=== PATIENT | female | born 1950 | race Caucasian/White ===

== ENCOUNTER → 2016-12-11 | Outpatient (CLI) | payer MEDICARE, BC ==
--- NOTE | 2016-12-12 08:28 | US ---
EXAMINATION TYPE: US venous doppler duplex LE DATE OF EXAM: 12/11/2016 2:46 PM COMPARISON: NONE CLINICAL HISTORY: M79.605 pain and swelling left leg. SIDE PERFORMED: Bilateral TECHNIQUE: The lower extremity deep venous system is examined utilizing real time linear array sonog mekhi with graded compression, doppler sonography and color-flow sonography. VESSELS IMAGED: External Iliac Vein (EIV) Common Femoral Vein Deep Femoral Vein Greater Saphenous Vein * Femoral Vein Popliteal Vein Small Saphenous Vein * Proximal Calf Veins (* superficial vessels) Right Leg: Reflux at Popliteal Vein Left Leg: Reflux at Popliteal Vein IMPRESSION: Venous reflux bilateral lower extremities at the popliteal vein level. No ultrasound evid ence for acute DVT in either lower extremity.
--- NOTE | 2016-12-19 10:15 | P.ARTDOP ---
Arterial Doppler LOWER EXTREMITY ARTERIAL DOPPLER: DATE OF SERVICE: 12/11/2016 Reason for study: Left leg pain and ulcer Doppler waveforms: Multiphasic but blunted bilaterally throughout. Pulse volume recording: Normal configuration. Pressure gradients: None. Ankle-brachial indices: Greater than 1 bilaterally. Toe pressures: 116 on the right, 110 on the left Impression: Normal study.
== END | disposition home or self-care (01) ==
LOC: RADUSWWP 13:37
PROVIDERS: ATTEND Surgery
DX: I73.9 Peripheral vascular disease, unspecified (principal); M79.605 Pain in left leg
CPT/HCPCS: 93923; 93970

== ENCOUNTER → 2017-08-07 | Outpatient (CLI) | payer MEDICARE, BC | END | disposition home or self-care (01) | LOC: CANPRECLI → LABWHC1 16:47 | PROVIDERS: ATTEND Thoracic Surgery (Cardiothoracic Vascular Surgery) | DX: Z53.9 Procedure and treatment not carried out, unspecified reason (principal) ==

== ENCOUNTER 2021-11-22 10:42 | Emergency (ER) | payer MEDICARE, BC ==
[2021-11-22] MEDS ORDERED: SODIUM CHLORIDE 0.9% 500 ML 500 ML IV STA (11:45)
--- NOTE | 2021-11-22 13:35 | XR ---
EXAMINATION TYPE: XR chest 2V DATE OF EXAM: 11/22/2021 COMPARISON: NONE TECHNIQUE: PA and lateral views submitted. HISTORY: Neuro deficits FINDINGS: Limited inspiration. Heart size normal. Prominent interstitial centrally. No pleural effusion or pneu mothorax. Surgical clips overlying the right soft tissue neck. IMPRESSION: 1. Limited inspiration may account for the prominent central interstitial markings. Correlate clinica lly to exclude an interstitial pneumonitis.
--- NOTE | 2021-11-22 13:39 | CT ---
EXAMINATION TYPE: CT brain ray rodriguez con DATE OF EXAM: 11/22/2021 COMPARISON: None HISTORY: Increased fatigue, AMS and not eating CT DLP: 1475.[address] of the brain was performed. The ventricles, basal cisterns and sulci overlying the cerebral convexities demonstrate mild enlargem ent. There is no evidence for intracranial hemorrhage or sulcal effacement. There is decreased attenuatio n about the periventricular white matter and deep white matter of both cerebral hemispheres, compatib le with chronic small vessel ischemia. No mass effects are seen. If symptoms persist consider MRI. Osseous calvarium is intact. IMPRESSION: 1. Age related atrophic and chronic small vessel ischemic change without acute intracranial process seen at this time. CT Cervical Spine: Unenhanced CT of the cervical spine was performed with bone and soft tissue window settings submitted . Coronal and sagittal reconstruction is obtained. There is normal alignment and prevertebral soft tissues. No evidence for acute cervical fracture . Scattered degenerative disc disease and spondylosis. Biapical scarring. IMPRESSION: 1. No evidence for acute fracture or subluxation of the cervical spine.
[2021-11-22 13:57] LABS: Anisocytosis Slight; Hypochromasia Marked; MCH 26.5 pg (25.0-35.0); MCHC 26.7 g/dL (31.0-37.0); MCV 99.2 fL (80.0-100.0); Macrocytosis Slight; Mean Platelet Volume 7.3; Platelet Count 633 k/uL (150-450); Poikilocytosis Moderate; RBC 1.14 m/uL (3.80-5.40); RDW 17.6 % (11.5-15.5); WBC 25.9 k/uL (3.8-10.6)
[2021-11-22 14:05] LABS: HCT 11.3 % (34.0-46.0)
[2021-11-22 14:09] LABS: Albumin 2.9 g/dL (3.5-5.0); Calcium 9.5 mg/dL (8.4-10.2); Magnesium 2.3 mg/dL (1.6-2.3); Phosphorus 4.6 mg/dL (2.5-4.5); Potassium 3.8 mmol/L (3.5-5.1); Total Bilirubin 0.3 mg/dL (0.2-1.3)
[2021-11-22] MEDS ORDERED: SODIUM CHLORIDE 0.9% 1,000 ML IV ONE (14:22)
[2021-11-22 14:33] LABS: Partial Thromboplastin Time 23.5 sec (22.0-30.0); Prothrombin Time 10.7 sec (9.0-12.0)
[2021-11-22] MEDS ORDERED: SODIUM CHLORIDE 0.9% 1,000 ML IV SCH (14:45)
[2021-11-22 14:46] LABS: Appearance,Urine Turbid (Clear); Bacteria,Urine Moderate /hpf; Bilirubin,Urine Negative (Negative); Blood,Urine Trace (Negative); Color,Urine Yellow; Glucose,Urine (UA) Negative (Negative); Ketones,Urine Negative (Negative); Leukocyte Esterase,Urine Large (Negative); Mucus,Urine Many /hpf; Nitrite,Urine Negative (Negative); Protein,Urine Trace (Negative); RBC,Urine 15 /hpf (0-5); Specific Gravity,Urine 1.013 (1.001-1.035); Urobilinogen,Urine <2.0 mg/dL (<2.0); WBC,Urine >182 /hpf (0-5)
[2021-11-22 14:52] LABS: Basophils # (M) 0.26 k/uL (0-0.2); Nucleated Red Blood Cells 0 /100 WBC (0-0)
[2021-11-22 14:54] LABS: Lymphocytes # (M) 3.11 k/uL (1.0-4.8); Monocytes # (M) 0.52 k/uL (0-1.0); Neutrophils # (M) 22.27 k/uL (1.3-7.7); Neutrophils % (M) 86 %; Total Cells Counted 200
[2021-11-22 14:56] LABS: Polychromasia Present
--- NOTE | 2021-11-22 15:18 | CT ---
EXAMINATION TYPE: CT angio abdomen pelvis DATE OF EXAM: 11/22/2021 INDICATION: GI bleed CT DLP: 3709.9 mGy.cm Automated Exposure Control for Dose Reduction was Utilized. TECHNIQUE AND CONTRAST: CT scan of the abdomen and pelvis is performed without and with IV Contrast, as per GI bleeding lisa col with CTA. The patient injected with 80 mL of Isovue 370. MIP images were generated on an [employer] workstation and reviewed. COMPARISON: None available FINDINGS: Suboptimal CT scan with artifactual images. Large fecaloma is seen within the rectum measuring up to 15 cm. Associated rectal wall thickening, associated stercoral proctitis cannot be excluded. The andry hood of the colon is loaded with hyperdense material likely representing hyperdense fecal material. It is not possible to exclude blood or active bleeding within the colon in the background of hyperden se fecal material. No evidence of colonic obstruction. Gastrostomy tube in place. No definite active bleeding seen in the stomach, duodenum or small bowel. No evidence of bowel obstruction. Normal appen chely. Scattered arterial atherosclerotic calcification. Patent major abdominal and pelvic arteries. Bulky l iver with no definite hepatic focal lesion. Unremarkable gallbladder, spleen, pancreas, adrenals and kidneys. The urinary bladder is collapsed over a Ford catheter. No gross uterine or adnexal mass. No suspicious lymphadenopathy or sizable ascites. Anterior abdominal wall subcutaneous densities, nonspecific. Please correlate clinically to rule out infection. Cardiomegaly. Bilateral basal subsegmental pulmonary atelectasis. Previous lumbosacral fix ation. Osteopenia. Degenerative changes of the lower thoracic and lumbar spine. IMPRESSION: Large fecal material is seen within the rectum which demonstrates wall thickening, stercoral proctiti s can't be excluded, please correlate clinically. Extensive hyperdense material seen within the colon which could be related to hyperdense fecal materi al. It is not possible to exclude blood or active bleeding within the colon in the background of the hyperdense material. No definite active bleeding seen in the abdomen or the pelvis otherwise. Further technetium labeled RBC scintigraphy can be considered. Other findings as described above.
[2021-11-22] MEDS ORDERED: cefTRIAXone IN SWFI 1,000 MG/10 ML SYRINGE IVP STA (15:24)
[2021-11-22 16:01] VITALS: PULSE 88; TEMP 98
--- NOTE | 2021-11-22 16:16 | ED ---
General Adult HPI - General Chief complaint: Neuro Symptoms/Deficit Stated complaint: AMS Time Seen by Provider: 11/22/21 11:28 Source: patient, EMS Mode of arrival: EMS Limitations: altered mental status - History of Present Illness Initial comments: Patient is a 71-year-old female presenting for altered mental status. [place] she was staying at states that she has been increasingly confused, fatigue, and is not eating. Patient currently has a PEG tube that she has had for about 3 weeks. Patient is somewhat confused during my exam, she has difficulty answering my questions clearly. Patient states she has no complaints at this time. At this time she denies any chest pain, shortness of breath, abdominal pain, nausea, vomiting, vision or hearing changes, difficulty speaking, weakness on one side of the body, diarrhea, hematochezia, hematemesis, melena, dysuria, hematuria. - Related Data Home Medications Medication Instructions Recorded Confirmed Aspirin 81 mg PO DAILY@1700 11/20/16 11/22/21 Atorvastatin [Lipitor] 10 mg PO HS 11/20/16 11/22/21 atenoloL [Tenormin] 25 mg PO DAILY@0800 11/20/16 11/22/21 Acetaminophen [Tylenol 8 Hour] 650 mg PO Q4H PRN 11/22/21 11/22/21 Apixaban [Eliquis] 5 mg PO BID@0800,169911/22/21 11/22/21 Cinacalcet HCl [Sensipar] 30 mg PO BID@0800,1700 11/22/21 11/22/21 DULoxetine HCL [Cymbalta] 60 mg PO DAILY@0800 11/22/21 11/22/21 Docusate [Colace] 100 mg PO BID@0800,1700 11/22/21 11/22/21 Furosemide [Lasix] 20 mg PO DAILY@0800 11/22/21 11/22/21 HYDROcodone/APAP 7.5-325MG [Schuyler 1 tab PO Q4H PRN 11/22/21 11/22/21 7.5-325] Lefty Packet 1 packet PO DAILY@1200 11/22/21 11/22/21 Magnesium Hydroxide [Milk of 7,200 mg PO DAILY PRN 11/22/21 11/22/21 Magnesia Concentrate] Methocarbamol [Robaxin-750] 750 mg PO Q6H PRN 11/22/21 11/22/21 Mirabegron [Myrbetriq] 25 mg PO HS 11/22/21 11/22/21 Na Phos,M-B/Na Phos,Di-Ba [Fleet 133 ml RECTAL DAILY PRN 11/22/21 11/22/21 Adult] Omeprazole [PriLOSEC] 20 mg PO DAILY@0800 11/22/21 11/22/21 Ondansetron Odt [Zofran Odt] 4 mg PO Q8H PRN 11/22/21 11/22/21 Oxybutynin ER [Ditropan Xl] 10 mg PO DAILY@0800 11/22/21 11/22/21 Polyethylene Glycol 3350 [Miralax] 17 gm PO DAILY@0800 11/22/21 11/22/21 Potassium Chloride [Klor-Con 20] 20 meq PO DAILY@0800 11/22/21 11/22/21 Sod Phos Di, [place]/K Phos [place] 250 mg PO DAILY@0800 11/22/21 11/22/21 [K-Phos Neutral Tablet] bisacodyL [Dulcolax] 10 mg RECTAL DAILY PRN 11/22/21 11/22/21 dronabinoL [Marinol] 5 mg PO TID@0800,1200,1700 11/22/21 11/22/21 Allergies Allergy/AdvReac Type Severity Reaction Status Date / Time No Known Allergies Allergy Verified 11/22/21 13:55 Review of Systems ROS Statement: Those systems with pertinent positive or pertinent negative responses have been documented in the HPI. ROS Other: All systems not noted in ROS Statement are negative. Past Medical History Past Medical History: Hyperlipidemia, Hypertension, Osteoarthritis (OA) Additional Past Medical History / Comment(s): lt. leg wound,bulging disc History of Any Multi-Drug Resistant Organisms: None Reported Past Surgical History: Tubal Ligation Additional Past Surgical History / Comment(s): PARATHYROIDECTOMY 1985,2009 PARTIAL THYROIDECTOMY Past Anesthesia/Blood Transfusion Reactions: No Reported Reaction Past Psychological History: No Psychological Hx Reported Smoking Status: Never smoker Past Alcohol Use History: None Reported Past Drug Use History: None Reported - Past Family History Mother Additional Family Medical History / Comment(s): OSTEOPOROSIS Father Additional Family Medical History / Comment(s): AORTIC ABD. ANEURSYN General Exam Limitations: altered mental status General appearance: alert, in no apparent distress Head exam: Present: atraumatic, normocephalic, normal inspection Eye exam: Present: normal appearance, EOMI. Absent: scleral icterus Neck exam: Present: normal inspection Respiratory exam: Present: normal lung sounds bilaterally. Absent: respiratory distress, wheezes, rales, rhonchi, stridor Cardiovascular Exam: Present: regular rate, normal rhythm, normal heart sounds. Absent: systolic murmur, diastolic murmur, rubs, gallop, clicks GI/Abdominal exam: Present: soft, normal bowel sounds. Absent: distended, tenderness, guarding, rebound, rigid Rectal exam: Present: normal inspection, normal rectal tone, heme (+) stool, fecal impaction. Absent: black stool, bloody stool Neurological exam: Present: alert, altered, CN II-XII intact Psychiatric exam: Present: normal mood, flat affect Skin exam: Present: warm, dry, intact, normal color. Absent: rash Course Vital Signs 11/22/21 11/22/21 11/22/21 10:49 13:46 15:18 Temperature 97.6 F 98.1 F Pulse Rate 80 90 91 Respiratory 20 14 18 Rate Blood Pressure 120/61 99/49 106/84 O2 Sat by Pulse 93 L Oximetry 11/22/21 11/22/21 11/22/21 15:28 15:58 17:13 Temperature 97.8 F 98.0 F 98.0 F Pulse Rate 92 88 88 Respiratory 16 17 16 Rate Blood Pressure 107/70 103/60 97/61 O2 Sat by Pulse 96 Oximetry EKG Findings - EKG Comments: EKG Findings:: Sinus rhythm. Rate of 88. SD interval 157. QRS duration 106. There is a nonspecific T-wave abnormality. There is no previous study to compare this EKG to. This EKG was also shown to and interpreted by myself pending Dr. Degroot. Medical Decision Making - Medical Decision Making Patient is a 71-year-old female presenting with chief complaint of AMS. She is currently staying at the [facility], they state she has been increasingly weak and confused, as well as refusing to eat. On examination there are no focal neurological deficits. Lungs and heart are clear to auscultation. Her hemoglobin is 3.0. Upon receiving this lab value rectal exam was performed, impaction was noted and stool was not grossly bloody, occult blood was positive. Her creatinine and BUN are elevated at 1.07 and 65 respectively, likely amor cating dehydration. UA is suspicious for UTI. Type and screen were ordered and 2 units of red blood cells were ordered. Chest x-ray is negative. CT of the brain and cervical spine without contrast shows no acute intracranial process or cervical fracture. CT angiogram of the abdomen and pelvis shows large fecal matter within the rectal, which demonstrates wall thickening and may indicate stercoral proctitis. No signs of active bleeding, however due to the extensive amount of hyperdense material in the colon which likely represents fecal matter is not possible to exclude blood or active bleeding in the background of this hyperdense material. Due to her current lack of GI coverage, this patient requires transfer. Her transfer was accepted at [facility]. I informed the patient of this plan, she was agreeable. I discussed this case with my attending Dr. Degroot. - Lab Data Result diagrams: 11/22/21 13:45 11/22/21 13:45 Lab Results 11/22/21 11/22/21 11/22/21 Range/Units 12:30 13:45 13:45 WBC 25.9 H (3.8-10.6) k/uL RBC 1.14 L (3.80-5.40) m/uL Hgb 3.0 L* (11.4-16.0) gm/dL Hct 11.3 L* (34.0-46.0) % MCV 99.2 (80.0-100.0) fL MCH 26.5 (25.0-35.0) pg MCHC 26.7 L (31.0-37.0) g/dL RDW 17.6 H (11.5-15.5) % Plt Count 633 H (150-450) k/uL MPV 7.3 Neutrophils % (Manual) 86 % Lymphocytes % (Manual) 12 % Monocytes % (Manual) 2 % Basophils % (Manual) 1 % Neutrophils # (Manual) 22.27 H (1.3-7.7) k/uL Lymphocytes # (Manual) 3.11 (1.0-4.8) k/uL Monocytes # (Manual) 0.52 (0-1.0) k/uL Basophils # (Manual) 0.26 H (0-0.2) k/uL Nucleated RBCs 0 (0-0) /100 WBC Manual Slide Review Performed Polychromasia Present Hypochromasia Marked Poikilocytosis Moderate Anisocytosis Slight Macrocytosis Slight PT (9.0-12.0) sec INR (<1.2) APTT (22.0-30.0) sec Sodium 136 L (137-145) mmol/L Potassium 3.8 (3.5-5.1) mmol/L Chloride 99 (98-107) mmol/L Carbon Dioxide 28 (22-30) mmol/L Anion Gap 9 mmol/L BUN 65 H (7-17) mg/dL Creatinine 1.07 H (0.52-1.04) mg/dL Est GFR (CKD-EPI)AfAm 61 (>60 ml/min/1.73 sqM) Est GFR (CKD-EPI)NonAf 53 (>60 ml/min/1.73 sqM) Glucose 125 H (74-99) mg/dL Calcium 9.5 (8.4-10.2) mg/dL Phosphorus 4.6 H (2.5-4.5) mg/dL Magnesium 2.3 (1.6-2.3) mg/dL Total Bilirubin 0.3 (0.2-1.3) mg/dL AST 16 (14-36) U/L ALT 11 (4-34) U/L Alkaline Phosphatase 78 (38-126) U/L Troponin I (0.000-0.034) ng/mL NT-Pro-B Natriuret Pep pg/mL Total Protein 6.0 L (6.3-8.2) g/dL Albumin 2.9 L (3.5-5.0) g/dL Urine Color Urine Appearance (Clear) Urine pH (5.0-8.0) Ur Specific [place] (1.001-1.035) Urine Protein (Negative) Urine Glucose (UA) (Negative) Urine Ketones (Negative) Urine Blood (Negative) Urine Nitrite (Negative) Urine Bilirubin (Negative) Urine Urobilinogen (<2.0) mg/dL Ur Leukocyte Esterase (Negative) Urine RBC (0-5) /hpf Urine WBC (0-5) /hpf Urine WBC Clumps (None) /hpf Urine Bacteria (None) /hpf Urine Mucus (None) /hpf Stool Occult Blood (Negative) Blood Type Blood Type Confirm O Positive Blood Type Recheck Bld Type Recheck Status Antibody Screen Crossmatch Spec Expiration Date 11/22/21 11/22/21 11/22/21 Range/Units 13:45 13:45 13:45 WBC (3.8-10.6) k/uL RBC (3.80-5.40) m/uL Hgb (11.4-16.0) gm/dL Hct (34.0-46.0) % MCV (80.0-100.0) fL MCH (25.0-35.0) pg MCHC (31.0-37.0) g/dL RDW (11.5-15.5) % Plt Count (150-450) k/uL MPV Neutrophils % (Manual) % Lymphocytes % (Manual) % Monocytes % (Manual) % Basophils % (Manual) % Neutrophils # (Manual) (1.3-7.7) k/uL Lymphocytes # (Manual) (1.0-4.8) k/uL Monocytes # (Manual) (0-1.0) k/uL Basophils # (Manual) (0-0.2) k/uL Nucleated RBCs (0-0) /100 WBC Manual Slide Review Polychromasia Hypochromasia Poikilocytosis Anisocytosis Macrocytosis PT 10.7 (9.0-12.0) sec INR 1.0 (<1.2) APTT 23.5 (22.0-30.0) sec Sodium (137-145) mmol/L Potassium (3.5-5.1) mmol/L Chloride (98-107) mmol/L Carbon Dioxide (22-30) mmol/L Anion Gap mmol/L BUN (7-17) mg/dL Creatinine (0.52-1.04) mg/dL Est GFR (CKD-EPI)AfAm (>60 ml/min/1.73 sqM) Est GFR (CKD-EPI)NonAf (>60 ml/min/1.73 sqM) Glucose (74-99) mg/dL Calcium (8.4-10.2) mg/dL Phosphorus (2.5-4.5) mg/dL Magnesium (1.6-2.3) mg/dL Total Bilirubin (0.2-1.3) mg/dL AST (14-36) U/L ALT (4-34) U/L Alkaline Phosphatase (38-126) U/L Troponin I <0.012 (0.000-0.034) ng/mL NT-Pro-B Natriuret Pep 4340 pg/mL Total Protein (6.3-8.2) g/dL Albumin (3.5-5.0) g/dL Urine Color Urine Appearance (Clear) Urine pH (5.0-8.0) Ur Specific [place] (1.001-1.035) Urine Protein (Negative) Urine Glucose (UA) (Negative) Urine Ketones (Negative) Urine Blood (Negative) Urine Nitrite (Negative) Urine Bilirubin (Negative) Urine Urobilinogen (<2.0) mg/dL Ur Leukocyte Esterase (Negative) Urine RBC (0-5) /hpf Urine WBC (0-5) /hpf Urine WBC Clumps (None) /hpf Urine Bacteria (None) /hpf Urine Mucus (None) /hpf Stool Occult Blood (Negative) Blood Type Blood Type Confirm Blood Type Recheck Bld Type Recheck Status Antibody Screen Crossmatch Spec Expiration Date 11/22/21 11/22/21 11/22/21 Range/Units 13:45 13:57 14:06 WBC (3.8-10.6) k/uL RBC (3.80-5.40) m/uL Hgb (11.4-16.0) gm/dL Hct (34.0-46.0) % MCV (80.0-100.0) fL MCH (25.0-35.0) pg MCHC (31.0-37.0) g/dL RDW (11.5-15.5) % Plt Count (150-450) k/uL MPV Neutrophils % (Manual) % Lymphocytes % (Manual) % Monocytes % (Manual) % Basophils % (Manual) % Neutrophils # (Manual) (1.3-7.7) k/uL Lymphocytes # (Manual) (1.0-4.8) k/uL Monocytes # (Manual) (0-1.0) k/uL Basophils # (Manual) (0-0.2) k/uL Nucleated RBCs (0-0) /100 WBC Manual Slide Review Polychromasia Hypochromasia Poikilocytosis Anisocytosis Macrocytosis PT (9.0-12.0) sec INR (<1.2) APTT (22.0-30.0) sec Sodium (137-145) mmol/L Potassium (3.5-5.1) mmol/L Chloride (98-107) mmol/L Carbon Dioxide (22-30) mmol/L Anion Gap mmol/L BUN (7-17) mg/dL Creatinine (0.52-1.04) mg/dL Est GFR (CKD-EPI)AfAm (>60 ml/min/1.73 sqM) Est GFR (CKD-EPI)NonAf (>60 ml/min/1.73 sqM) Glucose (74-99) mg/dL Calcium (8.4-10.2) mg/dL Phosphorus (2.5-4.5) mg/dL Magnesium (1.6-2.3) mg/dL Total Bilirubin (0.2-1.3) mg/dL AST (14-36) U/L ALT (4-34) U/L Alkaline Phosphatase (38-126) U/L Troponin I (0.000-0.034) ng/mL NT-Pro-B Natriuret Pep pg/mL Total Protein (6.3-8.2) g/dL Albumin (3.5-5.0) g/dL Urine Color Yellow Urine Appearance Turbid H (Clear) Urine pH 6.0 (5.0-8.0) Ur Specific [place] 1.013 (1.001-1.035) Urine Protein Trace H (Negative) Urine Glucose (UA) Negative (Negative) Urine Ketones Negative (Negative) Urine Blood Trace H (Negative) Urine Nitrite Negative (Negative) Urine Bilirubin Negative (Negative) Urine Urobilinogen <2.0 (<2.0) mg/dL Ur Leukocyte Esterase Large H (Negative) Urine RBC 15 H (0-5) /hpf Urine WBC >182 H (0-5) /hpf Urine WBC Clumps Many H (None) /hpf Urine Bacteria Moderate H (None) /hpf Urine Mucus Many H (None) /hpf Stool Occult Blood Positive H (Negative) Blood Type O Positive Blood Type Confirm Blood Type Recheck No Previous Record Bld Type Recheck Status CABO Indicated Antibody Screen NEGATIVE Crossmatch See Detail Spec Expiration Date 11/25/20217 Disposition Clinical Impression: GI bleed, Anemia Disposition: OTHER INSTITUTION NOT DEFINED Condition: Serious Referrals: Sunday Davis MD [Primary Care Provider] - 1-2 days Time of Disposition: 16:15 - Out of Hospital Transfer - Req. Specs Out of Hospital Transfer - Requested Specifics: Other Emergency Center
[2021-11-22 17:17] VITALS: BP 97/61; RESP 16
== END 2021-11-22 17:24 | disposition other institution (70) ==
LOC: EC 10:42
DX: K92.2 Gastrointestinal hemorrhage, unspecified (principal); D64.9 Anemia, unspecified; E78.5 Hyperlipidemia, unspecified; I10 Essential (primary) hypertension; Z79.01 Long term (current) use of anticoagulants; Z79.82 Long term (current) use of aspirin; Z79.899 Other long term (current) drug therapy; Z93.1 Gastrostomy status
CPT/HCPCS: 99285; 96360; 36415; 93005; 86900; 86901; 83880; 80053; 83735; 84100; 84484; 85025; 85610; 85730; 86850; 86920; 82272; 81001; 87086; 87077; 87186; 71046; 72125; 70450; 74174; P9016; Q9967

== ENCOUNTER 2021-12-16 14:32 | Inpatient (IN) | payer BC, MEDICARE ==
--- NOTE | 2021-12-16 15:21 | ED ---
GI Bleed HPI - General Chief complaint: GI Bleed Stated complaint: GI Bleed Time Seen by Provider: 12/16/21 15:04 Source: EMS Mode of arrival: EMS Limitations: no limitations - History of Present Illness Initial comments: 71-year-old female with past medical history of hypertension, hyperlipidemia, failure to thrive with PEG tube placement presents the emergency department with nausea and vomiting. Patient had several episodes of nausea, vomiting and diarrhea yesterday. Patient denies black or bloody stools. She normally does not take much by mouth however today has been unable to eat or drink anything. She does have a previous history of GI bleeding. Due to the patient's fatigue she was transferred to the hospital. She has had sick contacts. Many patients at the nursing facility and tested positive for Covid and this is her main concern. She has mild abdominal discomfort. No recent antibiotic use. No history of C. diff. No other alleviating, precipitating or modifying factors - Related Data Home Medications Medication Instructions Recorded Confirmed Atorvastatin [Lipitor] 10 mg PO HS@209911/20/16 12/16/21 Cinacalcet HCl [Sensipar] 30 mg PO BID@0800,1700 11/22/21 12/16/21 Furosemide [Lasix] 20 mg PO DAILY@0811/22/21 12/16/21 Magnesium Hydroxide [Milk of 7,200 mg PO DAILY PRN 11/22/21 12/16/21 Magnesia Concentrate] Mirabegron [Myrbetriq] 25 mg PO HS@209911/22/21 12/16/21 Na Phos,M-B/Na Phos,Di-Ba [Fleet 133 ml RECTAL DAILY PRN 11/22/21 12/16/21 Adult] Omeprazole [PriLOSEC] 20 mg PO DAILY@0800 11/22/21 12/16/21 Polyethylene Glycol 3350 [Miralax] 17 gm PO DAILY@00 11/22/21 12/16/21 bisacodyL [Dulcolax] 10 mg RECTAL DAILY PRN 11/22/21 12/16/21 Enoxaparin [Lovenox] 40 mg SQ DAILY@0800 12/16/21 12/16/21 HYDROcodone/APAP 5-325MG [Dinosaur 1 tab PO Q6H PRN 12/16/21 12/16/21 5-325] INSULIN ASPART (NovoLOG) [NovoLOG See Protocol SQ ACHS 12/16/21 12/16/21 (formulary)] Liquacel 30 ml PO BID@0600,2200 12/16/21 12/16/21 Metoclopramide [Reglan] 5 mg PO TID@0800,1200,1700 12/16/21 12/16/21 Metoprolol Tartrate [Lopressor] 12.5 mg PO BID@0800,1700 12/16/21 12/16/21 Nystatin 100,000 Unit/ml Susp 5 ml PO Q4H 12/16/21 12/16/21 [Mycostatin Oral Susp] Sennosides/Docusate Sodium [Senna 1 cap PO BID@0800,1700 12/16/21 12/16/21 Plus 8.6-50 mg Softgel] Triamcinolone 0.5% Cream [Kenalog 1 applic TOPICAL BID 12/16/21 12/16/21 0.5% Cream] Venlafaxine HCl [Effexor XR] 75 mg PO DAILY@0800 12/16/21 12/16/21 amLODIPine [Norvasc] 10 mg PO DAILY@0800 12/16/21 12/16/21 diphenhydrAMINE [Benadryl] 25 mg PO Q6H PRN 12/16/21 12/16/21 lisinopriL [Zestril] 20 mg PO DAILY@0800 12/16/21 12/16/21 metFORMIN HCL 500 mg PO BID@0800,1700 12/16/21 12/16/21 Allergies Allergy/AdvReac Type Severity Reaction Status Date / Time No Known Allergies Allergy Verified 12/16/21 19:06 Review of Systems ROS Statement: Those systems with pertinent positive or pertinent negative responses have been documented in the HPI. ROS Other: All systems not noted in ROS Statement are negative. Past Medical History Past Medical History: Hyperlipidemia, Hypertension, Osteoarthritis (OA) Additional Past Medical History / Comment(s): lt. leg wound,bulging disc History of Any Multi-Drug Resistant Organisms: None Reported Past Surgical History: Tubal Ligation Additional Past Surgical History / Comment(s): PARATHYROIDECTOMY 1985,2010 PARTIAL THYROIDECTOMY Past Anesthesia/Blood Transfusion Reactions: No Reported Reaction Past Psychological History: No Psychological Hx Reported Smoking Status: Never smoker Past Alcohol Use History: None Reported Past Drug Use History: None Reported - Past Family History Mother Additional Family Medical History / Comment(s): OSTEOPOROSIS Father Additional Family Medical History / Comment(s): AORTIC ABD. ANEURSYN General Exam Limitations: no limitations General appearance: alert, in no apparent distress Head exam: Present: atraumatic, normocephalic, normal inspection Eye exam: Present: normal appearance, PERRL, EOMI. Absent: scleral icterus, conjunctival injection, periorbital swelling ENT exam: Present: normal exam, mucous membranes moist Neck exam: Present: normal inspection. Absent: tenderness, meningismus, lymphadenopathy Respiratory exam: Present: normal lung sounds bilaterally. Absent: respiratory distress, wheezes, rales, rhonchi, stridor Cardiovascular Exam: Present: regular rate, normal rhythm, normal heart sounds. Absent: systolic murmur, diastolic murmur, rubs, gallop, clicks GI/Abdominal exam: Present: normal bowel sounds, other (peg tube - left abdomen). Absent: distended, tenderness, guarding, rebound, rigid Extremities exam: Present: normal inspection, full ROM, normal capillary refill. Absent: tenderness, pedal edema, joint swelling, calf tenderness Back exam: Present: normal inspection Neurological exam: Present: alert, oriented X3, CN II-XII intact Psychiatric exam: Present: normal affect, normal mood Skin exam: Present: warm, dry, intact, normal color. Absent: rash Course Vital Signs 12/16/21 12/16/21 12/16/21 14:41 15:41 16:00 Temperature 98.0 F 97.9 F 97.9 F Pulse Rate 90 93 89 Respiratory 20 22 18 Rate Blood Pressure 125/60 116/67 122/62 O2 Sat by Pulse 98 99 99 Oximetry Medical Decision Making - Medical Decision Making The patient was placed into room 9. A thorough history and physical exam is performed. IV access is established and laboratory studies were conducted. Patient does not have any episodes of emesis in the emergency department. Laboratory studies were conducted which demonstrate a white blood cell count of 25. Hemoglobin is 10.6. Potassium 3.0. BUN 31, Cr 0.9. Covid not detected. Because of the elevated white blood cell count patient is sent for chest x-ray and a CT of her belly. Chest x-ray demonstrates no active cardiopulmonary disease. CT of abdomen and pelvis demonstrates mild subsegmental atelectasis no acute abnormalities abdomen and pelvis. Clearing of the fecal impaction. Called and spoke with Dr. nogueira. He will admit the patient. Blood cultures obtained and the patient is started on Zosyn. Patient continues to have no episodes of vomiting or diarrhea in the emergency department. I will consult surgery. Patient remained in stable condition and was taken to the floor - Lab Data Result diagrams: 12/18/21 05:06 12/18/21 05:06 Lab Results 12/16/21 12/16/21 12/16/21 Range/Units 15:19 15:19 15:19 WBC 25.0 H (3.8-10.6) k/uL RBC 3.76 L (3.80-5.40) m/uL Hgb 10.6 L D (11.4-16.0) gm/dL Hct 34.6 (34.0-46.0) % MCV 92.2 D (80.0-100.0) fL MCH 28.3 (25.0-35.0) pg MCHC 30.7 L (31.0-37.0) g/dL RDW 15.4 (11.5-15.5) % Plt Count 297 (150-450) k/uL MPV 7.3 Neutrophils % 90 % Lymphocytes % 6 % Monocytes % 3 % Eosinophils % 0 % Basophils % 0 % Neutrophils # 22.6 H (1.3-7.7) k/uL Lymphocytes # 1.6 (1.0-4.8) k/uL Monocytes # 0.6 (0-1.0) k/uL Eosinophils # 0.1 (0-0.7) k/uL Basophils # 0.1 (0-0.2) k/uL Hypochromasia Slight Poikilocytosis Slight PT 10.8 (9.0-12.0) sec INR 1.0 (<1.2) APTT 26.2 (22.0-30.0) sec Sodium 136 L (137-145) mmol/L Potassium 3.0 L (3.5-5.1) mmol/L Chloride 100 (98-107) mmol/L Carbon Dioxide 29 (22-30) mmol/L Anion Gap 7 mmol/L BUN 31 H (7-17) mg/dL Creatinine 0.98 (0.52-1.04) mg/dL Est GFR (CKD-EPI)AfAm 67 (>60 ml/min/1.73 sqM) Est GFR (CKD-EPI)NonAf 58 (>60 ml/min/1.73 sqM) Glucose 118 H (74-99) mg/dL Plasma Lactic Acid Linden (0.7-2.0) mmol/L Calcium 9.1 (8.4-10.2) mg/dL Magnesium 1.7 (1.6-2.3) mg/dL Total Bilirubin 0.4 (0.2-1.3) mg/dL AST 24 (14-36) U/L ALT 23 (4-34) U/L Alkaline Phosphatase 85 (38-126) U/L Troponin I (0.000-0.034) ng/mL Total Protein 6.2 L (6.3-8.2) g/dL Albumin 3.1 L (3.5-5.0) g/dL Lipase 79 (23-300) U/L Coronavirus (PCR) (Not Detectd) 12/16/21 12/16/21 12/16/21 Range/Units 15:19 15:20 16:27 WBC (3.8-10.6) k/uL RBC (3.80-5.40) m/uL Hgb (11.4-16.0) gm/dL Hct (34.0-46.0) % MCV (80.0-100.0) fL MCH (25.0-35.0) pg MCHC (31.0-37.0) g/dL RDW (11.5-15.5) % Plt Count (150-450) k/uL MPV Neutrophils % % Lymphocytes % % Monocytes % % Eosinophils % % Basophils % % Neutrophils # (1.3-7.7) k/uL Lymphocytes # (1.0-4.8) k/uL Monocytes # (0-1.0) k/uL Eosinophils # (0-0.7) k/uL Basophils # (0-0.2) k/uL Hypochromasia Poikilocytosis PT (9.0-12.0) sec INR (<1.2) APTT (22.0-30.0) sec Sodium (137-145) mmol/L Potassium (3.5-5.1) mmol/L Chloride (98-107) mmol/L Carbon Dioxide (22-30) mmol/L Anion Gap mmol/L BUN (7-17) mg/dL Creatinine (0.52-1.04) mg/dL Est GFR (CKD-EPI)AfAm (>60 ml/min/1.73 sqM) Est GFR (CKD-EPI)NonAf (>60 ml/min/1.73 sqM) Glucose (74-99) mg/dL Plasma Lactic Acid Linden 1.5 (0.7-2.0) mmol/L Calcium (8.4-10.2) mg/dL Magnesium (1.6-2.3) mg/dL Total Bilirubin (0.2-1.3) mg/dL AST (14-36) U/L ALT (4-34) U/L Alkaline Phosphatase (38-126) U/L Troponin I <0.012 (0.000-0.034) ng/mL Total Protein (6.3-8.2) g/dL Albumin (3.5-5.0) g/dL Lipase (23-300) U/L Coronavirus (PCR) Not Detected (Not Detectd) - EKG Data EKG Comments: EKG demonstrates sinus rhythm with a rate of 88. IA interval 167. QRS 19. QTC of 435. No acute ST segment elevations or depressions Disposition Clinical Impression: Nausea & vomiting, Diarrhea, Leukocytosis, Hypokalemia Disposition: ADMITTED IP TO THIS HOSP Condition: Stable Is patient prescribed a controlled substance at d/c from ED?: No Time of Disposition: 18:20 Decision to Admit Reason: Admit from EC Decision Date: 12/16/21 Decision Time: 18:20
[2021-12-16 15:45] LABS: Basophils # (A) 0.1 k/uL (0-0.2); Basophils % (A) 0 %; Eosinophils # (A) 0.1 k/uL (0-0.7); Eosinophils % (A) 0 %; HCT 34.6 % (34.0-46.0); Hypochromasia Slight; Lymphocytes # (A) 1.6 k/uL (1.0-4.8); Lymphocytes % (A) 6 %; MCH 28.3 pg (25.0-35.0); MCHC 30.7 g/dL (31.0-37.0); Mean Platelet Volume 7.3; Monocytes # (A) 0.6 k/uL (0-1.0); Monocytes % (A) 3 %; Neutrophils # (A) 22.6 k/uL (1.3-7.7); Neutrophils % (A) 90 %; Platelet Count 297 k/uL (150-450); Poikilocytosis Slight; RBC 3.76 m/uL (3.80-5.40); RDW 15.4 % (11.5-15.5)
[2021-12-16 15:54] LABS: HGB 10.6 gm/dL (11.4-16.0); MCV 92.2 fL (80.0-100.0)
[2021-12-16 15:55] LABS: Partial Thromboplastin Time 26.2 sec (22.0-30.0); Prothrombin Time 10.8 sec (9.0-12.0)
[2021-12-16 15:58] LABS: Albumin 3.1 g/dL (3.5-5.0); Calcium 9.1 mg/dL (8.4-10.2); Magnesium 1.7 mg/dL (1.6-2.3); Total Bilirubin 0.4 mg/dL (0.2-1.3); Total Protein 6.2 g/dL (6.3-8.2)
--- NOTE | 2021-12-16 17:55 | XR ---
EXAMINATION TYPE: XR chest 2V DATE OF EXAM: 12/16/2021 COMPARISON: 11/22/2021 HISTORY: Neuro deficits TECHNIQUE: 2 views findings Heart is normal. Lungs are clear of infiltrate. No heart failure. There are chest leads. Bony thorax is intact. IMPRESSION: There is no active cardiopulmonary disease. There is improved inspiration and clearing of the atelect asis compared to old exam.
--- NOTE | 2021-12-16 18:03 | CT ---
EXAMINATION TYPE: CT abdomen pelvis w con DATE OF EXAM: 12/16/2021 COMPARISON: 11/22/2021 HISTORY: Abdomen pain, leukocytosis, N/V/D, failure to thrive CT DLP: 1283.9 mGycm Automated exposure control for dose reduction was used. CONTRAST: Performed with IV Contrast, patient injected with 80 mL of Isovue 300. Images obtained from the diaphragm to the floor the pelvis with IV contrast. There is some atelectasis at the lung base on the right side. No pleural effusion. Heart size is norm al. No pericardial effusion. Liver spleen and stomach pancreas and gallbladder appear normal. The angel e ducts are not dilated. The stomach is intact. There is gastrostomy tube noted in good position. No pancreatic mass. There is no adrenal mass. Kidneys show satisfactory contrast opacification. There is no hydronephrosi s. Ureters are not dilated. There is no retroperitoneal adenopathy. Bladder distends smoothly. There is no inguinal hernia. Uterus is intact. No evidence of a pelvic mass. No free fluid in the pelvis. There is no mesenteric edema. No ascites or free air. No bowel obstruction. Appendix is posterior and appears normal. There is multilevel posterior fusion surgery in the lumbar spine from L3 to S1. There is a first-degr ee L4-5 spondylolisthesis. No lumbar compression fracture. The bony pelvis is intact. The hip joints appear intact. Delayed images show normal renal excretion. IMPRESSION: There is mild subsegmental atelectasis right lung base. No acute abnormality of the abdomen pelvis. There is clearing of the rectal fecal impaction compared to the old exam.
[2021-12-16] MEDS ORDERED: POTASSIUM CHLORIDE ER 20 MEQ TAB.ER PO STA (18:09)
[2021-12-16] MEDS ORDERED: NALOXONE 0.4 MG/ML 1 ML VIAL IV PRN (18:47)
[2021-12-16] MEDS ORDERED: METOCLOPRAMIDE 5 MG/ML 2 ML VIAL IVP PRN (18:53)
[2021-12-16] MEDS ORDERED: PIPERACILLIN-TAZOBACTAM 3.375 GM in SODIUM CHLORIDE 0.9% 100 ML IVPB SCH (19:00)
[2021-12-16] MEDS ORDERED: HYDROcodone/APAP 5-325MG 1 EACH TAB PO PRN (20:26)
[2021-12-16] MEDS: SODIUM CHLORIDE 0.9% 1,000 ML IV SCH (21:33)
[2021-12-16] MEDS: POTASSIUM CHLORIDE 10 MEQ in WATER FOR INJECTION 1 100ML.BAG IVPB SCH ×2 (21:33→22:52)
[2021-12-16] MEDS: NON FORMULARY DRUG (Mirabegron [Myrbetriq] 25 MG Tab.Er.24h) PO SCH (22:49)
[2021-12-16] MEDS: SUCRALFATE 1 GM TAB PO SCH (22:53)
[2021-12-16] MEDS: ATORVASTATIN 10 MG TAB PO SCH (22:53)
[2021-12-17] MEDS: PIPERACILLIN-TAZOBACTAM 3.375 GM in SODIUM CHLORIDE 0.9% 100 ML IVPB SCH ×3 (05:27→21:03)
[2021-12-17] MEDS: SODIUM CHLORIDE 0.9% 1,000 ML IV SCH ×3 (05:28→17:21)
[2021-12-17 06:52] LABS: Glucose,Whole Blood 115 mg/dL (75-99)
[2021-12-17 09:28] LABS: Appearance,Urine Clear (Clear); Bacteria,Urine Rare /hpf; Bilirubin,Urine Negative (Negative); Blood,Urine Negative (Negative); Color,Urine Light Yellow; Glucose,Urine (UA) Negative (Negative); Ketones,Urine Negative (Negative); Leukocyte Esterase,Urine Small (Negative); Nitrite,Urine Negative (Negative); Protein,Urine Negative (Negative); RBC,Urine 1 /hpf (0-5); Specific Gravity,Urine 1.024 (1.001-1.035); Squamous Epithelial Cell,Urine 1 /hpf (0-4); Urobilinogen,Urine <2.0 mg/dL (<2.0); WBC,Urine 5 /hpf (0-5)
[2021-12-17] MEDS: METOCLOPRAMIDE 5 MG/ML 2 ML VIAL IVP PRN ×2 (09:58→17:20)
[2021-12-17] MEDS: ENOXAPARIN 40 MG/0.4 ML SYRINGE SQ SCH (10:01)
[2021-12-17] MEDS: SUCRALFATE 1 GM TAB PO SCH ×4 (10:11→21:02)
[2021-12-17 10:23] LABS: Basophils # (A) 0.02 X 10*3/uL (0.00-0.10); Basophils % (A) 0.1 %; Eosinophils # (A) 0.08 X 10*3/uL (0.04-0.35); Eosinophils % (A) 0.6 %; HCT 30.8 % (37.2-46.3); HGB 9.6 g/dL (12.0-15.0); Immature Grans, Automated 0.5 %; Lymphocytes # (A) 1.93 X 10*3/uL (0.90-5.00); Lymphocytes % (A) 13.5 %; MCH 28.3 pg (27.0-32.0); MCHC 31.2 g/dL (32.0-37.0); MCV 90.9 fL (80.0-97.0); Monocytes % (A) 2.8 %; NRBC Per 100 WBC 0 /100 WBCS (0.0-0.0); Neutrophils # (A) 11.81 X 10*3/uL (1.80-7.70); Neutrophils % (A) 82.5 %; Platelet Count 275 X 10*3/uL (140-440); RBC 3.39 X 10*6/uL (4.10-5.20); RDW 15.7 % (11.5-14.5); WBC 14.31 X 10*3/uL (4.50-10.00)
[2021-12-17 10:37] LABS: African American GFR (CKD) 106.8 (60.0-200.0); Anion Gap 9.8 mmol/L (10.00-18.00); BUN/Creat Ratio 32.49 Ratio (12.00-20.00); Blood Urea Nitrogen 19.2 mg/dL (9.0-27.0); Carbon Dioxide 27.9 mmol/L (20.0-27.5); Non-African American GFR(CKD) 92.2 (60.0-200.0); Potassium 2.9 mmol/L (3.5-5.5)
[2021-12-17] MEDS ORDERED: Potassium Replacement Protocol 1 EACH MISC MISCELLANE PRN (10:46)
--- NOTE | 2021-12-17 11:45 | P.HPIM ---
History of Present Illness H&P Date: 12/17/21 History of present illness This is a 71-year-old patient of Dr. Davis with past medical history significant for hypertension, hyperlipidemia, failure to PEG tube placement post laminectomy, anemia, acute embolism of femoral vein previously, diabetes mellitus, depression She did have previous history of GI bleeding approximately 4 weeks ago. Approximately 6 weeks ago, patient underwent a laminectomy resulting an encephalitis and acute respiratory failure. She was placed on a vent at that time. She had a severe bleeding ulcer and severe dysphagia and malnutrition. A PEG tube was placed during the hospital stay. Patient was then transferred to [facility] where she continued to have episodes of nausea and vomiting and was transferred to [facility] related to a GI bleed. Patient underwent an EGD and colonoscopy at that time which showed pancolitis, gastritis, esophagitis. She presented to the emergency room complaining of nausea and vomiting. Patient had multiple episodes of nausea which she's been treated with Zofran and Reglan. Patient did have 2 episodes of coffee-ground emesis yesterday and diarrhea. She denies any black or tarry stools. Patient has not taken anything by mouth due to no appetite. Patient continuously feels fullness in her stomach. With no appetite. She has a large residual post tube feeding. Patient was found to have a white count of 25,000 At this time patient is found resting comfortably in bed in [facility]. She has a flat affect. Patient complains of nausea no vomiting at this time. WC 14.31, hemoglobin 9.6, sodium 141, potassium 2.9, BUN 19.2, creatinine 0.6. Patient remains afebrile, heart rate 96, respirations 16, blood pressure 133/80, pulse ox 96% on room air. Review Of Systems: Constitutional: No fever, no chills, no night sweats. No weight change. Reports weakness and fatigue no lethargy. No daytime sleepiness. EENT: No headache. No blurred vision or double vision, no loss of vision. No loss of Hearing, no ringing in the ears, no dizziness. No nasal drainage or congestion. No epistaxis. No sore throat. Lungs: No shortness of breath, cough, no sputum production. No wheezing. Cardiovascular: No chest pain, no lower extremity edema. No palpitations. No paroxysmal nocturnal dyspnea. No orthopnea. No lightheadedness or dizziness. No syncopal episodes. Abdominal: Reports abdominal discomfort. Reports nausea and vomiting. no diarrhea. No constipation. No bloody or tarry stools. no loss of appetite. Genitourinary: No dysuria, increased frequency, urgency. No urinary retention. Musculoskeletal: No myalgias. No muscle weakness, no gait dysfunction, no frequent falls. No back pain. No neck pain. Integumentary: No wounds, no lesions. No rash or pruritus. No unusual bruising. No change in hair or nails. Neurologic: No aphasia. No facial droop. No change in mentation. No head injury. No headache. No paralysis. No paresthesia. Psychiatric: No depression. No anxiety. No mood swings. Endocrine: No abnormal blood sugars. No weight change. No excessive sweating or thirst. Social history: Patient is she is currently a resident at [facility], lifelong nonsmoker, denies EtOH or illicit drug use. Does not utilize any CPAP machines or ambulatory aids. 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 Family history: Patient has 3 healthy children, a brother who of lung cancer, sister who is healthy, mom who is related to advanced age at 89, father at 73 related to abdominal aneurysm. Physical examination General Appearance: Alert, cooperative, this is a 71-year-old female with flat affect resting in bed with no distress appears stated age. Neck HEENT: Supple, no lymphadenopathy, no thyroid enlargement, no carotid bru its. Lungs: Clear to auscultation without crackles or wheezes no rhonchi, no deformity. Chest Wall: Chest wall normal expansion with deep inspiration no tenderness and no deformity was found on exam, no costochondral pain or discomfort. Heart: Regular rate and rhythm, S1, S2 normal, no murmur, rub or gallop. Back: Symmetric, no curvature, ROM normal, no CVA tenderness. Abdomen: Soft, non-tender, no rebound or rigidity, no hepatosplenomegaly. Extremities: Extremities normal, atraumatic, no cyanosis or edema. Pulses: 2+ and symmetric. Skin: Skin color, texture, tugor normal, no rashes or lesions. Neurologic: Alert oriented x3 cranial nerves II through XII intact, no motor deficit, no abnormal balance or gait Assessment and plan 1. Aspiration pneumonia. Continue Zosyn, consult surgery related to PEG tube and increased residual. 2. Retractile nausea and vomiting. Reglan 10 mg IV push every 6 hours as needed, Zofran 4 mg every 6 hours as needed, Carafate 1 g by mouth before meals at bedtime. Consult general surgery for possible conversion of PEG tube to a J- tube. 3. Gastroparesis. As noted above 4. Anemia post GI bleed stable. Continue to monitor CBC. Hemoglobin 9.6 today. 5. Hypertension. Continue amlodipine 10 mg by mouth, lisinopril 20 mg by mouth, Lopressor 12.5 mg twice a day 6. Hyperlipidemia. Continue atorvastatin 10 mg by mouth at bedtime 7. Failure to thrive Post laminectomy 8. Depression. Effexor 75 mg by mouth daily 9. Hypokalemia. Repeat potassium tomorrow, potassium chloride 20 mEq X 3. 10. Hyperparathyroidism. Cinacalcet 30 mg PO BID 11. Diabetes mellitus. Accu-Cheks before meals at bedtime 12. GI prophylaxis. Protonix 13. DVT prophylaxis. Lovenox CODE STATUS: Full code Discharge plan: Return to [facility] possibly Saturday Patient will be admitted for minimum 2 nights day. Impression and plan of care have been directed as dictated by the signing physician. Minda Velasquez nurse practitioner acting as scribe for signing physician. Past Medical History Past Medical History: Hyperlipidemia, Hypertension, Osteoarthritis (OA) Additional Past Medical History / Comment(s): lt. leg wound,bulging disc History of Any Multi-Drug Resistant Organisms: None Reported Past Surgical History: Tubal Ligation Additional Past Surgical History / Comment(s): PARATHYROIDECTOMY 1985,2009 PARTIAL THYROIDECTOMY Past Anesthesia/Blood Transfusion Reactions: No Reported Reaction Past Psychological History: No Psychological Hx Reported Smoking Status: Never smoker Past Alcohol Use History: None Reported Past Drug Use History: None Reported - Past Family History Mother Additional Family Medical History / Comment(s): OSTEOPOROSIS Father Additional Family Medical History / Comment(s): AORTIC ABD. ANEURSYN Medications and Allergies Home Medications Medication Instructions Recorded Confirmed Type Atorvastatin [Lipitor] 10 mg PO HS@2100 11/20/16 12/16/21 History Cinacalcet HCl [Sensipar] 30 mg PO BID@0800,1700 11/22/21 12/16/21 History Furosemide [Lasix] 20 mg PO DAILY@0800 11/22/21 12/16/21 History Magnesium Hydroxide [Milk of 7,200 mg PO DAILY PRN 11/22/21 12/16/21 History Magnesia Concentrate] Mirabegron [Myrbetriq] 25 mg PO HS@2100 11/22/21 12/16/21 History Na Phos,M-B/Na Phos,Di-Ba [Fleet 133 ml RECTAL DAILY PRN 11/22/21 12/16/21 History Adult] Omeprazole [PriLOSEC] 20 mg PO DAILY@0800 11/22/21 12/16/21 History Polyethylene Glycol 3350 [Miralax] 17 gm PO DAILY@0800 11/22/21 12/16/21 History bisacodyL [Dulcolax] 10 mg RECTAL DAILY PRN 11/22/21 12/16/21 History Enoxaparin [Lovenox] 40 mg SQ DAILY@0800 12/16/21 12/16/21 History HYDROcodone/APAP 5-325MG [Katy 1 tab PO Q6H PRN 12/16/21 12/16/21 History 5-325] INSULIN ASPART (NovoLOG) [NovoLOG See Protocol SQ ACHS 12/16/21 12/16/21 History (formulary)] Liquacel 30 ml PO BID@0600,2200 12/16/21 12/16/21 History Metoclopramide [Reglan] 5 mg PO TID@0800,1200,1700 12/16/21 12/16/21 History Metoprolol Tartrate [Lopressor] 12.5 mg PO BID@0800,1700 12/16/21 12/16/21 History Nystatin 100,000 Unit/ml Susp 5 ml PO Q4H 12/16/21 12/16/21 History [Mycostatin Oral Susp] Sennosides/Docusate Sodium [Senna 1 cap PO BID@0800,1700 12/16/21 12/16/21 History Plus 8.6-50 mg Softgel] Triamcinolone 0.5% Cream [Kenalog 1 applic TOPICAL BID 12/16/21 12/16/21 History 0.5% Cream] Venlafaxine HCl [Effexor XR] 75 mg PO DAILY@0800 12/16/21 12/16/21 History amLODIPine [Norvasc] 10 mg PO DAILY@0800 12/16/21 12/16/21 History diphenhydrAMINE [Benadryl] 25 mg PO Q6H PRN 12/16/21 12/16/21 History lisinopriL [Zestril] 20 mg PO DAILY@0800 12/16/21 12/16/21 History metFORMIN HCL 500 mg PO BID@0800,1700 12/16/21 12/16/21 History Allergies Allergy/AdvReac Type Severity Reaction Status Date / Time No Known Allergies Allergy Verified 12/16/21 19:06 Physical Exam Vitals: Vital Signs Temp Pulse Pulse Resp BP BP Pulse Ox 12/17/21 08:00 98.4 F 96 16 133/80 96 12/17/21 02:00 97 F L 98 16 131/84 98 12/16/21 23:37 91 18 12/16/21 22:51 97.9 F 91 18 120/78 96 12/16/21 16:00 97.9 F 89 18 122/62 99 12/16/21 15:41 97.9 F 93 22 116/67 99 12/16/21 14:41 98.0 F 90 20 125/60 98 Intake and Output 12/16/21 12/17/21 12/17/21 22:59 06:59 14:59 Intake Total 10 1300 Balance 10 1300 Intake: IV 10 Invasive Line 1 10 Intake, IV Titration 1100 Amount Piperacillin-Tazobactam 3 100 .375 gm In Sodium Chloride 0.9% 100 ml @ 25 mls/hr IVPB Q8H [facility] Rx#: [id number] Potassium Chloride 10 meq 200 In Water For Injection 1 100ml.bag @ 100 mls/hr IVPB Q1H [facility] Rx#: [id number] Sodium Chloride 0.9% 1, 800 000 ml @ 130 mls/hr IV . Q7H42M [facility] Rx#:[id number] Oral 200 Other: Voiding Method Diaper External Catheter Incontinent External Catheter # Voids 3 # Bowel Movements 0 Weight 89.811 kg Results CBC & Chem 7: 12/17/21 06:52 12/17/21 06:52 Labs: Abnormal Lab Results - Last 24 Hours (Table) 12/16/21 12/16/21 12/17/21 Range/Units 15:19 15:19 06:47 WBC 25.0 H (3.8-10.6) k/uL RBC 3.76 L (3.80-5.40) m/uL Hgb 10.6 L D (11.4-16.0) gm/dL Hct (37.2-46.3) % MCHC 30.7 L (31.0-37.0) g/dL RDW (11.5-14.5) % Immature Gran # (0.00-0.04) X 10*3/uL Neutrophils # 22.6 H (1.3-7.7) k/uL Sodium 136 L (137-145) mmol/L Potassium 3.0 L (3.5-5.1) mmol/L Carbon Dioxide (20.0-27.5) mmol/L Anion Gap (10.00-18.00) mmol/L BUN 31 H (7-17) mg/dL BUN/Creatinine Ratio (12.00-20.00) Ratio Glucose 118 H (74-99) mg/dL POC Glucose (mg/dL) (75-99) mg/dL Total Protein 6.2 L (6.3-8.2) g/dL Albumin 3.1 L (3.5-5.0) g/dL Ur Leukocyte Esterase Small H (Negative) Urine Bacteria Rare H (None) /hpf 12/17/21 12/17/21 12/17/21 Range/Units 06:50 06:52 06:52 WBC 14.31 H (3.8-10.6) k/uL RBC 3.39 L (3.80-5.40) m/uL Hgb 9.6 L (11.4-16.0) gm/dL Hct 30.8 L (37.2-46.3) % MCHC 31.2 L (31.0-37.0) g/dL RDW 15.7 H (11.5-14.5) % Immature Gran # 0.07 H (0.00-0.04) X 10*3/uL Neutrophils # 11.81 H (1.3-7.7) k/uL Sodium (137-145) mmol/L Potassium 2.9 L (3.5-5.1) mmol/L Carbon Dioxide 27.9 H (20.0-27.5) mmol/L Anion Gap 9.80 L (10.00-18.00) mmol/L BUN (7-17) mg/dL BUN/Creatinine Ratio 32.49 H (12.00-20.00) Ratio Glucose 124 H (74-99) mg/dL POC Glucose (mg/dL) 115 H (75-99) mg/dL Total Protein (6.3-8.2) g/dL Albumin (3.5-5.0) g/dL Ur Leukocyte Esterase (Negative) Urine Bacteria (None) /hpf Thrombosis Risk Factor Assmnt - Choose All That Apply Each Risk Factor Represents 2 Points: Age 61-74 years, Patient confined to bed Thrombosis Risk Factor Assessment Total Risk Factor Score: 4 Thrombosis Risk Factor Assessment Level: Moderate Risk
[2021-12-17 11:54] LABS: Glucose,Whole Blood 105 mg/dL (75-99)
[2021-12-17] MEDS: ONDANSETRON 4 MG/2 ML VIAL IVP PRN (13:42)
[2021-12-17] MEDS: POTASSIUM CHLORIDE 20 MEQ in WATER FOR INJECTION 1 100ML.BAG IVPB SCH ×3 (13:44→17:50)
[2021-12-17] MEDS: VENLAFAXINE HCL ER 75 MG CAP PO SCH (13:47)
[2021-12-17] MEDS: amLODIPine 10 MG TAB PO SCH (13:48)
[2021-12-17] MEDS: FUROSEMIDE 20 MG TAB PO SCH (13:48)
[2021-12-17] MEDS: METOPROLOL TARTRATE 12.5 MG TAB PO SCH ×2 (13:48→17:20)
[2021-12-17] MEDS: CINACALCET 30 MG TAB PO SCH ×2 (13:48→17:20)
[2021-12-17] MEDS: PANTOPRAZOLE 40 MG TABLET PO SCH (13:48)
[2021-12-17] MEDS: lisinopriL 20 MG TAB PO SCH (13:48)
--- NOTE | 2021-12-17 15:01 | P.GSCN ---
History of Present Illness Consult date: 12/17/21 Reason for Consult: Nausea and vomiting, suspected GI bleed, history of PEG tube placement History of present illness: Patient is a 71-year-old lady brought to [facility] emergency department 12/16/2021 from the group home setting after reports of coffee-ground emesis and suspicion of upper GI bleeding. Apparently the patient underwent a laminectomy at [facility] this past August, she did not recover well in the sense that she had new and persistent problems with a loss of appetite and nausea. In October she was readmitted to [facility] and elected to move forward with a PEG tube placement, its unclear as to whether this was done by general surgery or GI. It sounds like she was subsequently discharged to group home and then ended up being admitted to [facility] for what sounds like abdominal pain nausea vomiting and evidence of GI bleeding. Family recalls a patient undergoing EGD and attempted colonoscopy which was not completed due to inadequate prep after 2 attempts. She was diagnosed with an u lcer of some kind and has been treated for gastrointestinal elyse infection. Prior to her back surgery she hadn't been having these kinds of issues. She is maintained on Eliquis for lower extremity DVT that she suffered with around the time of her back surgery. She has a history of type 2 diabetes mellitus and is maintained on metoprolol as well as insulin. Review of her medication list show s that she is been treated with Reglan. At present patient denies abdominal pain, admits to waxing and waning nausea and loss of appetite. Hasn't had any additional episodes of emesis since admission, denies fever or chills, admits to bowel movement without signs of GI bleeding. Laboratory studies today show a mild leukocytosis with white blood cell count of 14.3, mild absolute anemia with hemoglobin of 9.6, platelet count of 275. RDW was slightly elevated at 15.7, MCV and MCH indices were within normal limits. Serum electrolyte analysis shows a sodium 141, potassium 2.9, CO2 of 27.9, creatinine of 0.6 and glucose of 124. Lipase normal range at 79. Liver function studies all within normal limits. Urinalysis was negative for UTI, coated screen was negative. Chest x-ray this admission showed improvement in atelectasis compared to her previous exam no signs of pneumonia described. Computed tomography scan of abdomen and pelvis with IV contrast only was obtained, images and report were reviewed. There are no intra-abdominal findings of significance seen. A PEG tube is in place with balloon at the antrum, I don't see signs of bowel obstruction, no free air no free fluid. Pa tient status post L3 S1 lumbar posterior fusion. Gallbladder is intact and slightly distended without inflammatory changes. Review of Systems - Constitutional Reports as per HPI - EENT Ears, nose, mouth and throat: Reports as per HPI - Cardiovascular Reports as per HPI - Respiratory Reports as per HPI - Gastrointestinal Reports as per HPI - Genitourinary Genitourinary: Reports as per HPI - Musculoskeletal Reports as per HPI - Integumentary Reports as per HPI - Neurological Reports as per HPI - Psychiatric Reports as per HPI - Endocrine Reports as per HPI - Hematologic/Lymphatic Reports as per HPI - Allergic/Immunologic Reports as per HPI Past Medical History Past Medical History: Hyperlipidemia, Hypertension, Osteoarthritis (OA) Additional Past Medical History / Comment(s): lt. leg wound,bulging disc History of Any Multi-Drug Resistant Organisms: None Reported Past Surgical History: Tubal Ligation Additional Past Surgical History / Comment(s): PARATHYROIDECTOMY 1985,2009 PARTIAL THYROIDECTOMY Past Anesthesia/Blood Transfusion Reactions: No Reported Reaction Past Psychological History: No Psychological Hx Reported Smoking Status: Never smoker Past Alcohol Use History: None Reported Past Drug Use History: None Reported - Past Family History Mother Additional Family Medical History / Comment(s): OSTEOPOROSIS Father Additional Family Medical History / Comment(s): AORTIC ABD. ANEURSYN Medications and Allergies Home Medications Medication Instructions Recorded Confirmed Type Atorvastatin [Lipitor] 10 mg PO HS@209911/20/16 12/16/21 History Cinacalcet HCl [Sensipar] 30 mg PO BID@0800,1700 11/22/21 12/16/21 History Furosemide [Lasix] 20 mg PO DAILY@0800 11/22/21 12/16/21 History Magnesium Hydroxide [Milk of 7,200 mg PO DAILY PRN 11/22/21 12/16/21 History Magnesia Concentrate] Mirabegron [Myrbetriq] 25 mg PO HS@2100 11/22/21 12/16/21 History Na Phos,M-B/Na Phos,Di-Ba [Fleet 133 ml RECTAL DAILY PRN 11/22/21 12/16/21 History Adult] Omeprazole [PriLOSEC] 20 mg PO DAILY@0800 11/22/21 12/16/21 History Polyethylene Glycol 3350 [Miralax] 17 gm PO DAILY@0800 11/22/21 12/16/21 History bisacodyL [Dulcolax] 10 mg RECTAL DAILY PRN 11/22/21 12/16/21 History Enoxaparin [Lovenox] 40 mg SQ DAILY@0800 12/16/21 12/16/21 History HYDROcodone/APAP 5-325MG [[place] 1 tab PO Q6H PRN 12/16/21 12/16/21 History 5-325] INSULIN ASPART (NovoLOG) [NovoLOG See Protocol SQ ACHS 12/16/21 12/16/21 History (formulary)] Liquacel 30 ml PO BID@0600,2200 12/16/21 12/16/21 History Metoclopramide [Reglan] 5 mg PO TID@0800,1200,1700 12/16/21 12/16/21 History Metoprolol Tartrate [Lopressor] 12.5 mg PO BID@0800,1700 12/16/21 12/16/21 History Nystatin 100,000 Unit/ml Susp 5 ml PO Q4H 12/16/21 12/16/21 History [Mycostatin Oral Susp] Sennosides/Docusate Sodium [Senna 1 cap PO BID@0800,1700 12/16/21 12/16/21 History Plus 8.6-50 mg Softgel] Triamcinolone 0.5% Cream [Kenalog 1 applic TOPICAL BID 12/16/21 12/16/21 History 0.5% Cream] Venlafaxine HCl [Effexor XR] 75 mg PO DAILY@0800 12/16/21 12/16/21 History amLODIPine [Norvasc] 10 mg PO DAILY@0800 12/16/21 12/16/21 History diphenhydrAMINE [Benadryl] 25 mg PO Q6H PRN 12/16/21 12/16/21 History lisinopriL [Zestril] 20 mg PO DAILY@0800 12/16/21 12/16/21 History metFORMIN HCL 500 mg PO BID@0800,1700 12/16/21 12/16/21 History Allergies Allergy/AdvReac Type Severity Reaction Status Date / Time No Known Allergies Allergy Verified 12/16/21 19:06 Surgical - Exam Osteopathic Statement: *. No significant issues noted on an osteopathic structural exam other than those noted in the History and Physical/Consult. Vital Signs Temp Pulse Resp BP Pulse Ox 98.0 F 90 20 125/60 98 12/16/21 14:41 12/16/21 14:41 12/16/21 14:41 12/16/21 14:41 12/16/21 14:41 - General well developed, no distress - Eyes PERRL - ENT normal pinna, normal nares, no congestion - Neck no masses, trachea midline - Respiratory normal expansion, normal respiratory effort, clear to auscultation - Cardiovascular Rhythm: regular - Abdomen PEG tube is in place without inflammatory changes or leaking. Bolster was loose was, was resecured. Abdomen: soft, non tender - Integumentary no abnormal pigmentation - Neurologic normal coordination, normal sensation - Psychiatric oriented to time, oriented to person, oriented to place, speech is normal Results - Labs 12/17/21 06:52 12/17/21 06:52 Abnormal Lab Results - Last 24 Hours (Table) 12/16/21 12/16/21 12/17/21 Range/Units 15:19 15:19 06:47 WBC 25.0 H (3.8-10.6) k/uL RBC 3.76 L (3.80-5.40) m/uL Hgb 10.6 L D (11.4-16.0) gm/dL Hct (37.2-46.3) % MCHC 30.7 L (31.0-37.0) g/dL RDW (11.5-14.5) % Immature Gran # (0.00-0.04) X 10*3/uL Neutrophils # 22.6 H (1.3-7.7) k/uL Sodium 136 L (137-145) mmol/L Potassium 3.0 L (3.5-5.1) mmol/L Carbon Dioxide (20.0-27.5) mmol/L Anion Gap (10.00-18.00) mmol/L BUN 31 H (7-17) mg/dL BUN/Creatinine Ratio (12.00-20.00) Ratio Glucose 118 H (74-99) mg/dL POC Glucose (mg/dL) (75-99) mg/dL Total Protein 6.2 L (6.3-8.2) g/dL Albumin 3.1 L (3.5-5.0) g/dL Ur Leukocyte Esterase Small H (Negative) Urine Bacteria Rare H (None) /hpf 12/17/21 12/17/21 12/17/21 Range/Units 06:50 06:52 06:52 WBC 14.31 H (3.8-10.6) k/uL RBC 3.39 L (3.80-5.40) m/uL Hgb 9.6 L (11.4-16.0) gm/dL Hct 30.8 L (37.2-46.3) % MCHC 31.2 L (31.0-37.0) g/dL RDW 15.7 H (11.5-14.5) % Immature Gran # 0.07 H (0.00-0.04) X 10*3/uL Neutrophils # 11.81 H (1.3-7.7) k/uL Sodium (137-145) mmol/L Potassium 2.9 L (3.5-5.1) mmol/L Carbon Dioxide 27.9 H (20.0-27.5) mmol/L Anion Gap 9.80 L (10.00-18.00) mmol/L BUN (7-17) mg/dL BUN/Creatinine Ratio 32.49 H (12.00-20.00) Ratio Glucose 124 H (74-99) mg/dL POC Glucose (mg/dL) 115 H (75-99) mg/dL Total Protein (6.3-8.2) g/dL Albumin (3.5-5.0) g/dL Ur Leukocyte Esterase (Negative) Urine Bacteria (None) /hpf 12/17/21 Range/Units 11:53 WBC (3.8-10.6) k/uL RBC (3.80-5.40) m/uL Hgb (11.4-16.0) gm/dL Hct (37.2-46.3) % MCHC (31.0-37.0) g/dL RDW (11.5-14.5) % Immature Gran # (0.00-0.04) X 10*3/uL Neutrophils # (1.3-7.7) k/uL Sodium (137-145) mmol/L Potassium (3.5-5.1) mmol/L Carbon Dioxide (20.0-27.5) mmol/L Anion Gap (10.00-18.00) mmol/L BUN (7-17) mg/dL BUN/Creatinine Ratio (12.00-20.00) Ratio Glucose (74-99) mg/dL POC Glucose (mg/dL) 105 H (75-99) mg/dL Total Protein (6.3-8.2) g/dL Albumin (3.5-5.0) g/dL Ur Leukocyte Esterase (Negative) Urine Bacteria (None) /hpf Diabetes panel 12/16/21 12/17/21 Range/Units 15:19 06:52 Sodium 136 L 141 (137-145) mmol/L Potassium 3.0 L 2.9 L (3.5-5.1) mmol/L Chloride 100 103 (98-107) mmol/L Carbon Dioxide 29 27.9 H (22-30) mmol/L BUN 31 H 19.2 (7-17) mg/dL Creatinine 0.98 0.6 (0.52-1.04) mg/dL Glucose 118 H 124 H (74-99) mg/dL Calcium 9.1 9.0 (8.4-10.2) mg/dL AST 24 (14-36) U/L ALT 23 (4-34) U/L Alkaline Phosphatase 85 (38-126) U/L Total Protein 6.2 L (6.3-8.2) g/dL Albumin 3.1 L (3.5-5.0) g/dL Calcium panel 12/16/21 12/17/21 Range/Units 15:19 06:52 Calcium 9.1 9.0 (8.4-10.2) mg/dL Albumin 3.1 L (3.5-5.0) g/dL Pituitary panel 12/16/21 12/17/21 Range/Units 15:19 06:52 Sodium 136 L 141 (137-145) mmol/L Potassium 3.0 L 2.9 L (3.5-5.1) mmol/L Chloride 100 103 (98-107) mmol/L Carbon Dioxide 29 27.9 H (22-30) mmol/L BUN 31 H 19.2 (7-17) mg/dL Creatinine 0.98 0.6 (0.52-1.04) mg/dL Glucose 118 H 124 H (74-99) mg/dL Calcium 9.1 9.0 (8.4-10.2) mg/dL Adrenal panel 12/16/21 12/17/21 Range/Units 15:19 06:52 Sodium 136 L 141 (137-145) mmol/L Potassium 3.0 L 2.9 L (3.5-5.1) mmol/L Chloride 100 103 (98-107) mmol/L Carbon Dioxide 29 27.9 H (22-30) mmol/L BUN 31 H 19.2 (7-17) mg/dL Creatinine 0.98 0.6 (0.52-1.04) mg/dL Glucose 118 H 124 H (74-99) mg/dL Calcium 9.1 9.0 (8.4-10.2) mg/dL Total Bilirubin 0.4 (0.2-1.3) mg/dL AST 24 (14-36) U/L ALT 23 (4-34) U/L Alkaline Phosphatase 85 (38-126) U/L Total Protein 6.2 L (6.3-8.2) g/dL Albumin 3.1 L (3.5-5.0) g/dL - Imaging Abdominal x-ray: report reviewed CT scan - abdomen: report reviewed, image reviewed CT scan - pelvis: report reviewed, image reviewed Assessment and Plan Assessment: 71-year-old lady with persistence problems with loss of appetite, nausea and vomiting following a laminectomy in August. Attended history of insulin- dependent diabetes mellitus type 2, question of underlying motility problems. Recent endoscopic workup over the past few months reportedly showed evidence of gastritis with ulcer, question of colitis and some manner of fungal infection. Absolute anemia with mild elevation of RDW on CBC, question of ongoing GI bleed on therapeutic dose anticoagulants. Benign abdominal exam, computed tomography scan shows PEG in good position without evidence of bowel obstruction. History of lower extremity DVT in the perioperative or postoperative setting following laminectomy in August. Plan: Would not recommend a revision of the patient's gastrostomy tube in the short- term. She has not had a contrasted upper GI study yet to definitively exclude obstruction. Will order a Gastrografin upper GI study for tomorrow. In the absence of obstruction further surgical intervention would not really be indicated. If there is no obstruction I would continue with Reglan and consider adding erythromycin and maintain aspiration precautions with head of the bed at 30 at all times. She needs to be working with physical therapy and occupational therapy. She may have an element of gastroparesis with her diabetic history. Her recent treatment for Elyse will esophagitis or thrush is a good place to focus on for now. With her anemia and history of ulcer in the setting of anticoagulant I would recommend a diagnostic EGD with GI in the inpatient setting for follow-up of ulcer, to exclude recurrent or residual fungal infection, and to look for signs of ongoing bleeding. If her ulcer is refractory to medical and GI intervention I'd suggest discontinuing her systemic anticoagulation following IVC filter placement. Her clinical decline after laminectomy has not been adequately explained, my underlying suspicion is that she has suffered with lingering candidal infection after the stress of surgery in the setting of diabetes. At this point after surgery she should be off of narcotics for pain, this may be contributing in some degree to her abdominal issues. Endoscopy with the GI service should help clarify this. No acute surgical interventions planned for now. Time with Patient: Greater than 30
[2021-12-17 16:42] LABS: Glucose,Whole Blood 111 mg/dL (75-99)
[2021-12-17] MEDS: VANCOMYCIN 125 MG CAPSULE PO SCH ×2 (18:22→21:02)
[2021-12-17] MEDS: NON FORMULARY DRUG (Mirabegron [Myrbetriq] 25 MG Tab.Er.24h) PO SCH (19:17)
[2021-12-17 20:27] LABS: Glucose,Whole Blood 100 mg/dL (75-99)
[2021-12-17] MEDS: ATORVASTATIN 10 MG TAB PO SCH (21:02)
[2021-12-18] MEDS: PIPERACILLIN-TAZOBACTAM 3.375 GM in SODIUM CHLORIDE 0.9% 100 ML IVPB SCH ×3 (05:15→22:03)
[2021-12-18] MEDS: SODIUM CHLORIDE 0.9% 1,000 ML IV SCH ×3 (05:16→15:26)
[2021-12-18 06:34] LABS: Glucose,Whole Blood 94 mg/dL (75-99)
[2021-12-18] MEDS: VENLAFAXINE HCL ER 75 MG CAP PO SCH (07:59)
[2021-12-18] MEDS: amLODIPine 10 MG TAB PO SCH (07:59)
[2021-12-18] MEDS: CINACALCET 30 MG TAB PO SCH ×2 (07:59→17:19)
[2021-12-18] MEDS: lisinopriL 20 MG TAB PO SCH (07:59)
[2021-12-18] MEDS: SUCRALFATE 1 GM TAB PO SCH ×4 (07:59→22:07)
[2021-12-18] MEDS: PANTOPRAZOLE 40 MG TABLET PO SCH (07:59)
[2021-12-18] MEDS: FUROSEMIDE 20 MG TAB PO SCH (07:59)
[2021-12-18] MEDS: METOPROLOL TARTRATE 12.5 MG TAB PO SCH ×2 (07:59→17:19)
[2021-12-18] MEDS: ENOXAPARIN 40 MG/0.4 ML SYRINGE SQ SCH (08:00)
[2021-12-18 08:47] LABS: Basophils # (A) 0.03 X 10*3/uL (0.00-0.10); Basophils % (A) 0.3 %; Eosinophils # (A) 0.33 X 10*3/uL (0.04-0.35); Eosinophils % (A) 3.6 %; HCT 28.9 % (37.2-46.3); HGB 8.8 g/dL (12.0-15.0); Immature Grans, Automated 0.4 %; Lymphocytes # (A) 1.69 X 10*3/uL (0.90-5.00); Lymphocytes % (A) 18.5 %; MCH 27.9 pg (27.0-32.0); MCHC 30.4 g/dL (32.0-37.0); MCV 91.7 fL (80.0-97.0); Monocytes # (A) 0.35 X 10*3/uL (0.20-1.00); Monocytes % (A) 3.8 %; NRBC Per 100 WBC 0 /100 WBCS (0.0-0.0); Neutrophils % (A) 73.4 %; Platelet Count 235 X 10*3/uL (140-440); RBC 3.15 X 10*6/uL (4.10-5.20); RDW 15.6 % (11.5-14.5); WBC 9.14 X 10*3/uL (4.50-10.00)
[2021-12-18 08:58] LABS: African American GFR (CKD) 113.5 (60.0-200.0); Albumin 3.1 g/dL (3.8-4.9); Albumin/Globulin Ratio 1.35 (1.60-3.17); BUN/Creat Ratio 23.42 Ratio (12.00-20.00); Blood Urea Nitrogen 11.5 mg/dL (9.0-27.0); Calcium 8.2 mg/dL (8.7-10.3); Carbon Dioxide 22.5 mmol/L (20.0-27.5); Globulin 2.3 g/dL (1.6-3.3); Potassium 3.5 mmol/L (3.5-5.5); Total Bilirubin 0.2 mg/dL (0.30-1.20); Total Protein 5.4 g/dL (6.2-8.2)
[2021-12-18] MEDS: VANCOMYCIN 125 MG CAPSULE PO SCH ×4 (10:50→22:29)
[2021-12-18 11:16] LABS: Glucose,Whole Blood 79 mg/dL (75-99)
--- NOTE | 2021-12-18 11:39 | P.CONS ---
History of Present Illness - Reason for Consult Consult date: 12/18/21 Intractable nausea and vomiting Requesting physician: Sunday Davis - Chief Complaint Nausea vomiting diarrhea - History of Present Illness This pleasant 71-year-old female with past medical history including hypertension, diabetes, hyperlipidemia, failure to thrive with PEG tube placement who presented to the emergency department 2 days ago with complaints of nausea vomiting and diarrhea. Apparently the patient underwent laminectomy a few months ago resulting in encephalitis and acute respiratory failure as well as depression. Patient states she did not have any appetite and no desire to eat therefore they placed a PEG tube. She states she had several episodes of vomiting on Saturday as well as diarrhea. She states they were nonbloody, however the nursing facility reported coffee-ground emesis. Patient is on Lovenox 40 mg daily, had a history of upper extremity DVT. States that she's not had any further nausea or vomiting since she was admitted to the hospital. Diarrhea has improved as well. States she had one episode yesterday. She was sent here from nursing facility with concerns of fatigue and weakness. She does have a history of GI bleed and states she believes she had an EGD and colonoscopy about 2 weeks ago, placing [facility]. States that she had rectal bleeding she had 2 attempted colonoscopies but had stool impaction. Patient was portably disimpacted during sedation. She also states she had ulcer found on EGD. She denies any further bleeding since then. However according to [facility] patient had suspected coffee-ground emesis. Patient denies any abdominal pain or epigastric pain. Admitting labs WBC 25 hemoglobin 10.6 platelet count 297,000, INR 1.0 sodium 136 potassium 3.0 BUN 31 creatinine 0.98 glucose 118 total bilirubin 0.4 AST 24 ALT 23 alkaline phosphatase 85 lipase 79. Patient did have a stool sample sent and was positive for C. difficile. Today's WBC 9.1 hemoglobin 8.8 platelet count 235,000. Vancomycin 125 mg by mouth 4 times a day started. Patient remains on Zosyn every [address] abdomen and pelvis reports mild subsegmental atelectasis right lung base. No acute abnormality of the abdomen and pelvis. Clearing of rectal fecal impaction compared to old exam. Review of Systems REVIEW OF SYSTEMS: CARDIOPULMONARY: No chest pain or shortness of breath. Gastrointestinal: No abdominal pain, epigastric pain. No difficulty with swallowing. No nausea or vomiting. Reported coffee-ground emesis per long-term nursing facility. No rectal bleeding, or melena. Decreased appetite GENITOURINARY: No dysuria or hematuria. MUSCULOSKELETAL: Reports normal range of motion., Joint pain. SKIN: No rashes. No jaundice. ENDOCRINE: No chills, fevers. No excessive weight gain or loss. No polydipsia or polyuria. PSYCHIATRIC: Depression. NEUROLOGY: No change in mental status. Denies dizziness, headache. ENT: Vision unremarkable. CONSTITUTIONAL: No recent weight loss. No fever, chills, night sweats. Past Medical History Past Medical History: Diabetes Mellitus, Deep Vein Thrombosis (DVT), GI Bleed, Hyperlipidemia, Hypertension, Osteoarthritis (OA) Additional Past Medical History / Comment(s): lt. leg wound,bulging disc, anemia, hyperparathyroid, pancolitis, gastritis, esophagitis, respiratory failure (vented), encephalitis, gastroparesis, dysphagia/malnutrition. History of Any Multi-Drug Resistant Organisms: None Reported Past Surgical History: Back Surgery, Tubal Ligation Additional Past Surgical History / Comment(s): PARATHYROIDECTOMY 1985,2009 PARTIAL THYROIDECTOMY, PEG tube placement, EGD/Colonoscopy Past Anesthesia/Blood Transfusion Reactions: No Reported Reaction Past Psychological History: Depression Smoking Status: Never smoker Past Alcohol Use History: None Reported Past Drug Use History: None Reported - Past Family History Mother Additional Family Medical History / Comment(s): OSTEOPOROSIS Father Additional Family Medical History / Comment(s): AORTIC ABD. ANEURSYN Medications and Allergies Home Medications Medication Instructions Recorded Confirmed Type Atorvastatin [Lipitor] 10 mg PO HS@209911/20/16 12/16/21 History Cinacalcet HCl [Sensipar] 30 mg PO BID@0800,1700 11/22/21 12/16/21 History Furosemide [Lasix] 20 mg PO DAILY@0800 11/22/21 12/16/21 History Magnesium Hydroxide [Milk of 7,200 mg PO DAILY PRN 11/22/21 12/16/21 History Magnesia Concentrate] Mirabegron [Myrbetriq] 25 mg PO HS@2100 11/22/21 12/16/21 History Na Phos,M-B/Na Phos,Di-Ba [Fleet 133 ml RECTAL DAILY PRN 11/22/21 12/16/21 Hi story Adult] Omeprazole [PriLOSEC] 20 mg PO DAILY@0800 11/22/21 12/16/21 History Polyethylene Glycol 3350 [Miralax] 17 gm PO DAILY@0800 11/22/21 12/16/21 History bisacodyL [Dulcolax] 10 mg RECTAL DAILY PRN 11/22/21 12/16/21 History Enoxaparin [Lovenox] 40 mg SQ DAILY@0800 12/16/21 12/16/21 History HYDROcodone/APAP 5-325MG [Orange 1 tab PO Q6H PRN 12/16/21 12/16/21 History 5-325] INSULIN ASPART (NovoLOG) [NovoLOG See Protocol SQ ACHS 12/16/21 12/16/21 History (formulary)] Liquacel 30 ml PO BID@0600,2200 12/16/21 12/16/21 History Metoclopramide [Reglan] 5 mg PO TID@0800,1200,1700 12/16/21 12/16/21 History Metoprolol Tartrate [Lopressor] 12.5 mg PO BID@0800,1700 12/16/21 12/16/21 History Nystatin 100,000 Unit/ml Susp 5 ml PO Q4H 12/16/21 12/16/21 History [Mycostatin Oral Susp] Sennosides/Docusate Sodium [Senna 1 cap PO BID@0800,1700 12/16/21 12/16/21 History Plus 8.6-50 mg Softgel] Triamcinolone 0.5% Cream [Kenalog 1 applic TOPICAL BID 12/16/21 12/16/21 History 0.5% Cream] Venlafaxine HCl [Effexor XR] 75 mg PO DAILY@0800 12/16/21 12/16/21 History amLODIPine [Norvasc] 10 mg PO DAILY@0800 12/16/21 12/16/21 History diphenhydrAMINE [Benadryl] 25 mg PO Q6H PRN 12/16/21 12/16/21 History lisinopriL [Zestril] 20 mg PO DAILY@0800 12/16/21 12/16/21 History metFORMIN HCL 500 mg PO BID@0800,1700 12/16/21 12/16/21 History Allergies Allergy/AdvReac Type Severity Reaction Status Date / Time No Known Allergies Allergy Verified 12/16/21 19:06 Physical Exam Vitals: Vital Signs Temp Pulse Resp BP Pulse Ox 12/18/21 07:05 97.9 F 80 17 115/73 98 12/18/21 01:56 97.8 F 78 16 124/78 98 12/17/21 19:52 98.3 F 71 16 112/72 96 12/17/21 19:05 18 12/17/21 14:00 98.3 F 81 18 148/87 96 Intake and Output 12/17/21 12/18/21 12/18/21 22:59 06:59 14:59 Intake Total 1500 Output Total 1000 Balance -1000 1500 Intake: Intake, IV Titration 1300 Amount Piperacillin-Tazobactam 3 100 .375 gm In Sodium Chloride 0.9% 100 ml @ 25 mls/hr IVPB Q8H [facility] Rx#: [id number] Sodium Chloride 0.9% 1, 1200 000 ml @ 130 mls/hr IV . Q7H42M [facility] Rx#:[id number] Oral 200 Output: Urine 1000 Other: Voiding Method External Catheter External Catheter # Voids 1 3 # Bowel Movements 1 1 General appearance: The patient is alert, oriented, appears in no acute distress. HET: Head is normocephalic and atraumatic. Conjunctiva pink. Sclera anicteric. Neck: Supple without lymphadenopathy. Trachea midline. Heart: S1 S2. Regular rate and rhythm. Lungs: Clear to auscultation. Abdomen: Soft, nontender, nondistended with bowel sounds. No guarding or rigidity. Skin: No rashes. No jaundice. Extremities: Normal skin color and turgor. No pedal edema. Neurological: No focal deficits. Alert and oriented x3. Results CBC & Chem 7: 12/18/21 05:06 12/18/21 05:06 Labs: Abnormal Lab Results - Last 24 Hours (Table) 12/17/21 12/17/21 12/17/21 Range/Units 06:52 06:52 11:53 WBC 14.31 H (4.50-10.00) X 10*3/uL RBC 3.39 L (4.10-5.20) X 10*6/uL Hgb 9.6 L (12.0-15.0) g/dL Hct 30.8 L (37.2-46.3) % MCHC 31.2 L (32.0-37.0) g/dL RDW 15.7 H (11.5-14.5) % Immature Gran # 0.07 H (0.00-0.04) X 10*3/uL Neutrophils # 11.81 H (1.80-7.70) X 10*3/uL Potassium 2.9 L (3.5-5.5) mmol/L Carbon Dioxide 27.9 H (20.0-27.5) mmol/L Anion Gap 9.80 L (10.00-18.00) mmol/L Creatinine (0.6-1.5) mg/dL BUN/Creatinine Ratio 32.49 H (12.00-20.00) Ratio Glucose 124 H (70-110) mg/dL POC Glucose (mg/dL) 105 H (75-99) mg/dL Calcium (8.7-10.3) mg/dL Total Bilirubin (0.30-1.20) mg/dL AST (13-35) U/L Total Protein (6.2-8.2) g/dL Albumin (3.8-4.9) g/dL Albumin/Globulin Ratio (1.60-3.17) g/dL C. difficile (EIA) Intrp (Negative) 12/17/21 12/17/21 12/17/21 Range/Units 14:09 16:40 20:26 WBC (4.50-10.00) X 10*3/uL RBC (4.10-5.20) X 10*6/uL Hgb (12.0-15.0) g/dL Hct (37.2-46.3) % MCHC (32.0-37.0) g/dL RDW (11.5-14.5) % Immature Gran # (0.00-0.04) X 10*3/uL Neutrophils # (1.80-7.70) X 10*3/uL Potassium (3.5-5.5) mmol/L Carbon Dioxide (20.0-27.5) mmol/L Anion Gap (10.00-18.00) mmol/L Creatinine (0.6-1.5) mg/dL BUN/Creatinine Ratio (12.00-20.00) Ratio Glucose (70-110) mg/dL POC Glucose (mg/dL) 111 H 100 H (75-99) mg/dL Calcium (8.7-10.3) mg/dL Total Bilirubin (0.30-1.20) mg/dL AST (13-35) U/L Total Protein (6.2-8.2) g/dL Albumin (3.8-4.9) g/dL Albumin/Globulin Ratio (1.60-3.17) g/dL C. difficile (EIA) Intrp Positive A (Negative) 12/18/21 12/18/21 Range/Units 05:06 05:06 WBC (4.50-10.00) X 10*3/uL RBC 3.15 L (4.10-5.20) X 10*6/uL Hgb 8.8 L (12.0-15.0) g/dL Hct 28.9 L (37.2-46.3) % MCHC 30.4 L (32.0-37.0) g/dL RDW 15.6 H (11.5-14.5) % Immature Gran # (0.00-0.04) X 10*3/uL Neutrophils # (1.80-7.70) X 10*3/uL Potassium (3.5-5.5) mmol/L Carbon Dioxide (20.0-27.5) mmol/L Anion Gap (10.00-18.00) mmol/L Creatinine 0.5 L (0.6-1.5) mg/dL BUN/Creatinine Ratio 23.42 H (12.00-20.00) Ratio Glucose (70-110) mg/dL POC Glucose (mg/dL) (75-99) mg/dL Calcium 8.2 L (8.7-10.3) mg/dL Total Bilirubin 0.20 L (0.30-1.20) mg/dL AST 9 L (13-35) U/L Total Protein 5.4 L (6.2-8.2) g/dL Albumin 3.1 L (3.8-4.9) g/dL Albumin/Globulin Ratio 1.35 L (1.60-3.17) g/dL C. difficile (EIA) Intrp (Negative) Microbiology - Last 24 Hours (Table) 12/16/21 21:47 Blood Culture - Preliminary Blood No Growth after 24 hours 12/16/21 21:30 Blood Culture - Preliminary Blood No Growth after 24 hours Comments: CT abdomen and pelvis reports mild subsegmental atelectasis right lung base. No acute abnormality of the abdomen and pelvis. Clearing of rectal fecal impaction compared to old exam. Assessment and Plan (1) Nausea & vomiting Narrative/Plan: 71-year-old female with multiple comorbidities who underwent a laminectomy followed by complications several months ago. Patient states she went into a deep depression with decreased appetite failure to thrive and underwent PEG tube placement on all done at [facility] in [place]. Apparently patient had a recent lower GI bleed and was transferred to [facility] where she underwent EGD and colonoscopy at that time. Results are currently not available. Patient states she does have a history and believes that they found a ulcer during the EGD and severe stool impaction during her colonoscopy which s he states she was disimpacted while under anesthesia. Patient has been residing in a long-term care facility and had several episodes of nausea vomiting and diarrhea on Saturday. Reportedly with some coffee-ground emesis. However patient states that she did not believe that she had any evidence of GI bleed. Stool sample was collected and she has positive for C. difficile. She has been started on vancomycin and remains on Zosyn. Symptoms have improved. States she had one episode of diarrhea yesterday, nonbloody. No further nausea or vomiting since being admitted to the hospital. Gen. surgery has been following patient as well and patient underwent an upper GI series today which is cu rrently pending. No plans currently for any EGD or colonoscopy. Will request records from [facility]. Current Visit: Yes Status: Acute Code(s): R11.2 - NAUSEA WITH VOMITING, UNSPECIFIED SNOMED Code(s): 30819424 (2) C. difficile diarrhea Current Visit: Yes Status: Acute Code(s): A04.72 - ENTEROCOLITIS D/T CLOSTRIDIUM DIFFICILE, NOT SPCF RECUR SNOMED Code(s): 0873756775294 (3) Diarrhea Current Visit: Yes Status: Acute Code(s): R19.7 - DIARRHEA, UNSPECIFIED SNOMED Code(s): 98488663 Plan: 1. Continue symptomatic and supportive care 2. Diet as tolerated 3. Please obtain EGD and colonoscopy records from [facility] 4. Continue Carafate and Protonix 5. Await upper GI series 6. Continue with recommendations from general surgery 7. Daily CBC transfuse per protocol 8. No plans at this time for EGD/colonoscopy Thank you for this consultation, we will continue to follow. Dr. Carolyn Marx I agree with the dictator's note, documented as a scribe by Gloria Hyatt.
--- NOTE | 2021-12-18 11:52 | P.PN ---
Subjective Progress Note Date: 12/18/21 History of present illness This is a 71-year-old patient of Dr. Davis with past medical history significant for hypertension, hyperlipidemia, failure to PEG tube placement post lami nectomy, anemia, acute embolism of femoral vein previously, diabetes mellitus, depression She did have previous history of GI bleeding approximately 4 weeks ago. Approximately 6 weeks ago, patient underwent a laminectomy resulting an encephalitis and acute respiratory failure. She was placed on a vent at that time. She had a severe bleeding ulcer and severe dysphagia and malnutrition. A PEG tube was placed during the hospital stay. Patient was then transferred to [facility] where she continued to have episodes of nausea and vomiting and was transferred to [facility] related to a GI bleed. Patient underwent an EGD and colonoscopy at that time which showed pancolitis, gastritis, esophagitis. She presented to the emergency room complaining of nausea and vomiting. Patient had multiple episodes of nausea which she's been treated with Zofran and Reglan. Patient did have 2 episodes of coffee-ground emesis yesterday and diarrhea. She denies any black or tarry stools. Patient has not taken anything by mouth due to no appetite. Patient continuously feels fullness in her stomach. With no appetite. She has a large residual post tube feeding. Patient was found to have a white count of 25,000 At this time patient is found resting comfortably in bed in [facility]. She has a flat affect. Patient complains of nausea no vomiting at this time. WC 14.31, hemoglobin 9.6, sodium 141, potassium 2.9, BUN 19.2, creatinine 0.6. Patient remains afebrile, heart rate 96, respirations 16, blood pressure 133/80, pulse ox 96% on room air. 12/18: Patient is currently nothing by mouth when undergoing an upper GI series ordered by general surgery. General surgery does not recommend moving PEG tube. We will add a consult with GI regarding ongoing problems with intractable nausea and vomiting that she has been dealing with for some time and has been placed on Carafate, Protonix, Reglan. She denies having any nausea at this time. She states she ate a half a bowl of soup yesterday. She has been afebrile, heart rate 80, blood pressure 115/73, pulse ox 90% on room air. Repeat blood work reveals WBC 9.1, hemoglobin 8.8. Platelet count 235. Electrolytes are normal. BUN 11 creatinine 0.5. Complete blood glucose running between 79 and 111. Blood cultures no growth after 24 hours. Review Of Systems: Constitutional: No fever, no chills, no night sweats. No weight change. Reports weakness and fatigue no lethargy. No daytime sleepiness. EENT: No headache. No blurred vision or double vision, no loss of vision. No loss of Hearing, no ringing in the ears, no dizziness. No nasal drainage or congestion. No epistaxis. No sore throat. Lungs: No shortness of breath, cough, no sputum production. No wheezing. Cardiovascular: No chest pain, no lower extremity edema. No palpitations. No paroxysmal nocturnal dyspnea. No orthopnea. No lightheadedness or dizziness. No syncopal episodes. Abdominal: Reports abdominal discomfort. Reports nausea and vomiting. no diarrhea. No constipation. No bloody or tarry stools. no loss of appetite. Genitourinary: No dysuria, increased frequency, urgency. No urinary retention. Musculoskeletal: No myalgias. No muscle weakness, no gait dysfunction, no frequent falls. No back pain. No neck pain. Integumentary: No wounds, no lesions. No rash or pruritus. No unusual bruising. No change in hair or nails. Neurologic: No aphasia. No facial droop. No change in mentation. No head injury. No headache. No paralysis. No paresthesia. Psychiatric: No depression. No anxiety. No mood swings. Endocrine: No abnormal blood sugars. No weight change. No excessive sweating or thirst. Physical examination General Appearance: Alert, cooperative, this is a 71-year-old female with flat affect resting in bed with no distress appears stated age. Neck HEENT: Supple, no lymphadenopathy, no thyroid enlargement, no carotid bruits. Lungs: Clear to auscultation without crackles or wheezes no rhonchi, no deformity. Chest Wall: Chest wall normal expansion with deep inspiration no tenderness and no deformity was found on exam, no costochondral pain or discomfort. Heart: Regular rate and rhythm, S1, S2 normal, no murmur, rub or gallop. Back: Symmetric, no curvature, ROM normal, no CVA tenderness. Abdomen: Soft, non-tender, no rebound or rigidity, no hepatosplenomegaly. Extremities: Extremities normal, atraumatic, no cyanosis or edema. Pulses: 2+ and symmetric. Skin: Skin color, texture, tugor normal, no rashes or lesions. Neurologic: Alert oriented x3 cranial nerves II through XII intact, no motor deficit, no abnormal balance or gait Assessment and plan 1. Aspiration pneumonia. Continue Zosyn, consult surgery related to PEG tube and increased residual. Upper GI series today. 2. Retractile nausea and vomiting, improved. Consult with GI, continue Reglan 10 mg IV push every 6 hours as needed, Zofran 4 mg every 6 hours as needed, Krupa fate 1 g by mouth before meals at bedtime. Consult general surgery for possible conversion of PEG tube to a J-tube, general surgery is no plan for surgical intervention. 3. Gastroparesis. As noted above, consult with GI 4. C. difficile colitis. Patient was started on vancomycin 125 mg 4 times daily. Questran added twice daily. 5. Anemia post GI bleed stable. Continue to monitor CBC. 6. Hypertension. Continue amlodipine 10 mg by mouth, lisinopril 20 mg by mouth, Lopressor 12.5 mg twice a day 7. Hyperlipidemia. Continue atorvastatin 10 mg by mouth at bedtime 8. Failure to thrive Post laminectomy 9. Recurrent depression. Effexor 75 mg by mouth daily 10. Hypokalemia. Repeat potassium tomorrow, potassium chloride 20 mEq X 3. 11. Hyperparathyroidism. Cinacalcet 30 mg PO BID 12. Diabetes mellitus. Accu-Cheks before meals at bedtime 13. GI prophylaxis. Protonix 14. DVT prophylaxis. Lovenox CODE STATUS: Full code Discharge plan: Return to [place] possibly Saturday Impression and plan of care have been directed as dictated by the signing physician. Samantha Syed nurse practitioner acting as scribe for signing physician. Objective - Vital Signs Vital signs: Vital Signs Temp 97.9 F 12/18/21 07:05 Pulse 80 12/18/21 07:05 Resp 17 12/18/21 07:05 BP 115/73 12/18/21 07:05 Pulse Ox 98 12/18/21 07:05 FiO2 Intake & Output 12/17/21 12/18/21 12/18/21 18:59 06:59 18:59 Intake Total 1500 Output Total 700 300 Balance -700 1200 Intake: Intake, IV Titration 1300 Amount Piperacillin-Tazobactam 3 100 .375 gm In Sodium Chloride 0.9% 100 ml @ 25 mls/hr IVPB Q8H [facility] Rx#: [id number] Sodium Chloride 0.9% 1, 1200 000 ml @ 130 mls/hr IV . Q7H42M [facility] Rx#:[id number] Oral 200 Output: Urine 700 300 Other: Voiding Method External Catheter External Catheter # Voids 1 3 # Bowel Movements 1 1 - Labs CBC & Chem 7: 12/18/21 05:06 12/18/21 05:06 Labs: Abnormal Lab Results - Last 24 Hours (Table) 12/17/21 12/17/21 12/17/21 Range/Units 06:47 06:52 06:52 WBC 14.31 H (4.50-10.00) X 10*3/uL RBC 3.39 L (4.10-5.20) X 10*6/uL Hgb 9.6 L (12.0-15.0) g/dL Hct 30.8 L (37.2-46.3) % MCHC 31.2 L (32.0-37.0) g/dL RDW 15.7 H (11.5-14.5) % Immature Gran # 0.07 H (0.00-0.04) X 10*3/uL Neutrophils # 11.81 H (1.80-7.70) X 10*3/uL Potassium 2.9 L (3.5-5.5) mmol/L Carbon Dioxide 27.9 H (20.0-27.5) mmol/L Anion Gap 9.80 L (10.00-18.00) mmol/L BUN/Creatinine Ratio 32.49 H (12.00-20.00) Ratio Glucose 124 H (70-110) mg/dL POC Glucose (mg/dL) (75-99) mg/dL Ur Leukocyte Esterase Small H (Negative) Urine Bacteria Rare H (None) /hpf C. difficile (EIA) Intrp (Negative) 12/17/21 12/17/21 12/17/21 Range/Units 11:53 14:09 16:40 WBC (4.50-10.00) X 10*3/uL RBC (4.10-5.20) X 10*6/uL Hgb (12.0-15.0) g/dL Hct (37.2-46.3) % MCHC (32.0-37.0) g/dL RDW (11.5-14.5) % Immature Gran # (0.00-0.04) X 10*3/uL Neutrophils # (1.80-7.70) X 10*3/uL Potassium (3.5-5.5) mmol/L Carbon Dioxide (20.0-27.5) mmol/L Anion Gap (10.00-18.00) mmol/L BUN/Creatinine Ratio (12.00-20.00) Ratio Glucose (70-110) mg/dL POC Glucose (mg/dL) 105 H 111 H (75-99) mg/dL Ur Leukocyte Esterase (Negative) Urine Bacteria (None) /hpf C. difficile (EIA) Intrp Positive A (Negative) 12/17/21 Range/Units 20:26 WBC (4.50-10.00) X 10*3/uL RBC (4.10-5.20) X 10*6/uL Hgb (12.0-15.0) g/dL Hct (37.2-46.3) % MCHC (32.0-37.0) g/dL RDW (11.5-14.5) % Immature Gran # (0.00-0.04) X 10*3/uL Neutrophils # (1.80-7.70) X 10*3/uL Potassium (3.5-5.5) mmol/L Carbon Dioxide (20.0-27.5) mmol/L Anion Gap (10.00-18.00) mmol/L BUN/Creatinine Ratio (12.00-20.00) Ratio Glucose (70-110) mg/dL POC Glucose (mg/dL) 100 H (75-99) mg/dL Ur Leukocyte Esterase (Negative) Urine Bacteria (None) /hpf C. difficile (EIA) Intrp (Negative) Microbiology - Last 24 Hours (Table) 12/16/21 21:47 Blood Culture - Preliminary Blood No Growth after 24 hours 12/16/21 21:30 Blood Culture - Preliminary Blood No Growth after 24 hours
--- NOTE | 2021-12-18 15:23 | FL ---
EXAMINATION TYPE: FL UGI DATE OF EXAM: 12/18/2021 COMPARISON: Correlation CT 12/16/2021 HISTORY: 71 year-old female nausea and vomiting. Referred for upper GI exam after injection through P EG tube. Total fluoroscopy time: 40 seconds. Total images: 16. TECHNIQUE: Real-time fluoroscopy during injection of 30 cc Gastrografin via the patient's indwelling PEG tube. FINDINGS: [employer] image of the abdomen shows posterior lumbosacral fusion hardware with corresponding laminectomies and lateral osseous fusion changes. There is a S-shaped scoliotic curvature. A PEG tube is noted. The technologist gradually injected the 30 mL of Gastrografin via the PEG tube while we performed flu oroscopic observation. There is prompt opacification of the distal gastric lumen and prompt passage i nto the duodenum and proximal jejunal loops. Incidental tiny diverticulum of the second portion of th e duodenum projecting medially. The patient was placed in an LPO position and further injection does not show any proximal extension of contrast within the gastric lumen. IMPRESSION: 1. Distal positioning of the patient's PEG tube balloon forcing all of the injected contrast to pass directly into the duodenum and proximal jejunum. 2. Despite tilting the patient towards the left, there is no flow of injected contrast into the proxi mal lumen of the stomach. If the PEG tube balloon is serving as a functional obstruction, orally ken sted material may be problematic. Clinically correlate.
[2021-12-18 16:22] LABS: Glucose,Whole Blood 78 mg/dL (75-99)
--- NOTE | 2021-12-18 17:06 | P.PN ---
Subjective Progress Note Date: 12/18/21 Patient was seen and examined she was tolerating her oral intake at this time. No nausea vomiting no complaints Objective - Vital Signs Vital signs: Vital Signs Temp 98.6 F 12/18/21 13:59 Pulse 77 12/18/21 13:59 Resp 18 12/18/21 13:59 BP 136/84 12/18/21 13:59 Pulse Ox 99 12/18/21 13:59 FiO2 Intake & Output 12/17/21 12/18/21 12/18/21 18:59 06:59 18:59 Intake Total 1500 Output Total 700 300 800 Balance -700 1200 -800 Intake: Intake, IV Titration 1300 Amount Piperacillin-Tazobactam 3 100 .375 gm In Sodium Chloride 0.9% 100 ml @ 25 mls/hr IVPB Q8H [facility] Rx#: [id number] Sodium Chloride 0.9% 1, 1200 000 ml @ 130 mls/hr IV . [id number] [facility] Rx#:[id number] Oral 200 Output: Urine 700 300 800 Other: Voiding Method External Catheter External Catheter External Catheter # Voids 1 3 # Bowel Movements 1 1 - Constitutional General appearance: Present: cooperative - Cardiovascular Rhythm: regular - Gastrointestinal Gastrointestinal Comment(s): Soft nontender nondistended PEG tube in place. - Psychiatric Psychiatric: Present: A&O x's 3 - Labs CBC & Chem 7: 12/18/21 05:06 12/18/21 05:06 Labs: Abnormal Lab Results - Last 24 Hours (Table) 12/17/21 12/17/21 12/18/21 Range/Units 16:40 20:26 05:06 RBC (4.10-5.20) X 10*6/uL Hgb (12.0-15.0) g/dL Hct (37.2-46.3) % MCHC (32.0-37.0) g/dL RDW (11.5-14.5) % Creatinine 0.5 L (0.6-1.5) mg/dL BUN/Creatinine Ratio 23.42 H (12.00-20.00) Ratio POC Glucose (mg/dL) 111 H 100 H (75-99) mg/dL Calcium 8.2 L (8.7-10.3) mg/dL Total Bilirubin 0.20 L (0.30-1.20) mg/dL AST 9 L (13-35) U/L Total Protein 5.4 L (6.2-8.2) g/dL Albumin 3.1 L (3.8-4.9) g/dL Albumin/Globulin Ratio 1.35 L (1.60-3.17) g/dL 12/18/21 Range/Units 05:06 RBC 3.15 L (4.10-5.20) X 10*6/uL Hgb 8.8 L (12.0-15.0) g/dL Hct 28.9 L (37.2-46.3) % MCHC 30.4 L (32.0-37.0) g/dL RDW 15.6 H (11.5-14.5) % Creatinine (0.6-1.5) mg/dL BUN/Creatinine Ratio (12.00-20.00) Ratio POC Glucose (mg/dL) (75-99) mg/dL Calcium (8.7-10.3) mg/dL Total Bilirubin (0.30-1.20) mg/dL AST (13-35) U/L Total Protein (6.2-8.2) g/dL Albumin (3.8-4.9) g/dL Albumin/Globulin Ratio (1.60-3.17) g/dL Microbiology - Last 24 Hours (Table) 12/16/21 21:47 Blood Culture - Preliminary Blood No Growth after 24 hours 12/16/21 21:30 Blood Culture - Preliminary Blood No Growth after 24 hours Assessment and Plan Assessment: Nausea vomiting PEG tube Plan: Patient tolerating some diet. No plans for any surgical intervention. Follow up GI recs.
[2021-12-18] MEDS: CHOLESTYRAMINE (WITH SUGAR) 4 GM PACKET PO SCH (17:19)
[2021-12-18 20:52] LABS: Glucose,Whole Blood 82 mg/dL (75-99)
[2021-12-18] MEDS: NON FORMULARY DRUG (Mirabegron [Myrbetriq] 25 MG Tab.Er.24h) PO SCH (22:06)
[2021-12-18] MEDS: ATORVASTATIN 10 MG TAB PO SCH (22:07)
[2021-12-19] MEDS: PIPERACILLIN-TAZOBACTAM 3.375 GM in SODIUM CHLORIDE 0.9% 100 ML IVPB SCH ×3 (05:54→21:10)
[2021-12-19] MEDS: SODIUM CHLORIDE 0.9% 1,000 ML IV SCH ×4 (06:40→23:16)
[2021-12-19 06:58] LABS: Glucose,Whole Blood 83 mg/dL (75-99)
[2021-12-19] MEDS: CHOLESTYRAMINE (WITH SUGAR) 4 GM PACKET PO SCH ×2 (08:13→17:29)
[2021-12-19] MEDS: CINACALCET 30 MG TAB PO SCH ×2 (08:13→17:28)
[2021-12-19] MEDS: ENOXAPARIN 40 MG/0.4 ML SYRINGE SQ SCH (08:14)
[2021-12-19] MEDS: SUCRALFATE 1 GM TAB PO SCH ×4 (08:14→21:14)
[2021-12-19] MEDS: PANTOPRAZOLE 40 MG TABLET PO SCH (08:14)
[2021-12-19] MEDS: METOPROLOL TARTRATE 12.5 MG TAB PO SCH ×2 (08:14→17:29)
[2021-12-19] MEDS: VENLAFAXINE HCL ER 75 MG CAP PO SCH (08:14)
[2021-12-19] MEDS: lisinopriL 20 MG TAB PO SCH (08:14)
[2021-12-19] MEDS: amLODIPine 10 MG TAB PO SCH (08:14)
[2021-12-19] MEDS: FUROSEMIDE 20 MG TAB PO SCH (08:14)
[2021-12-19] MEDS: VANCOMYCIN 125 MG CAPSULE PO SCH ×4 (08:14→21:14)
[2021-12-19] MEDS: NYSTATIN 100,000 UNIT/ML SUSP 500,000 UNIT/5 ML CUP PO SCH ×4 (10:22→22:30)
[2021-12-19 11:11] LABS: Glucose,Whole Blood 78 mg/dL (75-99)
--- NOTE | 2021-12-19 12:01 | P.PN ---
Subjective Progress Note Date: 12/19/21 History of present illness This is a 71-year-old patient of Dr. Davis with past medical history significant for hypertension, hyperlipidemia, failure to PEG tube placement post lami nectomy, anemia, acute embolism of femoral vein previously, diabetes mellitus, depression She did have previous history of GI bleeding approximately 4 weeks ago. Approximately 6 weeks ago, patient underwent a laminectomy resulting an encephalitis and acute respiratory failure. She was placed on a vent at that time. She had a severe bleeding ulcer and severe dysphagia and malnutrition. A PEG tube was placed during the hospital stay. Patient was then transferred to [facility] where she continued to have episodes of nausea and vomiting and was transferred to [facility] related to a GI bleed. Patient underwent an EGD and colonoscopy at that time which showed pancolitis, gastritis, esophagitis. She presented to the emergency room complaining of nausea and vomiting. Patient had multiple episodes of nausea which she's been treated with Zofran and Reglan. Patient did have 2 episodes of coffee-ground emesis yesterday and diarrhea. She denies any black or tarry stools. Patient has not taken anything by mouth due to no appetite. Patient continuously feels fullness in her stomach. With no appetite. She has a large residual post tube feeding. Patient was found to have a white count of 25,000 At this time patient is found resting comfortably in bed in [facility]. She has a flat affect. Patient complains of nausea no vomiting at this time. WC 14.31, hemoglobin 9.6, sodium 141, potassium 2.9, BUN 19.2, creatinine 0.6. Patient remains afebrile, heart rate 96, respirations 16, blood pressure 133/80, pulse ox 96% on room air. 12/18: Patient is currently nothing by mouth when undergoing an upper GI series ordered by general surgery. General surgery does not recommend moving PEG tube. We will add a consult with GI regarding ongoing problems with intractable nausea and vomiting that she has been dealing with for some time and has been placed on Carafate, Protonix, Reglan. She denies having any nausea at this time. She states she ate a half a bowl of soup yesterday. She has been afebrile, heart rate 80, blood pressure 115/73, pulse ox 90% on room air. Repeat blood work reveals WBC 9.1, hemoglobin 8.8. Platelet count 235. Electrolytes are normal. BUN 11 creatinine 0.5. Complete blood glucose running between 79 and 111. Blood cultures no growth after 24 hours. 12/19: Patient has been afebrile, heart rate 71, blood pressure 137/80, pulse ox 90% on room air. Stool for occult blood was positive this morning. Blood sugars running in the 70s and 80s. Patient has been seen by Dr. Carolyn Marx with recommendations to continue symptomatic and supportive care, diet as tolerated, obtain EGD and colonoscopy from [facility], continue Carafate and Protonix. Patient is also followed by general surgery with no plan for any surgical intervention. Patient is complaining of thrush and started on nystatin. She is asking that a lumbar x-ray be done before she follows up with her spinal surgeon. X-rays ordered for today. Anticipate discharge back to [facility] tomorrow. Upper GI series reveals distal positioning of the patient's PEG tube balloon forcing all of the injected contrast to pass directly into the duodenum and proximal jejunum. Despite tilting the patient towards the left there is no flow of injecting contrast into the proximal lumen of the stomach. If the PEG tube balloon is serving as a functional obstruction, orally ingested material may be problematic. Clinically correlated. Review Of Systems: Constitutional: No fever, no chills, no night sweats. No weight change. Reports weakness and fatigue no lethargy. No daytime sleepiness. EENT: No headache. No blurred vision or double vision, no loss of vision. No loss of Hearing, no ringing in the ears, no dizziness. No nasal drainage or congestion. No epistaxis. No sore throat. Lungs: No shortness of breath, cough, no sputum production. No wheezing. Cardiovascular: No chest pain, no lower extremity edema. No palpitations. No paroxysmal nocturnal dyspnea. No orthopnea. No lightheadedness or dizziness. No syncopal episodes. Abdominal: Reports abdominal discomfort. Reports nausea and vomiting. no diarrhea. No constipation. No bloody or tarry stools. no loss of appetite. Genitourinary: No dysuria, increased frequency, urgency. No urinary retention. Musculoskeletal: No myalgias. No muscle weakness, no gait dysfunction, no frequent falls. Chronic back pain. No neck pain. Integumentary: No wounds, no lesions. No rash or pruritus. No unusual bruising. No change in hair or nails. Neurologic: No aphasia. No facial droop. No change in mentation. No head injury. No headache. No paralysis. No paresthesia. Psychiatric: No depression. No anxiety. No mood swings. Endocrine: No abnormal blood sugars. No weight change. No excessive sweating or thirst. Physical examination General Appearance: Alert, cooperative, this is a 71-year-old female with flat affect resting in bed with no distress appears stated age. Neck HEENT: Supple, no lymphadenopathy, no thyroid enlargement, no carotid bruits. Lungs: Clear to auscultation without crackles or wheezes no rhonchi, no deformity. Chest Wall: Chest wall normal expansion with deep inspiration no tenderness and no deformity was found on exam, no costochondral pain or discomfort. Heart: Regular rate and rhythm, S1, S2 normal, no murmur, rub or gallop. Back: Symmetric, no curvature, ROM normal, no CVA tenderness. Abdomen: Soft, non-tender, no rebound or rigidity, no hepatosplenomegaly. Extremities: Extremities normal, atraumatic, no cyanosis or edema. Pulses: 2+ and symmetric. Skin: Skin color, texture, tugor normal, no rashes or lesions. Neurologic: Alert oriented x3 cranial nerves II through XII intact, no motor deficit, no abnormal balance or gait Assessment and plan 1. Aspiration pneumonia. Continue Zosyn, consult surgery related to PEG tube and increased residual. Upper GI series today. 2. Retractile nausea and vomiting, improved. Consult with GI, continue Reglan 10 mg IV push every 6 hours as needed, Zofran 4 mg every 6 hours as needed, Carafate 1 g by mouth before meals at bedtime. Consult general surgery and GI appreciated. No plan for any surgical intervention and no plan for EGD/colonoscopy. 3. Gastroparesis. As noted above, consult with GI 4. C. difficile colitis. Patient continued on vancomycin 125 mg 4 times daily. Continue Questran twice daily. 5. Anemia post GI bleed stable. Continue to monitor CBC. 6. Hypertension. Continue amlodipine 10 mg by mouth, lisinopril 20 mg by mouth, Lopressor 12.5 mg twice a day 7. Hyperlipidemia. Continue atorvastatin 10 mg by mouth at bedtime 8. Failure to thrive Post laminectomy 9. Recurrent depression. Effexor 75 mg by mouth daily 10. Hypokalemia. Repeat potassium tomorrow, potassium chloride 20 mEq X 3. 11. Hyperparathyroidism. Cinacalcet 30 mg PO BID 12. Diabetes mellitus. Accu-Cheks before meals at bedtime 13. GI prophylaxis. Protonix 14. DVT prophylaxis. Lovenox CODE STATUS: Full code Discharge plan: Return to [facility] on Saturday Impression and plan of care have been directed as dictated by the signing physician. Samantha Syed nurse practitioner acting as scribe for signing physician. Objective - Vital Signs Vital signs: Vital Signs Temp 97.4 F L 12/19/21 07:57 Pulse 71 12/19/21 07:57 Resp 20 12/19/21 07:57 BP 137/80 12/19/21 07:57 Pulse Ox 98 12/19/21 07:57 FiO2 Intake & Output 12/18/21 12/19/21 12/19/21 18:59 06:59 18:59 Output Total 800 500 350 Balance -800 -500 -350 Output: Urine 800 500 350 Other: Voiding Method External Catheter External Catheter External Catheter # Bowel Movements 2 - Labs CBC & Chem 7: 12/18/21 05:06 12/18/21 05:06 Labs: Abnormal Lab Results - Last 24 Hours (Table) 12/18/21 Range/Units 05:06 Creatinine 0.5 L (0.6-1.5) mg/dL BUN/Creatinine Ratio 23.42 H (12.00-20.00) Ratio Calcium 8.2 L (8.7-10.3) mg/dL Total Bilirubin 0.20 L (0.30-1.20) mg/dL AST 9 L (13-35) U/L Total Protein 5.4 L (6.2-8.2) g/dL Albumin 3.1 L (3.8-4.9) g/dL Albumin/Globulin Ratio 1.35 L (1.60-3.17) g/dL Microbiology - Last 24 Hours (Table) 12/16/21 21:47 Blood Culture - Preliminary Blood No Growth after 48 hours 12/16/21 21:30 Blood Culture - Preliminary Blood No Growth after 48 hours
--- NOTE | 2021-12-19 13:44 | XR ---
EXAM TYPE: LUMBAR SPINE X RAY SERIES COMPARISON: NONE HISTORY: Low back pain TECHNIQUE: 4 views are submitted. FINDINGS: Alignment is anatomic. The pedicles are intact. The transverse processes are intact. There is post surgical change involving the mid and lower lumbar spine. Diffuse osteopenia with degenerative change thoracolumbar junction. IMPRESSION: 1. Postsurgical changes. Exam limited by osteopenia and technique. 2. Multilevel hypertrophic and degenerative changes near the thoracolumbar junction.
--- NOTE | 2021-12-19 14:58 | P.PN ---
Subjective Progress Note Date: 12/19/21 Principal diagnosis: Nausea vomiting, diarrhea Patient seen and examined is a follow-up consultation for nausea and vomiting. Patient was found to have C. diff colitis is currently being treated with vancomycin. Symptoms have improved. She's had no further nausea or vomiting since being admitted to the hospital. Still having diarrhea. 3 episodes since midnight last night. Nonbloody. No abdominal pain. Still taking and minimal oral input due to lack of appetite. Upper GI series completed as ordered by general surgery that reported distal positioning of patient's PIC to balloon forcing injected contrast passed directly into duodenum and proximal jejunum. There is no flow of injected contrast into the proximal lumen of stomach. If PEG tube balloon is serving as a functional obstruction, orally ingested material may be problematic. Clinical correlate. Objective - Vital Signs Vital signs: Vital Signs Temp 97.4 F L 12/19/21 07:57 Pulse 71 12/19/21 07:57 Resp 20 12/19/21 07:57 BP 137/80 12/19/21 07:57 Pulse Ox 98 12/19/21 07:57 FiO2 Intake & Output 12/18/21 12/19/21 12/19/21 18:59 06:59 18:59 Output Total 800 500 350 Balance -800 -500 -350 Output: Urine 800 500 350 Other: Voiding Method External Catheter External Catheter External Catheter # Bowel Movements 2 - Exam General appearance: The patient is alert, oriented, appears in no acute distress. HET: Head is normocephalic and atraumatic. Conjunctiva pink. Sclera anicteric. Neck: Supple without lymphadenopathy. Abdomen: Soft, nontender, nondistended with bowel sounds. PEG tube in place, PEG tube pulled back and stopper repositioned. No guarding or rigidity. Extremities: Normal skin color and turgor. No pedal edema Skin: No rashes, no jaundice Neurological: No focal deficits. Alert and oriented -3. - Labs CBC & Chem 7: 12/18/21 05:06 12/18/21 05:06 Labs: Microbiology - Last 24 Hours (Table) 12/16/21 21:47 Blood Culture - Preliminary Blood No Growth after 48 hours 12/16/21 21:30 Blood Culture - Preliminary Blood No Growth after 48 hours Assessment and Plan (1) Nausea & vomiting Narrative/Plan: 71-year-old female with multiple comorbidities who underwent a laminectomy followed by complications several months ago. Patient states she went into a deep depression with decreased appetite failure to thrive and underwent PEG tube placement on all done at [facility] in [place]. Apparently patient had a recent lower GI bleed and was transferred to [facility] where she underwent EGD and colonoscopy at that time. Results are currently not availabl e. Patient states she does have a history and believes that they found a ulcer during the EGD and severe stool impaction during her colonoscopy which she states she was disimpacted while under anesthesia. Patient has been residing in a long-term care facility and had several episodes of nausea vomiting and diarrhea on Saturday. Reportedly with some coffee-ground emesis. However patient states that she did not believe that she had any evidence of GI bleed. Stool sample was collected and she has positive for C. difficile. She has been started on vancomycin and remains on Zosyn. Symptoms have improved. States she had one episode of diarrhea yesterday, nonbloody. No further nausea or vomiting since being admitted to the hospital. Gen. surgery has been following patient as well and patient underwent an upper GI series today which is currently pending. No plans currently for any EGD or colonoscopy. Will request records from [facility]. PEG tube repositioned Current Visit: Yes Status: Acute Code(s): R11.2 - NAUSEA WITH VOMITING, UNSPECIFIED SNOMED Code(s): 86133961 (2) C. difficile diarrhea Current Visit: Yes Status: Acute Code(s): A04.72 - ENTEROCOLITIS D/T CLOSTRIDIUM DIFFICILE, NOT SPCF RECUR SNOMED Code(s): 8983775665372 (3) Diarrhea Current Visit: Yes Status: Acute Code(s): R19.7 - DIARRHEA, UNSPECIFIED SNOMED Code(s): 89707238 Plan: 1. Continue symptomatic and supportive care 2. Diet as tolerated 3. Please obtain EGD and colonoscopy records from [facility] 4. Continue Carafate and Protonix 5. No plans at this time for EGD/colonoscopy 6. Patient is cleared from gastroenterology for discharge can follow-up in the office in 1-2 months if patient is eating more and can have PEG tube discontinued at that time 7. Encourage increased activity Thank you for this consultation, we will continue to follow. Dr. Carolyn Marx I agree with the dictator's note, documented as a scribe by Gloria Hyatt.
[2021-12-19 16:07] LABS: Glucose,Whole Blood 68 mg/dL (75-99)
[2021-12-19 16:30] LABS: Glucose,Whole Blood 89 mg/dL (75-99)
[2021-12-19 20:47] LABS: Glucose,Whole Blood 102 mg/dL (75-99)
[2021-12-19] MEDS: ATORVASTATIN 10 MG TAB PO SCH (21:14)
[2021-12-19] MEDS: NON FORMULARY DRUG (Mirabegron [Myrbetriq] 25 MG Tab.Er.24h) PO SCH (21:16)
[2021-12-20] MEDS: PIPERACILLIN-TAZOBACTAM 3.375 GM in SODIUM CHLORIDE 0.9% 100 ML IVPB SCH ×3 (05:22→21:14)
[2021-12-20] MEDS: SODIUM CHLORIDE 0.9% 1,000 ML IV SCH ×3 (06:11→22:13)
[2021-12-20 06:56] LABS: Glucose,Whole Blood 86 mg/dL (75-99)
--- NOTE | 2021-12-20 08:48 | P.DS ---
Providers Date of admission: 12/16/21 18:47 Expected date of discharge: 12/20/21 Attending physician: Sunday Davis Consults: 12/16/21 18:49 Consult Physician Urgent Consulting Provider: Bill Ellis Consult Reason/Comments: n/v, peg tube, gastritis possible need for j tube Do you want consulting provider notified?: Yes 12/18/21 08:21 Consult Physician Routine Consulting Provider: Chel Marx Consult Reason/Comments: intractable N/V, ? gastroparesis Do you want consulting provider notified?: Yes Primary care physician: [facility] Course: History of present illness This is a 71-year-old patient of Dr. Davis with past medical history significant for hypertension, hyperlipidemia, failure to PEG tube placement post laminectomy, anemia, acute embolism of femoral vein previously, diabetes mellitus, depression She did have previous history of GI bleeding approximately 4 weeks ago. Approximately 6 weeks ago, patient underwent a laminectomy resulting an encephalitis and acute respiratory failure. She was placed on a vent at that time. She had a severe bleeding ulcer and severe dysphagia and malnutrition. A PEG tube was placed during the hospital stay. Patient was then transferred to [facility] where she continued to have episodes of nausea and vomiting and was transferred to [facility] related to a GI bleed. Patient underwent an EGD and colonoscopy at that time which showed pancolitis, gastritis, esophagitis. She presented to the emergency room complaining of nausea and vomiting. Patient had multiple episodes of nausea which she's been treated with Zofran and Reglan. Patient did have 2 episodes of coffee-ground emesis yesterday and diarrhea. She denies any black or tarry stools. Patient has not taken anything by mouth due to no appetite. Patient continuously feels fullness in her stomach. With no appetite. She has a large residual post tube feeding. Patient was found to have a white count of 25,000 At this time patient is found resting comfortably in bed in [facility]. She has a flat affect. Patient complains of nausea no vomiting at this time. WC 14.31, hemoglobin 9.6, sodium 141, potassium 2.9, BUN 19.2, creatinine 0.6. Patient remains afebrile, heart rate 96, respirations 16, blood pressure 133/80, pulse ox 96% on room air. 12/18: Patient is currently nothing by mouth when undergoing an upper GI series ordered by general surgery. General surgery does not recommend moving PEG tube. We will add a consult with GI regarding ongoing problems with intractable nausea and vomiting that she has been dealing with for some time and has been placed on Carafate, Protonix, Reglan. She denies having any nausea at this time. She states she ate a half a bowl of soup yesterday. She has been afebrile, heart rate 80, blood pressure 115/73, pulse ox 90% on room air. Repeat blood work reveals WBC 9.1, hemoglobin 8.8. Platelet count 235. Electrolytes are normal. BUN 11 creatinine 0.5. Complete blood glucose running between 79 and 111. Blood cultures no growth after 24 hours. 12/19: Patient has been afebrile, heart rate 71, blood pressure 137/80, pulse ox 90% on room air. Stool for occult blood was positive this morning. Blood sugars running in the 70s and 80s. Patient has been seen by Dr. Carolyn Marx with recommendations to continue symptomatic and supportive care, diet as tolerated, obtain EGD and colonoscopy from Jono Cordero, continue Carafate and Protonix. Patient is also followed by general surgery with no plan for any surgical intervention. Patient is complaining of thrush and started on nystatin. She is asking that a lumbar x-ray be done before she follows up with her spinal surgeon. X-rays ordered for today. Anticipate discharge back to [facility] tomorr ow. Upper GI series reveals distal positioning of the patient's PEG tube balloon forcing all of the injected contrast to pass directly into the duodenum and proximal jejunum. Despite tilting the patient towards the left there is no flow of injecting contrast into the proximal lumen of the stomach. If the PEG tube balloon is serving as a functional obstruction, orally ingested material may be problematic. Clinically correlated. 12/20: Patient has no new complaints today. She did have some oral intake. Patient to follow-up with GI in 1-2 months if eating well and PEG tube will be discontinued in the office. Patient will be discharged back to [facility] today in stable condition. DISCHARGE DIAGNOSES 1. Aspiration pneumonia. 2. Retractile nausea and vomiting, improved. 3. Gastroparesis. 4. C. difficile colitis. 5. Anemia post GI bleed stable. 6. Hypertension. 7. Hyperlipidemia. 8. Failure to thrive Post laminectomy 9. Recurrent depression. 10. Hypokalemia. 11. Hyperparathyroidism. 12. Diabetes mellitus. Discharge plan: Return to [facility] on Saturday Greater than 35 minutes was utilized and coordinating patient's discharge. Impression and plan of care have been directed as dictated by the signing physician. Samantha Syed nurse practitioner acting as scribe for signing physician. Patient Condition at Discharge: Stable Plan - Discharge Summary Discharge Rx Participant: No New Discharge Prescriptions: New Cholestyramine (with Sugar) [Questran Packet] 4 gm PO BID@1000,1800 packet Vancomycin 125 mg PO QID #44 cap Sucralfate [Carafate] 1 gm PO ACHS tab Continue Atorvastatin [Lipitor] 10 mg PO HS@2100 Magnesium Hydroxide [Milk of Magnesia Concentrate] 7,200 mg PO DAILY PRN PRN Reason: Constipation Na Phos,M-B/Na Phos,Di-Ba [Fleet Adult] 133 ml RECTAL DAILY PRN PRN Reason: Constipation Omeprazole [PriLOSEC] 20 mg PO DAILY@0800 Mirabegron [Myrbetriq] 25 mg PO HS@2100 Furosemide [Lasix] 20 mg PO DAILY@0800 Liquacel 30 ml PO BID@0600,2200 Enoxaparin [Lovenox] 40 mg SQ DAILY@0800 Triamcinolone 0.5% Cream [Kenalog 0.5% Cream] 1 applic TOPICAL BID Venlafaxine HCl [Effexor XR] 75 mg PO DAILY@0800 Cinacalcet HCl [Sensipar] 30 mg PO BID@0800,1700 amLODIPine [Norvasc] 10 mg PO DAILY@0800 diphenhydrAMINE [Benadryl] 25 mg PO Q6H PRN PRN Reason: RASH/ITCHING INSULIN ASPART (NovoLOG) [NovoLOG (formulary)] See Protocol SQ ACHS lisinopriL [Zestril] 20 mg PO DAILY@0800 metFORMIN HCL 500 mg PO BID@0800,1700 Metoclopramide [Reglan] 5 mg PO TID@0800,1200,1700 Metoprolol Tartrate [Lopressor] 12.5 mg PO BID@0800,1700 Nystatin 100,000 Unit/ml Susp [Mycostatin Oral Susp] 5 ml PO Q4H HYDROcodone/APAP 5-325MG [Woodward 5-325] 1 tab PO Q6H PRN #12 tab PRN Reason: Pain Discontinued bisacodyL [Dulcolax] 10 mg RECTAL DAILY PRN PRN Reason: Constipation Polyethylene Glycol 3350 [Miralax] 17 gm PO DAILY@0800 Sennosides/Docusate Sodium [Senna Plus 8.6-50 mg Softgel] 1 cap PO BID@0800,1700 Discharge Medication List Atorvastatin [Lipitor] 10 mg PO HS@209911/20/16 [History] Cinacalcet HCl [Sensipar] 30 mg PO BID@0800,1700 11/22/21 [History] Furosemide [Lasix] 20 mg PO DAILY@0800 11/22/21 [History] Magnesium Hydroxide [Milk of Magnesia Concentrate] 7,200 mg PO DAILY PRN 11/22/21 [History] Mirabegron [Myrbetriq] 25 mg PO HS@209911/22/21 [History] Na Phos,M-B/Na Phos,Di-Ba [Fleet Adult] 133 ml RECTAL DAILY PRN 11/22/21 [History] Omeprazole [PriLOSEC] 20 mg PO DAILY@0800 11/22/21 [History] Enoxaparin [Lovenox] 40 mg SQ DAILY@0812/16/21 [History] INSULIN ASPART (NovoLOG) [NovoLOG (formulary)] See Protocol SQ ACHS 12/16/21 [History] Liquacel 30 ml PO BID@0600,2200 12/16/21 [History] Metoclopramide [Reglan] 5 mg PO TID@0800,1200,1700 12/16/21 [History] Metoprolol Tartrate [Lopressor] 12.5 mg PO BID@0800,1700 12/16/21 [History] Nystatin 100,000 Unit/ml Susp [Mycostatin Oral Susp] 5 ml PO Q4H 12/16/21 [History] Triamcinolone 0.5% Cream [Kenalog 0.5% Cream] 1 applic TOPICAL BID 12/16/21 [History] Venlafaxine HCl [Effexor XR] 75 mg PO DAILY@0800 12/16/21 [History] amLODIPine [Norvasc] 10 mg PO DAILY@0800 12/16/21 [History] diphenhydrAMINE [Benadryl] 25 mg PO Q6H PRN 12/16/21 [History] lisinopriL [Zestril] 20 mg PO DAILY@0800 12/16/21 [History] metFORMIN HCL 500 mg PO BID@0800,1700 12/16/21 [History] Cholestyramine (with Sugar) [Questran Packet] 4 gm PO BID@1000,1800 packet 12/20/21 [Rx] HYDROcodone/APAP 5-325MG [Woodward 5-325] 1 tab PO Q6H PRN #12 tab 12/20/21 [Rx] Sucralfate [Carafate] 1 gm PO ACHS tab 12/20/21 [Rx] Vancomycin 125 mg PO QID #44 cap 12/20/21 [Rx] Follow up Appointment(s)/Referral(s): Sunday Davis MD [Primary Care Provider] - 1 Week (AT [facility]) Chel Marx MD [STAFF PHYSICIAN] - As Needed Discharge Disposition: TRANSFER TO SNF/ECF
[2021-12-20] MEDS: CINACALCET 30 MG TAB PO SCH ×2 (10:31→17:29)
[2021-12-20] MEDS: ENOXAPARIN 40 MG/0.4 ML SYRINGE SQ SCH (10:31)
[2021-12-20] MEDS: CHOLESTYRAMINE (WITH SUGAR) 4 GM PACKET PO SCH ×2 (10:31→17:27)
[2021-12-20] MEDS: NYSTATIN 100,000 UNIT/ML SUSP 500,000 UNIT/5 ML CUP PO SCH ×4 (10:31→21:14)
[2021-12-20] MEDS: SUCRALFATE 1 GM TAB PO SCH ×4 (10:32→20:49)
[2021-12-20] MEDS: VENLAFAXINE HCL ER 75 MG CAP PO SCH (10:32)
[2021-12-20] MEDS: METOPROLOL TARTRATE 12.5 MG TAB PO SCH ×2 (10:32→17:29)
[2021-12-20] MEDS: PANTOPRAZOLE 40 MG TABLET PO SCH (10:32)
[2021-12-20] MEDS: VANCOMYCIN 125 MG CAPSULE PO SCH ×4 (10:32→21:14)
[2021-12-20] MEDS: FUROSEMIDE 20 MG TAB PO SCH (10:33)
[2021-12-20] MEDS: lisinopriL 20 MG TAB PO SCH (10:33)
[2021-12-20] MEDS: amLODIPine 10 MG TAB PO SCH (10:33)
[2021-12-20 11:16] LABS: Glucose,Whole Blood 86 mg/dL (75-99)
--- NOTE | 2021-12-20 15:30 | P.PN ---
Subjective Progress Note Date: 12/20/21 Principal diagnosis: Nausea vomiting, diarrhea Patient seen and examined is a follow-up consultation for nausea and vomiting. Patient was found to have C. diff colitis is currently being treated with vancomycin. Symptoms have improved. She's had no further nausea or vomiting since being admitted to the hospital. Still having diarrhea. States she had only 3 bowel movements yesterday and 1 this morning. Nonbloody. No abdominal pain. She ate half of her oatmeal this morning. No other acute changes through the night. Plan is for discharge to [facility]. Objective - Vital Signs Vital signs: Vital Signs Temp 97.7 F 12/20/21 08:00 Pulse 74 12/20/21 08:00 Resp 16 12/20/21 00:50 BP 145/78 12/20/21 08:00 Pulse Ox 96 12/20/21 08:00 FiO2 Intake & Output 12/19/21 12/20/21 12/20/21 18:59 06:59 18:59 Output Total 350 700 Balance -350 -700 Output: Urine 350 700 Other: Voiding Method External Catheter External Catheter # Bowel Movements 1 - Exam General appearance: The patient is alert, oriented, appears in no acute distress. HET: Head is normocephalic and atraumatic. Conjunctiva pink. Sclera anicteric. Neck: Supple without lymphadenopathy. Abdomen: Soft, nontender, nondistended with bowel sounds. PEG tube in place.. Extremities: Normal skin color and turgor. No pedal edema Skin: No rashes, no jaundice Neurological: No focal deficits. Alert and oriented -3. - Labs CBC & Chem 7: 12/18/21 05:06 12/18/21 05:06 Labs: Abnormal Lab Results - Last 24 Hours (Table) 12/19/21 12/19/21 12/19/21 Range/Units 10:19 16:03 20:45 POC Glucose (mg/dL) 68 L 102 H (75-99) mg/dL Stool Occult Blood Positive H (Negative) Microbiology - Last 24 Hours (Table) 12/16/21 21:47 Blood Culture - Preliminary Blood No Growth after 72 hours 12/16/21 21:30 Blood Culture - Preliminary Blood No Growth after 72 hours Assessment and Plan (1) Nausea & vomiting Narrative/Plan: 71-year-old female with multiple comorbidities who underwent a laminectomy followed by complications several months ago. Patient states she went into a deep depression with decreased appetite failure to thrive and underwent PEG tube placement on all done at [facility] in [place]. Apparently patient had a recent lower GI bleed and was transferred to [facility] where she underwent EGD and colonoscopy at that time. Results are currently not available. Patient states she does have a history and believes that they found a ulcer during the EGD and severe stool impaction during her colonoscopy which she states she was disimpacted while under anesthesia. Patient has been residing in a long-term care facility and had several episodes of nausea vomiting and diarrhea on Saturday. Reportedly with some coffee-ground emesis. However patient states that she did not believe that she had any evidence of GI bleed. Stool sample was collected and she has positive for C. difficile. She has been started on vancomycin and remains on Zosyn. Symptoms have improved. States she had one episode of diarrhea yesterday, nonbloody. No further nausea or vomiting since being admitted to the hospital. Gen. surgery has been f ollowing patient as well and patient underwent an upper GI series today which is currently pending. No plans currently for any EGD or colonoscopy. Will request records from [facility]. PEG tube repositioned Current Visit: Yes Status: Acute Code(s): R11.2 - NAUSEA WITH VOMITING, UNSPECIFIED SNOMED Code(s): 45017852 (2) C. difficile diarrhea Current Visit: Yes Status: Acute Code(s): A04.72 - ENTEROCOLITIS D/T CLOSTRIDIUM DIFFICILE, NOT SPCF RECUR SNOMED Code(s): 2811569347790 (3) Diarrhea Current Visit: Yes Status: Acute Code(s): R19.7 - DIARRHEA, UNSPECIFIED SNOMED Code(s): 95984786 Plan: 1. Continue symptomatic and supportive care 2. Diet as tolerated 3. Continue Carafate and Protonix 4. No plans at this time for EGD/colonoscopy 5. Patient is cleared from gastroenterology for discharge can follow-up in the office in 1-2 months if patient is eating more and can have PEG tube discontinue d at that time 6. Encourage increased activity Thank you for this consultation, we will sign off at this time. Dr. Carolyn Marx I agree with the dictator's note, documented as a scribe by Gloria yHatt.
[2021-12-20 16:39] LABS: Glucose,Whole Blood 104 mg/dL (75-99)
[2021-12-20] MEDS: NON FORMULARY DRUG (Mirabegron [Myrbetriq] 25 MG Tab.Er.24h) PO SCH (20:25)
[2021-12-20 20:27] LABS: Glucose,Whole Blood 84 mg/dL (75-99)
[2021-12-20] MEDS: ATORVASTATIN 10 MG TAB PO SCH (20:49)
[2021-12-21] MEDS: PIPERACILLIN-TAZOBACTAM 3.375 GM in SODIUM CHLORIDE 0.9% 100 ML IVPB SCH ×3 (05:13→21:24)
[2021-12-21] MEDS: SODIUM CHLORIDE 0.9% 1,000 ML IV SCH ×2 (05:14→12:46)
[2021-12-21 06:57] LABS: Glucose,Whole Blood 91 mg/dL (75-99)
[2021-12-21] MEDS: ONDANSETRON 4 MG/2 ML VIAL IVP PRN ×2 (07:04→16:21)
--- NOTE | 2021-12-21 09:20 | P.PN ---
Subjective Progress Note Date: 12/20/21 History of present illness This is a 71-year-old patient of Dr. Davis with past medical history significant for hypertension, hyperlipidemia, failure to PEG tube placement post lami nectomy, anemia, acute embolism of femoral vein previously, diabetes mellitus, depression She did have previous history of GI bleeding approximately 4 weeks ago. Approximately 6 weeks ago, patient underwent a laminectomy resulting an encephalitis and acute respiratory failure. She was placed on a vent at that time. She had a severe bleeding ulcer and severe dysphagia and malnutrition. A PEG tube was placed during the hospital stay. Patient was then transferred to [facility] where she continued to have episodes of nausea and vomiting and was transferred to [facility] related to a GI bleed. Patient underwent an EGD and colonoscopy at that time which showed pancolitis, gastritis, esophagitis. She presented to the emergency room complaining of nausea and vomiting. Patient had multiple episodes of nausea which she's been treated with Zofran and Reglan. Patient did have 2 episodes of coffee-ground emesis yesterday and diarrhea. She denies any black or tarry stools. Patient has not taken anything by mouth due to no appetite. Patient continuously feels fullness in her stomach. With no appetite. She has a large residual post tube feeding. Patient was found to have a white count of 25,000 At this time patient is found resting comfortably in bed in [facility]. She has a flat affect. Patient complains of nausea no vomiting at this time. WC 14.31, hemoglobin 9.6, sodium 141, potassium 2.9, BUN 19.2, creatinine 0.6. Patient remains afebrile, heart rate 96, respirations 16, blood pressure 133/80, pulse ox 96% on room air. 12/18: Patient is currently nothing by mouth when undergoing an upper GI series ordered by general surgery. General surgery does not recommend moving PEG tube. We will add a consult with GI regarding ongoing problems with intractable nausea and vomiting that she has been dealing with for some time and has been placed on Carafate, Protonix, Reglan. She denies having any nausea at this time. She states she ate a half a bowl of soup yesterday. She has been afebrile, heart rate 80, blood pressure 115/73, pulse ox 90% on room air. Repeat blood work reveals WBC 9.1, hemoglobin 8.8. Platelet count 235. Electrolytes are normal. BUN 11 creatinine 0.5. Complete blood glucose running between 79 and 111. Blood cultures no growth after 24 hours. 12/19: Patient has been afebrile, heart rate 71, blood pressure 137/80, pulse ox 90% on room air. Stool for occult blood was positive this morning. Blood sugars running in the 70s and 80s. Patient has been seen by Dr. Carolyn Marx with recommendations to continue symptomatic and supportive care, diet as tolerated, obtain EGD and colonoscopy from Jono Cordero, continue Carafate and Protonix. Patient is also followed by general surgery with no plan for any surgical intervention. Patient is complaining of thrush and started on nystatin. She is asking that a lumbar x-ray be done before she follows up with her spinal surgeon. X-rays ordered for today. Anticipate discharge back to [facility] tomorrow. Upper GI series reveals distal positioning of the patient's PEG tube balloon forcing all of the injected contrast to pass directly into the duodenum and proximal jejunum. Despite tilting the patient towards the left there is no flow of injecting contrast into the proximal lumen of the stomach. If the PEG tube balloon is serving as a functional obstruction, orally ingested material may be problematic. Clinically correlated. 12/20: Patient has no new complaints today. She did have some oral intake. Patient to follow-up with GI in 1-2 months if eating well and PEG tube will be discontinued in the office. Patient will be discharged back to [facility] today in stable condition. Discharge was delayed waiting for insurance authorization. Review Of Systems: Constitutional: No fever, no chills, no night sweats. No weight change. Reports weakness and fatigue no lethargy. No daytime sleepiness. EENT: No headache. No blurred vision or double vision, no loss of vision. No loss of Hearing, no ringing in the ears, no dizziness. No nasal drainage or con gestion. No epistaxis. No sore throat. Lungs: No shortness of breath, cough, no sputum production. No wheezing. Cardiovascular: No chest pain, no lower extremity edema. No palpitations. No paroxysmal nocturnal dyspnea. No orthopnea. No lightheadedness or dizziness. No syncopal episodes. Abdominal: Reports abdominal discomfort. Reports nausea and vomiting. no diarrhea. No constipation. No bloody or tarry stools. no loss of appetite. Genitourinary: No dysuria, increased frequency, urgency. No urinary retention. Musculoskeletal: No myalgias. No muscle weakness, no gait dysfunction, no frequent falls. Chronic back pain. No neck pain. Integumentary: No wounds, no lesions. No rash or pruritus. No unusual bruising. No change in hair or nails. Neurologic: No aphasia. No facial droop. No change in mentation. No head injury. No headache. No paralysis. No paresthesia. Psychiatric: No depression. No anxiety. No mood swings. Endocrine: No abnormal blood sugars. No weight change. No excessive sweating or thirst. Physical examination General Appearance: Alert, cooperative, this is a 71-year-old female with flat affect resting in bed with no distress appears stated age. Neck HEENT: Supple, no lymphadenopathy, no thyroid enlargement, no carotid bruits. Lungs: Clear to auscultation without crackles or wheezes no rhonchi, no deformity. Chest Wall: Chest wall normal expansion with deep inspiration no tenderness and no deformity was found on exam, no costochondral pain or discomfort. Heart: Regular rate and rhythm, S1, S2 normal, no murmur, rub or gallop. Back: Symmetric, no curvature, ROM normal, no CVA tenderness. Abdomen: Soft, non-tender, no rebound or rigidity, no hepatosplenomegaly. Extremities: Extremities normal, atraumatic, no cyanosis or edema. Pulses: 2+ and symmetric. Skin: Skin color, texture, tugor normal, no rashes or lesions. Neurologic: Alert oriented x3 cranial nerves II through XII intact, no motor deficit, no abnormal balance or gait Assessment and plan 1. Aspiration pneumonia. Continue Zosyn, consult surgery related to PEG tube and increased residual. Upper GI series today. 2. Retractile nausea and vomiting, improved. Consult with GI, continue Reglan 10 mg IV push every 6 hours as needed, Zofran 4 mg every 6 hours as needed, Carafate 1 g by mouth before meals at bedtime. Consult general surgery and GI appreciated. No plan for any surgical intervention and no plan for EGD /colonoscopy. 3. Gastroparesis. As noted above, consult with GI 4. C. difficile colitis. Patient continued on vancomycin 125 mg 4 times daily. Continue Questran twice daily. 5. Anemia post GI bleed stable. Continue to monitor CBC. 6. Hypertension. Continue amlodipine 10 mg by mouth, lisinopril 20 mg by mouth, Lopressor 12.5 mg twice a day 7. Hyperlipidemia. Continue atorvastatin 10 mg by mouth at bedtime 8. Failure to thrive Post laminectomy 9. Recurrent depression. Effexor 75 mg by mouth daily 10. Hypokalemia. Repeat potassium tomorrow, potassium chloride 20 mEq X 3. 11. Hyperparathyroidism. Cinacalcet 30 mg PO BID 12. Diabetes mellitus. Accu-Cheks before meals at bedtime 13. GI prophylaxis. Protonix 14. DVT prophylaxis. Lovenox CODE STATUS: Full code Discharge plan: Return to [facility] on Impression and plan of care have been directed as dictated by the signing physician. Samantha Syed nurse practitioner acting as scribe for signing physi elpidio. Objective - Vital Signs Vital signs: Vital Signs Temp 97.8 F 12/21/21 06:52 Pulse 73 12/21/21 06:52 Resp 16 12/21/21 06:52 BP 156/69 12/21/21 06:52 Pulse Ox 97 12/21/21 06:52 FiO2 Intake & Output 12/20/21 12/21/21 12/21/21 18:59 06:59 18:59 Output Total 1850 Balance -1850 Output: Urine 1850 Other: Voiding Method External Catheter External Catheter # Bowel Movements 1 - Labs CBC & Chem 7: 12/18/21 05:06 12/18/21 05:06 Labs: Abnormal Lab Results - Last 24 Hours (Table) 12/20/21 Range/Units 16:38 POC Glucose (mg/dL) 104 H (75-99) mg/dL Microbiology - Last 24 Hours (Table) 12/16/21 21:47 Blood Culture - Preliminary Blood No Growth after 96 hours 12/16/21 21:30 Blood Culture - Preliminary Blood No Growth after 96 hours
[2021-12-21] MEDS: PANTOPRAZOLE 40 MG TABLET PO SCH (09:41)
[2021-12-21] MEDS: SUCRALFATE 1 GM TAB PO SCH ×4 (09:41→20:52)
[2021-12-21] MEDS: ENOXAPARIN 40 MG/0.4 ML SYRINGE SQ SCH (09:41)
[2021-12-21] MEDS: amLODIPine 10 MG TAB PO SCH (09:41)
[2021-12-21] MEDS: VENLAFAXINE HCL ER 75 MG CAP PO SCH (09:41)
[2021-12-21] MEDS: METOPROLOL TARTRATE 12.5 MG TAB PO SCH ×2 (09:41→18:12)
[2021-12-21] MEDS: lisinopriL 20 MG TAB PO SCH (09:41)
[2021-12-21] MEDS: FUROSEMIDE 20 MG TAB PO SCH (09:41)
[2021-12-21] MEDS: CINACALCET 30 MG TAB PO SCH ×2 (09:42→18:13)
[2021-12-21] MEDS: NYSTATIN 100,000 UNIT/ML SUSP 500,000 UNIT/5 ML CUP PO SCH ×4 (09:43→20:54)
[2021-12-21] MEDS: VANCOMYCIN 125 MG CAPSULE PO SCH ×4 (09:44→20:53)
[2021-12-21] MEDS: CHOLESTYRAMINE (WITH SUGAR) 4 GM PACKET PO SCH ×2 (09:44→18:14)
[2021-12-21 11:40] LABS: Glucose,Whole Blood 75 mg/dL (75-99)
[2021-12-21 16:44] LABS: Glucose,Whole Blood 69 mg/dL (75-99)
[2021-12-21] MEDS: NON FORMULARY DRUG (Mirabegron [Myrbetriq] 25 MG Tab.Er.24h) PO SCH (20:52)
[2021-12-21] MEDS: ATORVASTATIN 10 MG TAB PO SCH (20:52)
[2021-12-21] MEDS: METOCLOPRAMIDE 5 MG/ML 2 ML VIAL IVP PRN (20:55)
[2021-12-21 21:10] LABS: Glucose,Whole Blood 124 mg/dL (75-99)
[2021-12-22] MEDS: PIPERACILLIN-TAZOBACTAM 3.375 GM in SODIUM CHLORIDE 0.9% 100 ML IVPB SCH ×2 (05:17→12:58)
[2021-12-22 06:45] LABS: Glucose,Whole Blood 87 mg/dL (75-99)
[2021-12-22] MEDS: CINACALCET 30 MG TAB PO SCH ×2 (07:48→16:36)
[2021-12-22] MEDS: VANCOMYCIN 125 MG CAPSULE PO SCH ×2 (07:48→12:58)
[2021-12-22] MEDS: VENLAFAXINE HCL ER 75 MG CAP PO SCH (07:48)
[2021-12-22] MEDS: FUROSEMIDE 20 MG TAB PO SCH (07:48)
[2021-12-22] MEDS: NYSTATIN 100,000 UNIT/ML SUSP 500,000 UNIT/5 ML CUP PO SCH ×2 (07:48→12:58)
[2021-12-22] MEDS: PANTOPRAZOLE 40 MG TABLET PO SCH (07:49)
[2021-12-22] MEDS: lisinopriL 20 MG TAB PO SCH (07:49)
[2021-12-22] MEDS: METOPROLOL TARTRATE 12.5 MG TAB PO SCH ×2 (07:49→16:36)
[2021-12-22] MEDS: ENOXAPARIN 40 MG/0.4 ML SYRINGE SQ SCH (07:49)
[2021-12-22] MEDS: SUCRALFATE 1 GM TAB PO SCH ×3 (07:49→16:36)
[2021-12-22] MEDS: amLODIPine 10 MG TAB PO SCH (07:49)
--- NOTE | 2021-12-22 08:21 | P.PN ---
Subjective Progress Note Date: 12/21/21 History of present illness This is a 71-year-old patient of Dr. Davis with past medical history significant for hypertension, hyperlipidemia, failure to PEG tube placement post lami nectomy, anemia, acute embolism of femoral vein previously, diabetes mellitus, depression She did have previous history of GI bleeding approximately 4 weeks ago. Approximately 6 weeks ago, patient underwent a laminectomy resulting an encephalitis and acute respiratory failure. She was placed on a vent at that time. She had a severe bleeding ulcer and severe dysphagia and malnutrition. A PEG tube was placed during the hospital stay. Patient was then transferred to [facility] where she continued to have episodes of nausea and vomiting and was transferred to [facility] related to a GI bleed. Patient underwent an EGD and colonoscopy at that time which showed pancolitis, gastritis, esophagitis. She presented to the emergency room complaining of nausea and vomiting. Patient had multiple episodes of nausea which she's been treated with Zofran and Reglan. Patient did have 2 episodes of coffee-ground emesis yesterday and diarrhea. She denies any black or tarry stools. Patient has not taken anything by mouth due to no appetite. Patient continuously feels fullness in her stomach. With no appetite. She has a large residual post tube feeding. Patient was found to have a white count of 25,000 At this time patient is found resting comfortably in bed in [facility]. She has a flat affect. Patient complains of nausea no vomiting at this time. WC 14.31, hemoglobin 9.6, sodium 141, potassium 2.9, BUN 19.2, creatinine 0.6. Patient remains afebrile, heart rate 96, respirations 16, blood pressure 133/80, pulse ox 96% on room air. 12/18: Patient is currently nothing by mouth when undergoing an upper GI series ordered by general surgery. General surgery does not recommend moving PEG tube. We will add a consult with GI regarding ongoing problems with intractable nausea and vomiting that she has been dealing with for some time and has been placed on Carafate, Protonix, Reglan. She denies having any nausea at this time. She states she ate a half a bowl of soup yesterday. She has been afebrile, heart rate 80, blood pressure 115/73, pulse ox 90% on room air. Repeat blood work reveals WBC 9.1, hemoglobin 8.8. Platelet count 235. Electrolytes are normal. BUN 11 creatinine 0.5. Complete blood glucose running between 79 and 111. Blood cultures no growth after 24 hours. 12/19: Patient has been afebrile, heart rate 71, blood pressure 137/80, pulse ox 90% on room air. Stool for occult blood was positive this morning. Blood sugars running in the 70s and 80s. Patient has been seen by Dr. Carolyn Marx with recommendations to continue symptomatic and supportive care, diet as tolerated, obtain EGD and colonoscopy from Jono Cordero, continue Carafate and Protonix. Patient is also followed by general surgery with no plan for any surgical intervention. Patient is complaining of thrush and started on nystatin. She is asking that a lumbar x-ray be done before she follows up with her spinal surgeon. X-rays ordered for today. Anticipate discharge back to [facility] tomorrow. Upper GI series reveals distal positioning of the patient's PEG tube balloon forcing all of the injected contrast to pass directly into the duodenum and proximal jejunum. Despite tilting the patient towards the left there is no flow of injecting contrast into the proximal lumen of the stomach. If the PEG tube balloon is serving as a functional obstruction, orally ingested material may be problematic. Clinically correlated. 12/20: Patient has no new complaints today. She did have some oral intake. Patient to follow-up with GI in 1-2 months if eating well and PEG tube will be discontinued in the office. Patient will be discharged back to [facility] today in stable condition. Discharge was delayed waiting for insurance authorization. 12/21: We are still waiting for insurance authorization so that this patient can go back to [facility] to complete her course of rehab which she desperately needs. Patient states that she was able to sit up for an hour yesterday with the help of physical therapy. Expect the patient will do very well at rehab. She states that she did have nausea and one episode of vomiting last evening and Reglan seemed to help her the most. She will be on scheduled Reglan at discharge. Patient has been afebrile, heart rate 73, blood pressure 162/75, pulse ox 92% on room air. Patient will be discharged to [facility] once insurance authorization has been obtained. Review Of Systems: Constitutional: No fever, no chills, no night sweats. No weight change. Reports weakness and fatigue no lethargy. No daytime sleepiness. EENT: No headache. No blurred vision or double vision, no loss of vision. No loss of Hearing, no ringing in the ears, no dizziness. No nasal drainage or congestion. No epistaxis. No sore throat. Lungs: No shortness of breath, cough, no sputum production. No wheezing. Cardiovascular: No chest pain, no lower extremity edema. No palpitations. No paroxysmal nocturnal dyspnea. No orthopnea. No lightheadedness or dizziness. No syncopal episodes. Abdominal: Reports abdominal discomfort. Reports nausea and reports one episode of vomiting. no diarrhea. No constipation. No bloody or tarry stools. no loss of appetite. Genitourinary: No dysuria, increased frequency, urgency. No urinary retention. Musculoskeletal: No myalgias. No muscle weakness, no gait dysfunction, no frequent falls. Chronic back pain. No neck pain. Integumentary: No wounds, no lesions. No rash or pruritus. No unusual bruising. No change in hair or nails. Neurologic: No aphasia. No facial droop. No change in mentation. No head injury. No headache. No paralysis. No paresthesia. Psychiatric: No depression. No anxiety. No mood swings. Endocrine: No abnormal blood sugars. No weight change. No excessive sweating or thirst. Physical examination General Appearance: Alert, cooperative, this is a 71-year-old female with no distress appears stated age. Neck HEENT: Supple, no lymphadenopathy, no thyroid enlargement, no carotid bruits. Lungs: Clear to auscultation without crackles or wheezes no rhonchi, no deformity. Chest Wall: Chest wall normal expansion with deep inspiration no tenderness and no deformity was found on exam, no costochondral pain or discomfort. Heart: Regular rate and rhythm, S1, S2 normal, no murmur, rub or gallop. Back: Symmetric, no curvature, ROM normal, no CVA tenderness. Abdomen: Soft, non-tender, no rebound or rigidity, no hepatosplenomegaly. Extremities: Extremities normal, atraumatic, no cyanosis or edema. Pulses: 2+ and symmetric. Skin: Skin color, texture, tugor normal, no rashes or lesions. Neurologic: Alert oriented x3 cranial nerves II through XII intact, no motor deficit, no abnormal balance or gait Assessment and plan 1. Aspiration pneumonia. Continue Zosyn, consult surgery related to PEG tube and increased residual. 2. Retractile nausea and vomiting, improved. Consult with GI, continue Reglan 10 mg IV push every 6 hours as needed, Zofran 4 mg every 6 hours as needed, Carafate 1 g by mouth before meals at bedtime. Consult general surgery and GI appreciated. No plan for any surgical intervention and no plan for EGD/colonoscopy. 3. Gastroparesis. As noted above, consult with GI 4. C. difficile colitis. Patient continued on vancomycin 125 mg 4 times daily. Continue Questran twice daily. 5. Anemia post GI bleed stable. Continue to monitor CBC. 6. Hypertension. Continue amlodipine 10 mg by mouth, lisinopril 20 mg by mouth, Lopressor 12.5 mg twice a day 7. Hyperlipidemia. Continue atorvastatin 10 mg by mouth at bedtime 8. Failure to thrive Post laminectomy 9. Recurrent depression. Effexor 75 mg by mouth daily 10. Hypokalemia. Repeat potassium tomorrow, potassium chloride 20 mEq X 3. 11. Hyperparathyroidism. Cinacalcet 30 mg PO BID 12. Diabetes mellitus. Accu-Cheks before meals at bedtime 13. GI prophylaxis. Protonix 14. DVT prophylaxis. Lovenox CODE STATUS: Full code Discharge plan: Return to [facility] on Saturday Impression and plan of care have been directed as dictated by the signing physician. Samantha Syed nurse practitioner acting as scribe for signing physician. Objective - Vital Signs Vital signs: Vital Signs Temp 97.9 F 12/22/21 07:15 Pulse 73 12/22/21 07:15 Resp 17 12/22/21 07:15 BP 162/75 12/22/21 07:15 Pulse Ox 92 L 12/22/21 07:15 FiO2 Intake & Output 12/21/21 12/22/21 12/22/21 18:59 06:59 18:59 Output Total 600 400 Balance -600 -400 Output: Urine 600 400 Other: Voiding Method External Catheter External Catheter # Bowel Movements 1 - Labs CBC & Chem 7: 12/18/21 05:06 12/18/21 05:06 Labs: Abnormal Lab Results - Last 24 Hours (Table) 12/21/21 12/21/21 Range/Units 16:41 21:08 POC Glucose (mg/dL) 69 L 124 H (75-99) mg/dL Microbiology - Last 24 Hours (Table) 12/16/21 21:47 Blood Culture - Preliminary Blood No Growth after 120 hours 12/16/21 21:30 Blood Culture - Preliminary Blood No Growth after 120 hours
[2021-12-22] MEDS: CHOLESTYRAMINE (WITH SUGAR) 4 GM PACKET PO SCH (09:44)
[2021-12-22 11:23] LABS: Glucose,Whole Blood 77 mg/dL (75-99)
[2021-12-22] MEDS: SODIUM CHLORIDE 0.9% 1,000 ML IV SCH (13:02)
[2021-12-22 13:57] VITALS: BMI 34.0
[2021-12-22 14:10] VITALS: BP 152/87; PULSE 74; RESP 15; TEMP 98.1
[2021-12-22 16:34] LABS: Glucose,Whole Blood 82 mg/dL (75-99)
== END 2021-12-22 18:32 | DRG 178 ==
LOC: EC 14:32 → 4SSUR 18:47
PROVIDERS: ADMIT Internal Medicine Geriatric Medicine; ATTEND Internal Medicine Geriatric Medicine
DX: J69.0 Pneumonitis due to inhalation of food and vomit (principal); A04.72 Enterocolitis due to Clostridium difficile, not specified as recurrent; B37.0 Candidal stomatitis; E46 Unspecified protein-calorie malnutrition; F33.9 Major depressive disorder, recurrent, unspecified; J98.11 Atelectasis; R13.10 Dysphagia, unspecified; Z20.822 Contact with and (suspected) exposure to COVID-19; E11.43 Type 2 diabetes mellitus with diabetic autonomic (poly)neuropathy; K20.90 Esophagitis, unspecified without bleeding; K29.70 Gastritis, unspecified, without bleeding; K31.84 Gastroparesis; K56.41 Fecal impaction; R62.7 Adult failure to thrive; E78.5 Hyperlipidemia, unspecified; I10 Essential (primary) hypertension; D64.9 Anemia, unspecified; Z68.34 Body mass index [BMI] 34.0-34.9, adult; E21.3 Hyperparathyroidism, unspecified; E87.6 Hypokalemia; Z79.01 Long term (current) use of anticoagulants; Z79.84 Long term (current) use of oral hypoglycemic drugs; Z79.899 Other long term (current) drug therapy; Z80.1 Family history of malignant neoplasm of trachea, bronchus and lung; Z82.62 Family history of osteoporosis; Z86.61 Personal history of infections of the central nervous system; Z86.718 Personal history of other venous thrombosis and embolism; Z93.1 Gastrostomy status; Z98.1 Arthrodesis status
CPT/HCPCS: 36415; 71046; 72100; 74177; 74240; 80048; 80053; 81001; 82272; 83605; 83690; 83735; 84484; 85025; 85610; 85730; 87040; 87324; 87635; 93005; 96365; 96368; 99285

== ENCOUNTER 2021-12-30 03:56 | Inpatient (IN) | payer BC, MEDICARE ==
[2021-12-30] MEDS ORDERED: SODIUM CHLORIDE 0.9% 500 ML 500 ML IV STA (04:13)
[2021-12-30] MEDS ORDERED: ONDANSETRON 4 MG/2 ML VIAL IVP STA (04:27)
[2021-12-30 04:35] LABS: Basophils # (A) 0.1 k/uL (0-0.2); Basophils % (A) 0 %; Eosinophils # (A) 0.4 k/uL (0-0.7); Eosinophils % (A) 2 %; HCT 41.7 % (34.0-46.0); HGB 13.4 gm/dL (11.4-16.0); Hypochromasia Slight; Lymphocytes # (A) 2.5 k/uL (1.0-4.8); Lymphocytes % (A) 16 %; MCH 28.6 pg (25.0-35.0); MCV 89.2 fL (80.0-100.0); Mean Platelet Volume 7.1; Monocytes # (A) 0.5 k/uL (0-1.0); Monocytes % (A) 3 %; Neutrophils # (A) 12.2 k/uL (1.3-7.7); Neutrophils % (A) 78 %; Platelet Count 468 k/uL (150-450); Poikilocytosis Moderate; RBC 4.67 m/uL (3.80-5.40); RDW 15.8 % (11.5-15.5); WBC 15.6 k/uL (3.8-10.6)
[2021-12-30 04:44] LABS: ALT 9 U/L (4-34); African American GFR (CKD) >90 (>60 ml/min/1.73 sqM); Anion Gap 5 mmol/L; Blood Urea Nitrogen 18 mg/dL (7-17); Carbon Dioxide 37 mmol/L (22-30); Chloride 91 mmol/L (98-107); Glucose 110 mg/dL (74-99); Non-African American GFR(CKD) 80 (>60 ml/min/1.73 sqM); Sodium 133 mmol/L (137-145); Total Bilirubin 0.8 mg/dL (0.2-1.3)
[2021-12-30 04:49] LABS: AST 36 U/L (14-36); Albumin 3.8 g/dL (3.5-5.0); Alkaline Phosphatase 71 U/L (38-126); Calcium 13.2 mg/dL (8.4-10.2); Potassium 4.3 mmol/L (3.5-5.1); Total Protein 7.5 g/dL (6.3-8.2)
[2021-12-30] MEDS ORDERED: NALOXONE 0.4 MG/ML 1 ML VIAL IV PRN (05:29)
[2021-12-30] MEDS ORDERED: ACETAMINOPHEN TAB 325 MG TAB PO PRN (05:34)
[2021-12-30] MEDS: SODIUM CHLORIDE 0.9% 1,000 ML IV SCH ×2 (05:46→16:54)
[2021-12-30] MEDS ORDERED: ZOLEDRONIC ACID 4 MG in SODIUM CHLORIDE 0.9% 100 ML IV ONE (11:30)
--- NOTE | 2021-12-30 11:50 | P.HPIM ---
History of Present Illness 71-year-old pleasant female was sent in from jail because of blood pressure and elevated at calcium which is about 13. Patient is on calcitriol. Patient is a jail resident patient had a lumbar spinal fusion surgery month of August since and patient overall clinical condition has worsened patient stopped eating much and patient ended up having a PEG tube. Patient had history of hyperparathyroidism had parathyroidectomy in the past, patient does take cinacalcet for Hyperparathyroidism. Patient also denied any complaints patient appears to be bit lethargic and slow. Patient minimally is fairly good. Did have weight loss because she has not been eating much since her neck surgery. REVIEW OF SYSTEMS: CONSTITUTIONAL: No fever, no malaise, no fatigue. HEENT: No recent visual problems or hearing problems. Denied any sore throat. CARDIOVASCULAR: No chest pain, orthopnea, PND, no palpitations, no syncope. PULMONARY: No shortness of breath, no cough, no hemoptysis. GASTROINTESTINAL: No diarrhea, no nausea, no vomiting, no abdominal pain. NEUROLOGICAL: No headaches, no weakness, no numbness. HEMATOLOGICAL: Denies any bleeding or petechiae. GENITOURINARY: Denies any burning micturition, frequency, or urgency. MUSCULOSKELETAL/RHEUMATOLOGICAL: Denies any joint pain, swelling, or any muscle pain. ENDOCRINE: Denies any polyuria or polydipsia. The rest of the 14-point review of systems is negative. PHYSICAL EXAMINATION: GENERAL: The patient is alert and oriented x3, not in any acute distress. He appears lethargic and weak HEENT: Pupils are round and equally reacting to light. EOMI. No scleral icterus. No conjunctival pallor. Normocephalic, atraumatic. No pharyngeal erythema. No thyromegaly. CARDIOVASCULAR: S1 and S2 present. No murmurs, rubs, or gallops. PULMONARY: Chest is clear to auscultation, no wheezing or crackles. ABDOMEN: Soft, nontender, nondistended, normoactive bowel sounds. No palpable organomegaly. MUSCULOSKELETAL: No joint swelling or deformity. EXTREMITIES: No cyanosis, clubbing, or pedal edema. NEUROLOGICAL: Gross neurological examination did not reveal any focal deficits. Does have significant generalized weakness SKIN: No rashes. Assessment and plan -Hypercalcemia: Will undergo further evaluation with the parathyroid levels, vitamin D 25, patient will be started on 1 25 mL of normal saline along with zoledronic acid. Nephrology will be consulted if patient is volume overloaded will need Lasix at that time patient does take Lasix as an outpatient which is being held. Patient does have history of hyperparathyroidism in the past and pr esently is AT -Hypertension patient is presently hypotensive hold off on amlodipine continue with the lisinopril -Leukocytosis appears to be reactive we'll repeat CBC tomorrow -Hyperlipidemia -Recent C. diff diagnosis patient presently doesn't have any diarrhea continued for vancomycin patient was was started on oral vancomycin on December 26 will need total 10 day of therapy. -Gastroesophageal reflux disease DVT prophylaxis: Lovenox Past Medical History Past Medical History: Hyperlipidemia, Hypertension, Osteoarthritis (OA) Additional Past Medical History / Comment(s): Well healed left leg wound(brown discoloration). Hx. of bulging disc. C-Diff infection 12/17/21. History of Any Multi-Drug Resistant Organisms: None Reported Past Surgical History: Orthopedic Surgery, Tubal Ligation Additional Past Surgical History / Comment(s): PARATHYROIDECTOMY 1985,2009 PARTIAL THYROIDECTOMY, Low back surgery Aug 15, 2021. Peg Tube insertion October 23, 2021. Past Anesthesia/Blood Transfusion Reactions: No Reported Reaction Smoking Status: Never smoker - Past Family History Mother Additional Family Medical History / Comment(s): OSTEOPOROSIS Father Additional Family Medical History / Comment(s): AORTIC ABD. ANEURSYN Medications and Allergies Home Medications Medication Instructions Recorded Confirmed Type Atorvastatin [Lipitor] 10 mg PO HS@209911/20/16 12/16/21 History Cinacalcet HCl [Sensipar] 30 mg PO BID@0800,1700 11/22/21 12/16/21 History Furosemide [Lasix] 20 mg PO DAILY@0811/22/21 12/16/21 History Magnesium Hydroxide [Milk of 7,200 mg PO DAILY PRN 11/22/21 12/16/21 History Magnesia Concentrate] Mirabegron [Myrbetriq] 25 mg PO HS@209911/22/21 12/16/21 History Na Phos,M-B/Na Phos,Di-Ba [Fleet 133 ml RECTAL DAILY PRN 11/22/21 12/16/21 Histo ry Adult] Omeprazole [PriLOSEC] 20 mg PO DAILY@0800 11/22/21 12/16/21 History Enoxaparin [Lovenox] 40 mg SQ DAILY@0800 12/16/21 12/16/21 History INSULIN ASPART (NovoLOG) [NovoLOG See Protocol SQ ACHS 12/16/21 12/16/21 History (formulary)] Liquacel 30 ml PO BID@0600,2200 12/16/21 12/16/21 History Metoclopramide [Reglan] 5 mg PO TID@0800,1200,1700 12/16/21 12/16/21 History Metoprolol Tartrate [Lopressor] 12.5 mg PO BID@0800,1700 12/16/21 12/16/21 History Nystatin 100,000 Unit/ml Susp 5 ml PO Q4H 12/16/21 12/16/21 History [Mycostatin Oral Susp] Triamcinolone 0.5% Cream [Kenalog 1 applic TOPICAL BID 12/16/21 12/16/21 History 0.5% Cream] Venlafaxine HCl [Effexor XR] 75 mg PO DAILY@0800 12/16/21 12/16/21 History amLODIPine [Norvasc] 10 mg PO DAILY@0800 12/16/21 12/16/21 History diphenhydrAMINE [Benadryl] 25 mg PO Q6H PRN 12/16/21 12/16/21 History lisinopriL [Zestril] 20 mg PO DAILY@0800 12/16/21 12/16/21 History metFORMIN HCL 500 mg PO BID@0800,1700 12/16/21 12/16/21 History HYDROcodone/APAP 5-325MG [[place] 1 tab PO Q6H PRN #12 tab 12/20/21 Rx 5-325] Sucralfate [Carafate] 1 gm PO ACHS tab 12/20/21 Rx Vancomycin 125 mg PO QID #44 cap 12/20/21 Rx Cholestyramine (with Sugar) 4 gm PO BID@0800,1700 12/30/21 12/30/21 History [Questran Packet] Ensure 1 can PO TID@1000,1500,2000 12/30/21 12/30/21 History Ondansetron [Zofran] 4 mg PO Q8H PRN 12/30/21 12/30/21 History Potassium Chloride ER [K-Dur 20] 80 meq PO ONCE 12/30/21 12/30/21 History bisacodyL [Dulcolax] 10 mg RECTAL DAILY PRN 12/30/21 12/30/21 History Allergies Allergy/AdvReac Type Severity Reaction Status Date / Time No Known Allergies Allergy Verified 12/30/21 11:33 Physical Exam Vitals: Vital Signs Temp Pulse Pulse Resp BP BP Pulse Ox 12/30/21 06:20 97.5 F L 75 16 116/78 95 12/30/21 06:03 69 20 108/68 97 12/30/21 05:02 72 20 114/75 98 12/30/21 03:58 97.4 F L 76 20 119/71 95 Intake and Output 12/29/21 12/30/21 12/30/21 22:59 06:59 14:59 Intake Total 0 Balance 0 Intake: Oral 0 Other: # Voids 1 # Bowel Movements 1 Weight 84.414 kg 84.414 kg Results CBC & Chem 7: 12/30/21 04:24 12/30/21 04:24 Labs: Abnormal Lab Results - Last 24 Hours (Table) 12/30/21 12/30/21 Range/Units 04:24 04:24 WBC 15.6 H (3.8-10.6) k/uL RDW 15.8 H (11.5-15.5) % Plt Count 468 H (150-450) k/uL Neutrophils # 12.2 H (1.3-7.7) k/uL Sodium 133 L (137-145) mmol/L Chloride 91 L (98-107) mmol/L Carbon Dioxide 37 H (22-30) mmol/L BUN 18 H (7-17) mg/dL Glucose 110 H (74-99) mg/dL Calcium 13.2 H* (8.4-10.2) mg/dL
[2021-12-30] MEDS ORDERED: ONDANSETRON 4 MG TAB PO PRN (12:02)
[2021-12-30] MEDS ORDERED: NA PHOS,M-B/NA PHOS,DI-BA 133 ML ENEMA RECTAL PRN (12:02)
[2021-12-30] MEDS ORDERED: bisacodyL 10 MG SUPP RECTAL PRN (12:02)
[2021-12-30] MEDS: SUCRALFATE 1 GM TAB PO SCH ×3 (12:48→21:13)
[2021-12-30] MEDS: NYSTATIN 100,000 UNIT/ML SUSP 500,000 UNIT/5 ML CUP PO SCH ×3 (12:48→21:08)
--- NOTE | 2021-12-30 13:12 | P.NPCON ---
History of Present Illness - History of Present Illness Patient is a 71-year-old female who is admitted to the hospital with complaints of increasing weakness. She is noted to have an elevated calcium at 13. Patient denies history of calcium supplements. She has a history of tertiary hyperparathyroidism with history of parathyroi dectomy and maintained on Sensipar. I do not see calcitriol on her home med list. Intact PTH noted to be 78.2 on 09/15/2021. No history of fever chills nausea vomiting or abdominal pain. Review of Systems As per HPI Past Medical History Past Medical History: Hyperlipidemia, Hypertension, Osteoarthritis (OA) Additional Past Medical History / Comment(s): Well healed left leg wound(brown discoloration). Hx. of bulging disc. C-Diff infection 12/17/21. History of Any Multi-Drug Resistant Organisms: None Reported Past Surgical History: Orthopedic Surgery, Tubal Ligation Additional Past Surgical History / Comment(s): PARATHYROIDECTOMY 1985,2009 PARTIAL THYROIDECTOMY, Low back surgery Aug 15, 2021. Peg Tube insertion October 23, 2021. Past Anesthesia/Blood Transfusion Reactions: No Reported Reaction Smoking Status: Never smoker - Past Family History Mother Additional Family Medical History / Comment(s): OSTEOPOROSIS Father Additional Family Medical History / Comment(s): AORTIC ABD. ANEURSYN Medications and Allergies Home Medications Medication Instructions Recorded Confirmed Type Atorvastatin [Lipitor] 10 mg PO DAILY@1700 11/20/16 12/30/21 History Cinacalcet HCl [Sensipar] 30 mg PO BID@0800,1700 11/22/21 12/30/21 History Furosemide [Lasix] 20 mg PO DAILY@0800 11/22/21 12/30/21 History Magnesium Hydroxide [Milk of 7,200 mg PO DAILY PRN 11/22/21 12/30/21 History Magnesia Concentrate] Mirabegron [Myrbetriq] 25 mg PO HS@2100 11/22/21 12/30/21 History Na Phos,M-B/Na Phos,Di-Ba [Fleet 133 ml RECTAL DAILY PRN 11/22/21 12/30/21 History Adult] Omeprazole [PriLOSEC] 20 mg PO DAILY@0800 11/22/21 12/30/21 History Enoxaparin [Lovenox] 40 mg SQ DAILY@0800 12/16/21 12/30/21 History INSULIN ASPART (NovoLOG) [NovoLOG See Protocol SQ ACHS 12/16/21 12/30/21 History (formulary)] Liquacel 30 ml PO BID@0600,2200 12/16/21 12/30/21 History Metoclopramide [Reglan] 5 mg PO TID@0800,1200,1700 12/16/21 12/30/21 History Metoprolol Tartrate [Lopressor] 12.5 mg PO BID@0800,1700 12/16/21 12/30/21 History Nystatin 100,000 Unit/ml Susp 5 ml PO Q4H 12/16/21 12/30/21 History [Mycostatin Oral Susp] Triamcinolone 0.5% Cream [Kenalog 1 applic TOPICAL BID 12/16/21 12/30/21 History 0.5% Cream] Venlafaxine HCl [Effexor XR] 75 mg PO DAILY@0800 12/16/21 12/30/21 History amLODIPine [Norvasc] 10 mg PO DAILY@0800 12/16/21 12/30/21 History diphenhydrAMINE [Benadryl] 25 mg PO Q6H PRN 12/16/21 12/30/21 History lisinopriL [Zestril] 20 mg PO DAILY@0800 12/16/21 12/30/21 History metFORMIN HCL 500 mg PO BID@0800,1700 12/16/21 12/30/21 History HYDROcodone/APAP 5-325MG [[place] 1 tab PO Q6H PRN #12 tab 12/20/21 12/30/21 Rx 5-325] Sucralfate [Carafate] 1 gm PO ACHS tab 12/20/21 12/30/21 Rx Vancomycin 125 mg PO QID #44 cap 12/20/21 12/30/21 Rx Cholestyramine (with Sugar) 4 gm PO BID@0800,1700 12/30/21 12/30/21 History [Questran Packet] Ensure 1 can PO TID@1000,1500,2000 12/30/21 12/30/21 History Ondansetron [Zofran] 4 mg PO Q8H PRN 12/30/21 12/30/21 History Potassium Chloride ER [K-Dur 20] 80 meq PO ONCE 12/30/21 12/30/21 History bisacodyL [Dulcolax] 10 mg RECTAL DAILY PRN 12/30/21 12/30/21 History Allergies Allergy/AdvReac Type Severity Reaction Status Date / Time No Known Allergies Allergy Verified 12/30/21 11:33 Physical Exam Vitals: Vital Signs Temp Pulse Pulse Resp BP BP Pulse Ox 12/30/21 12:21 97.9 F 69 14 118/73 94 L 12/30/21 06:20 97.5 F L 75 16 116/78 95 12/30/21 06:03 69 20 108/68 97 12/30/21 05:02 72 20 114/75 98 12/30/21 03:58 97.4 F L 76 20 119/71 95 Intake and Output 12/29/21 12/30/21 12/30/21 22:59 06:59 14:59 Intake Total 0 Balance 0 Intake: Oral 0 Other: # Voids 1 # Bowel Movements 1 Weight 84.414 kg 84.414 kg Patient is comfortable awake not in any acute distress Examination of the heart S1 and S2 Examination lungs bilateral breath sounds are heard Abdomen is soft nontender Examination lower extremities shows no evidence of edema HAIRCUTTER exam grossly intact Results - Lab Results Most recent lab results Calcium 13.2 mg/dL (8.4-10.2) H* 12/30/21 04:24 12/30/21 04:24 12/30/21 04:24 Assessment and Plan Assessment: 1. Hypercalcemia with history of tertiary hyperparathyroidism and add a thyroidectomy many years ago reportedly in 1985. Currently patient is maintained on Sensipar. Last PTH noted in September 2021 was 78. This is reordered including other workup for hypercalcemia. He shouldn't did receive a dose of pamidronate. I will continue with the Sensipar. 2. Mild hyponatremia is likely hypovolemic. Maintained on saline and repeat labs in a.m. 3. History of hypertension, currently hypotensive. Antihypertensive medications on hold 4. History of recent C. diff colitis Plan: Continue with saline Repeat PTH, 25-hydroxy vitamin D, one 25-hydroxy vitamin D and Elie level Continue with Sensipar for now. Patient is status post pamidronate Repeat labs in a.m. Thank you for the consultation. We'll continue to follow the patient with you during her hospitalization
[2021-12-30] MEDS: VANCOMYCIN 125 MG CAPSULE PO SCH ×3 (13:31→23:06)
[2021-12-30] MEDS: ATORVASTATIN 10 MG TAB PO SCH (16:57)
[2021-12-30] MEDS: metFORMIN 500 MG TAB PO SCH (16:57)
[2021-12-30] MEDS: CHOLESTYRAMINE (WITH SUGAR) 4 GM PACKET PO SCH (16:57)
[2021-12-30] MEDS: METOPROLOL TARTRATE 12.5 MG TAB PO SCH (16:57)
[2021-12-30] MEDS: METOCLOPRAMIDE 5 MG TAB PO SCH (16:59)
[2021-12-30] MEDS: CINACALCET 30 MG TAB PO SCH (16:59)
[2021-12-30] MEDS: NON FORMULARY DRUG (Mirabegron [Myrbetriq] 25 MG Tab.Er.24h) PO SCH (21:12)
[2021-12-30] MEDS: TRIAMCINOLONE ACET 0.5% CREAM 15 GM TUBE TOPICAL SCH (21:13)
[2021-12-31] MEDS: NYSTATIN 100,000 UNIT/ML SUSP 500,000 UNIT/5 ML CUP PO SCH ×7 (00:20→21:13)
[2021-12-31 00:28] LABS: Glucose,Whole Blood 93 mg/dL (70-110)
[2021-12-31] MEDS: SODIUM CHLORIDE 0.9% 1,000 ML IV SCH ×3 (03:56→13:15)
[2021-12-31] MEDS: lisinopriL 20 MG TAB PO SCH (09:59)
[2021-12-31] MEDS: METOPROLOL TARTRATE 12.5 MG TAB PO SCH ×2 (09:59→16:33)
[2021-12-31] MEDS: PANTOPRAZOLE 40 MG TABLET PO SCH (09:59)
[2021-12-31] MEDS: CHOLESTYRAMINE (WITH SUGAR) 4 GM PACKET PO SCH ×2 (10:00→16:30)
[2021-12-31] MEDS: ENOXAPARIN 40 MG/0.4 ML SYRINGE SQ SCH (10:00)
[2021-12-31] MEDS: metFORMIN 500 MG TAB PO SCH ×2 (10:00→16:33)
[2021-12-31] MEDS: SUCRALFATE 1 GM TAB PO SCH ×4 (10:00→21:13)
[2021-12-31] MEDS: CINACALCET 30 MG TAB PO SCH ×2 (10:01→16:32)
[2021-12-31] MEDS: METOCLOPRAMIDE 5 MG TAB PO SCH ×3 (10:01→16:32)
[2021-12-31] MEDS: TRIAMCINOLONE ACET 0.5% CREAM 15 GM TUBE TOPICAL SCH ×2 (10:02→21:16)
[2021-12-31] MEDS: VANCOMYCIN 125 MG CAPSULE PO SCH ×4 (10:02→21:13)
--- NOTE | 2021-12-31 10:48 | P.PN ---
Subjective Patient is seen for follow-up for hypercalcemia. She has a history of hyperparathyroidism status post parathyroidectomy many years ago. It appears that patient's PTH was elevated in September at 78 with elevated calcium and she has been maintained on Sensipar. Serum calcium this admission was 13.2. Patient is maintained on IV fluids. She did receive a dose of pamidronate. Sensipar is continued at 30 mg twice a day. Labs are pending from today. Patient is complaining of nausea. Objective - Vital Signs Vital signs: Vital Signs Temp 97.4 F L 12/31/21 05:12 Pulse 66 12/31/21 05:12 Resp 16 12/31/21 05:12 BP 131/77 12/31/21 05:12 Pulse Ox 95 12/31/21 05:12 FiO2 Intake & Output 12/30/21 12/31/21 12/31/21 18:59 06:59 18:59 Intake Total 0 Balance 0 Weight 84.414 kg Intake: Oral 0 Other: Voiding Method Diaper Diaper Incontinent Incontinent # Voids 2 1 # Bowel Movements 1 - Exam Awake, comfortable, not in any acute distress Examination of the heart S1 and S2 Examination lungs bilateral breath sounds are heard Abdomen is soft nontender Examination lower extremities shows no significant edema, chronic skin changes noted - Labs CBC & Chem 7: 12/30/21 04:24 12/30/21 04:24 Assessment and Plan Assessment: 1. Hypercalcemia with history of tertiary hyperparathyroidism and parathyroidectomy many years ago reportedly in 1985. Currently patient is maintained on Sensipar. Last PTH noted in September 2021 was 78. This is reordered including other workup for hypercalcemia. Patient did receive a dose of pamidronate. I will continue with the Sensipar. 2. Mild hyponatremia is likely hypovolemic. Maintained on saline and repeat labs in a.m. 3. History of hypertension, currently hypotensive. Antihypertensive medications on hold 4. History of recent C. diff colitis 5. Nausea possibly related to Sensipar. Can try to decrease dose if calcium is much improved. Plan: Continue with saline Repeat PTH, 25-hydroxy vitamin D, one 25-hydroxy vitamin D and Elie level, serum and urine immunofixation Continue with Sensipar for now. Patient is status post pamidronate Repeat labs in a.m. Consider decreasing dose of Sensipar based on repeat calcium levels and PTH
[2021-12-31 11:50] LABS: Basophils # (A) 0.04 X 10*3/uL (0.00-0.10); Basophils % (A) 0.4 %; Eosinophils # (A) 0.52 X 10*3/uL (0.04-0.35); HCT 38.6 % (37.2-46.3); HGB 11.8 g/dL (12.0-15.0); Immature Grans, Automated 0.4 %; Lymphocytes # (A) 2.59 X 10*3/uL (0.90-5.00); Lymphocytes % (A) 24.7 %; MCH 27.6 pg (27.0-32.0); MCHC 30.6 g/dL (32.0-37.0); MCV 90.2 fL (80.0-97.0); Mean Platelet Volume 10.7 fL (9.5-12.2); Monocytes # (A) 0.58 X 10*3/uL (0.20-1.00); Monocytes % (A) 5.5 %; NRBC Per 100 WBC 0 /100 WBCS (0.0-0.0); Platelet Count 341 X 10*3/uL (140-440); RBC 4.28 X 10*6/uL (4.10-5.20); RDW 15.5 % (11.5-14.5); WBC 10.47 X 10*3/uL (4.50-10.00)
[2021-12-31 12:15] LABS: Anion Gap 11.1 mmol/L (10.00-18.00); BUN/Creat Ratio 16.59 Ratio (12.00-20.00); Blood Urea Nitrogen 10.8 mg/dL (9.0-27.0); Calcium 12.2 mg/dL (8.7-10.3); Carbon Dioxide 27.3 mmol/L (20.0-27.5); Non-African American GFR(CKD) 89.3 (60.0-200.0); Potassium 2.6 mmol/L (3.5-5.5)
[2021-12-31] MEDS ORDERED: Potassium Replacement Protocol 1 EACH MISC MISCELLANE PRN ×2 (12:45→17:11)
[2021-12-31] MEDS ORDERED: POTASSIUM CHLORIDE ER 20 MEQ TAB.ER PO SCH (13:00)
[2021-12-31] MEDS: POTASSIUM BICARBONATE/CIT AC 20 MEQ TABLET.EFF NG-TUBE SCH ×3 (13:14→15:59)
[2021-12-31 13:31] LABS: African American GFR (CKD) 103.5 (60.0-200.0)
[2021-12-31] MEDS: ATORVASTATIN 10 MG TAB PO SCH (16:33)
[2021-12-31] MEDS: NON FORMULARY DRUG (Mirabegron [Myrbetriq] 25 MG Tab.Er.24h) PO SCH (16:34)
[2021-12-31] MEDS ORDERED: POTASSIUM CHLORIDE 20 MEQ in WATER FOR INJECTION 1 100ML.BAG IVPB STA ×2 (17:15→17:45)
--- NOTE | 2021-12-31 17:30 | P.PN ---
Subjective 71-year-old pleasant female was sent in from senior care because of blood pressure and elevated at calcium which is about 13. Patient is on calcitriol. Patient is a senior care resident patient had a lumbar spinal fusion surgery month of August since and patient overall clinical condition has worsened patient stopped eating much and patient ended up having a PEG tube. Patient had history of hyperparathyroidism had parathyroidectomy in the past, patient does take cinacalcet for Hyperparathyroidism. Patient also denied any complaints pa tient appears to be bit lethargic and slow. Patient minimally is fairly good. Did have weight loss because she has not been eating much since her neck surgery. 12/31/2021 This is a pleasant 71 years old female who was sent from senior care for hypercalcemia. Patient states that she was on Rachel after she had back surgery because of inability to walk, possible laminectomy with her neurosurgeon at [facility] home she believes is Dr. Moreno. She states that her surgery was in September and she saw her neurosurgeon 2 weeks thereafter who told her that she is doing well. Her condition has not worsened since then. However patient states she still has difficulty walking. She was sent from our with because of her calcium was elevated 13.9 on admission. Patient is still complaining of from generalized weakness, she had vomited yesterday but not think this morning reviewed she tolerates diet well but she has low appetite. No abdominal pain. She had diarrhea but was stopped and her last bowel movement was 2 days ago. Most likely her diarrhea was secondary to hypercalcemia. She has PEG tube in place with no tenderness. Patient states that she has low appetite for 2 months and she asked for PEG tube to be placed since then. Patient says that she has one colonoscopy repeated with no or abnormality as per patient CT of the abdomen and pelvis on 12/16 is reviewed and the report says no acute abnormality of the abdomen and pelvis. She denies any chest pain or respiratory symptoms. No coughing or dyspnea or sneezing. Objective - Vital Signs Vital signs: Vital Signs Temp 97.4 F L 12/31/21 05:12 Pulse 66 12/31/21 05:12 Resp 16 12/31/21 05:12 BP 131/77 12/31/21 05:12 Pulse Ox 95 12/31/21 05:12 FiO2 Intake & Output 12/30/21 12/31/21 12/31/21 18:59 06:59 18:59 Intake Total 0 Balance 0 Weight 84.414 kg Intake: Oral 0 Other: Voiding Method Diaper Incontinent # Voids 2 1 # Bowel Movements 1 - Exam GENERAL: The patient is alert and oriented x3, not in any acute distress. Obese HEENT: Pupils are round and equally reacting to light. EOMI. No scleral icterus. No conjunctival pallor. Normocephalic, atraumatic. No pharyngeal erythema. No thyromegaly. CARDIOVASCULAR: S1 and S2 present. No murmurs, rubs, or gallops. PULMONARY: Chest is clear to auscultation, no wheezing or crackles. ABDOMEN: Soft, nontender, nondistended, normoactive bowel sounds. No palpable organomegaly. MUSCULOSKELETAL: No joint swelling or deformity. EXTREMITIES: No cyanosis, clubbing, or pedal edema. -NEUROLOGICAL: Gross neurological examination did not reveal any focal deficits. He has chronic bilateral leg weakness status post surgery as per patient. Sensation is intact. Meningeal signs are absent SKIN: No rashes. no petechiae. - Labs CBC & Chem 7: 12/31/21 07:20 12/31/21 07:20 Assessment and Plan Assessment: -Hypercalcemia: Continue with 125 mL of normal saline , pt is s/p zoledronic acid. Continue with Sensipar. Nephrology team on the case and further workup is pending further recommendation. No endocrinology service in this facility. -Hypertension.hold off on amlodipine continue with the lisinopril -Leukocytosis appears to be reactive, improving -hypokalemia and hypomagnesemia, been placed- -Hyperlipidemia -Recent C. diff diagnosis patient presently doesn't have any diarrhea continued for vancomycin patient was was started on oral vancomycin on December 26 will need total 10 day of therapy. -Gastroesophageal reflux disease -Patient reports loss of appetite status post PEG tube placement. However patient wants to be obese. Consult dietary team -Obesity with BMI 31.9 DVT prophylaxis: Lovenox GI prophylaxis: Protonix Prognosis is guarded
[2021-12-31] MEDS ORDERED: Magnesium Replacement Protocol 1 EACH MISC MISCELLANE PRN (17:31)
[2021-12-31] MEDS: MAGNESIUM SULFATE-D5W PMX 1 GM in DEXTROSE/WATER 1 100ML.BAG IVPB SCH ×2 (17:45→21:15)
[2022-01-01] MEDS: NYSTATIN 100,000 UNIT/ML SUSP 500,000 UNIT/5 ML CUP PO SCH ×6 (02:49→21:14)
[2022-01-01] MEDS: SODIUM CHLORIDE 0.9% 1,000 ML IV SCH ×4 (04:05→16:56)
[2022-01-01 07:18] LABS: Potassium 2.8 mmol/L (3.5-5.1)
[2022-01-01 07:19] LABS: African American GFR (CKD) >90 (>60 ml/min/1.73 sqM); Anion Gap 6 mmol/L; Blood Urea Nitrogen 7 mg/dL (7-17); Calcium 10.1 mg/dL (8.4-10.2); Carbon Dioxide 27 mmol/L (22-30); Chloride 103 mmol/L (98-107); Glucose 79 mg/dL (74-99); Magnesium 1.8 mg/dL (1.6-2.3); Non-African American GFR(CKD) >90 (>60 ml/min/1.73 sqM); Sodium 136 mmol/L (137-145)
--- NOTE | 2022-01-01 08:22 | P.PN ---
Subjective Patient is seen in follow-up for hypercalcemia. Calcium level down to 10.1 today. Maintain on IV fluids. Bowel movements loose per nurse. Oral intake remains poor. No active complaints. Blood pressure stable. Vital signs are stable. General: No acute distress. HEENT: Head exam is unremarkable. LUNGS: Breath sounds decreased. HEART: Rate and Rhythm are regular. ABDOMEN: Soft, no distention. EXTREMITITES: No edema. Objective - Vital Signs Vital signs: Vital Signs Temp 97.5 F L 01/01/22 05:00 Pulse 71 01/01/22 05:00 Resp 16 01/01/22 05:00 BP 124/75 01/01/22 05:00 Pulse Ox 93 L 01/01/22 05:00 FiO2 Intake & Output 12/31/21 01/01/22 01/01/22 18:59 06:59 18:59 Intake Total 1000 590 Balance 1000 590 Intake: Intake, IV Titration 1000 Amount Magnesium Sulfate-D5w Pmx 100 1 gm In Dextrose/Water 1 100ml.bag @ 100 mls/hr IVPB Q1H [facility] Rx#: [id number] Sodium Chloride 0.9% 1, 900 000 ml @ 125 mls/hr IV . Q8H [facility] Rx#:[id number] Oral 590 Other: Voiding Method Diaper Diaper Incontinent Incontinent - Labs CBC & Chem 7: 12/31/21 07:20 01/01/22 06:42 Labs: Abnormal Lab Results - Last 24 Hours (Table) 12/31/21 12/31/21 12/31/21 Range/Units 07:20 07:20 15:54 WBC 10.47 H (4.50-10.00) X 10*3/uL Hgb 11.8 L (12.0-15.0) g/dL MCHC 30.6 L (32.0-37.0) g/dL RDW 15.5 H (11.5-14.5) % Eosinophils # 0.52 H (0.04-0.35) X 10*3/uL Sodium (137-145) mmol/L Potassium 2.6 L* (3.5-5.5) mmol/L Calcium 12.2 H (8.7-10.3) mg/dL Magnesium 1.5 L (1.6-2.3) mg/dL 12/31/21 01/01/22 Range/Units 22:10 06:42 WBC (4.50-10.00) X 10*3/uL Hgb (12.0-15.0) g/dL MCHC (32.0-37.0) g/dL RDW (11.5-14.5) % Eosinophils # (0.04-0.35) X 10*3/uL Sodium 136 L (137-145) mmol/L Potassium 3.0 L 2.8 L (3.5-5.5) mmol/L Calcium (8.7-10.3) mg/dL Magnesium (1.6-2.3) mg/dL Assessment and Plan Plan: Assessment: 1. Hypercalcemia with history of hyperparathyroidism status post partial parathyroidectomy several years ago. Maintained on Sensipar. Calcium 10.1 today. PTH 47.8. Vitamin D level 47.9. 2. Hypovolemic hyponatremia improved with IV fluids. 3. Hypokalemia from poor intake and hypomagnesemia. 4. Hypomagnesemia from poor intake and GI losses. Replace. Better. Plan: Maintain normal saline at 75 mL an hour. Status post pamidronate this admission. Decrease Sensipar to 30 mg once daily. Follow-up pending workup for hypercalcemia. I will also order a PTH related peptide. Replace potassium.
[2022-01-01 08:51] LABS: Basophils # (A) 0.04 X 10*3/uL (0.00-0.10); Basophils % (A) 0.6 %; Eosinophils # (A) 0.35 X 10*3/uL (0.04-0.35); HCT 35.2 % (37.2-46.3); HGB 10.9 g/dL (12.0-15.0); Immature Grans, Automated 0.7 %; Lymphocytes # (A) 2.05 X 10*3/uL (0.90-5.00); MCH 27.7 pg (27.0-32.0); MCV 89.6 fL (80.0-97.0); Monocytes # (A) 0.44 X 10*3/uL (0.20-1.00); Monocytes % (A) 6.2 %; NRBC Per 100 WBC 0 /100 WBCS (0.0-0.0); Neutrophils # (A) 4.14 X 10*3/uL (1.80-7.70); Neutrophils % (A) 58.5 %; Platelet Count 313 X 10*3/uL (140-440); RBC 3.93 X 10*6/uL (4.10-5.20); RDW 15.2 % (11.5-14.5); WBC 7.07 X 10*3/uL (4.50-10.00)
[2022-01-01] MEDS: METOPROLOL TARTRATE 12.5 MG TAB PO SCH ×2 (09:17→16:36)
[2022-01-01] MEDS: TRIAMCINOLONE ACET 0.5% CREAM 15 GM TUBE TOPICAL SCH ×2 (09:18→21:15)
[2022-01-01] MEDS: PANTOPRAZOLE 40 MG TABLET PO SCH (09:18)
[2022-01-01] MEDS: metFORMIN 500 MG TAB PO SCH ×2 (09:18→16:36)
[2022-01-01] MEDS: VANCOMYCIN 125 MG CAPSULE PO SCH ×4 (09:18→21:15)
[2022-01-01] MEDS: SUCRALFATE 1 GM TAB PO SCH ×4 (09:18→21:14)
[2022-01-01] MEDS: CINACALCET 30 MG TAB PO SCH ×2 (09:18→09:29)
[2022-01-01] MEDS: lisinopriL 20 MG TAB PO SCH (09:18)
[2022-01-01] MEDS: ENOXAPARIN 40 MG/0.4 ML SYRINGE SQ SCH (09:19)
[2022-01-01] MEDS: CHOLESTYRAMINE (WITH SUGAR) 4 GM PACKET PO SCH ×2 (09:19→16:22)
[2022-01-01] MEDS: METOCLOPRAMIDE 5 MG TAB PO SCH ×3 (09:20→16:36)
[2022-01-01] MEDS: POTASSIUM CHLORIDE ER 20 MEQ TAB.ER PO SCH ×2 (09:26→12:27)
--- NOTE | 2022-01-01 12:26 | P.PN ---
Subjective 71-year-old pleasant female was sent in from longterm because of blood pressure and elevated at calcium which is about 13. Patient is on calcitriol. Patient is a longterm resident patient had a lumbar spinal fusion surgery month of August since and patient overall clinical condition has worsened patient stopped eating much and patient ended up having a PEG tube. Patient had history of hyperparathyroidism had parathyroidectomy in the past, patient does take cinacalcet for Hyperparathyroidism. Patient also denied any complaints pa tient appears to be bit lethargic and slow. Patient minimally is fairly good. Did have weight loss because she has not been eating much since her neck surgery. 12/31/2021 This is a pleasant 71 years old female who was sent from longterm for hypercalcemia. Patient states that she was on Rachel after she had back surgery because of inability to walk, possible laminectomy with her neurosurgeon at [facility] home she believes is Dr. Moreno. She states that her surgery was in September and she saw her neurosurgeon 2 weeks thereafter who told her that she is doing well. Her condition has not worsened since then. However patient states she still has difficulty walking. She was sent from our with because of her calcium was elevated 13.9 on admission. Patient is still complaining of from generalized weakness, she had vomited yesterday but not think this morning reviewed she tolerates diet well but she has low appetite. No abdominal pain. She had diarrhea but was stopped and her last bowel movement was 2 days ago. Most likely her diarrhea was secondary to hypercalcemia. She has PEG tube in place with no tenderness. Patient states that she has low appetite for 2 months and she asked for PEG tube to be placed since then. Patient says that she has one colonoscopy repeated with no or abnormality as per patient CT of the abdomen and pelvis on 12/16 is reviewed and the report says no acute abnormality of the abdomen and pelvis. She denies any chest pain or respiratory symptoms. No coughing or dyspnea or sneezing. 01/01/2022 Patient awake and alert, no more nausea vomiting, she still have low appetite, I talked to the patient about her weight has her BMI still elevated to 1.9, she stated that she's been losing weight and she was when heavier before. We'll consult dietary team. Also her calcium is back to normal at 10.1 however her workup still pending like 80s, vitamin D, prepared her mons related peptide and immunofixation test ordered by nephrology team will also follow the patient closely. Construction Sales Manager recommended to continue with normal saline 75 ml/h and Sensipar. Patient remains on oral Vanco for her C. diff to finish 10 day course. Objective - Vital Signs Vital signs: Vital Signs Temp 97.5 F L 01/01/22 05:00 Pulse 71 01/01/22 05:00 Resp 16 01/01/22 05:00 BP 124/75 01/01/22 05:00 Pulse Ox 93 L 01/01/22 05:00 FiO2 Intake & Output 12/31/21 01/01/22 01/01/22 18:59 06:59 18:59 Intake Total 1000 590 Balance 1000 590 Intake: Intake, IV Titration 1000 Amount Magnesium Sulfate-D5w Pmx 100 1 gm In Dextrose/Water 1 100ml.bag @ 100 mls/hr IVPB Q1H [facility] Rx#: [id number] Sodium Chloride 0.9% 1, 900 000 ml @ 125 mls/hr IV . Q8H [facility] Rx#:[id number] Oral 590 Other: Voiding Method Diaper Diaper Incontinent Incontinent - Exam GENERAL: The patient is alert and oriented x3, not in any acute distress. Obese HEENT: Pupils are round and equally reacting to light. EOMI. No scleral icterus. No conjunctival pallor. Normocephalic, atraumatic. No pharyngeal erythema. No thyromegaly. CARDIOVASCULAR: S1 and S2 present. No murmurs, rubs, or gallops. PULMONARY: Chest is clear to auscultation, no wheezing or crackles. ABDOMEN: Soft, nontender, nondistended, normoactive bowel sounds. No palpable organomegaly. MUSCULOSKELETAL: No joint swelling or deformity. EXTREMITIES: No cyanosis, clubbing, or pedal edema. -NEUROLOGICAL: Gross neurological examination did not reveal any focal deficits. He has chronic bilateral leg weakness status post surgery as per patient. Sensation is intact. Meningeal signs are absent SKIN: No rashes. no petechiae. - Labs CBC & Chem 7: 01/01/22 06:42 01/01/22 06:42 Labs: Abnormal Lab Results - Last 24 Hours (Table) 12/31/21 12/31/21 12/31/21 Range/Units 07:20 07:20 15:54 WBC 10.47 H (4.50-10.00) X 10*3/uL RBC (4.10-5.20) X 10*6/uL Hgb 11.8 L (12.0-15.0) g/dL Hct (37.2-46.3) % MCHC 30.6 L (32.0-37.0) g/dL RDW 15.5 H (11.5-14.5) % Immature Gran # (0.00-0.04) X 10*3/uL Eosinophils # 0.52 H (0.04-0.35) X 10*3/uL Sodium (137-145) mmol/L Potassium 2.6 L* (3.5-5.5) mmol/L Calcium 12.2 H (8.7-10.3) mg/dL Magnesium 1.5 L (1.6-2.3) mg/dL 12/31/21 01/01/22 01/01/22 Range/Units 22:10 06:42 06:42 WBC (4.50-10.00) X 10*3/uL RBC 3.93 L (4.10-5.20) X 10*6/uL Hgb 10.9 L (12.0-15.0) g/dL Hct 35.2 L (37.2-46.3) % MCHC 31.0 L (32.0-37.0) g/dL RDW 15.2 H (11.5-14.5) % Immature Gran # 0.05 H (0.00-0.04) X 10*3/uL Eosinophils # (0.04-0.35) X 10*3/uL Sodium 136 L (137-145) mmol/L Potassium 3.0 L 2.8 L (3.5-5.5) mmol/L Calcium (8.7-10.3) mg/dL Magnesium (1.6-2.3) mg/dL Assessment and Plan Assessment: -Hypercalcemia: Continue with 75 mL of normal saline , pt is s/p zoledronic acid. Continue with Sensipar. Nephrology team on the case and further workup is pending further recommendation. -Hypertension.hold off on amlodipine continue with the lisinopril -Leukocytosis appears to be reactive, improving -hypokalemia and hypomagnesemia, been placed -Hyperlipidemia -Recent C. diff diagnosis patient presently doesn't have any diarrhea continued for vancomycin patient was was started on oral vancomycin on December 26 will need total 10 day of therapy. -Gastroesophageal reflux disease -Patient reports loss of appetite status post PEG tube placement. However patient wants to be obese. Consult dietary team -Obesity with BMI 31.9 DVT prophylaxis: Lovenox GI prophylaxis: Protonix Prognosis is guarded
[2022-01-01] MEDS: ATORVASTATIN 10 MG TAB PO SCH (16:36)
[2022-01-01] MEDS: NON FORMULARY DRUG (Mirabegron [Myrbetriq] 25 MG Tab.Er.24h) PO SCH (21:16)
[2022-01-01] MEDS ORDERED: POTASSIUM CHLORIDE ER 20 MEQ TAB.ER PO STA (21:50)
[2022-01-02] MEDS: NYSTATIN 100,000 UNIT/ML SUSP 500,000 UNIT/5 ML CUP PO SCH ×6 (00:39→21:02)
[2022-01-02 06:47] LABS: ALT 8 U/L (4-34); AST 14 U/L (14-36); African American GFR (CKD) >90 (>60 ml/min/1.73 sqM); Albumin 2.5 g/dL (3.5-5.0); Alkaline Phosphatase 64 U/L (38-126); Anion Gap 4 mmol/L; Blood Urea Nitrogen 4 mg/dL (7-17); Calcium 9.1 mg/dL (8.4-10.2); Carbon Dioxide 26 mmol/L (22-30); Chloride 108 mmol/L (98-107); Globulin 2.5 g/dL; Glucose 89 mg/dL (74-99); Magnesium 1.6 mg/dL (1.6-2.3); Non-African American GFR(CKD) >90 (>60 ml/min/1.73 sqM); Potassium 3.7 mmol/L (3.5-5.1); Sodium 138 mmol/L (137-145); Total Bilirubin 0.2 mg/dL (0.2-1.3)
[2022-01-02] MEDS ORDERED: POTASSIUM CHLORIDE ER 20 MEQ TAB.ER PO STA (07:49)
[2022-01-02] MEDS: metFORMIN 500 MG TAB PO SCH ×2 (08:33→17:37)
[2022-01-02] MEDS: PANTOPRAZOLE 40 MG TABLET PO SCH (08:33)
[2022-01-02] MEDS: lisinopriL 20 MG TAB PO SCH (08:33)
[2022-01-02] MEDS: CINACALCET 30 MG TAB PO SCH (08:34)
[2022-01-02] MEDS: METOPROLOL TARTRATE 12.5 MG TAB PO SCH ×2 (08:34→17:37)
[2022-01-02] MEDS: SUCRALFATE 1 GM TAB PO SCH ×4 (08:34→21:02)
[2022-01-02] MEDS: CHOLESTYRAMINE (WITH SUGAR) 4 GM PACKET PO SCH ×3 (08:35→17:35)
[2022-01-02] MEDS: ENOXAPARIN 40 MG/0.4 ML SYRINGE SQ SCH (08:35)
[2022-01-02] MEDS: METOCLOPRAMIDE 5 MG TAB PO SCH ×3 (09:00→17:37)
[2022-01-02] MEDS: VANCOMYCIN 125 MG CAPSULE PO SCH ×4 (09:01→21:02)
[2022-01-02] MEDS: SODIUM CHLORIDE 0.9% 1,000 ML IV SCH (09:02)
--- NOTE | 2022-01-02 10:27 | P.PN ---
Subjective Patient is seen in follow-up for hypercalcemia. Calcium level down to 9.1 today. Maintained on IV fluids. Oral intake remains poor. Receiving tube feeds via PEG tube. No active complaints. Blood pressure stable. Vital signs are stable. General: No acute distress. HEENT: Head exam is unremarkable. LUNGS: Breath sounds decreased. HEART: Rate and Rhythm are regular. ABDOMEN: Soft, no distention. EXTREMITITES: No edema. Objective - Vital Signs Vital signs: Vital Signs Temp 97.9 F 01/02/22 05:00 Pulse 75 01/02/22 05:00 Resp 18 01/02/22 05:00 BP 118/76 01/02/22 05:00 Pulse Ox 96 01/02/22 05:00 FiO2 Intake & Output 01/01/22 01/02/22 01/02/22 18:59 06:59 18:59 Intake Total 1325 Balance 1325 Weight 84.414 kg Intake: Intake, IV Titration 825 Amount Sodium Chloride 0.9% 1, 825 000 ml @ 75 mls/hr IV . [id number] [facility] Rx#:[id number] Oral 240 Tube Feeding 200 Other 60 Other: Voiding Method Diaper Diaper Incontinent Incontinent # Voids 1 3 # Bowel Movements 1 2 1 - Labs CBC & Chem 7: 01/01/22 06:42 01/02/22 05:50 Labs: Abnormal Lab Results - Last 24 Hours (Table) 01/01/22 01/02/22 Range/Units 17:47 05:50 Potassium 3.2 L (3.5-5.1) mmol/L Chloride 108 H (98-107) mmol/L BUN 4 L (7-17) mg/dL Total Protein 5.0 L (6.3-8.2) g/dL Albumin 2.5 L (3.5-5.0) g/dL Assessment and Plan Plan: Assessment: 1. Hypercalcemia with history of hyperparathyroidism status post partial parathyroidectomy several years ago. Maintained on Sensipar. Calcium 9.1 today. PTH 47.8. Vitamin D level 47.9. 2. Hypovolemic hyponatremia improved with IV fluids. 3. Hypokalemia from poor intake and hypomagnesemia. Replaced. Better. 4. Hypomagnesemia from poor intake and GI losses. Replaced. Plan: Hep-Lock IV fluids. Receiving tube feeds via PEG tube. Status post pamidronate this admission. Maintain Sensipar 30 mg once daily. Follow-up pending workup for hypercalcemia. Follow-up PTH related peptide. Replace potassium and magnesium. Repeat BMP and magnesium level 2-3 days postdischarge. Follow up outpatient in 1 week.
[2022-01-02] MEDS: TRIAMCINOLONE ACET 0.5% CREAM 15 GM TUBE TOPICAL SCH ×2 (12:36→21:04)
[2022-01-02] MEDS: MAGNESIUM SULFATE-D5W PMX 1 GM in DEXTROSE/WATER 1 100ML.BAG IVPB SCH ×2 (12:36→14:47)
[2022-01-02] MEDS: ATORVASTATIN 10 MG TAB PO SCH (17:37)
--- NOTE | 2022-01-02 20:56 | P.PN ---
Subjective 71-year-old pleasant female was sent in from skilled nursing because of blood pressure and elevated at calcium which is about 13. Patient is on calcitriol. Patient is a skilled nursing resident patient had a lumbar spinal fusion surgery month of August since and patient overall clinical condition has worsened patient stopped eating much and patient ended up having a PEG tube. Patient had history of hyperparathyroidism had parathyroidectomy in the past, patient does take cinacalcet for Hyperparathyroidism. Patient also denied any complaints pa tient appears to be bit lethargic and slow. Patient minimally is fairly good. Did have weight loss because she has not been eating much since her neck surgery. 12/31/2021 This is a pleasant 71 years old female who was sent from skilled nursing for hypercalcemia. Patient states that she was on Rachel after she had back surgery because of inability to walk, possible laminectomy with her neurosurgeon at [facility] home she believes is Dr. Moreno. She states that her surgery was in September and she saw her neurosurgeon 2 weeks thereafter who told her that she is doing well. Her condition has not worsened since then. However patient states she still has difficulty walking. She was sent from our with because of her calcium was elevated 13.9 on admission. Patient is still complaining of from generalized weakness, she had vomited yesterday but not think this morning reviewed she tolerates diet well but she has low appetite. No abdominal pain. She had diarrhea but was stopped and her last bowel movement was 2 days ago. Most likely her diarrhea was secondary to hypercalcemia. She has PEG tube in place with no tenderness. Patient states that she has low appetite for 2 months and she asked for PEG tube to be placed since then. Patient says that she has one colonoscopy repeated with no or abnormality as per patient CT of the abdomen and pelvis on 12/16 is reviewed and the report says no acute abnormality of the abdomen and pelvis. She denies any chest pain or respiratory symptoms. No coughing or dyspnea or sneezing. 01/01/2022 Patient awake and alert, no more nausea vomiting, she still have low appetite, I talked to the patient about her weight has her BMI still elevated to 1.9, she stated that she's been losing weight and she was when heavier before. We'll consult dietary team. Also her calcium is back to normal at 10.1 however her workup still pending like 80s, vitamin D, prepared her mons related peptide and immunofixation test ordered by nephrology team will also follow the patient closely. Knowledge Manager recommended to continue with normal saline 75 ml/h and Sensipar. Patient remains on oral Vanco for her C. diff to finish 10 day course. 01/02/2022 Patient still feels generally weak. With low appetite. She is kept on IV fluids and her calcium level down to 9.1 today. She still feels generally weak and has diarrhea about 3-4 times per day. PEG tube is in place and dietary team were consulted for consult and start tube feeding. Hypercalcemia workup still pending like acid level Still pending test including parathyroid hormone related peptide and immunofixation test per nephrology team will follow closely. I discussed the case with hematology team who are going to evaluate the patient as well. We will ask for urine analysis. Objective - Vital Signs Vital signs: Vital Signs Temp 97.9 F 01/02/22 05:00 Pulse 75 01/02/22 05:00 Resp 18 01/02/22 05:00 BP 118/76 01/02/22 05:00 Pulse Ox 96 01/02/22 05:00 FiO2 Intake & Output 01/01/22 01/02/22 01/02/22 18:59 06:59 18:59 Intake Total 1325 Balance 1325 Weight 84.414 kg Intake: Intake, IV Titration 825 Amount Sodium Chloride 0.9% 1, 825 000 ml @ 75 mls/hr IV . [id number] [facility] Rx#:[id number] Oral 240 Tube Feeding 200 Other 60 Other: Voiding Method Diaper Diaper Incontinent Incontinent # Voids 1 3 # Bowel Movements 1 2 1 - Exam GENERAL: The patient is alert and oriented x3, not in any acute distress. Obese HEENT: Pupils are round and equally reacting to light. EOMI. No scleral icterus. No conjunctival pallor. Normocephalic, atraumatic. No pharyngeal erythema. No thyromegaly. CARDIOVASCULAR: S1 and S2 present. No murmurs, rubs, or gallops. PULMONARY: Chest is clear to auscultation, no wheezing or crackles. ABDOMEN: Soft, nontender, nondistended, normoactive bowel sounds. No palpable organomegaly. MUSCULOSKELETAL: No joint swelling or deformity. EXTREMITIES: No cyanosis, clubbing, or pedal edema. -NEUROLOGICAL: Gross neurological examination did not reveal any focal deficits. He has chronic bilateral leg weakness status post surgery as per patient. Sensation is intact. Meningeal signs are absent SKIN: No rashes. no petechiae. - Labs CBC & Chem 7: 01/01/22 06:42 01/02/22 05:50 Labs: Abnormal Lab Results - Last 24 Hours (Table) 01/01/22 01/02/22 Range/Units 17:47 05:50 Potassium 3.2 L (3.5-5.1) mmol/L Chloride 108 H (98-107) mmol/L BUN 4 L (7-17) mg/dL Total Protein 5.0 L (6.3-8.2) g/dL Albumin 2.5 L (3.5-5.0) g/dL Assessment and Plan Assessment: -Hypercalcemia: Continue with 75 mL of normal saline , pt is s/p zoledronic acid. Continue with Sensipar. Nephrology team on the case and further workup is pending further recommendation. Also we'll consult hematology team especial ly in view of her low appetite -Chronic urine incontinence, check urinalysis and bladder scan. Discussed with the bedside nurse -Hypertension.hold off on amlodipine continue with the lisinopril -Leukocytosis appears to be reactive, improved -hypokalemia and hypomagnesemia, been placed -Hyperlipidemia -Recent C. diff diagnosis patient presently doesn't have any diarrhea continued for vancomycin patient was was started on oral vancomycin on December 26 will need total 10 day of therapy. -Gastroesophageal reflux disease -Patient reports loss of appetite status post PEG tube placement. However patie nt wants to be obese. Consult dietary team -Obesity with BMI 31.9 DVT prophylaxis: Lovenox GI prophylaxis: Protonix Prognosis is guarded
[2022-01-02] MEDS: NON FORMULARY DRUG (Mirabegron [Myrbetriq] 25 MG Tab.Er.24h) PO SCH (21:05)
[2022-01-03] MEDS: NYSTATIN 100,000 UNIT/ML SUSP 500,000 UNIT/5 ML CUP PO SCH ×6 (00:12→22:24)
[2022-01-03] MEDS: CHOLESTYRAMINE (WITH SUGAR) 4 GM PACKET PO SCH ×2 (08:27→08:28)
[2022-01-03] MEDS: MAGNESIUM OXIDE 400 MG TAB PO SCH (08:29)
[2022-01-03] MEDS: CINACALCET 30 MG TAB PO SCH (08:29)
[2022-01-03] MEDS: VANCOMYCIN 125 MG CAPSULE PO SCH ×4 (08:29→22:25)
[2022-01-03] MEDS: metFORMIN 500 MG TAB PO SCH ×2 (08:29→17:37)
[2022-01-03] MEDS: PANTOPRAZOLE 40 MG TABLET PO SCH (08:29)
[2022-01-03] MEDS: ENOXAPARIN 40 MG/0.4 ML SYRINGE SQ SCH (08:30)
[2022-01-03] MEDS: lisinopriL 20 MG TAB PO SCH (08:30)
[2022-01-03] MEDS: METOPROLOL TARTRATE 12.5 MG TAB PO SCH ×2 (08:30→17:37)
[2022-01-03] MEDS: SUCRALFATE 1 GM TAB PO SCH ×4 (08:30→22:24)
[2022-01-03] MEDS: METOCLOPRAMIDE 5 MG TAB PO SCH ×3 (08:30→17:37)
--- NOTE | 2022-01-03 11:04 | P.PN ---
Subjective Patient is seen in follow-up for hypercalcemia. Calcium level 9.1 yesterday. Oral intake remains poor. Receiving tube feeds via PEG tube. No active complaints. Blood pressure stable. Vital signs are stable. General: No acute distress. HEENT: Head exam is unremarkable. LUNGS: Breath sounds decreased. HEART: Rate and Rhythm are regular. ABDOMEN: Soft, no distention. EXTREMITITES: No edema. Objective - Vital Signs Vital signs: Vital Signs Temp 98 F 01/03/22 05:00 Pulse 77 01/03/22 05:00 Resp 16 01/03/22 05:00 BP 120/78 01/03/22 05:00 Pulse Ox 99 01/03/22 05:00 FiO2 Intake & Output 01/02/22 01/03/22 01/03/22 18:59 06:59 18:59 Intake Total 200 Output Total 11 Balance 189 Weight 89 kg Intake: Tube Feeding 200 Output: Post Void Residual 11 Other: Voiding Method Diaper Diaper Diaper Incontinent Incontinent Incontinent # Voids 1 1 # Bowel Movements 1 0 - Labs CBC & Chem 7: 01/01/22 06:42 01/02/22 05:50 Labs: Abnormal Lab Results - Last 24 Hours (Table) 01/01/22 01/01/22 Range/Units 06:42 06:42 Angiotensin Convert Enz <3 L (8-52) U/L Vit D 1,25-Dihydroxy 15 L (20 - 79) pg/mL Assessment and Plan Plan: Assessment: 1. Hypercalcemia with history of hyperparathyroidism status post partial parathyroidectomy several years ago. Maintained on Sensipar. Calcium 9.1 yesterday. PTH 47.8. Vitamin D level 47.9. ANAHI <3. 1,25D3 15. 2. Hypovolemic hyponatremia improved with IV fluids. 3. Hypokalemia from poor intake and hypomagnesemia. Replaced. Better. 4. Hypomagnesemia from poor intake and GI losses. Replaced. On oral magnesium oxide. Plan: Off IV fluids. Receiving tube feeds via PEG tube. Status post pamidronate this admission. Maintain Sensipar 30 mg once daily. Follow-up pending workup for hypercalcemia. Follow-up PTH related peptide. Morning labs pending. Repeat BMP and magnesium level 2-3 days postdischarge. Follow up outpatient in 1 week.
[2022-01-03] MEDS: TRIAMCINOLONE ACET 0.5% CREAM 15 GM TUBE TOPICAL SCH ×2 (12:12→22:33)
[2022-01-03 12:49] LABS: African American GFR (CKD) >90 (>60 ml/min/1.73 sqM); Anion Gap 4 mmol/L; Blood Urea Nitrogen 3 mg/dL (7-17); Calcium 8.7 mg/dL (8.4-10.2); Carbon Dioxide 28 mmol/L (22-30); Chloride 106 mmol/L (98-107); Glucose 82 mg/dL (74-99); Non-African American GFR(CKD) >90 (>60 ml/min/1.73 sqM); Potassium 3.8 mmol/L (3.5-5.1); Sodium 138 mmol/L (137-145)
[2022-01-03 14:38] LABS: Basophils # (A) 0.1 k/uL (0-0.2); Basophils % (A) 1 %; Eosinophils # (A) 0.2 k/uL (0-0.7); Eosinophils % (A) 3 %; HCT 37.6 % (34.0-46.0); HGB 11.6 gm/dL (11.4-16.0); Hypochromasia Marked; Lymphocytes # (A) 2.4 k/uL (1.0-4.8); Lymphocytes % (A) 30 %; MCH 28.6 pg (25.0-35.0); MCHC 30.9 g/dL (31.0-37.0); MCV 92.6 fL (80.0-100.0); Monocytes # (A) 0.4 k/uL (0-1.0); Monocytes % (A) 4 %; Neutrophils # (A) 4.8 k/uL (1.3-7.7); Neutrophils % (A) 61 %; Platelet Count 343 k/uL (150-450); Poikilocytosis Slight; RBC 4.06 m/uL (3.80-5.40); RDW 15.5 % (11.5-15.5); WBC 7.8 k/uL (3.8-10.6)
[2022-01-03] MEDS: ATORVASTATIN 10 MG TAB PO SCH (17:37)
[2022-01-03 18:18] LABS: Protein, Total 5.2 g/dL (6.2-8.2)
[2022-01-03 18:23] LABS: Immunoglobulin M 68.8 mg/dL (40.0-280.0)
[2022-01-03 18:33] LABS: % Iron Saturation 13.75 (12.00-45.00); Ferritin 57.1 ng/mL (10.0-291.0); Iron 36 ug/dL (50-170); LDH 148 U/L (120-246); Total Iron Binding Capacity 262 ug/dL (228-460)
[2022-01-03 19:04] LABS: Appearance,Urine Clear (Clear); Bacteria,Urine Many /hpf; Bilirubin,Urine Negative (Negative); Blood,Urine Negative (Negative); Color,Urine Light Yellow; Glucose,Urine (UA) Negative (Negative); Ketones,Urine Negative (Negative); Leukocyte Esterase,Urine Trace (Negative); Mucus,Urine Rare /hpf; Nitrite,Urine Negative (Negative); PH, Urine 6.5 (5.0-8.0); Protein,Urine Negative (Negative); RBC,Urine 2 /hpf (0-5); Specific Gravity,Urine 1.003 (1.001-1.035); Squamous Epithelial Cell,Urine 2 /hpf (0-4); Urobilinogen,Urine <2.0 mg/dL (<2.0); WBC,Urine 4 /hpf (0-5)
--- NOTE | 2022-01-03 19:20 | P.CONS ---
History of Present Illness - Reason for Consult Consult date: 01/03/22 Hypercalcemia, loss appetite Requesting physician: Sivakumar E Sheet - History of Present Illness We have been asked to evaluate patient for loss of appetite and hypercalcemina. On admission calcium 13.2, wnl now after hydration. She is still positive for c diff and resting during visit Review of Systems All systems: negative Constitutional: Reports as per HPI Past Medical History Past Medical History: Hyperlipidemia, Hypertension, Osteoarthritis (OA) Additional Past Medical History / Comment(s): Well healed left leg wound(brown discoloration). Hx. of bulging disc. C-Diff infection 12/17/21. History of Any Multi-Drug Resistant Organisms: None Reported Past Surgical History: Orthopedic Surgery, Tubal Ligation Additional Past Surgical History / Comment(s): PARATHYROIDECTOMY 1985,2009 PAR TIAL THYROIDECTOMY, Low back surgery Aug 15, 2021. Peg Tube insertion October 23, 2021. Past Anesthesia/Blood Transfusion Reactions: No Reported Reaction Smoking Status: Never smoker - Past Family History Mother Additional Family Medical History / Comment(s): OSTEOPOROSIS Father Additional Family Medical History / Comment(s): AORTIC ABD. ANEURSYN Medications and Allergies Home Medications Medication Instructions Recorded Confirmed Type Atorvastatin [Lipitor] 10 mg PO DAILY@1700 11/20/16 12/30/21 History Cinacalcet HCl [Sensipar] 30 mg PO BID@0800,1700 11/22/21 12/30/21 History Furosemide [Lasix] 20 mg PO DAILY@0800 11/22/21 12/30/21 History Magnesium Hydroxide [Milk of 7,200 mg PO DAILY PRN 11/22/21 12/30/21 History Magnesia Concentrate] Mirabegron [Myrbetriq] 25 mg PO HS@2100 11/22/21 12/30/21 History Na Phos,M-B/Na Phos,Di-Ba [Fleet 133 ml RECTAL DAILY PRN 11/22/21 12/30/21 History Adult] Omeprazole [PriLOSEC] 20 mg PO DAILY@0800 11/22/21 12/30/21 History Enoxaparin [Lovenox] 40 mg SQ DAILY@0800 12/16/21 12/30/21 History INSULIN ASPART (NovoLOG) [NovoLOG See Protocol SQ ACHS 12/16/21 12/30/21 History (formulary)] Liquacel 30 ml PO BID@0600,2200 12/16/21 12/30/21 History Metoclopramide [Reglan] 5 mg PO TID@0800,1200,1700 12/16/21 12/30/21 History Metoprolol Tartrate [Lopressor] 12.5 mg PO BID@0800,1700 12/16/21 12/30/21 History Nystatin 100,000 Unit/ml Susp 5 ml PO Q4H 12/16/21 12/30/21 History [Mycostatin Oral Susp] Triamcinolone 0.5% Cream [Kenalog 1 applic TOPICAL BID 12/16/21 12/30/21 History 0.5% Cream] Venlafaxine HCl [Effexor XR] 75 mg PO DAILY@0800 12/16/21 12/30/21 History amLODIPine [Norvasc] 10 mg PO DAILY@0800 12/16/21 12/30/21 History diphenhydrAMINE [Benadryl] 25 mg PO Q6H PRN 12/16/21 12/30/21 History lisinopriL [Zestril] 20 mg PO DAILY@0800 12/16/21 12/30/21 History metFORMIN HCL 500 mg PO BID@0800,1700 12/16/21 12/30/21 History HYDROcodone/APAP 5-325MG [[place] 1 tab PO Q6H PRN #12 tab 12/20/21 12/30/21 Rx 5-325] Sucralfate [Carafate] 1 gm PO ACHS tab 12/20/21 12/30/21 Rx Vancomycin 125 mg PO QID #44 cap 12/20/21 12/30/21 Rx Cholestyramine (with Sugar) 4 gm PO BID@0800,1700 12/30/21 12/30/21 History [Questran Packet] Ensure 1 can PO TID@1000,1500,2000 12/30/21 12/30/21 History Ondansetron [Zofran] 4 mg PO Q8H PRN 12/30/21 12/30/21 History Potassium Chloride ER [K-Dur 20] 80 meq PO ONCE 12/30/21 12/30/21 History bisacodyL [Dulcolax] 10 mg RECTAL DAILY PRN 12/30/21 12/30/21 History Allergies Allergy/AdvReac Type Severity Reaction Status Date / Time No Known Allergies Allergy Verified 12/30/21 11:33 Physical Exam Vitals: Vital Signs Temp Pulse Resp BP Pulse Ox 01/03/22 13:00 97.8 F 78 18 124/80 100 01/03/22 05:00 98 F 77 16 120/78 99 01/02/22 20:20 98.2 F 87 16 117/77 96 01/02/22 14:15 97.9 F 94 18 122/72 99 Intake and Output 01/02/22 01/03/22 01/03/22 22:59 06:59 14:59 Intake Total 200 Output Total 11 Balance 189 Intake: Tube Feeding 200 Output: Post Void Residual 11 Other: Voiding Method Diaper Diaper Incontinent Incontinent # Voids 1 4 # Bowel Movements 0 1 Weight 89 kg - Constitutional General appearance: cooperative, no acute distress - EENT ENT: hard of hearing - Neck Neck: normal ROM - Respiratory Respiratory: bilateral: CTA - Cardiovascular Rhythm: regularly irregular - Gastrointestinal General gastrointestinal: soft - Integumentary Integumentary: pale - Musculoskeletal Musculoskeletal: generalized weakness Results CBC & Chem 7: 01/03/22 14:02 01/03/22 12:00 Labs: Abnormal Lab Results - Last 24 Hours (Table) 01/01/22 01/03/22 Range/Units 06:42 12:00 BUN 3 L (7-17) mg/dL Vit D 1,25-Dihydroxy 15 L (20 - 79) pg/mL Assessment and Plan (1) Anemia Current Visit: Yes Status: Acute Code(s): D64.9 - ANEMIA, UNSPECIFIED SNOMED Code(s): 395803741 (2) Hypercalcemia Current Visit: Yes Status: Acute Code(s): E83.52 - HYPERCALCEMIA SNOMED Code(s): 46284181 (3) C. difficile diarrhea Current Visit: No Status: Acute Code(s): A04.72 - ENTEROCOLITIS D/T CLOSTRIDIUM DIFFICILE, NOT SPCF RECUR SNOMED Code(s): 4962906718029 Plan: Recent C-diff hospitalization, now with low electrolytes, hypercalcemia, likely due to dehydration. Magnesium being supped with Mag Oxide, recommend forumla changed to Magneium glycinate if diarrhea as oxide will induce diarrhea VItamin D low - Supp ordered Anemic - Nutritional and anemia panel ordered Monoclonal work-up ordered
--- NOTE | 2022-01-03 19:36 | P.PN ---
Subjective 71-year-old pleasant female was sent in from long term because of blood pressure and elevated at calcium which is about 13. Patient is on calcitriol. Patient is a long term resident patient had a lumbar spinal fusion surgery month of August since and patient overall clinical condition has worsened patient stopped eating much and patient ended up having a PEG tube. Patient had history of hyperparathyroidism had parathyroidectomy in the past, patient does take cinacalcet for Hyperparathyroidism. Patient also denied any complaints pa tient appears to be bit lethargic and slow. Patient minimally is fairly good. Did have weight loss because she has not been eating much since her neck surgery. 12/31/2021 This is a pleasant 71 years old female who was sent from long term for hypercalcemia. Patient states that she was on Rachel after she had back surgery because of inability to walk, possible laminectomy with her neurosurgeon at [facility] home she believes is Dr. Moreno. She states that her surgery was in September and she saw her neurosurgeon 2 weeks thereafter who told her that she is doing well. Her condition has not worsened since then. However patient states she still has difficulty walking. She was sent from our with because of her calcium was elevated 13.9 on admission. Patient is still complaining of from generalized weakness, she had vomited yesterday but not think this morning reviewed she tolerates diet well but she has low appetite. No abdominal pain. She had diarrhea but was stopped and her last bowel movement was 2 days ago. Most likely her diarrhea was secondary to hypercalcemia. She has PEG tube in place with no tenderness. Patient states that she has low appetite for 2 months and she asked for PEG tube to be placed since then. Patient says that she has one colonoscopy repeated with no or abnormality as per patient CT of the abdomen and pelvis on 12/16 is reviewed and the report says no acute abnormality of the abdomen and pelvis. She denies any chest pain or respiratory symptoms. No coughing or dyspnea or sneezing. 01/01/2022 Patient awake and alert, no more nausea vomiting, she still have low appetite, I talked to the patient about her weight has her BMI still elevated to 1.9, she stated that she's been losing weight and she was when heavier before. We'll consult dietary team. Also her calcium is back to normal at 10.1 however her workup still pending like 80s, vitamin D, prepared her mons related peptide and immunofixation test ordered by nephrology team will also follow the patient closely. Watch Engineer recommended to continue with normal saline 75 ml/h and Sensipar. Patient remains on oral Vanco for her C. diff to finish 10 day course. 01/02/2022 Patient still feels generally weak. With low appetite. She is kept on IV fluids and her calcium level down to 9.1 today. She still feels generally weak and has diarrhea about 3-4 times per day. PEG tube is in place and dietary team were consulted for consult and start tube feeding. Hypercalcemia workup still pending like acid level Still pending test including parathyroid hormone related peptide and immunofixation test per nephrology team will follow closely. I discussed the case with hematology team who are going to evaluate the patient as well. We will ask for urine analysis. 01/03/2022 Patient improving gradually and slowly, she says she started eating little by little compared to completely normal Respiratory admission. She is getting tube feeds 3 times a day. No abdominal complaints. Diarrhea improved gradually she's having 2-3 bouts today compared to 3-4 biopsies yesterday. No abdominal pain. Right foot was stopped. Her calcium came back to normal since yesterday and today even improvement of 8.7. Urine analysis is negative, multiple lids were placed, serum immunofixation s howing no monoclonal paraprotein per report. Further workup by nephrology and hematology input is pending. Objective - Vital Signs Vital signs: Vital Signs Temp 98 F 01/03/22 05:00 Pulse 77 01/03/22 05:00 Resp 16 01/03/22 05:00 BP 120/78 01/03/22 05:00 Pulse Ox 99 01/03/22 05:00 FiO2 Intake & Output 01/02/22 01/03/22 01/03/22 18:59 06:59 18:59 Intake Total 200 Output Total 11 Balance 189 Weight 89 kg Intake: Tube Feeding 200 Output: Post Void Residual 11 Other: Voiding Method Diaper Diaper Diaper Incontinent Incontinent Incontinent # Voids 1 1 # Bowel Movements 1 0 - Exam GENERAL: The patient is alert and oriented x3, not in any acute distress. Obese HEENT: Pupils are round and equally reacting to light. EOMI. No scleral icterus. No conjunctival pallor. Normocephalic, atraumatic. No pharyngeal erythema. No thyromegaly. CARDIOVASCULAR: S1 and S2 present. No murmurs, rubs, or gallops. PULMONARY: Chest is clear to auscultation, no wheezing or crackles. ABDOMEN: Soft, nontender, nondistended, normoactive bowel sounds. No palpable organomegaly. MUSCULOSKELETAL: No joint swelling or deformity. EXTREMITIES: No cyanosis, clubbing, or pedal edema. -NEUROLOGICAL: Gross neurological examination did not reveal any focal deficits. He has chronic bilateral leg weakness status post surgery as per patient. Sensation is intact. Meningeal signs are absent SKIN: No rashes. no petechiae. - Labs CBC & Chem 7: 01/03/22 14:02 01/03/22 12:00 Labs: Abnormal Lab Results - Last 24 Hours (Table) 01/01/22 01/01/22 Range/Units 06:42 06:42 Angiotensin Convert Enz <3 L (8-52) U/L Vit D 1,25-Dihydroxy 15 L (20 - 79) pg/mL Assessment and Plan Assessment: -Hypercalcemia: Continue with 75 mL of normal saline , pt is s/p zoledronic acid. Continue with Sensipar. Nephrology team on the case and further workup is pending further recommendation. Also we'll consult hematology team especially in view of her low appetite -Chronic urine incontinence, check urinalysis and bladder scan. Discussed with the bedside nurse -Hypertension.hold off on amlodipine continue with the lisinopril -Leukocytosis appears to be reactive, improved -hypokalemia and hypomagnesemia, been placed -Hyperlipidemia -Recent C. diff diagnosis patient presently doesn't have any diarrhea continued for vancomycin patient was was started on oral vancomycin on December 26 will need total 10 day of therapy. -Gastroesophageal reflux disease -Patient reports loss of appetite status post PEG tube placement. However patient wants to be obese. Consult dietary team -Obesity with BMI 31.9 DVT prophylaxis: Lovenox GI prophylaxis: Protonix Prognosis is guarded
[2022-01-03] MEDS: NON FORMULARY DRUG (Mirabegron [Myrbetriq] 25 MG Tab.Er.24h) PO SCH (22:24)
[2022-01-03] MEDS: FOLIC ACID 1 MG TAB PO SCH (22:27)
[2022-01-04] MEDS: NYSTATIN 100,000 UNIT/ML SUSP 500,000 UNIT/5 ML CUP PO SCH ×6 (00:24→22:15)
--- NOTE | 2022-01-04 08:54 | P.PN ---
Subjective Patient is seen in follow-up for hypercalcemia. Calcium level 8.7 yesterday. Oral intake remains poor. Receiving tube feeds via PEG tube. No active complaints. Blood pressure stable. Vital signs are stable. General: No acute distress. HEENT: Head exam is unremarkable. LUNGS: Breath sounds decreased. HEART: Rate and Rhythm are regular. ABDOMEN: Soft, no distention. EXTREMITITES: No edema. Objective - Vital Signs Vital signs: Vital Signs Temp 97.6 F 01/04/22 05:00 Pulse 77 01/04/22 05:00 Resp 16 01/04/22 05:00 BP 142/85 01/04/22 05:00 Pulse Ox 98 01/04/22 05:00 FiO2 Intake & Output 01/03/22 01/04/22 01/04/22 18:59 06:59 18:59 Intake Total 118 Balance 118 Weight 89 kg 82 kg Intake: Oral 118 Other: Voiding Method Diaper Diaper Incontinent Incontinent # Voids 6 # Bowel Movements 5 - Labs CBC & Chem 7: 01/03/22 14:02 01/03/22 12:00 Labs: Abnormal Lab Results - Last 24 Hours (Table) 01/03/22 01/03/22 01/03/22 Range/Units 12:00 12:00 14:02 MCHC (31.0-37.0) g/dL BUN 3 L (7-17) mg/dL Iron 36 L (50-170) ug/dL Transferrin 187.0 L (204.0-354.0) mg/dL Total Protein (PEP) 5.2 L (6.2-8.2) g/dL Folate (4.40-31.00) ng/mL Ur Leukocyte Esterase (Negative) Urine Bacteria (None) /hpf Urine Mucus (None) /hpf 01/03/22 01/03/22 01/03/22 Range/Units 14:02 14:02 18:42 MCHC 30.9 L (31.0-37.0) g/dL BUN (7-17) mg/dL Iron (50-170) ug/dL Transferrin (204.0-354.0) mg/dL Total Protein (PEP) (6.2-8.2) g/dL Folate 3.60 L (4.40-31.00) ng/mL Ur Leukocyte Esterase Trace H (Negative) Urine Bacteria Many H (None) /hpf Urine Mucus Rare H (None) /hpf Assessment and Plan Plan: Assessment: 1. Hypercalcemia with history of hyperparathyroidism status post partial parathyroidectomy several years ago. Maintained on Sensipar. Calcium 8.7 yesterday. PTH 47.8. Vitamin D level 47.9. ANAHI <3. 1,25D3 15. No monoclonality noted on serum immunofixation. 2. Hypovolemic hyponatremia improved with IV fluids. 3. Hypokalemia from poor intake and hypomagnesemia. Replaced. Better. 4. Hypomagnesemia from poor intake and GI losses. Replaced. On oral magnesium oxide. 5. Recent C. diff on oral vancomycin. Plan: Off IV fluids. Receiving tube feeds via PEG tube. Status post pamidronate this admission. Maintain Sensipar 30 mg once daily. Follow-up PTH related peptide. Repeat BMP and magnesium level 2-3 days postdischarge. Follow up outpatient in 1 week.
[2022-01-04 09:34] LABS: Basophils # (A) 0.02 X 10*3/uL (0.00-0.10); Basophils % (A) 0.3 %; Eosinophils # (A) 0.22 X 10*3/uL (0.04-0.35); Eosinophils % (A) 2.8 %; HCT 35.6 % (37.2-46.3); HGB 10.6 g/dL (12.0-15.0); Immature Grans, Automated 0.6 %; Lymphocytes % (A) 31.9 %; MCH 27.5 pg (27.0-32.0); MCHC 29.8 g/dL (32.0-37.0); MCV 92.5 fL (80.0-97.0); Mean Platelet Volume 10.3 fL (9.5-12.2); Monocytes # (A) 0.44 X 10*3/uL (0.20-1.00); Monocytes % (A) 5.6 %; NRBC Per 100 WBC 0 /100 WBCS (0.0-0.0); Neutrophils # (A) 4.61 X 10*3/uL (1.80-7.70); Neutrophils % (A) 58.8 %; Platelet Count 325 X 10*3/uL (140-440); RBC 3.85 X 10*6/uL (4.10-5.20); RDW 15.9 % (11.5-14.5); WBC 7.84 X 10*3/uL (4.50-10.00)
[2022-01-04 10:05] LABS: Magnesium 1.7 mg/dL (1.5-2.4)
[2022-01-04 10:23] LABS: African American GFR (CKD) 112.9 (60.0-200.0); Albumin 2.8 g/dL (3.8-4.9); Albumin/Globulin Ratio 1.22 (1.60-3.17); Anion Gap 10.2 mmol/L (10.00-18.00); BUN/Creat Ratio 11.2 Ratio (12.00-20.00); Blood Urea Nitrogen 5.6 mg/dL (9.0-27.0); Calcium 8.7 mg/dL (8.7-10.3); Carbon Dioxide 25.8 mmol/L (20.0-27.5); Globulin 2.3 g/dL (1.6-3.3); Non-African American GFR(CKD) 97.4 (60.0-200.0); Potassium 3.9 mmol/L (3.5-5.5); Total Bilirubin 0.2 mg/dL (0.30-1.20); Total Protein 5.1 g/dL (6.2-8.2)
[2022-01-04] MEDS: SUCRALFATE 1 GM TAB PO SCH ×4 (10:47→22:21)
[2022-01-04] MEDS: CYANOCOBALAMIN 500 MCG TAB PO SCH (10:47)
[2022-01-04] MEDS: lisinopriL 20 MG TAB PO SCH (10:47)
[2022-01-04] MEDS: metFORMIN 500 MG TAB PO SCH ×2 (10:47→17:46)
[2022-01-04] MEDS: CINACALCET 30 MG TAB PO SCH (10:47)
[2022-01-04] MEDS: METOCLOPRAMIDE 5 MG TAB PO SCH ×3 (10:47→17:46)
[2022-01-04] MEDS: VANCOMYCIN 125 MG CAPSULE PO SCH ×4 (10:47→22:16)
[2022-01-04] MEDS: MAGNESIUM OXIDE 400 MG TAB PO SCH (10:47)
[2022-01-04] MEDS: FOLIC ACID 1 MG TAB PO SCH (10:47)
[2022-01-04] MEDS: CHOLECALCIFEROL 125 MCG (5000 IU) TABLET PO SCH (10:47)
[2022-01-04] MEDS: PANTOPRAZOLE 40 MG TABLET PO SCH (10:47)
[2022-01-04] MEDS: ENOXAPARIN 40 MG/0.4 ML SYRINGE SQ SCH (10:48)
[2022-01-04] MEDS: METOPROLOL TARTRATE 12.5 MG TAB PO SCH ×2 (10:48→17:46)
[2022-01-04] MEDS: CHOLESTYRAMINE (WITH SUGAR) 4 GM PACKET PO SCH ×2 (10:48→17:46)
[2022-01-04] MEDS: TRIAMCINOLONE ACET 0.5% CREAM 15 GM TUBE TOPICAL SCH ×2 (10:49→22:16)
--- NOTE | 2022-01-04 11:40 | P.PN ---
Subjective Progress Note Date: 01/04/22 FOlate low and added Objective - Vital Signs Vital signs: Vital Signs Temp 97.6 F 01/04/22 05:00 Pulse 77 01/04/22 05:00 Resp 16 01/04/22 05:00 BP 142/85 01/04/22 05:00 Pulse Ox 98 01/04/22 05:00 FiO2 Intake & Output 01/03/22 01/04/22 01/04/22 18:59 06:59 18:59 Intake Total 118 Balance 118 Weight 89 kg 82 kg Intake: Oral 118 Other: Voiding Method Diaper Diaper Incontinent Incontinent # Voids 6 1 # Bowel Movements 5 1 - Exam - Constitutional General appearance: cooperative, no acute distress - EENT ENT: hard of hearing - Neck Neck: normal ROM - Respiratory Respiratory: bilateral: CTA - Cardiovascular Rhythm: regularly irregular - Gastrointestinal General gastrointestinal: soft - Integumentary Integumentary: pale - Musculoskeletal Musculoskeletal: generalized weakness - Labs CBC & Chem 7: 01/04/22 06:44 01/04/22 06:44 Labs: Abnormal Lab Results - Last 24 Hours (Table) 01/03/22 01/03/22 01/03/22 Range/Units 12:00 12:00 14:02 RBC (4.10-5.20) X 10*6/uL Hgb (12.0-15.0) g/dL Hct (37.2-46.3) % MCHC (31.0-37.0) g/dL RDW (11.5-14.5) % Immature Gran # (0.00-0.04) X 10*3/uL BUN 3 L (7-17) mg/dL Creatinine (0.6-1.5) mg/dL BUN/Creatinine Ratio (12.00-20.00) Ratio Glucose (70-110) mg/dL Iron 36 L (50-170) ug/dL Transferrin 187.0 L (204.0-354.0) mg/dL Total Bilirubin (0.30-1.20) mg/dL AST (13-35) U/L ALT (8-44) U/L Total Protein (6.2-8.2) g/dL Total Protein (PEP) 5.2 L (6.2-8.2) g/dL Albumin (3.8-4.9) g/dL Albumin/Globulin Ratio (1.60-3.17) g/dL Folate (4.40-31.00) ng/mL Ur Leukocyte Esterase (Negative) Urine Bacteria (None) /hpf Urine Mucus (None) /hpf 01/03/22 01/03/22 01/03/22 Range/Units 14:02 14:02 18:42 RBC (4.10-5.20) X 10*6/uL Hgb (12.0-15.0) g/dL Hct (37.2-46.3) % MCHC 30.9 L (31.0-37.0) g/dL RDW (11.5-14.5) % Immature Gran # (0.00-0.04) X 10*3/uL BUN (7-17) mg/dL Creatinine (0.6-1.5) mg/dL BUN/Creatinine Ratio (12.00-20.00) Ratio Glucose (70-110) mg/dL Iron (50-170) ug/dL Transferrin (204.0-354.0) mg/dL Total Bilirubin (0.30-1.20) mg/dL AST (13-35) U/L ALT (8-44) U/L Total Protein (6.2-8.2) g/dL Total Protein (PEP) (6.2-8.2) g/dL Albumin (3.8-4.9) g/dL Albumin/Globulin Ratio (1.60-3.17) g/dL Folate 3.60 L (4.40-31.00) ng/mL Ur Leukocyte Esterase Trace H (Negative) Urine Bacteria Many H (None) /hpf Urine Mucus Rare H (None) /hpf 01/04/22 01/04/22 Range/Units 06:44 06:44 RBC 3.85 L (4.10-5.20) X 10*6/uL Hgb 10.6 L (12.0-15.0) g/dL Hct 35.6 L (37.2-46.3) % MCHC 29.8 L (31.0-37.0) g/dL RDW 15.9 H (11.5-14.5) % Immature Gran # 0.05 H (0.00-0.04) X 10*3/uL BUN 5.6 L (7-17) mg/dL Creatinine 0.5 L (0.6-1.5) mg/dL BUN/Creatinine Ratio 11.20 L (12.00-20.00) Ratio Glucose 113 H (70-110) mg/dL Iron (50-170) ug/dL Transferrin (204.0-354.0) mg/dL Total Bilirubin 0.20 L (0.30-1.20) mg/dL AST 9 L (13-35) U/L ALT 6 L (8-44) U/L Total Protein 5.1 L (6.2-8.2) g/dL Total Protein (PEP) (6.2-8.2) g/dL Albumin 2.8 L (3.8-4.9) g/dL Albumin/Globulin Ratio 1.22 L (1.60-3.17) g/dL Folate (4.40-31.00) ng/mL Ur Leukocyte Esterase (Negative) Urine Bacteria (None) /hpf Urine Mucus (None) /hpf Assessment and Plan (1) Anemia Narrative/Plan: Component of Iron, Iron and B12 deficiency - Supps ordered. Await resolution of c-diff before addition of IV Iron Folic acid added Current Visit: Yes Status: Acute Code(s): D64.9 - ANEMIA, UNSPECIFIED SNOMED Code(s): 577373254 (2) Hypercalcemia Current Visit: Yes Status: Acute Code(s): E83.52 - HYPERCALCEMIA SNOMED Code(s): 66448182 (3) C. difficile diarrhea Current Visit: No Status: Acute Code(s): A04.72 - ENTEROCOLITIS D/T CLOSTRIDIUM DIFFICILE, NOT SPCF RECUR SNOMED Code(s): 9403550424444 Plan: Recent C-diff hospitalization, now with low electrolytes, hypercalcemia, likely due to dehydration. Magnesium being supped with Mag Oxide, recommend forumla changed to Magneium glycinate if diarrhea as oxide will induce diarrhea VItamin D low - Supp ordered Anemic - Nutritional and anemia panel with folate deficiency added supp Monoclonal work-up ordered pending ID C diff and continued care of all other acute issues per primary team
[2022-01-04 17:01] LABS: Albumin 2.62 g/dL (3.80-4.90); Gamma Globulin 0.98 g/dL (0.70-1.50)
[2022-01-04] MEDS: ATORVASTATIN 10 MG TAB PO SCH (17:46)
--- NOTE | 2022-01-04 21:31 | P.PN ---
Subjective 71-year-old pleasant female was sent in from intermediate because of blood pressure and elevated at calcium which is about 13. Patient is on calcitriol. Patient is a intermediate resident patient had a lumbar spinal fusion surgery month of August since and patient overall clinical condition has worsened patient stopped eating much and patient ended up having a PEG tube. Patient had history of hyperparathyroidism had parathyroidectomy in the past, patient does take cinacalcet for Hyperparathyroidism. Patient also denied any complaints pa tient appears to be bit lethargic and slow. Patient minimally is fairly good. Did have weight loss because she has not been eating much since her neck surgery. 12/31/2021 This is a pleasant 71 years old female who was sent from intermediate for hypercalcemia. Patient states that she was on Rachel after she had back surgery because of inability to walk, possible laminectomy with her neurosurgeon at [facility] home she believes is Dr. Moreno. She states that her surgery was in September and she saw her neurosurgeon 2 weeks thereafter who told her that she is doing well. Her condition has not worsened since then. However patient states she still has difficulty walking. She was sent from our with because of her calcium was elevated 13.9 on admission. Patient is still complaining of from generalized weakness, she had vomited yesterday but not think this morning reviewed she tolerates diet well but she has low appetite. No abdominal pain. She had diarrhea but was stopped and her last bowel movement was 2 days ago. Most likely her diarrhea was secondary to hypercalcemia. She has PEG tube in place with no tenderness. Patient states that she has low appetite for 2 months and she asked for PEG tube to be placed since then. Patient says that she has one colonoscopy repeated with no or abnormality as per patient CT of the abdomen and pelvis on 12/16 is reviewed and the report says no acute abnormality of the abdomen and pelvis. She denies any chest pain or respiratory symptoms. No coughing or dyspnea or sneezing. 01/01/2022 Patient awake and alert, no more nausea vomiting, she still have low appetite, I talked to the patient about her weight has her BMI still elevated to 1.9, she stated that she's been losing weight and she was when heavier before. We'll consult dietary team. Also her calcium is back to normal at 10.1 however her workup still pending like 80s, vitamin D, prepared her mons related peptide and immunofixation test ordered by nephrology team will also follow the patient closely. Group Fitness Manager recommended to continue with normal saline 75 ml/h and Sensipar. Patient remains on oral Vanco for her C. diff to finish 10 day course. 01/02/2022 Patient still feels generally weak. With low appetite. She is kept on IV fluids and her calcium level down to 9.1 today. She still feels generally weak and has diarrhea about 3-4 times per day. PEG tube is in place and dietary team were consulted for consult and start tube feeding. Hypercalcemia workup still pending like acid level Still pending test including parathyroid hormone related peptide and immunofixation test per nephrology team will follow closely. I discussed the case with hematology team who are going to evaluate the patient as well. We will ask for urine analysis. 01/03/2022 Patient improving gradually and slowly, she says she started eating little by little compared to completely normal Respiratory admission. She is getting tube feeds 3 times a day. No abdominal complaints. Diarrhea improved gradually she's having 2-3 bouts today compared to 3-4 biopsies yesterday. No abdominal pain. Right foot was stopped. Her calcium came back to normal since yesterday and today even improvement of 8.7. Urine analysis is negative, multiple lids were placed, serum immunofixation s howing no monoclonal paraprotein per report. Further workup by nephrology and hematology input is pending. 01/04/2022 Patient diarrhea improved gradually, she had 2 bouts of bowel movement today with less amount. No abdominal pain. She still gets PEG tube feeding. Her appetite is still very low. Sodium was normal. Calcium 8.7, hemoglobin 10.6. Anemia workup is reviewed, patient started on folate and low-dose vitamin B12. Monoclonal antibody pending Objective - Vital Signs Vital signs: Vital Signs Temp 97.6 F 01/04/22 05:00 Pulse 77 01/04/22 05:00 Resp 16 01/04/22 05:00 BP 142/85 01/04/22 05:00 Pulse Ox 98 01/04/22 05:00 FiO2 Intake & Output 01/03/22 01/04/22 01/04/22 18:59 06:59 18:59 Intake Total 118 Balance 118 Weight 89 kg 82 kg Intake: Oral 118 Other: Voiding Method Diaper Diaper Incontinent Incontinent # Voids 6 1 # Bowel Movements 5 1 - Exam GENERAL: The patient is alert and oriented x3, not in any acute distress. Obese HEENT: Pupils are round and equally reacting to light. EOMI. No scleral icterus. No conjunctival pallor. Normocephalic, atraumatic. No pharyngeal erythema. No thyromegaly. CARDIOVASCULAR: S1 and S2 present. No murmurs, rubs, or gallops. PULMONARY: Chest is clear to auscultation, no wheezing or crackles. ABDOMEN: Soft, nontender, nondistended, normoactive bowel sounds. No palpable organomegaly. MUSCULOSKELETAL: No joint swelling or deformity. EXTREMITIES: No cyanosis, clubbing, or pedal edema. -NEUROLOGICAL: Gross neurological examination did not reveal any focal deficits. He has chronic bilateral leg weakness status post surgery as per patient. Sensation is intact. Meningeal signs are absent SKIN: No rashes. no petechiae. - Labs CBC & Chem 7: 01/04/22 06:44 01/04/22 06:44 Labs: Abnormal Lab Results - Last 24 Hours (Table) 01/03/22 01/03/22 01/03/22 Range/Units 12:00 12:00 14:02 RBC (4.10-5.20) X 10*6/uL Hgb (12.0-15.0) g/dL Hct (37.2-46.3) % MCHC (31.0-37.0) g/dL RDW (11.5-14.5) % Immature Gran # (0.00-0.04) X 10*3/uL BUN 3 L (7-17) mg/dL Creatinine (0.6-1.5) mg/dL BUN/Creatinine Ratio (12.00-20.00) Ratio Glucose (70-110) mg/dL Iron 36 L (50-170) ug/dL Transferrin 187.0 L (204.0-354.0) mg/dL Total Bilirubin (0.30-1.20) mg/dL AST (13-35) U/L ALT (8-44) U/L Total Protein (6.2-8.2) g/dL Total Protein (PEP) 5.2 L (6.2-8.2) g/dL Albumin (3.8-4.9) g/dL Albumin/Globulin Ratio (1.60-3.17) g/dL Folate (4.40-31.00) ng/mL Ur Leukocyte Esterase (Negative) Urine Bacteria (None) /hpf Urine Mucus (None) /hpf 01/03/22 01/03/22 01/03/22 Range/Units 14:02 14:02 18:42 RBC (4.10-5.20) X 10*6/uL Hgb (12.0-15.0) g/dL Hct (37.2-46.3) % MCHC 30.9 L (31.0-37.0) g/dL RDW (11.5-14.5) % Immature Gran # (0.00-0.04) X 10*3/uL BUN (7-17) mg/dL Creatinine (0.6-1.5) mg/dL BUN/Creatinine Ratio (12.00-20.00) Ratio Glucose (70-110) mg/dL Iron (50-170) ug/dL Transferrin (204.0-354.0) mg/dL Total Bilirubin (0.30-1.20) mg/dL AST (13-35) U/L ALT (8-44) U/L Total Protein (6.2-8.2) g/dL Total Protein (PEP) (6.2-8.2) g/dL Albumin (3.8-4.9) g/dL Albumin/Globulin Ratio (1.60-3.17) g/dL Folate 3.60 L (4.40-31.00) ng/mL Ur Leukocyte Esterase Trace H (Negative) Urine Bacteria Many H (None) /hpf Urine Mucus Rare H (None) /hpf 01/04/22 01/04/22 Range/Units 06:44 06:44 RBC 3.85 L (4.10-5.20) X 10*6/uL Hgb 10.6 L (12.0-15.0) g/dL Hct 35.6 L (37.2-46.3) % MCHC 29.8 L (31.0-37.0) g/dL RDW 15.9 H (11.5-14.5) % Immature Gran # 0.05 H (0.00-0.04) X 10*3/uL BUN 5.6 L (7-17) mg/dL Creatinine 0.5 L (0.6-1.5) mg/dL BUN/Creatinine Ratio 11.20 L (12.00-20.00) Ratio Glucose 113 H (70-110) mg/dL Iron (50-170) ug/dL Transferrin (204.0-354.0) mg/dL Total Bilirubin 0.20 L (0.30-1.20) mg/dL AST 9 L (13-35) U/L ALT 6 L (8-44) U/L Total Protein 5.1 L (6.2-8.2) g/dL Total Protein (PEP) (6.2-8.2) g/dL Albumin 2.8 L (3.8-4.9) g/dL Albumin/Globulin Ratio 1.22 L (1.60-3.17) g/dL Folate (4.40-31.00) ng/mL Ur Leukocyte Esterase (Negative) Urine Bacteria (None) /hpf Urine Mucus (None) /hpf Assessment and Plan Assessment: -Hypercalcemia: Continue with 75 mL of normal saline , pt is s/p zoledronic acid. Continue with Sensipar. Nephrology team on the case and further workup is pending further recommendation. Also we'll consult hematology team especially in view of her low appetite -Chronic urine incontinence, check urinalysis and bladder scan. Discussed with the bedside nurse -Hypertension.hold off on amlodipine continue with the lisinopril -Leukocytosis appears to be reactive, improved -hypokalemia and hypomagnesemia, been placed -Hyperlipidemia -Recent C. diff diagnosis patient presently doesn't have any diarrhea continued for vancomycin patient was was started on oral vancomycin on December 26 will need total 10 day of therapy. -Gastroesophageal reflux disease -Patient reports loss of appetite status post PEG tube placement. However patient wants to be obese. Consult dietary team -Obesity with BMI 31.9 DVT prophylaxis: Lovenox GI prophylaxis: Protonix Prognosis is guarded
[2022-01-04] MEDS: NON FORMULARY DRUG (Mirabegron [Myrbetriq] 25 MG Tab.Er.24h) PO SCH (22:17)
[2022-01-05] MEDS: NYSTATIN 100,000 UNIT/ML SUSP 500,000 UNIT/5 ML CUP PO SCH ×7 (04:06→22:47)
--- NOTE | 2022-01-05 09:22 | P.PN ---
Subjective Patient is seen in follow-up for hypercalcemia. GFR at baseline. Calcium level now normal. Receiving tube feeds via PEG tube. No active complaints. Blood pressure stable. Vital signs are stable. General: No acute distress. HEENT: Head exam is unremarkable. LUNGS: Breath sounds decreased. HEART: Rate and Rhythm are regular. ABDOMEN: Soft, no distention. EXTREMITITES: No edema. Objective - Vital Signs Vital signs: Vital Signs Temp 97.9 F 01/05/22 05:00 Pulse 76 01/05/22 05:00 Resp 18 01/05/22 05:00 BP 106/71 01/05/22 05:00 Pulse Ox 99 01/05/22 05:00 FiO2 Intake & Output 01/04/22 01/05/22 01/05/22 18:59 06:59 18:59 Intake Total 250 Balance 250 Weight 84 kg Intake: Oral 250 Other: Voiding Method Diaper Incontinent # Voids 1 3 # Bowel Movements 1 3 - Labs CBC & Chem 7: 01/04/22 06:44 01/04/22 06:44 Labs: Abnormal Lab Results - Last 24 Hours (Table) 01/03/22 01/04/22 01/04/22 Range/Units 12:00 06:44 06:44 RBC 3.85 L (4.10-5.20) X 10*6/uL Hgb 10.6 L (12.0-15.0) g/dL Hct 35.6 L (37.2-46.3) % MCHC 29.8 L (32.0-37.0) g/dL RDW 15.9 H (11.5-14.5) % Immature Gran # 0.05 H (0.00-0.04) X 10*3/uL BUN 5.6 L (9.0-27.0) mg/dL Creatinine 0.5 L (0.6-1.5) mg/dL BUN/Creatinine Ratio 11.20 L (12.00-20.00) Ratio Glucose 113 H (70-110) mg/dL Total Bilirubin 0.20 L (0.30-1.20) mg/dL AST 9 L (13-35) U/L ALT 6 L (8-44) U/L Total Protein 5.1 L (6.2-8.2) g/dL Albumin 2.8 L (3.8-4.9) g/dL Albumin (PEP) 2.62 L (3.80-4.90) g/dL Albumin/Globulin Ratio 1.22 L (1.60-3.17) g/dL [id number]-5-[id number] 0.58 L (0.60-1.00) g/dL Microbiology - Last 24 Hours (Table) 01/03/22 14:02 Blood Culture - Preliminary Blood No Growth after 24 hours Assessment and Plan Plan: Assessment: 1. Hypercalcemia with history of hyperparathyroidism status post partial parathyroidectomy several years ago. Maintained on Sensipar. Calcium 8.7 yesterday. PTH 47.8. Vitamin D level 47.9. ANAHI <3. 1,25D3 15. No monoclonality noted on serum immunofixation. 2. Hypovolemic hyponatremia improved with IV fluids. 3. Hypokalemia from poor intake and hypomagnesemia. Replaced. Better. 4. Hypomagnesemia from poor intake and GI losses. On oral magnesium oxide. 5. Recent C. diff on oral vancomycin. Plan: Off IV fluids. Receiving tube feeds via PEG tube. Status post pamidronate this admission. Maintain Sensipar 30 mg once daily. Follow-up PTH related peptide. Repeat BMP and magnesium level 2-3 days postdischarge. Follow up outpatient in 1 week.
[2022-01-05] MEDS: MAGNESIUM OXIDE 400 MG TAB PO SCH (10:15)
[2022-01-05] MEDS: CHOLECALCIFEROL 125 MCG (5000 IU) TABLET PO SCH (10:16)
[2022-01-05] MEDS: METOPROLOL TARTRATE 12.5 MG TAB PO SCH ×2 (10:16→16:26)
[2022-01-05] MEDS: CYANOCOBALAMIN 500 MCG TAB PO SCH (10:16)
[2022-01-05] MEDS: lisinopriL 20 MG TAB PO SCH (10:16)
[2022-01-05] MEDS: SUCRALFATE 1 GM TAB PO SCH ×4 (10:17→19:52)
[2022-01-05] MEDS: FOLIC ACID 1 MG TAB PO SCH (10:17)
[2022-01-05] MEDS: metFORMIN 500 MG TAB PO SCH ×2 (10:17→16:26)
[2022-01-05] MEDS: PANTOPRAZOLE 40 MG TABLET PO SCH (10:17)
[2022-01-05] MEDS: CHOLESTYRAMINE (WITH SUGAR) 4 GM PACKET PO SCH ×2 (10:18→16:25)
[2022-01-05] MEDS: ENOXAPARIN 40 MG/0.4 ML SYRINGE SQ SCH (10:18)
[2022-01-05] MEDS: VANCOMYCIN 125 MG CAPSULE PO SCH ×4 (10:18→22:47)
[2022-01-05] MEDS: METOCLOPRAMIDE 5 MG TAB PO SCH ×3 (10:19→16:27)
[2022-01-05] MEDS: CINACALCET 30 MG TAB PO SCH (10:19)
[2022-01-05] MEDS: TRIAMCINOLONE ACET 0.5% CREAM 15 GM TUBE TOPICAL SCH ×2 (10:20→19:52)
[2022-01-05 10:51] LABS: African American GFR (CKD) 106.3 (60.0-200.0); Anion Gap 10.2 mmol/L (10.00-18.00); BUN/Creat Ratio 11.83 Ratio (12.00-20.00); Blood Urea Nitrogen 7.1 mg/dL (9.0-27.0); Calcium 8.3 mg/dL (8.7-10.3); Carbon Dioxide 24.8 mmol/L (20.0-27.5); Magnesium 1.6 mg/dL (1.5-2.4); Non-African American GFR(CKD) 91.7 (60.0-200.0)
[2022-01-05 12:52] LABS: Free Kappa Lt Chain Qnt, Serum 4.33 mg/dL (0.33-1.94); Free Lambda Lt Chain Qnt, Seru 3.24 mg/dL (0.57-2.63)
[2022-01-05] MEDS: MAGNESIUM SULFATE-D5W PMX 1 GM in DEXTROSE/WATER 1 100ML.BAG IVPB SCH ×2 (13:38→16:23)
[2022-01-05] MEDS: ATORVASTATIN 10 MG TAB PO SCH (16:27)
[2022-01-05 16:35] VITALS: BMI 31.8
[2022-01-05] MEDS: NON FORMULARY DRUG (Mirabegron [Myrbetriq] 25 MG Tab.Er.24h) PO SCH (19:52)
--- NOTE | 2022-01-05 20:00 | P.PN ---
Subjective 71-year-old pleasant female was sent in from residential because of blood pressure and elevated at calcium which is about 13. Patient is on calcitriol. Patient is a residential resident patient had a lumbar spinal fusion surgery month of August since and patient overall clinical condition has worsened patient stopped eating much and patient ended up having a PEG tube. Patient had history of hyperparathyroidism had parathyroidectomy in the past, patient does take cinacalcet for Hyperparathyroidism. Patient also denied any complaints pa tient appears to be bit lethargic and slow. Patient minimally is fairly good. Did have weight loss because she has not been eating much since her neck surgery. 12/31/2021 This is a pleasant 71 years old female who was sent from residential for hypercalcemia. Patient states that she was on Rachel after she had back surgery because of inability to walk, possible laminectomy with her neurosurgeon at [facility] home she believes is Dr. Moreno. She states that her surgery was in September and she saw her neurosurgeon 2 weeks thereafter who told her that she is doing well. Her condition has not worsened since then. However patient states she still has difficulty walking. She was sent from our with because of her calcium was elevated 13.9 on admission. Patient is still complaining of from generalized weakness, she had vomited yesterday but not think this morning reviewed she tolerates diet well but she has low appetite. No abdominal pain. She had diarrhea but was stopped and her last bowel movement was 2 days ago. Most likely her diarrhea was secondary to hypercalcemia. She has PEG tube in place with no tenderness. Patient states that she has low appetite for 2 months and she asked for PEG tube to be placed since then. Patient says that she has one colonoscopy repeated with no or abnormality as per patient CT of the abdomen and pelvis on 12/16 is reviewed and the report says no acute abnormality of the abdomen and pelvis. She denies any chest pain or respiratory symptoms. No coughing or dyspnea or sneezing. 01/01/2022 Patient awake and alert, no more nausea vomiting, she still have low appetite, I talked to the patient about her weight has her BMI still elevated to 1.9, she stated that she's been losing weight and she was when heavier before. We'll consult dietary team. Also her calcium is back to normal at 10.1 however her workup still pending like 80s, vitamin D, prepared her mons related peptide and immunofixation test ordered by nephrology team will also follow the patient closely. Finding Fastener recommended to continue with normal saline 75 ml/h and Sensipar. Patient remains on oral Vanco for her C. diff to finish 10 day course. 01/02/2022 Patient still feels generally weak. With low appetite. She is kept on IV fluids and her calcium level down to 9.1 today. She still feels generally weak and has diarrhea about 3-4 times per day. PEG tube is in place and dietary team were consulted for consult and start tube feeding. Hypercalcemia workup still pending like acid level Still pending test including parathyroid hormone related peptide and immunofixation test per nephrology team will follow closely. I discussed the case with hematology team who are going to evaluate the patient as well. We will ask for urine analysis. 01/03/2022 Patient improving gradually and slowly, she says she started eating little by little compared to completely normal Respiratory admission. She is getting tube feeds 3 times a day. No abdominal complaints. Diarrhea improved gradually she's having 2-3 bouts today compared to 3-4 biopsies yesterday. No abdominal pain. Right foot was stopped. Her calcium came back to normal since yesterday and today even improvement of 8.7. Urine analysis is negative, multiple lids were placed, serum immunofixation s howing no monoclonal paraprotein per report. Further workup by nephrology and hematology input is pending. 01/04/2022 Patient diarrhea improved gradually, she had 2 bouts of bowel movement today with less amount. No abdominal pain. She still gets PEG tube feeding. Her appetite is still very low. Sodium was normal. Calcium 8.7, hemoglobin 10.6. Anemia workup is reviewed, patient started on folate and low-dose vitamin B12. Monoclonal antibody pending 01/05/2022 patient abdominal pain, diarrhea and appetite improving slowly and gradually with treatment of her C. diff. Parathyroid hormone related peptide still pending. Calcium improved and back to normal for now. Continue with PEG tube feedings 3 times a day. Monoclonal workup as per hematology team Discuss plan with the patient and bedside nurse and all in agreement Objective - Vital Signs Vital signs: Vital Signs Temp 98.6 F 01/05/22 12:27 Pulse 82 01/05/22 12:27 Resp 16 01/05/22 12:27 BP 125/76 01/05/22 12:27 Pulse Ox 99 01/05/22 12:27 FiO2 Intake & Output 01/04/22 01/05/22 01/05/22 18:59 06:59 18:59 Intake Total 250 Balance 250 Weight 84 kg 84 kg Intake: Oral 250 Other: Voiding Method Diaper Diaper Incontinent Incontinent # Voids 1 3 # Bowel Movements 1 3 - Exam GENERAL: The patient is alert and oriented x3, not in any acute distress. Obese HEENT: Pupils are round and equally reacting to light. EOMI. No scleral icterus. No conjunctival pallor. Normocephalic, atraumatic. No pharyngeal erythema. No thyromegaly. CARDIOVASCULAR: S1 and S2 present. No murmurs, rubs, or gallops. PULMONARY: Chest is clear to auscultation, no wheezing or crackles. ABDOMEN: Soft, nontender, nondistended, normoactive bowel sounds. No palpable organomegaly. MUSCULOSKELETAL: No joint swelling or deformity. EXTREMITIES: No cyanosis, clubbing, or pedal edema. -NEUROLOGICAL: Gross neurological examination did not reveal any focal deficits. He has chronic bilateral leg weakness status post surgery as per patient. Sensation is intact. Meningeal signs are absent SKIN: No rashes. no petechiae. - Labs CBC & Chem 7: 01/04/22 06:44 01/05/22 06:54 Labs: Abnormal Lab Results - Last 24 Hours (Table) 01/03/22 01/05/22 Range/Units 12:00 06:54 BUN 7.1 L (9.0-27.0) mg/dL BUN/Creatinine Ratio 11.83 L (12.00-20.00) Ratio Glucose 124 H (70-110) mg/dL Calcium 8.3 L (8.7-10.3) mg/dL Albumin (PEP) 2.62 L (3.80-4.90) g/dL Iikds-6-Wirzirezr 0.58 L (0.60-1.00) g/dL Free [place] LC, Quant 4.33 H (0.33-1.94) mg/dL Free Lambda LC, Quant 3.24 H (0.57-2.63) mg/dL Microbiology - Last 24 Hours (Table) 01/03/22 14:02 Blood Culture - Preliminary Blood No Growth after 48 hours Assessment and Plan Assessment: -Hypercalcemia: Continue with 75 mL of normal saline , pt is s/p zoledronic acid. Continue with Sensipar. Nephrology team on the case and further workup is pending further recommendation. Also we'll consult hematology team especially in view of her low appetite -Chronic urine incontinence, check urinalysis and bladder scan. Discussed with the bedside nurse -Hypertension.hold off on amlodipine continue with the lisinopril -Leukocytosis appears to be reactive, improved -hypokalemia and hypomagnesemia, been placed -Hyperlipidemia -Recent C. diff diagnosis patient presently doesn't have any diarrhea continued for vancomycin patient was was started on oral vancomycin on December 26 will need total 10 day of therapy. -Gastroesophageal reflux disease -Patient reports loss of appetite status post PEG tube placement. However patient wants to be obese. Consult dietary team -Obesity with BMI 31.9 DVT prophylaxis: Lovenox GI prophylaxis: Protonix Prognosis is guarded
--- NOTE | 2022-01-05 21:20 | P.PN ---
Subjective Progress Note Date: 01/05/22 Principal diagnosis: c diff Diarrhea is improving, continue on questran, PO Vanco and nephrology following. Electrolytes stable today. Objective - Vital Signs Vital signs: Vital Signs Temp 98.6 F 01/05/22 12:27 Pulse 82 01/05/22 12:27 Resp 16 01/05/22 12:27 BP 125/76 01/05/22 12:27 Pulse Ox 99 01/05/22 12:27 FiO2 Intake & Output 01/04/22 01/05/22 01/05/22 18:59 06:59 18:59 Intake Total 250 Balance 250 Weight 84 kg Intake: Oral 250 Other: Voiding Method Diaper Diaper Incontinent Incontinent # Voids 1 3 # Bowel Movements 1 3 - Exam - Constitutional General appearance: cooperative, no acute distress - EENT ENT: hard of hearing - Neck Neck: normal ROM - Respiratory Respiratory: bilateral: CTA - Cardiovascular Rhythm: regularly irregular - Gastrointestinal General gastrointestinal: soft - Integumentary Integumentary: pale - Musculoskeletal Musculoskeletal: generalized weakness - Labs CBC & Chem 7: 01/04/22 06:44 01/05/22 06:54 Labs: Abnormal Lab Results - Last 24 Hours (Table) 01/03/22 01/05/22 Range/Units 12:00 06:54 BUN 7.1 L (9.0-27.0) mg/dL BUN/Creatinine Ratio 11.83 L (12.00-20.00) Ratio Glucose 124 H (70-110) mg/dL Calcium 8.3 L (8.7-10.3) mg/dL Albumin (PEP) 2.62 L (3.80-4.90) g/dL Snvhz-4-Bvfgysrkg 0.58 L (0.60-1.00) g/dL Free [place] LC, Quant 4.33 H (0.33-1.94) mg/dL Free Lambda LC, Quant 3.24 H (0.57-2.63) mg/dL Microbiology - Last 24 Hours (Table) 01/03/22 14:02 Blood Culture - Preliminary Blood No Growth after 24 hours Assessment and Plan (1) Anemia Narrative/Plan: Component of Iron, Iron and B12 deficiency - Supps ordered. Await resolution of c-diff before addition of IV Iron Folic acid added Current Visit: Yes Status: Acute Code(s): D64.9 - ANEMIA, UNSPECIFIED SNOMED Code(s): 235378671 (2) Hypercalcemia Current Visit: Yes Status: Acute Code(s): E83.52 - HYPERCALCEMIA SNOMED Code(s): 62044499 (3) C. difficile diarrhea Narrative/Plan: COntinue treatment per primary team If abdominal Current Visit: No Status: Acute Code(s): A04.72 - ENTEROCOLITIS D/T CLOSTRIDIUM DIFFICILE, NOT SPCF RECUR SNOMED Code(s): 4185980602337
[2022-01-06] MEDS: NYSTATIN 100,000 UNIT/ML SUSP 500,000 UNIT/5 ML CUP PO SCH ×5 (03:19→22:15)
[2022-01-06] MEDS: MAGNESIUM OXIDE 400 MG TAB PO SCH (08:09)
[2022-01-06] MEDS: metFORMIN 500 MG TAB PO SCH ×2 (08:09→17:44)
[2022-01-06] MEDS: lisinopriL 20 MG TAB PO SCH (08:10)
[2022-01-06] MEDS: CHOLECALCIFEROL 125 MCG (5000 IU) TABLET PO SCH (08:10)
[2022-01-06] MEDS: ENOXAPARIN 40 MG/0.4 ML SYRINGE SQ SCH (08:10)
[2022-01-06] MEDS: PANTOPRAZOLE 40 MG TABLET PO SCH (08:10)
[2022-01-06] MEDS: SUCRALFATE 1 GM TAB PO SCH ×4 (08:10→22:15)
[2022-01-06] MEDS: CHOLESTYRAMINE (WITH SUGAR) 4 GM PACKET PO SCH ×3 (08:10→17:34)
[2022-01-06] MEDS: CYANOCOBALAMIN 500 MCG TAB PO SCH (08:10)
[2022-01-06] MEDS: METOPROLOL TARTRATE 12.5 MG TAB PO SCH ×2 (08:10→17:44)
[2022-01-06] MEDS: FOLIC ACID 1 MG TAB PO SCH (08:10)
[2022-01-06] MEDS: METOCLOPRAMIDE 5 MG TAB PO SCH ×3 (08:11→17:44)
[2022-01-06] MEDS: VANCOMYCIN 125 MG CAPSULE PO SCH ×2 (08:11→12:44)
[2022-01-06] MEDS: CINACALCET 30 MG TAB PO SCH (08:11)
[2022-01-06] MEDS: TRIAMCINOLONE ACET 0.5% CREAM 15 GM TUBE TOPICAL SCH ×2 (12:39→22:15)
[2022-01-06] MEDS: ATORVASTATIN 10 MG TAB PO SCH (17:44)
[2022-01-06] MEDS: NON FORMULARY DRUG (Mirabegron [Myrbetriq] 25 MG Tab.Er.24h) PO SCH (22:09)
--- NOTE | 2022-01-06 23:34 | P.PN ---
Subjective 71-year-old pleasant female was sent in from jail because of blood pressure and elevated at calcium which is about 13. Patient is on calcitriol. Patient is a jail resident patient had a lumbar spinal fusion surgery month of August since and patient overall clinical condition has worsened patient stopped eating much and patient ended up having a PEG tube. Patient had history of hyperparathyroidism had parathyroidectomy in the past, patient does take cinacalcet for Hyperparathyroidism. Patient also denied any complaints pa tient appears to be bit lethargic and slow. Patient minimally is fairly good. Did have weight loss because she has not been eating much since her neck surgery. 12/31/2021 This is a pleasant 71 years old female who was sent from jail for hypercalcemia. Patient states that she was on Rachel after she had back surgery because of inability to walk, possible laminectomy with her neurosurgeon at [facility] home she believes is Dr. Moreno. She states that her surgery was in September and she saw her neurosurgeon 2 weeks thereafter who told her that she is doing well. Her condition has not worsened since then. However patient states she still has difficulty walking. She was sent from our with because of her calcium was elevated 13.9 on admission. Patient is still complaining of from generalized weakness, she had vomited yesterday but not think this morning reviewed she tolerates diet well but she has low appetite. No abdominal pain. She had diarrhea but was stopped and her last bowel movement was 2 days ago. Most likely her diarrhea was secondary to hypercalcemia. She has PEG tube in place with no tenderness. Patient states that she has low appetite for 2 months and she asked for PEG tube to be placed since then. Patient says that she has one colonoscopy repeated with no or abnormality as per patient CT of the abdomen and pelvis on 12/16 is reviewed and the report says no acute abnormality of the abdomen and pelvis. She denies any chest pain or respiratory symptoms. No coughing or dyspnea or sneezing. 01/01/2022 Patient awake and alert, no more nausea vomiting, she still have low appetite, I talked to the patient about her weight has her BMI still elevated to 1.9, she stated that she's been losing weight and she was when heavier before. We'll consult dietary team. Also her calcium is back to normal at 10.1 however her workup still pending like 80s, vitamin D, prepared her mons related peptide and immunofixation test ordered by nephrology team will also follow the patient closely. Sr. Consultant recommended to continue with normal saline 75 ml/h and Sensipar. Patient remains on oral Vanco for her C. diff to finish 10 day course. 01/02/2022 Patient still feels generally weak. With low appetite. She is kept on IV fluids and her calcium level down to 9.1 today. She still feels generally weak and has diarrhea about 3-4 times per day. PEG tube is in place and dietary team were consulted for consult and start tube feeding. Hypercalcemia workup still pending like acid level Still pending test including parathyroid hormone related peptide and immunofixation test per nephrology team will follow closely. I discussed the case with hematology team who are going to evaluate the patient as well. We will ask for urine analysis. 01/03/2022 Patient improving gradually and slowly, she says she started eating little by little compared to completely normal Respiratory admission. She is getting tube feeds 3 times a day. No abdominal complaints. Diarrhea improved gradually she's having 2-3 bouts today compared to 3-4 biopsies yesterday. No abdominal pain. Right foot was stopped. Her calcium came back to normal since yesterday and today even improvement of 8.7. Urine analysis is negative, multiple lids were placed, serum immunofixation s howing no monoclonal paraprotein per report. Further workup by nephrology and hematology input is pending. 01/04/2022 Patient diarrhea improved gradually, she had 2 bouts of bowel movement today with less amount. No abdominal pain. She still gets PEG tube feeding. Her appetite is still very low. Sodium was normal. Calcium 8.7, hemoglobin 10.6. Anemia workup is reviewed, patient started on folate and low-dose vitamin B12. Monoclonal antibody pending 01/05/2022 patient abdominal pain, diarrhea and appetite improving slowly and gradually with treatment of her C. diff. Parathyroid hormone related peptide still pending. Calcium improved and back to normal for now. Continue with PEG tube feedings 3 times a day. Monoclonal workup as per hematology team Discuss plan with the patient and bedside nurse and all in agreement 01/06/2022 Patient improving gradually and slowly. She is picking up her diet and appetite and his diarrhea improving with also improving abdominal pain. The patient feeds through the PEG tube. To need continued on replacement therapy of folic acid and vitamin B12 Parathyroid hormone related peptide is still pending Objective - Vital Signs Vital signs: Vital Signs Temp 98.1 F 01/06/22 11:24 Pulse 72 01/06/22 11:24 Resp 19 01/06/22 11:24 BP 121/82 01/06/22 11:24 Pulse Ox 100 01/06/22 11:24 FiO2 Intake & Output 01/05/22 01/06/22 01/06/22 18:59 06:59 18:59 Intake Total 120 Balance 120 Weight 84 kg 85 kg Intake: Oral 120 Other: Voiding Method Diaper Diaper Diaper Incontinent Incontinent Incontinent # Voids 3 # Bowel Movements 3 - Exam GENERAL: The patient is alert and oriented x3, not in any acute distress. Obese HEENT: Pupils are round and equally reacting to light. EOMI. No scleral icterus. No conjunctival pallor. Normocephalic, atraumatic. No pharyngeal erythema. No thyromegaly. CARDIOVASCULAR: S1 and S2 present. No murmurs, rubs, or gallops. PULMONARY: Chest is clear to auscultation, no wheezing or crackles. ABDOMEN: Soft, nontender, nondistended, normoactive bowel sounds. No palpable organomegaly. MUSCULOSKELETAL: No joint swelling or deformity. EXTREMITIES: No cyanosis, clubbing, or pedal edema. -NEUROLOGICAL: Gross neurological examination did not reveal any focal deficits. He has chronic bilateral leg weakness status post surgery as per patient. Sensation is intact. Meningeal signs are absent SKIN: No rashes. no petechiae. - Labs CBC & Chem 7: 01/04/22 06:44 01/05/22 06:54 Labs: Microbiology - Last 24 Hours (Table) 01/03/22 14:02 Blood Culture - Preliminary Blood No Growth after 48 hours Assessment and Plan Assessment: -Hypercalcemia: Continue with 75 mL of normal saline , pt is s/p zoledronic acid. Continue with Sensipar. Nephrology team on the case and further workup is pending further recommendation. Also we'll consult hematology team especially in view of her low appetite -Chronic urine incontinence, check urinalysis and bladder scan. Discussed with the bedside nurse -Hypertension.hold off on amlodipine continue with the lisinopril -Leukocytosis appears to be reactive, improved -hypokalemia and hypomagnesemia, been placed -Hyperlipidemia -Recent C. diff diagnosis patient presently doesn't have any diarrhea continued for vancomycin patient was was started on oral vancomycin on December 26 will need total 10 day of therapy. -Gastroesophageal reflux disease -Patient reports loss of appetite status post PEG tube placement. However patient wants to be obese. Consult dietary team -Obesity with BMI 31.9 DVT prophylaxis: Lovenox GI prophylaxis: Protonix Prognosis is guarded
[2022-01-07] MEDS: NYSTATIN 100,000 UNIT/ML SUSP 500,000 UNIT/5 ML CUP PO SCH ×6 (00:08→20:25)
[2022-01-07] MEDS: CHOLESTYRAMINE (WITH SUGAR) 4 GM PACKET PO SCH ×2 (08:30→17:14)
[2022-01-07] MEDS: ENOXAPARIN 40 MG/0.4 ML SYRINGE SQ SCH (08:30)
[2022-01-07] MEDS: PANTOPRAZOLE 40 MG TABLET PO SCH (08:31)
[2022-01-07] MEDS: MAGNESIUM OXIDE 400 MG TAB PO SCH (08:31)
[2022-01-07] MEDS: lisinopriL 20 MG TAB PO SCH (08:31)
[2022-01-07] MEDS: SUCRALFATE 1 GM TAB PO SCH ×4 (08:31→20:25)
[2022-01-07] MEDS: METOPROLOL TARTRATE 12.5 MG TAB PO SCH ×2 (08:31→17:14)
[2022-01-07] MEDS: metFORMIN 500 MG TAB PO SCH ×2 (08:31→17:14)
[2022-01-07] MEDS: METOCLOPRAMIDE 5 MG TAB PO SCH ×3 (08:31→17:14)
[2022-01-07] MEDS: CHOLECALCIFEROL 125 MCG (5000 IU) TABLET PO SCH (08:31)
[2022-01-07] MEDS: CYANOCOBALAMIN 500 MCG TAB PO SCH (08:31)
[2022-01-07] MEDS: FOLIC ACID 1 MG TAB PO SCH (08:31)
[2022-01-07] MEDS: TRIAMCINOLONE ACET 0.5% CREAM 15 GM TUBE TOPICAL SCH ×2 (08:32→20:25)
[2022-01-07] MEDS: CINACALCET 30 MG TAB PO SCH (08:32)
[2022-01-07 10:56] LABS: Basophils # (A) 0.03 X 10*3/uL (0.00-0.10); Basophils % (A) 0.4 %; Eosinophils # (A) 0.08 X 10*3/uL (0.04-0.35); HCT 32.7 % (37.2-46.3); HGB 9.7 g/dL (12.0-15.0); Immature Grans, Automated 0.6 %; Lymphocytes # (A) 2.71 X 10*3/uL (0.90-5.00); Lymphocytes % (A) 32.8 %; MCH 27.7 pg (27.0-32.0); MCHC 29.7 g/dL (32.0-37.0); MCV 93.4 fL (80.0-97.0); Mean Platelet Volume 10.2 fL (9.5-12.2); Monocytes # (A) 0.47 X 10*3/uL (0.20-1.00); Monocytes % (A) 5.7 %; NRBC Per 100 WBC 0 /100 WBCS (0.0-0.0); Neutrophils # (A) 4.92 X 10*3/uL (1.80-7.70); Neutrophils % (A) 59.5 %; Platelet Count 283 X 10*3/uL (140-440); RDW 15.9 % (11.5-14.5); WBC 8.26 X 10*3/uL (4.50-10.00)
[2022-01-07 11:32] LABS: African American GFR (CKD) 107.7 (60.0-200.0); Anion Gap 8.1 mmol/L (10.00-18.00); BUN/Creat Ratio 12.64 Ratio (12.00-20.00); Blood Urea Nitrogen 7.3 mg/dL (9.0-27.0); Calcium 7.8 mg/dL (8.7-10.3); Magnesium 1.8 mg/dL (1.5-2.4); Non-African American GFR(CKD) 92.9 (60.0-200.0)
[2022-01-07] MEDS: ATORVASTATIN 10 MG TAB PO SCH (17:14)
[2022-01-07] MEDS: NON FORMULARY DRUG (Mirabegron [Myrbetriq] 25 MG Tab.Er.24h) PO SCH (20:17)
--- NOTE | 2022-01-08 00:36 | P.PN ---
Subjective 71-year-old pleasant female was sent in from detention because of blood pressure and elevated at calcium which is about 13. Patient is on calcitriol. Patient is a detention resident patient had a lumbar spinal fusion surgery month of August since and patient overall clinical condition has worsened patient stopped eating much and patient ended up having a PEG tube. Patient had history of hyperparathyroidism had parathyroidectomy in the past, patient does take cinacalcet for Hyperparathyroidism. Patient also denied any complaints pa tient appears to be bit lethargic and slow. Patient minimally is fairly good. Did have weight loss because she has not been eating much since her neck surgery. 12/31/2021 This is a pleasant 71 years old female who was sent from detention for hypercalcemia. Patient states that she was on Rachel after she had back surgery because of inability to walk, possible laminectomy with her neurosurgeon at [facility] home she believes is Dr. Moreno. She states that her surgery was in September and she saw her neurosurgeon 2 weeks thereafter who told her that she is doing well. Her condition has not worsened since then. However patient states she still has difficulty walking. She was sent from our with because of her calcium was elevated 13.9 on admission. Patient is still complaining of from generalized weakness, she had vomited yesterday but not think this morning reviewed she tolerates diet well but she has low appetite. No abdominal pain. She had diarrhea but was stopped and her last bowel movement was 2 days ago. Most likely her diarrhea was secondary to hypercalcemia. She has PEG tube in place with no tenderness. Patient states that she has low appetite for 2 months and she asked for PEG tube to be placed since then. Patient says that she has one colonoscopy repeated with no or abnormality as per patient CT of the abdomen and pelvis on 12/16 is reviewed and the report says no acute abnormality of the abdomen and pelvis. She denies any chest pain or respiratory symptoms. No coughing or dyspnea or sneezing. 01/01/2022 Patient awake and alert, no more nausea vomiting, she still have low appetite, I talked to the patient about her weight has her BMI still elevated to 1.9, she stated that she's been losing weight and she was when heavier before. We'll consult dietary team. Also her calcium is back to normal at 10.1 however her workup still pending like 80s, vitamin D, prepared her mons related peptide and immunofixation test ordered by nephrology team will also follow the patient closely. Wire Weaver Helper recommended to continue with normal saline 75 ml/h and Sensipar. Patient remains on oral Vanco for her C. diff to finish 10 day course. 01/02/2022 Patient still feels generally weak. With low appetite. She is kept on IV fluids and her calcium level down to 9.1 today. She still feels generally weak and has diarrhea about 3-4 times per day. PEG tube is in place and dietary team were consulted for consult and start tube feeding. Hypercalcemia workup still pending like acid level Still pending test including parathyroid hormone related peptide and immunofixation test per nephrology team will follow closely. I discussed the case with hematology team who are going to evaluate the patient as well. We will ask for urine analysis. 01/03/2022 Patient improving gradually and slowly, she says she started eating little by little compared to completely normal Respiratory admission. She is getting tube feeds 3 times a day. No abdominal complaints. Diarrhea improved gradually she's having 2-3 bouts today compared to 3-4 biopsies yesterday. No abdominal pain. Right foot was stopped. Her calcium came back to normal since yesterday and today even improvement of 8.7. Urine analysis is negative, multiple lids were placed, serum immunofixation s howing no monoclonal paraprotein per report. Further workup by nephrology and hematology input is pending. 01/04/2022 Patient diarrhea improved gradually, she had 2 bouts of bowel movement today with less amount. No abdominal pain. She still gets PEG tube feeding. Her appetite is still very low. Sodium was normal. Calcium 8.7, hemoglobin 10.6. Anemia workup is reviewed, patient started on folate and low-dose vitamin B12. Monoclonal antibody pending 01/05/2022 patient abdominal pain, diarrhea and appetite improving slowly and gradually with treatment of her C. diff. Parathyroid hormone related peptide still pending. Calcium improved and back to normal for now. Continue with PEG tube feedings 3 times a day. Monoclonal workup as per hematology team Discuss plan with the patient and bedside nurse and all in agreement 01/06/2022 Patient improving gradually and slowly. She is picking up her diet and appetite and his diarrhea improving with also improving abdominal pain. The patient feeds through the PEG tube. To need continued on replacement therapy of folic acid and vitamin B12 Parathyroid hormone related peptide is still pending 01/07/2022 Patient clinically looks his stable, patient of periumbilical crampy pain which comes and goes and is mild. She still has diarrhea, we retested C. diff and it is negative. She is going once or twice a day. Parathyroid hormone related to still pending patient appetite still low. Vitamin B12 level is low normal, Continue with vitamin B12 replacement 3 weeks and recheck vitamin B12 level of the Objective - Vital Signs Vital signs: Vital Signs Temp 97.5 F L 01/07/22 13:02 Pulse 60 01/07/22 13:02 Resp 16 01/07/22 13:02 BP 122/76 01/07/22 13:02 Pulse Ox 98 01/07/22 13:02 FiO2 Intake & Output 01/07/22 01/07/22 01/08/22 06:59 18:59 06:59 Intake Total 240 200 Balance 240 200 Intake: IV 240 .9@20 240 Tube Feeding 200 Other: Voiding Method Diaper Bedpan Diaper Incontinent # Voids 1 # Bowel Movements 1 - Exam GENERAL: The patient is alert and oriented x3, not in any acute distress. Obese HEENT: Pupils are round and equally reacting to light. EOMI. No scleral icterus. No conjunctival pallor. Normocephalic, atraumatic. No pharyngeal erythema. No thyromegaly. CARDIOVASCULAR: S1 and S2 present. No murmurs, rubs, or gallops. PULMONARY: Chest is clear to auscultation, no wheezing or crackles. ABDOMEN: Soft, nontender, nondistended, normoactive bowel sounds. No palpable organomegaly. MUSCULOSKELETAL: No joint swelling or deformity. EXTREMITIES: No cyanosis, clubbing, or pedal edema. -NEUROLOGICAL: Gross neurological examination did not reveal any focal deficits. He has chronic bilateral leg weakness status post surgery as per patient. Sensation is intact. Meningeal signs are absent SKIN: No rashes. no petechiae. - Labs CBC & Chem 7: 01/07/22 06:29 01/07/22 06:29 Labs: Abnormal Lab Results - Last 24 Hours (Table) 01/07/22 01/07/22 Range/Units 06: 06:29 RBC 3.50 L (4.10-5.20) X 10*6/uL Hgb 9.7 L (12.0-15.0) g/dL Hct 32.7 L (37.2-46.3) % MCHC 29.7 L (32.0-37.0) g/dL RDW 15.9 H (11.5-14.5) % Immature Gran # 0.05 H (0.00-0.04) X 10*3/uL Anion Gap 8.10 L (10.00-18.00) mmol/L BUN 7.3 L (9.0-27.0) mg/dL Calcium 7.8 L (8.7-10.3) mg/dL Microbiology - Last 24 Hours (Table) 01/03/22 14:02 Blood Culture - Preliminary Blood No Growth after 96 hours Assessment and Plan Assessment: -Hypercalcemia: Continue with 75 mL of normal saline , pt is s/p zoledronic acid. Continue with Sensipar. Nephrology team on the case and further workup is pending further recommendation. Also we'll consult hematology team especially in view of her low appetite -Chronic urine incontinence, check urinalysis and bladder scan. Discussed with the bedside nurse -Hypertension.hold off on amlodipine continue with the lisinopril -Leukocytosis appears to be reactive, improved -hypokalemia and hypomagnesemia, been placed -Hyperlipidemia -Recent C. diff diagnosis patient presently doesn't have any diarrhea continued for vancomycin patient was was started on oral vancomycin on December 26 will need total 10 day of therapy. -Gastroesophageal reflux disease -Patient reports loss of appetite status post PEG tube placement. However patient wants to be obese. Consult dietary team -Obesity with BMI 31.9 DVT prophylaxis: Lovenox GI prophylaxis: Protonix Prognosis is guarded
[2022-01-08] MEDS: NYSTATIN 100,000 UNIT/ML SUSP 500,000 UNIT/5 ML CUP PO SCH ×4 (02:03→12:55)
--- NOTE | 2022-01-08 08:16 | P.DS ---
Providers Date of admission: 12/30/21 05:29 Expected date of discharge: 01/08/22 Attending physician: Sunday Davis Consults: 12/30/21 09:35 Consult Physician Routine Consulting Provider: Lynn Angelo Consult Reason/Comments: hypercalcemia Do you want consulting provider notified?: Yes 01/02/22 12:58 Consult Physician Routine Consulting Provider: Serafin Grimaldo Consult Reason/Comments: hypercalcemia and loss of appetite Do you want consulting provider notified?: Already Contacted Primary care physician: [facility] Course: HISTORY OF PRESENT ILLNESS 71-year-old pleasant female was sent in from [facility] because of blood pressure and elevated at calcium which is about 13. Patient is on calcitriol. Patient is a [facility] resident patient had a lumbar spinal fusion surgery month of August since and patient overall clinical condition has worsened patient stopped eating much and patient ended up having a PEG tube. Patient had history of hyperparathyroidism had parathyroidectomy in the past, patient does take cinacalcet for Hyperparathyroidism. Patient also denied any complaints patient appears to be bit lethargic and slow. Patient minimally is fairly good. Did have weight loss because she has not been eating much since her neck surgery. 12/31/2021 This is a pleasant 71 years old female who was sent from [facility] for hypercalcemia. Patient states that she was on Rachel after she had back surgery because of inability to walk, possible laminectomy with her neurosurgeon at [facility] home she believes is Dr. Moreno. She states that her surgery was in September and she saw her neurosurgeon 2 weeks thereafter who told her that she is doing well. Her condition has not worsened since then. However patient states she still has difficulty walking. She was sent from our with because of her calcium was elevated 13.9 on admission. Patient is still complaining of from generalized weakness, she had vomited yesterday but not think this morning reviewed she tolerates diet well but she has low appetite. No abdominal pain. She had diarrhea but was stopped and her last bowel movement was 2 days ago. Most likely her diarrhea was secondary to hypercalcemia. She has PEG tube in place with no tenderness. Patient states that she has low appetite for 2 months and she asked for PEG tube to be placed since then. Patient says that she has one colonoscopy repeated with no or abnormality as per patient CT of the abdomen and pelvis on 12/16 is reviewed and the report says no acute abnormality of the abdomen and pelvis. She denies any chest pain or respiratory symptoms. No coughing or dyspnea or sneezing. 01/01/2022 Patient awake and alert, no more nausea vomiting, she still have low appetite, I talked to the patient about her weight has her BMI still elevated to 1.9, she stated that she's been losing weight and she was when heavier before. We'll consult dietary team. Also her calcium is back to normal at 10.1 however her workup still pending like 80s, vitamin D, prepared her mons related peptide and immunofixation test ordered by nephrology team will also follow the patient closely. [employer] recommended to continue with normal saline 75 ml/h and Sensipar. Patient remains on oral Vanco for her C. diff to finish 10 day course. 01/02/2022 Patient still feels generally weak. With low appetite. She is kept on IV fluids and her calcium level down to 9.1 today. She still feels generally weak and has diarrhea about 3-4 times per day. PEG tube is in place and dietary team were consulted for consult and start tube feeding. Hypercalcemia workup still pending like acid level Still pending test including parathyroid hormone related peptide and immunofixation test per nephrology team will follow closely. I discussed the case with hematology team who are going to evaluate the patient as well. We will ask for urine analysis. 01/03/2022 Patient improving gradually and slowly, she says she started eating little by little compared to completely normal Respiratory admission. She is getting tube feeds 3 times a day. No abdominal complaints. Diarrhea improved gradually she's having 2-3 bouts today compared to 3-4 biopsies yesterday. No abdominal pain. Right foot was stopped. Her calcium came back to normal since yesterday and today even improvement of 8.7. Urine analysis is negative, multiple lids were placed, serum immunofixation showing no monoclonal paraprotein per report. Further workup by nephrology and hematology input is pending. 01/04/2022 Patient diarrhea improved gradually, she had 2 bouts of bowel movement today with less amount. No abdominal pain. She still gets PEG tube feeding. Her appetite is still very low. Sodium was normal. Calcium 8.7, hemoglobin 10.6. Anemia workup is reviewed, patient started on folate and low-dose vitamin B12. Monoclonal antibody pending 01/05/2022 patient abdominal pain, diarrhea and appetite improving slowly and gradually with treatment of her C. diff. Parathyroid hormone related peptide still pending. Calcium improved and back to normal for now. Continue with PEG tube feedings 3 times a day. Monoclonal workup as per hematology team Discuss plan with the patient and bedside nurse and all in agreement 01/06/2022 Patient improving gradually and slowly. She is picking up her diet and appetite and his diarrhea improving with also improving abdominal pain. The patient feeds through the PEG tube. To need continued on replacement therapy of folic acid and vitamin B12 Parathyroid hormone related peptide is still pending 01/07/2022 Patient clinically looks his stable, patient of periumbilical crampy pain which comes and goes and is mild. She still has diarrhea, we retested C. diff and it is negative. She is going once or twice a day. Parathyroid hormone related to still pending patient appetite still low. Vitamin B12 level is low normal, Continue with vitamin B12 replacement 3 weeks and recheck vitamin B12 level of the 01/08: Patient is afebrile, heart rate 84, blood pressure 107/66, pulse ox 96% on room air. Amlodipine will remain on hold. Patient states that she does not eat hospital food but her brings her in food later in the day. She is also remaining on tube feedings. Calcium level from yesterday was 7.8. Patient has been followed by oncology and nephrology. Nephrology had cleared patient for discharge last week and plan for follow-up in the office in one week with repeat blood work in 3 days after discharge. Social work and case management is following for discharge planning. Discharge plan is to return to [facility]. Patient will be discharged back to [facility] today in stable condition. DISCHAREG DIAGNOSES -Hypercalcemia, resolved -Chronic urine incontinence -Hypertension -Leukocytosis appears to be reactive, improved -hypokalemia and hypomagnesemia -Hyperlipidemia -Recent C. diff diagnosis -Gastroesophageal reflux disease -Patient reports loss of appetite status post PEG tube placement. -Obesity with BMI 31.9 DISCHARGE PLAN Return to [facility]. Greater than 35 minutes was utilized and coordinating patient's discharge. Impression and plan of care have been directed as dictated by the signing physician. Samantha Syed nurse practitioner acting as scribe for signing physician. Patient Condition at Discharge: Stable Plan - Discharge Summary Discharge Rx Participant: No New Discharge Prescriptions: New Acetaminophen Tab [Tylenol] 650 mg PO Q6HR PRN tab PRN Reason: Mild Pain Or Fever > 100.5 Folic Acid 1 mg PO DAILY tab Magnesium Oxide [Mag-Ox] 400 mg PO DAILY tab Cyanocobalamin [Vitamin B-12] 500 mcg PO DAILY tab Cholecalciferol [Vitamin D3 (125 Mcg = 5000 Iu)] 125 mcg PO DAILY tab Continue Atorvastatin [Lipitor] 10 mg PO DAILY@1700 Magnesium Hydroxide [Milk of Magnesia Concentrate] 7,200 mg PO DAILY PRN PRN Reason: Constipation Na Phos,M-B/Na Phos,Di-Ba [Fleet Adult] 133 ml RECTAL DAILY PRN PRN Reason: Constipation Omeprazole [PriLOSEC] 20 mg PO DAILY@0800 Mirabegron [Myrbetriq] 25 mg PO HS@2100 Liquacel 30 ml PO BID@0600,2200 Enoxaparin [Lovenox] 40 mg SQ DAILY@0800 Triamcinolone 0.5% Cream [Kenalog 0.5% Cream] 1 applic TOPICAL BID Venlafaxine HCl [Effexor XR] 75 mg PO DAILY@0800 bisacodyL [Dulcolax] 10 mg RECTAL DAILY PRN PRN Reason: Constipation Ondansetron [Zofran] 4 mg PO Q8H PRN PRN Reason: Nausea Cinacalcet HCl [Sensipar] 30 mg PO BID@0800,1700 diphenhydrAMINE [Benadryl] 25 mg PO Q6H PRN PRN Reason: RASH/ITCHING INSULIN ASPART (NovoLOG) [NovoLOG (formulary)] See Protocol SQ ACHS lisinopriL [Zestril] 20 mg PO DAILY@0800 metFORMIN HCL 500 mg PO BID@0800,1700 Metoclopramide [Reglan] 5 mg PO TID@0800,1200,1700 Metoprolol Tartrate [Lopressor] 12.5 mg PO BID@0800,1700 Sucralfate [Carafate] 1 gm PO ACHS tab Cholestyramine (with Sugar) [Questran Packet] 4 gm PO BID@0800,1700 Ensure 1 can PO TID@1000,1500,2000 HYDROcodone/APAP 5-325MG [Otto 5-325] 1 tab PO Q6H PRN #12 tab PRN Reason: Pain Vancomycin 125 mg PO QID 7 Days #44 cap Discontinued Furosemide [Lasix] 20 mg PO DAILY@0800 Potassium Chloride ER [K-Dur 20] 80 meq PO ONCE amLODIPine [Norvasc] 10 mg PO DAILY@0800 Nystatin 100,000 Unit/ml Susp [Mycostatin Oral Susp] 5 ml PO Q4H Discharge Medication List Atorvastatin [Lipitor] 10 mg PO DAILY@1700 11/20/16 [History] Cinacalcet HCl [Sensipar] 30 mg PO BID@0800,1700 11/22/21 [History] Magnesium Hydroxide [Milk of Magnesia Concentrate] 7,200 mg PO DAILY PRN 11/22/21 [History] Mirabegron [Myrbetriq] 25 mg PO HS@2100 11/22/21 [History] Na Phos,M-B/Na Phos,Di-Ba [Fleet Adult] 133 ml RECTAL DAILY PRN 11/22/21 [History] Omeprazole [PriLOSEC] 20 mg PO DAILY@0800 11/22/21 [History] Enoxaparin [Lovenox] 40 mg SQ DAILY@0800 12/16/21 [History] INSULIN ASPART (NovoLOG) [NovoLOG (formulary)] See Protocol SQ ACHS 12/16/21 [History] Liquacel 30 ml PO BID@0600,2200 12/16/21 [History] Metoclopramide [Reglan] 5 mg PO TID@0800,1200,1700 12/16/21 [History] Metoprolol Tartrate [Lopressor] 12.5 mg PO BID@0800,1700 12/16/21 [History] Triamcinolone 0.5% Cream [Kenalog 0.5% Cream] 1 applic TOPICAL BID 12/16/21 [History] Venlafaxine HCl [Effexor XR] 75 mg PO DAILY@0800 12/16/21 [History] diphenhydrAMINE [Benadryl] 25 mg PO Q6H PRN 12/16/21 [History] lisinopriL [Zestril] 20 mg PO DAILY@0800 12/16/21 [History] metFORMIN HCL 500 mg PO BID@0800,1700 12/16/21 [History] Sucralfate [Carafate] 1 gm PO ACHS tab 12/20/21 [Rx] Cholestyramine (with Sugar) [Questran Packet] 4 gm PO BID@0800,1700 12/30/21 [History] Ensure 1 can PO TID@1000,1500,2000 12/30/21 [History] Ondansetron [Zofran] 4 mg PO Q8H PRN 12/30/21 [History] bisacodyL [Dulcolax] 10 mg RECTAL DAILY PRN 12/30/21 [History] Acetaminophen Tab [Tylenol] 650 mg PO Q6HR PRN tab 01/08/22 [Rx] Cholecalciferol [Vitamin D3 (125 Mcg = 5000 Iu)] 125 mcg PO DAILY tab 01/08/22 [Rx] Cyanocobalamin [Vitamin B-12] 500 mcg PO DAILY tab 01/08/22 [Rx] Folic Acid 1 mg PO DAILY tab 01/08/22 [Rx] HYDROcodone/APAP 5-325MG [Otto 5-325] 1 tab PO Q6H PRN #12 tab 01/08/22 [Rx] Magnesium Oxide [Mag-Ox] 400 mg PO DAILY tab 01/08/22 [Rx] Vancomycin 125 mg PO QID 7 Days #44 cap 01/08/22 [Rx] Follow up Appointment(s)/Referral(s): Sunday Davis MD [Primary Care Provider] - 1 Week Discharge Disposition: TRANSFER TO SNF/ECF
[2022-01-08] MEDS: METOPROLOL TARTRATE 12.5 MG TAB PO SCH (09:12)
[2022-01-08] MEDS: METOCLOPRAMIDE 5 MG TAB PO SCH ×2 (09:12→12:55)
[2022-01-08] MEDS: lisinopriL 20 MG TAB PO SCH (09:12)
[2022-01-08] MEDS: ENOXAPARIN 40 MG/0.4 ML SYRINGE SQ SCH (09:12)
[2022-01-08] MEDS: CHOLECALCIFEROL 125 MCG (5000 IU) TABLET PO SCH (09:12)
[2022-01-08] MEDS: CINACALCET 30 MG TAB PO SCH (09:12)
[2022-01-08] MEDS: MAGNESIUM OXIDE 400 MG TAB PO SCH (09:12)
[2022-01-08] MEDS: SUCRALFATE 1 GM TAB PO SCH ×2 (09:13→12:55)
[2022-01-08] MEDS: metFORMIN 500 MG TAB PO SCH (09:13)
[2022-01-08] MEDS: PANTOPRAZOLE 40 MG TABLET PO SCH (09:14)
[2022-01-08] MEDS: CHOLESTYRAMINE (WITH SUGAR) 4 GM PACKET PO SCH (09:14)
[2022-01-08] MEDS: CYANOCOBALAMIN 500 MCG TAB PO SCH (09:14)
[2022-01-08] MEDS: FOLIC ACID 1 MG TAB PO SCH (09:18)
[2022-01-08] MEDS: TRIAMCINOLONE ACET 0.5% CREAM 15 GM TUBE TOPICAL SCH (09:19)
[2022-01-08 11:44] VITALS: BP 131/72; PULSE 72; RESP 16; TEMP 97.6
--- NOTE | 2022-01-08 17:30 | P.PN ---
Subjective Progress Note Date: 01/08/22 Principal diagnosis: hypercalcemia In f/u today pt has no acute physical c/o, she states she has had hypercalcemia before. Objective - Vital Signs Vital signs: Vital Signs Temp 97.6 F 01/08/22 11:35 Pulse 72 01/08/22 11:35 Resp 16 01/08/22 11:35 BP 131/72 01/08/22 11:35 Pulse Ox 97 01/08/22 11:35 FiO2 Intake & Output 01/07/22 01/08/22 01/08/22 18:59 06:59 18:59 Intake Total 200 240 Balance 200 240 Weight 87.5 kg Intake: IV 240 .9@20 240 Tube Feeding 200 Other: Voiding Method Bedpan Bedpan Bedpan Diaper Diaper Diaper Incontinent Incontinent Incontinent # Voids 1 1 # Bowel Movements 1 - Constitutional General appearance: Present: average body habitus, no acute distress - EENT Eyes: Present: anicteric sclerae, EOMI ENT: Present: hearing grossly normal - Respiratory Respiratory: bilateral: CTA - Cardiovascular Rhythm: regular Heart sounds: normal: S1, S2 - Peripheral edema leg Peripheral Edema: bilateral: Trace - Gastrointestinal Gastrointestinal Comment(s): peg INSITU General gastrointestinal: Present: soft - Integumentary Integumentary Comment(s): BLE are bronzed, skin is dry and scaley - Neurologic Neurologic: Present: CNII-XII intact (grossly) - Musculoskeletal Musculoskeletal: Present: generalized weakness - Psychiatric Psychiatric: Present: A&O x's 3, appropriate affect, intact judgment & insight - Labs CBC & Chem 7: 01/07/22 06:29 01/07/22 06:29 Labs: Microbiology - Last 24 Hours (Table) 01/03/22 14:02 Blood Culture - Preliminary Blood No Growth after 120 hours Assessment and Plan (1) Hypercalcemia Status: Acute Priority: High Code(s): E83.52 - HYPERCALCEMIA SNOMED Code(s): 12340220 (2) Anemia Status: Acute Priority: Medium Code(s): D64.9 - ANEMIA, UNSPECIFIED SNOMED Code(s): 887408513 Plan: Hypercalcemia resolved with zometa and hydration. No monoclonal gammopathy on work up. PTH normal-she is supposed to be me dicated. Folate deficient, on supplement Diffuse osteopenia documented on recent xrays of the spine. Should f/u with PCP for monitoring and treatment of the same. Referral cesar to Hem/Onc if persistent, progressive or new symptoms. May need further malignancy work up
== END 2022-01-08 14:45 | DRG 641 ==
LOC: EC 03:56 → 5NMEDONC 05:29
PROVIDERS: ADMIT Internal Medicine Geriatric Medicine; ATTEND Internal Medicine Geriatric Medicine
DX: E83.52 Hypercalcemia (principal); A04.72 Enterocolitis due to Clostridium difficile, not specified as recurrent; Z43.1 Encounter for attention to gastrostomy; E87.1 Hypo-osmolality and hyponatremia; D51.9 Vitamin B12 deficiency anemia, unspecified; I95.9 Hypotension, unspecified; E86.0 Dehydration; E89.2 Postprocedural hypoparathyroidism; Z79.4 Long term (current) use of insulin; Z20.822 Contact with and (suspected) exposure to COVID-19; E86.1 Hypovolemia; E78.5 Hyperlipidemia, unspecified; D50.9 Iron deficiency anemia, unspecified; I10 Essential (primary) hypertension; E89.0 Postprocedural hypothyroidism; E83.42 Hypomagnesemia; E87.6 Hypokalemia; K21.9 Gastro-esophageal reflux disease without esophagitis; R32 Unspecified urinary incontinence; E87.70 Fluid overload, unspecified; H91.90 Unspecified hearing loss, unspecified ear; E66.9 Obesity, unspecified; Z68.33 Body mass index [BMI] 33.0-33.9, adult; R26.2 Difficulty in walking, not elsewhere classified; M19.90 Unspecified osteoarthritis, unspecified site; Z79.84 Long term (current) use of oral hypoglycemic drugs; Z79.01 Long term (current) use of anticoagulants; Z79.899 Other long term (current) drug therapy; Z98.1 Arthrodesis status; Z71.3 Dietary counseling and surveillance
CPT/HCPCS: 36415; 80048; 80053; 81001; 82164; 82306; 82607; 82652; 82728; 82746; 82784; 83519; 83540; 83550; 83615; 83735; 83883; 83970; 84132; 84165; 84443; 85025; 85652; 86334; 87040; 87493; 87635; 93005

== ENCOUNTER → 2023-12-12 | Outpatient (CLI) | payer MEDICARE ==
--- NOTE | 2023-12-16 08:29 | MM ---
Reason for Exam: Screening (asymptomatic). Last screening mammogram was performed 12 month(s) ago. Patient History: Menarche at age 13. First Full-Term at age 27. Postmenopausal. Patient has history of breast feeding. Risk Values: Gi 5 year model risk: 2.0%. NCI Lifetime model risk: 4.8%. Prior Study Comparison: 04/08/2019 Bilateral MG 3D screening mammo w/cad, Unknown. 08/10/2020 Bilateral MG 3D screening mammo w/cad, Unknown. 12/07/2022 Bilateral MG 3D screening mammo w/cad, Unknown. Tissue Density: The breasts are heterogeneously dense, which may obscure small masses. Findings: Analyzed By CAD. Scattered benign round and vascular calcifications are unchanged. Small area of nodular focal asymmetry posterior upper outer quadrant left breast is more defined and incompletely disperses on 3-D images. This may represent superimposition shadow but further evaluation is recommended. Otherwise, no significant change. Overall Assessment: Incomplete: need additional imaging evaluation, BI-RAD 0 Management: Special View Mammogram of the left breast. Diagnostic Breast Ultrasound of the left breast. . [facility] will attempt to contact patient to return for supplemental views and ultrasound if indicated. Electronically signed and approved by: Ac Lemus M.D. Radiologist
== END | disposition home or self-care (01) ==
LOC: RADMAMWWP 12:58
PROVIDERS: ATTEND Family Medicine
DX: Z12.31 Encounter for screening mammogram for malignant neoplasm of breast (principal); Z13.820 Encounter for screening for osteoporosis; Z78.0 Asymptomatic menopausal state
CPT/HCPCS: 77063; 77067

== ENCOUNTER → 2023-12-19 | Outpatient (CLI) | payer MEDICARE ==
--- NOTE | 2023-12-19 13:51 | MM ---
Reason for Exam: Additional evaluation requested from abnormal screening. Last screening mammogram was performed less than 1 month ago. Patient History: Menarche at age 13. First Full-Term at age 27. Postmenopausal. Patient has history of breast feeding. Risk Values: Gi 5 year model risk: 2.0%. NCI Lifetime model risk: 4.8%. Prior Study Comparison: 08/10/2020 Bilateral MG 3D screening mammo w/cad, Unknown. 12/07/2022 Bilateral MG 3D screening mammo w/cad, Unknown. 12/12/2023 Bilateral MG 3D screening mammo w/cad, [facility]. Tissue Density: Left: The breasts are heterogeneously dense, which may obscure small masses. Findings: Analyzed By CAD. Subtle 8 mm asymmetric density far posterior outer aspect partially disperses on additional views. No clear correlate on the other views. Further ultrasound evaluation is recommended. Overall Assessment: Incomplete: need additional imaging evaluation, BI-RAD 0 Management: Diagnostic Breast Ultrasound of the left breast. Electronically signed and approved by: Ac Lemus M.D. Radiologist
--- NOTE | 2023-12-23 14:08 | USB ---
Reason for Exam: Additional evaluation requested from abnormal screening. Patient History: Menarche at age 13. First Full-Term at age 27. Postmenopausal. Patient has history of breast feeding. Risk Values: Gi 5 year model risk: 2.0%. NCI Lifetime model risk: 4.8%. Technique: Method: Targeted. Doppler: Color. Patient scanned sitting erect. Prior Study Comparison: 08/10/2020 Bilateral MG 3D screening mammo w/cad, Unknown. 12/07/2022 Bilateral MG 3D screening mammo w/cad, Unknown. 12/12/2023 Bilateral MG 3D screening mammo w/cad, [facility]. Findings: The upper outer quadrant of the left breast and the axilla of the left breast were scanned. Ultrasound upper outer quadrant left breast 12:00 to 3:00 including scanning of the subareolar region and axilla. At the 3:00 position, 8 cm from the nipple, there is a lobulated 8 x 6 x 8 mm hypoechoic lesion with some shadowing. Suspicious appearance. Tissue sampling recommended. No other solid or cystic lesion or axillary lymphadenopathy. Overall Assessment: Suspicious, BI-RAD 4 Management: Ultrasound Core Biopsy of the left breast. Results were given to the patient verbally at the time of exam. Electronically signed and approved by: Ac Lemus M.D. Radiologist
== END | disposition home or self-care (01) ==
LOC: RADMAMWWP 13:21
PROVIDERS: ATTEND Family Medicine
DX: R92.332 Mammographic heterogeneous density, left breast (principal); Z78.0 Asymptomatic menopausal state
CPT/HCPCS: 77065; 76642; G0279; 77061

== ENCOUNTER → 2024-01-10 | Day surgery (SDC) | payer MEDICARE ==
--- NOTE | 2024-01-20 12:22 | MM ---
Reason for Exam: Post Procedure Mammogram. Last screening mammogram was performed less than 1 month ago. Patient History: Menarche at age 13. First Full-Term at age 27. Postmenopausal. Patient has history of breast feeding. Risk Values: Gi 5 year model risk: 2.0%. NCI Lifetime model risk: 4.8%. Prior Study Comparison: 12/07/2022 Bilateral MG 3D screening mammo w/cad, Unknown. 12/12/2023 Bilateral MG 3D screening mammo w/cad, [facility]. 12/19/2023 Left MG 3D work up w/cad LT, [facility]. Tissue Density: Left: The breasts are heterogeneously dense, which may obscure small masses. Pathology Description: Location: 3 o'clock. Marker Left Behind. Needle Type: Mammotome Cores: 6 The procedure of ultrasound guided core biopsy was explained to the patient. Benefits, alternatives, and risks were discussed. An informed consent was then obtained. Suspicious 8 mm hypoechoic lesion at the 3:00 position is identified and targeted for biopsy. The patient was placed in supine positioning for imaging and for the procedure. The overlying skin was prepped and draped in usual sterile fashion. Lidocaine was used as anesthetic into the skin and subcutaneous tissue up to area of concern in the 3:00 left breast. Under ultrasound guidance, a 13-gauge vacuum-assisted mammotome Elite biopsy gun device was used to obtain 6 core samples. Following this, a Hydromark butterfly clip was left in lesion. The patient tolerated the procedure well without any immediate complication. The patient was kept in the radiology department for short stay after the procedure and then discharged home in stable condition. Postprocedure mammogram: The patient was transferred to mammography for physician ordered post procedure mammogram for clip placement verification. Postprocedure mammogram shows clip at the site of mammographic abnormality. The lesion could not be brought into the field of view on a true lateral view so a post biopsy MLO view was obtained. IMPRESSION: Successful, uncomplicated ultrasound guided core biopsy of suspicious 3:00 lesion in the left breast, mammographic correlate. Full pathology results to follow. Pathology Results: Result: Malignant, Invasive ductal carcinoma. Pathology and radiology were reviewed. Findings are concordant. LEFT BREAST, 3:00, ULTRASOUND GUIDED NEEDLE CORE BIOPSY: Invasive well-differentiated ductal carcinoma (Grade 1). See Surgical Pathology Cancer Case Summary and Comment. Overall Assessment: Malignant Assessment: MG diagnostic mammo LT wo CAD. - Left: Known biopsy proven malignancy, BI-RAD 6. Management: Surgical Consultation of the left breast. Electronically signed and approved by: Ac Lemus M.D. Radiologist
== END ==
LOC: RADUSWWP 09:36
PROVIDERS: ATTEND Surgery
DX: C50.812 Malignant neoplasm of overlapping sites of left female breast (principal); R92.8 Other abnormal and inconclusive findings on diagnostic imaging of breast; Z17.0 Estrogen receptor positive status [ER+]; Z78.0 Asymptomatic menopausal state
CPT/HCPCS: 88305; 88342; 88341; 77065; 19083; A4648

== ENCOUNTER → 2024-01-31 | Outpatient (CLI) | payer MEDICARE ==
[2024-01-31 13:18] VITALS: BP 138/93; PULSE 67; RESP 16; TEMP 98.3
--- NOTE | 2024-01-31 13:31 | P.GSCN ---
History of Present Illness Consult date: 01/31/24 Reason for Consult: IDC Left Breast Requesting physician: Yanna David History of present illness: Kristin is a 73 year old female seen in consultation foe Dr. David regarding a biopsy proven left breast IDC. She had a bilateral mammogram on 12-12-23 which led to a left breast diagnostic mammogram and ultrasound on 12-19-23. This led to an ultrasound core biopsy on 01-10-24. Lesion 8mm, ER+Pr+Hert2-G1 stage I. the mammograms are personally reviewed and discussed with Dr. Lemus from radiology. The patient does not feel any lumps masses or nodules of concern in either breast. She has never had any surgery on her breasts. She has not had any recent trauma or infection in the breast. She is not complaining of any skin changes or nipple discharge. The patient is seen in conjuction with her , who provides medical history. She has a history of basal cell cancer on her nose. Caffiene: 1 cup/day nicotine: none chocolate: weekly BCP: 10-15 years, stopped in 1982, tubaligation hormones: none Family History: brother: lung cancer grandmother maternal: skin cancer ? typr Hormonal History: menarche: 13 , breast fed: yes, age at first : 26 menopause: 57 endometrial ablation Surgical History: endometrial ablation thyroidectomy parathyroidectomy tubaligation skin graft on nose, basal cell cancer on nose right knee replacement lamenectomy 2 1/2 years can't walk after surgery bilateral cataracts Social History: nicotine: none alcohol: none drugs: none Review of Systems - Constitutional Denies fever, Denies weight loss - EENT Eyes: bilateral as per HPI Ears: deny: decreased hearing, tinnitus Ears, nose, mouth and throat: Denies dysphagia - Breasts bilateral: as per HPI - Cardiovascular Denies chest pain, Denies shortness of breath - Respiratory Denies cough, Denies 7 - Gastrointestinal Reports as per HPI - Genitourinary Genitourinary: Denies dysuria, Denies hematuria - Musculoskeletal Musculoskeleta Comment(s): can't walk or stand Reports as per HPI - Integumentary Reports as per HPI - Neurological Denies headaches, Denies syncope - Psychiatric Reports depression - Endocrine Reports as per HPI - Hematologic/Lymphatic Denies easy bleeding, Denies easy bruising - Allergic/Immunologic Reports as per HPI Past Medical History Past Medical History: Hyperlipidemia, Hypertension, Osteoarthritis (OA) Additional Past Medical History / Comment(s): Well healed left leg wound(brown discoloration). Hx. of bulging disc. C-Diff infection 12/17/21. History of Any Multi-Drug Resistant Organisms: C-DIFF Year Discovered:: 2021 MDRO Source:: stool Past Surgical History: Orthopedic Surgery, Tubal Ligation Additional Past Surgical History / Comment(s): PARATHYROIDECTOMY 1985,2009 PARTIAL THYROIDECTOMY, Low back surgery Aug 15, 2021. Peg Tube insertion October 23, 2021. right knee replacement 2019 Past Anesthesia/Blood Transfusion Reactions: No Reported Reaction Past Psychological History: No Psychological Hx Reported, Depression Smoking Status: Never smoker Past Alcohol Use History: None Reported Past Drug Use History: None Reported - Past Family History Mother Additional Family Medical History / Comment(s): OSTEOPOROSIS Father Additional Family Medical History / Comment(s): AORTIC ABD. ANEURSYN Medications and Allergies Home Medications Medication Instructions Recorded Confirmed Type Atorvastatin [Lipitor] 10 mg PO DAILY@1700 11/20/16 12/23/23 History Mirabegron [Myrbetriq] 50 mg PO DAILY 11/22/21 12/23/23 History Metoclopramide [Reglan] 5 mg PO TID@0800,1200,1700 12/16/21 12/23/23 History Venlafaxine HCl [Effexor XR] 75 mg PO DAILY@0800 12/16/21 12/23/23 History lisinopriL [Zestril] 10 mg PO BID 12/16/21 12/23/23 History Acetaminophen Tab [Tylenol] 650 mg PO Q6HR PRN tab 01/08/22 12/23/23 Rx Cholecalciferol [Vitamin D3 (125 125 mcg PO DAILY tab 01/08/22 12/23/23 Rx Mcg = 5000 Iu)] Cyanocobalamin [Vitamin B-12] 500 mcg PO DAILY tab 01/08/22 12/23/23 Rx Folic Acid 1 mg PO DAILY tab 01/08/22 12/23/23 Rx Magnesium Oxide [Mag-Ox] 400 mg PO DAILY tab 01/08/22 12/23/23 Rx Alendronate Sodium 70 mg PO WEEKLY 12/23/23 12/23/23 History Apixaban [Eliquis] 2.5 mg PO BID 12/23/23 12/23/23 History Carbidopa/Levodopa 2 tab PO TID 12/23/23 12/23/23 History [Carbidopa-Levodopa 25-100 Tab] Cinacalcet [Sensipar] 30 mg PO DAILY 12/23/23 12/23/23 History Ferrous Sulfate [Iron] 325 mg PO DAILY 12/23/23 12/23/23 History Fluticasone Nasal [place] [Flonase 1 spray EA NOSTRIL DAILY PRN 12/23/23 12/23/23 History Nasal [place]] L.acidoph,Paracasei, B.lactis 1 each PO DAILY 12/23/23 12/23/23 History [Probiotic] Metoprolol Succinate [Toprol XL] 50 mg PO DAILY 12/23/23 12/23/23 History Mirtazapine [Remeron] 15 mg PO HS 12/23/23 12/23/23 History Ondansetron [Zofran] 4 mg PO Q8HR PRN 12/23/23 12/23/23 History Oxybutynin Chloride [oxyBUTYnin 15 mg PO DAILY 12/23/23 12/23/23 History chloride ER] Turmeric Root Extract [Turmeric] 500 mg PO DAILY 12/23/23 12/23/23 History amLODIPine BESYLATE 5 mg PO DAILY 12/23/23 12/23/23 History Allergies Allergy/AdvReac Type Severity Reaction Status Date / Time No Known Allergies Allergy Verified 01/31/24 13:13 Surgical - Exam - General moderate distress - Eyes normal ocular movement - ENT no hearing loss - Neck trachea midline - Respiratory normal respiratory effort, clear to auscultation - Cardiovascular Heart Sounds: normal: S1, S2 - Abdomen Abdomen: soft, non tender, no guarding, no rigid, no rebound - Integumentary normal turgor, skin graft nose - Neurologic no disoriented, no combative - Musculoskeletal wheel chair dependent, unable to stand or walk - Psychiatric oriented to time, oriented to person, oriented to place, speech is normal, memory intact Breast Exam: BRA: 44C Inspection: bruise left breast, bilateral grade 3 ptosis palpation: Right breast: Examination in wheelchair, fibrocystic changes no dominant masses or nodules of concern Right axilla: No adenopathy of concern Left breast: bruise lateral aspect, no dominant masses or nodules of concern Left axilla: No adenopathy of concern Results mammogram personally reviewed with Dr. 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 David
== END ==
LOC: WWCWWP 11:54
PROVIDERS: ATTEND Surgery
DX: C50.912 Malignant neoplasm of unspecified site of left female breast (principal); R32 Unspecified urinary incontinence; Z85.828 Personal history of other malignant neoplasm of skin; Z99.3 Dependence on wheelchair; Z17.0 Estrogen receptor positive status [ER+]

== ENCOUNTER 2024-02-25 12:00 | Day surgery (SDC) | payer MEDICARE ==
[~2024-02-25 12:00] MED LIST: ACETAMINOPHEN TAB 500 MG TAB ONE; ALPRAZolam 0.25 MG TAB ONE; DEXAMETHASONE SOD PHOSPHATE 4 MG/ML 1 ML VIAL ONE; HEPARIN SODIUM,PORCINE 5,000 UNIT/ML 1 ML VIAL ONE; ONDANSETRON 4 MG/2 ML VIAL ONE
[2024-02-25] MEDS ORDERED: ROCURONIUM 10 MG/ML (5 ML VIAL) IV ONE (12:25)
[2024-02-25] MEDS ORDERED: fentaNYL (PF) 50 MCG/ML 2 ML AMP ONE (12:25)
[2024-02-25] MEDS ORDERED: LACTATED RINGERS 1,000 ML BAG ONE (12:25)
[2024-02-25] MEDS ORDERED: NEOSTIGMINE 1 MG/ML 10 ML VIAL ONE (12:25)
[2024-02-25] MEDS ORDERED: WATER FOR INJECTION, STERILE 10 ML VIAL IV ONE (12:25)
[2024-02-25] MEDS ORDERED: GLYCOPYRROLATE 0.2 MG/ML 2 ML VIAL ONE (12:25)
[2024-02-25] MEDS ORDERED: LIDOCAINE 1% INJ 10MG/ML (20 ML MDV) ONE ×2 (12:25)
[2024-02-25] MEDS ORDERED: SODIUM CHLORIDE 0.9% 50 ML BAG ONE (12:25)
[2024-02-25] MEDS ORDERED: PROPOFOL 10 MG/ML 20 ML VIAL IV ONE (12:25)
[2024-02-25] MEDS ORDERED: ceFAZolin 1,000 MG VIAL ONE (12:25)
[2024-02-25] MEDS ORDERED: ePHEDrine 50 MG/ML 1 ML VIAL ONE (12:25)
--- NOTE | 2024-03-10 12:13 | P.PN ---
Subjective Progress Note Date: 03/10/24 Principal diagnosis: left breast cancer Kristin is post procedure left lumpectoy on 02-25-24. POst porcedure she ahd some drainage from the incision site. No fever or chills. NO pain. Exam: drainage from incision, clear mild erythema improved Plan: await cultures done last week/ new perscription for Keflex given 500 mg QID number 20 aspirate seroma reinforce suture line Area prepped with alcohol after informed consent. 18 G needle on a 20 cc syringe used to aspirate 5 cc clear fluid. Three sutures of 3-0 nylon placed to reinforce incision. Patient will follow up in one week
--- NOTE | 2024-03-13 09:34 | USB ---
Patient: Kristin Mtz Ordering Physician: Unknown, Unknown ID: [id number] Phone, Pager: Phone: N/A Pager: N/A : [phone] Age/Gender: 73Y, F Primary Location: N/A Procedure: US breast surgical spe cimen LT Study Date: 02/25/2024 1:29:00 PM EXAM: US breast surgical specimen LT DATE OF EXAM: 03/06/2024 COMPARISON: 01/10/2024 mammogram, 01/10/2024 ultrasound DESCRIPTION: The needle localization procedure with wire placement for surgical excision was explained to the jackelyn ent. Benefits, alternatives, and risks were discussed. An informed consent was then obtained. A ti meout was performed. The overlying skin was prepped in usual sterile fashion. Lidocaine was used as anesthetic into the s kin and subcutaneous tissue up to the level of area of concern 3:00 position left breast. A 7 cm nee dle was used. It was placed using an ultrasound guided approach . Needle transverses the targeted. T he wire was placed and the needle was withdrawn. The wire was fixed to patient's skin. The patient tolerated the procedure well without any immediate complication. The patient was kept in the radiology department for short stay after the procedure and then taken to surgery for surgical e xcision. Specimen: Ultrasound specimen has Biopsy marker and wire identified in specimen mammogram. Lesion ap pears to be present Impression: 1. Successful needle localization with wire placement and surgical excision of biopsy marker.
--- NOTE | 2024-03-23 14:40 | MM ---
Reason for Exam: Post Procedure Mammogram. Last screening mammogram was performed 3 month(s) ago. Patient History: Menarche at age 13. First Full-Term at age 27. Postmenopausal. Patient has history of breast feeding. Breast cancer, left, age 73. 01/10/2024, Malignant US biopsy breast VAD LT on the left side. Prior Study Comparison: 12/12/2023 Bilateral MG 3D screening mammo w/cad, [facility]. 12/19/2023 Left MG 3D work up w/cad LT, [facility]. 01/10/2024 Left MG diagnostic mammo LT wo CAD., [facility]. Tissue Density: Left: The breasts are heterogeneously dense, which may obscure small masses. Findings: Specimen: Ultrasound specimen has Biopsy marker and wire identified in specimen mammogram. Lesion appears to be present IMPRESSION: 1. Specimen from ultrasound guidance. Pathology Description: The needle localization procedure with wire placement for surgical excision was explained to the patient. Benefits, alternatives, and risks were discussed. An informed consent was then obtained. A timeout was performed. The overlying skin was prepped in usual sterile fashion. Lidocaine was used as anesthetic into the skin and subcutaneous tissue up to the level of area of concern 3:00 position left breast. A 7 cm needle was used. It was placed using an ultrasound guided approach . Needle transverses the targeted. The wire was placed and the needle was withdrawn. The wire was fixed to patient's skin. The patient tolerated the procedure well without any immediate complication. The patient was kept in the radiology department for short stay after the procedure and then taken to surgery for surgical excision. Specimen: Ultrasound specimen has Biopsy marker and wire identified in specimen mammogram. Lesion appears to be present Impression: 1. Successful needle localization with wire placement and surgical excision of biopsy marker. Pathology Results: Result: Malignant, Invasive ductal carcinoma. A. LEFT BREAST, NEW LATERAL SURFACE, EXCISION: Negative for malignancy. B. LEFT BREAST, LUMPECTOMY: Invasive ductal carcinoma with focal microcalcification and focal DCIS (see Surgical Pathology Cancer Case Summary and comment). All margins negative for in situ and invasive carcinoma. Overall Assessment: Malignant Assessment: MG diagnostic mammo LT wo CAD. - Left: Known biopsy proven malignancy, BI-RAD 6. Management: Surgical Consultation of the left breast. Electronically signed and approved by: Sudarshan Salazar D.O. Radiologis
== END 2024-02-25 15:25 ==
LOC: OR 12:00
PROVIDERS: ATTEND Surgery
DX: C50.412 Malignant neoplasm of upper-outer quadrant of left female breast
CPT/HCPCS: 76098; 76999; 77065

== ENCOUNTER → 2024-03-05 | Outpatient (CLI) | payer MEDICARE ==
[2024-03-26 06:33] VITALS: BP 89/63; PULSE 73; RESP 16; TEMP 98
--- NOTE | 2024-04-09 14:45 | WWPN ---
[facility] - PROGRESS NOTE Kristin is a 73-year-old female, status post left breast needle localization and lumpectomy performed on 02/25/24. Her pathology revealed invasive ductal carcinoma with focal microcalcifications and focal DCIS. Margins were negative for in situ or invasive cancer. Additional pathology report is not available. The patient postoperatively developed some erythema of the lateral breast and some swelling. She denies any fever or chills. Lungs: Clear. Incision: Clean and dry. Erythema, lateral aspect of the breast with some swelling. The patient appears to have a seroma at this point and aspiration of the seroma is recommended. Following consent, the area of concern was prepped using alcohol. An 18-gauge needle and a 20 cc syringe was used to aspirate 120 mL of turbid fluid. The specimen is sent for culture. IMPRESSION: The patient postoperative left breast lumpectomy with some erythema and swelling at the operative site. PLAN: Cultures to be obtained. Patient started on Keflex 500 mg q.i.d. The patient will follow up in 1 week. The patient will follow up sooner, any questions or concerns. MMODL / IJN: [id number] /
== END ==
LOC: WWCWWP 13:38
PROVIDERS: ATTEND Surgery

== ENCOUNTER → 2024-03-19 | Outpatient (CLI) | payer MEDICARE ==
[2024-03-19 14:46] VITALS: BP 120/83; PULSE 67; RESP 18; TEMP 98.2
--- NOTE | 2024-03-19 15:15 | P.BCPO ---
Progress Note - Text Progress Note Date: 03/19/24 Kristin underwent a left breast needle loc lumpectomy on 02-25-24. Path IDC margins (-). Post op developed some erythema, cultures on 03-07-24 (+) MRSA. She does not have any fever or chills. This is sensitive to clindamycin. Decreased erythema left breast, minimal drainage; the area of drainage was probed using a Q-tip and there is minimal drainage at this time Plan: Changed to clindamycin Follow-up in 1 week Follow-up medical oncology Follow-up sooner any questions or concerns
== END ==
LOC: WWCWWP 13:51
PROVIDERS: ATTEND Surgery
DX: Z48.817 Encounter for surgical aftercare following surgery on the skin and subcutaneous tissue (principal); L53.8 Other specified erythematous conditions

== ENCOUNTER → 2024-03-26 | Outpatient (CLI) | payer MEDICARE ==
[2024-03-26 13:38] VITALS: BP 132/73; PULSE 67; RESP 17; TEMP 98.3
--- NOTE | 2024-03-26 13:38 | P.PN ---
Subjective Progress Note Date: 03/26/24 (post op ) Principal diagnosis: post op lumpectomy Progress Note - Text Progress Note Date: 03/26/24 Kristin underwent a left breast needle loc lumpectomy on 02-25-24. Path IDC margins (-). Post op developed some erythema, cultures on 03-07-24 (+) MRSA. She does not have any fever or chills. This was sensitive to clindamycin. treated wtih 300mg 1 PO Q 8 hours #20 Decreased erythema left breast,, incision clean with minimal drainage Plan: follow up in 4 months Follow-up medical oncology follow up radiation oncology Follow-up sooner any questions or concerns Additional CC's: Yanna David
== END ==
LOC: WWCWWP 13:00
PROVIDERS: ATTEND Surgery
DX: Z48.817 Encounter for surgical aftercare following surgery on the skin and subcutaneous tissue (principal); Z85.3 Personal history of malignant neoplasm of breast

== ENCOUNTER 2024-06-04 12:43 | Inpatient (IN) | payer MEDICARE ==
--- NOTE | 2024-06-04 13:27 | ED ---
Weakness HPI - General Chief complaint: Weakness Stated complaint: Failure to thrive Source: patient, family, RN notes reviewed, old records reviewed Mode of arrival: wheelchair Limitations: physical limitation - History of Present Illness Initial comments: QN-74 female to the ER presenting with weakness not eating debility states he can no longer for care of this patient at home, patient's main complaint is inability to ambulate This is a 74-year-old female who the can no longer take care of, no activities of daily living and is disabled MD Complaint: generalized weakness, lack of energy, difficulty walking -: days(s) Location: generalized Severity: severe Severity scale (1-10): 10 Consistency: constant Improves with: none Worsens with: none Associated Symptoms: denies other symptoms - Related Data Home Medications Medication Instructions Recorded Confirmed Atorvastatin [Lipitor] 10 mg PO DAILY@1700 11/20/16 06/04/24 Metoclopramide [Reglan] 5 mg PO TID@0930,1700,2300 12/16/21 06/04/24 Venlafaxine HCl [Effexor XR] 75 mg PO DAILY@0930 12/16/21 06/04/24 lisinopriL [Zestril] 20 mg PO DAILY@17012/16/21 06/04/24 Alendronate Sodium 70 mg PO TU@119912/23/23 06/04/24 Apixaban [Eliquis] 2.5 mg PO BID@0930,1700 12/23/23 06/04/24 Carbidopa/Levodopa 2 tab PO BID@0930,1700 12/23/23 06/04/24 [Carbidopa-Levodopa 25-100 Tab] Cinacalcet [Sensipar] 30 mg PO DAILY@119912/23/23 06/04/24 Ferrous Sulfate [Iron] 325 mg PO DAILY@119912/23/23 06/04/24 Fluticasone Nasal [place] [Flonase 1 spray EA NOSTRIL DAILY PRN 12/23/23 06/04/24 Nasal [place]] L.acidoph,Paracasei, B.lactis 1 cap PO DAILY@1200 12/23/23 06/04/24 [Probiotic] Metoprolol Succinate [Toprol XL] 50 mg PO DAILY@0930 12/23/23 06/04/24 Mirtazapine [Remeron] 15 mg PO HS@2300 12/23/23 06/04/24 Ondansetron [Zofran] 4 mg PO Q8HR PRN 12/23/23 06/04/24 Oxybutynin Chloride [oxyBUTYnin 15 mg PO DAILY@0930 12/23/23 06/04/24 chloride ER] Turmeric Root Extract [Turmeric] 500 mg PO DAILY@1200 12/23/23 06/04/24 Acetaminophen Tab [Tylenol Tab] 1,000 mg PO Q6HR PRN 06/04/24 06/04/24 Anastrozole [Arimidex] 1 mg PO DAILY@2300 06/04/24 06/04/24 Cephalexin [Keflex] 2,000 mg PO DIRECTED PRN 06/04/24 06/04/24 Cholecalciferol [Vitamin D3 (125 125 mcg PO DAILY@1200 06/04/24 06/04/24 Mcg = 5000 Iu)] Cyanocobalamin [Vitamin B-12] 500 mcg PO DAILY@1200 06/04/24 06/04/24 Folic Acid 1 mg PO DAILY@1200 06/04/24 06/04/24 Ibuprofen [Motrin Ib] 400 mg PO Q4H PRN 06/04/24 06/04/24 Ketoconazole 2% Cream [Nizoral 2%] 1 applic TOPICAL DAILY PRN 06/04/24 06/04/24 Magnesium Oxide [Mag-Ox] 400 mg PO DAILY@1700 06/04/24 06/04/24 Mirabegron [Myrbetriq] 50 mg PO DAILY@2300 06/04/24 06/04/24 Mupirocin 2% Oint [Bactroban 2% 1 applic TOPICAL TID PRN 06/04/24 06/04/24 Oint] amLODIPine [Norvasc] 5 mg PO DAILY@0930 06/04/24 06/04/24 lisinopriL [Zestril] 10 mg PO DAILY@1700 06/04/24 06/04/24 rOPINIRole HCL [Requip] 0.5 mg PO TID@0930,1700,2300 06/04/24 06/04/24 Allergies Allergy/AdvReac Type Severity Reaction Status Date / Time No Known Allergies Allergy Verified 11/21/24 18:18 Review of Systems ROS Statement: Those systems with pertinent positive or pertinent negative responses have been documented in the HPI. ROS Other: All systems not noted in ROS Statement are negative. Past Medical History Past Medical History: Hyperlipidemia, Hypertension, Osteoarthritis (OA) Additional Past Medical History / Comment(s): Well healed left leg wound(brown discoloration). Hx. of bulging disc. C-Diff infection 12/17/21. History of Any Multi-Drug Resistant Organisms: C-DIFF Date of last positivie culture/infection: 2021 MDRO Source:: stool Past Surgical History: Orthopedic Surgery, Tubal Ligation Additional Past Surgical History / Comment(s): PARATHYROIDECTOMY 1985,2009 PARTIAL THYROIDECTOMY, Low back surgery Aug 15, 2021. Peg Tube insertion October 23, 2021. right knee replacement 2019 Past Anesthesia/Blood Transfusion Reactions: No Reported Reaction Past Psychological History: No Psychological Hx Reported, Depression Smoking Status: Never smoker Past Alcohol Use History: None Reported Past Drug Use History: None Reported - Past Family History Mother Additional Family Medical History / Comment(s): OSTEOPOROSIS Father Additional Family Medical History / Comment(s): AORTIC ABD. ANEURSYN General Exam Limitations: physical limitation General appearance: alert, in no apparent distress Head exam: Present: atraumatic, normocephalic, normal inspection Eye exam: Present: normal appearance, PERRL, EOMI. Absent: scleral icterus, conjunctival injection, periorbital swelling ENT exam: Present: normal exam, mucous membranes moist Neck exam: Present: normal inspection. Absent: tenderness, meningismus, lymphadenopathy Respiratory exam: Present: normal lung sounds bilaterally. Absent: respiratory distress, wheezes, rales, rhonchi, stridor Cardiovascular Exam: Present: regular rate, normal rhythm, normal heart sounds. Absent: systolic murmur, diastolic murmur, rubs, gallop, clicks GI/Abdominal exam: Present: soft, normal bowel sounds. Absent: distended, tenderness, guarding, rebound, rigid Extremities exam: Present: normal inspection, full ROM, normal capillary refill. Absent: tenderness, pedal edema, joint swelling, calf tenderness Back exam: Present: normal inspection Neurological exam: Present: alert, oriented X3, CN II-XII intact Psychiatric exam: Present: normal affect, normal mood Skin exam: Present: warm, dry, intact, normal color. Absent: rash Course Vital Signs 06/04/24 06/04/24 13:14 17:47 Temperature 97.8 F Pulse Rate 79 66 Respiratory 16 18 Rate Blood Pressure 117/74 110/71 O2 Sat by Pulse 95 94 L Oximetry - Reevaluation(s) Reevaluation #1: 06/04/24 13:27 QN completed by myself Dr Acevedo Reevaluation #2: 06/04/24 17:31 Patient symptoms unchanged Reevaluation #3: 06/04/24 17:31 Patient informed of results and questions answered Reevaluation #4: Was pt. sent in by a medical professional or institution (, PA, SHANK TAPPER, urgent care, hospital, or senior care...) When possible be specific @ -no Did you speak to anyone other than the patient for history (EMS, parent, family, police, friend...)? What history was obtained from this source @ -no Did you review nursing and triage notes (agree or disagree)? Why? @ -agree Are old charts reviewed (outside hosp., previous admission, EMS record, old EKG, old radiological studies, urgent care reports/EKG's, senior care records)? Report findings @ -yes Differential Diagnosis (chest pain, altered mental status, abdominal pain women, abdominal pain men, vaginal bleeding, weakness, fever, dyspnea, syncope, head ache, dizziness, GI bleed, back pain, seizure, CVA, palpatations, mental health, musculoskeletal)? @ -prior EKG interpreted by me (3pts min.). @ -yes X-rays interpreted by me (1pt min.). @ -yes negative for acute disease CT interpreted by me (1pt min.). @ -no U/S interpreted by me (1pt. min.). @ -no What testing was considered but not performed or refused? (CT, X-rays, U/S, labs)? Why? @ -none What meds were considered but not given or refused? Why? @ -none Did you discuss the management of the patient with other professionals (professionals i.e. , BECKY, SHANK TAPPER, lab, RT, psych nurse, social media analyst, animal cytologist, teacher, examining officer, insurance case manager)? Give summary @ -no Was smoking cessation discussed for >3mins.? @ -no Was critical care preformed (if so, how long)? @ -no Were there social determinants of health that impacted care today? How? (Homelessness, low income, unemployed, alcoholism, drug addiction, transportation, low edu. Level, literacy, decrease access to med. care, shelter, rehab)? @ -none Was there de-escalation of care discussed even if they declined (Discuss DNR or withdrawal of care, Hospice)? DNR status @ -no What co-morbidities impacted this encounter? (DM, HTN, Smoking, COPD, CAD, Cancer, CVA, ARF, Chemo, Hep., AIDS, mental health diagnosis, sleep apnea, mor bid obesity)? @ -none Was patient admitted / discharged? Hospital course, mention meds given and [place], prescriptions, significant lab abnormalities, going to OR and other pertinent info. @ - Undiagnosed new problem with uncertain prognosis? @ -no Drug Therapy requiring intensive monitoring for toxicity (Heparin, Nitro, Insulin, Cardizem)? @ -no Were any procedures done? @ -no Diagnosis/symptom? @ - Acute, or Chronic, or Acute on Chronic? @ -Acute Uncomplicated (without systemic symptoms) or Complicated (systemic symptoms)? @ -Complicated Side effects of treatment? @ -no Exacerbation, Progression, or Severe Exacerbation? @ -exacerbation Poses a threat to life or bodily function? How? (Chest pain, [place], [place], pneumonia, PE, COPD, DKA, ARF, appy, cholecystitis, CVA, Diverticulitis, Homicidal, Suicidal, threat to staff... and all critical care pts) @ -yes Reevaluation #5: Differential Weakness: Hypoglycemia, shock, sepsis, hyponatremia, anemia, infection, [place], ETOH, adverse medicine reaction, overdose, stroke, this is not meant to be an all-inclusive l ist. - Consultations Consultation #1: Spoke with [facility] who agrees to admit this patient EKG Findings - EKG Comments: EKG Findings:: EKG is sinus 78 NH 162 QRS 138 QTc 435 - EKG Results: EKG: interpreted by AVELINA Medical Decision Making - Medical Decision Making 74 female with failure to thrive weakness debility, patient will be admitted for PT OT and placement - Lab Data Result diagrams: 06/04/24 17:22 06/04/24 17:22 Disposition Clinical Impression: Altered mental status, Weakness, Debility Disposition: ADMITTED IP TO THIS HOSP Condition: Fair Is patient prescribed a controlled substance at d/c from ED?: No Time of Disposition: 17:00
--- NOTE | 2024-06-04 15:02 | XR ---
EXAMINATION TYPE: XR chest 2V DATE OF EXAM: 06/04/2024 CLINICAL HISTORY: 12/16/2021 TECHNIQUE: Frontal and lateral views of the chest are obtained. COMPARISON: None FINDINGS: There is no focal air space opacity, pleural effusion, or pneumothorax seen. The cardiac silhouette size is within normal limits. The osseous structures are intact. IMPRESSION: No acute cardiopulmonary process. [facility], , 06/04/2024 2:59 PM
[2024-06-04] MEDS ORDERED: ONDANSETRON 4 MG/2 ML VIAL IVP PRN (17:03)
[2024-06-04] MEDS ORDERED: NALOXONE 0.4 MG/ML 1 ML VIAL IV PRN (17:03)
[2024-06-04] MEDS ORDERED: MORPHINE SULFATE 4 MG/ML SYRINGE IV PRN (17:03)
[2024-06-04 17:48] LABS: HCT 39.6 % (34.0-46.0); HGB 12.8 gm/dL (11.4-16.0); MCH 29.9 pg (25.0-35.0); MCHC 32.3 g/dL (31.0-37.0); MCV 92.8 fL (80.0-100.0); Mean Platelet Volume 6.9; Platelet Count 226 k/uL (150-450); RBC 4.27 m/uL (3.80-5.40); RDW 12.9 % (11.5-15.5); WBC 30.3 k/uL (3.8-10.6)
[2024-06-04] MEDS: SODIUM CHLORIDE 0.9% 1,000 ML IV SCH (17:49)
[2024-06-04 18:01] LABS: Partial Thromboplastin Time 24.9 sec (22.0-30.0); Prothrombin Time 11.3 sec (10.0-12.5)
[2024-06-04 18:08] LABS: ALT <6 U/L (4-34); African American GFR (CKD) 47 (>60 ml/min/1.73 sqM); Albumin 3.5 g/dL (3.5-5.0); Anion Gap 6 mmol/L; Blood Urea Nitrogen 21 mg/dL (7-17); Calcium 10.7 mg/dL (8.4-10.2); Carbon Dioxide 30 mmol/L (22-30); Chloride 97 mmol/L (98-107); Glucose 119 mg/dL (74-99); Non-African American GFR(CKD) 41 (>60 ml/min/1.73 sqM); Sodium 133 mmol/L (137-145); Total Bilirubin 0.8 mg/dL (0.2-1.3); Total Protein 6.6 g/dL (6.3-8.2)
[2024-06-04 18:18] LABS: Lymphocytes # (M) 1.82 k/uL (1.0-4.8); Neutrophils # (M) 28.18 k/uL (1.3-7.7); Neutrophils % (M) 93 %; Nucleated Red Blood Cells 0 /100 WBC (0-0); Total Cells Counted 100
[2024-06-04 18:19] LABS: AST 13 U/L (14-36); Alkaline Phosphatase 96 U/L (38-126); Magnesium 2.4 mg/dL (1.6-2.3); Phosphorus 3.2 mg/dL (2.5-4.5)
[2024-06-04 20:07] LABS: Appearance,Urine Cloudy (Clear); Bacteria,Urine Rare /hpf; Bilirubin,Urine Negative (Negative); Blood,Urine Small (Negative); Color,Urine Colorless; Glucose,Urine (UA) Negative (Negative); Ketones,Urine Negative (Negative); Leukocyte Esterase,Urine Moderate (Negative); Nitrite,Urine Negative (Negative); PH, Urine 6.5 (5.0-8.0); Protein,Urine Negative (Negative); RBC,Urine 5 /hpf (0-5); Specific Gravity,Urine 1.006 (1.001-1.035); Squamous Epithelial Cell,Urine 1 /hpf (0-4); Urobilinogen,Urine <2.0 mg/dL (<2.0); WBC,Urine 40 /hpf (0-5)
[2024-06-04] MEDS ORDERED: ONDANSETRON 4 MG TAB PO PRN (22:58)
[2024-06-04] MEDS ORDERED: ACETAMINOPHEN TAB 500 MG TAB PO PRN (22:58)
[2024-06-05] MEDS: NON FORMULARY DRUG (Mirabegron [Myrbetriq] 50 MG Tab.Er.24h) PO SCH (00:42)
[2024-06-05] MEDS: MIRTAZAPINE 15 MG TAB PO SCH (00:56)
[2024-06-05] MEDS: METOCLOPRAMIDE 5 MG TAB PO SCH (00:56)
[2024-06-05] MEDS: ANASTROZOLE 1 MG TAB PO SCH (00:56)
[2024-06-05] MEDS: ZINC OXIDE PASTE (Z-GUARD) 1 APPLIC TOPICAL SCH (00:57)
[2024-06-05 08:53] LABS: HCT 35.2 % (37.2-46.3); HGB 11.3 g/dL (12.0-15.0); MCH 30.2 pg (27.0-32.0); MCHC 32.1 g/dL (32.0-37.0); MCV 94.1 FL (80.0-97.0); Mean Platelet Volume 10.3 FL (9.5-12.2); NRBC Per 100 WBC 0 X 10*3/uL (0.00-0.01); Platelet Count 215 X 10*3/uL (140-440); RBC 3.74 X 10*6/uL (4.10-5.20); RDW 13.4 % (11.5-14.5); WBC 25.46 X 10*3/uL (4.50-10.00)
[2024-06-05] MEDS ORDERED: FLUTICASONE NASAL 50MCG/SPRAY 16GM BTL EA NOSTRIL PRN (09:00)
[2024-06-05 09:01] LABS: BUN/Creat Ratio 13.62 Ratio (12.00-20.00); Blood Urea Nitrogen 17.7 mg/dL (9.0-27.0); Carbon Dioxide 25.9 mmol/L (21.6-31.8); Chloride 102 mmol/L (96-109); Glucose 101 mg/dL (70-110); Phosphorus 2.3 mg/dL (2.4-5.1); Potassium 3.2 mmol/L (3.5-5.5); Sodium 140 mmol/L (135-145)
[2024-06-05 09:02] LABS: ALT <5 U/L (8-44); AST 9 U/L (13-35); Albumin 3.2 g/dL (3.8-4.9); Albumin/Globulin Ratio 1.23 Ratio (1.60-3.17); Alkaline Phosphatase 95 U/L (41-126); Calcium 10.6 mg/dL (8.7-10.3); Globulin 2.6 g/dL (1.6-3.3); Total Bilirubin 0.3 mg/dL (0.3-1.2); Total Protein 5.8 g/dL (6.2-8.2)
[2024-06-05] MEDS: APIXABAN 2.5 MG TABLET PO SCH (09:31)
[2024-06-05] MEDS: CARBIDOPA-LEVODOPA 25-100 MG 1 EACH TAB PO SCH (09:32)
[2024-06-05] MEDS: METOPROLOL SUCCINATE (ER) 50 MG TAB.ER.24H PO SCH (09:32)
[2024-06-05] MEDS: VENLAFAXINE HCL ER 75 MG CAP PO SCH (09:33)
[2024-06-05] MEDS: OXYBUTYNIN 15 MG TAB.ER.24 PO SCH (09:33)
[2024-06-05 11:36] VITALS: BMI 34.4
[2024-06-05 11:55] LABS: Basophils # (A) 0.04 X 10*3/uL (0.00-0.10); Basophils % (A) 0.2 %; Eosinophils # (A) 0.03 X 10*3/uL (0.04-0.35); Eosinophils % (A) 0.1 %; Lymphocytes # (A) 1.57 X 10*3/uL (0.90-5.00); Lymphocytes % (A) 6.2 %; Monocytes # (A) 0.66 X 10*3/uL (0.20-1.00); Monocytes % (A) 2.6 %; Neutrophils # (A) 22.86 X 10*3/uL (1.80-7.70); Neutrophils % (A) 89.7 %
[2024-06-05] MEDS: CYANOCOBALAMIN 500 MCG TAB PO SCH (13:42)
[2024-06-05] MEDS: FERROUS SULFATE 325 MG TAB PO SCH (13:42)
[2024-06-05] MEDS: FOLIC ACID 1 MG TAB PO SCH (13:42)
[2024-06-05] MEDS: CHOLECALCIFEROL 125 MCG (5000 IU) TABLET PO SCH (13:42)
[2024-06-05] MEDS: CINACALCET 30 MG TAB PO SCH (13:44)
--- NOTE | 2024-06-05 14:04 | P.HPIM ---
History of Present Illness 74-year-old pleasant female was brought in by her because of progressive weakness. Patient does have chronic debility mostly bedbound since her lumbar laminectomy surgery for cord compression in the past. Patient has been getting more and more depressed as she cannot do what ever she wanted to do. Patient occasionally has these kind of episodes patient is on venlafaxine and Myrbetriq for depression. Patient serum creatinine usually within normal limits and upon admission patient creatinine was high at 1.29 with BUN of 21. Patient is also found to have leukocytosis denied any symptoms of UTI or pneumonia chest x-ray did not show any significant abnormality UA is not significant but patient has cellulitis of the right lower extremity extending from the ankle up to one fourth of the right lower fink. Patient also has a circumferential chronic venous stasis dermatosis on the left leg. Patient denied any MRSA history in the past REVIEW OF SYSTEMS: All other systems are negative except those mentioned in the HPI PHYSICAL EXAMINATION: GENERAL: The patient is alert and oriented x3, not in any acute distress. Well developed, well nourished. HEENT: Pupils are round and equally reacting to light. EOMI. No scleral icterus. No conjunctival pallor. Normocephalic, atraumatic. No pharyngeal erythema. No thyromegaly. CARDIOVASCULAR: S1 and S2 present. No murmurs, rubs, or gallops. PULMONARY: Chest is clear to auscultation, no wheezing or crackles. ABDOMEN: Soft, nontender, nondistended, normoactive bowel sounds. No palpable organomegaly. MUSCULOSKELETAL: No joint swelling or deformity. EXTREMITIES: No cyanosis, clubbing, or pedal edema. NEUROLOGICAL: Patient is significant deformities along with atrophy of muscles of bilateral lower extremities SKIN: As mentioned in the HPI Assessment and plan -Generalized weakness most probably from dehydration there may be a contribution from infection recellulitis of the right lower extremity along with poor p.o. intake secondary to major depression. -Dehydration, acute renal failure prerenal azotemia patient is on IV fluids which will be continued, basic metabolic profile will be obtained tomorrow -Hypovolemic hyponatremia improving with IV fluids -Leukocytosis may be related to her cellulitis of the right lower extremity patient was started on cefazolin -Cellulitis of the right lower extremity -Hypertension -Hyperlipidemia -History of lumbar laminectomy secondary to cord compression in the past -Major depression secondary to her medical problems and weakness and chronic debility DVT prophylaxis: Lovenox Past Medical History Past Medical History: Hyperlipidemia, Hypertension, Osteoarthritis (OA) Additional Past Medical History / Comment(s): Well healed left leg wound(brown discoloration). Hx. of bulging disc. C-Diff infection 12/17/21. History of Any Multi-Drug Resistant Organisms: C-DIFF, MRSA Date of last positivie culture/infection: 03/07/24 MDRO Source:: left breast Past Surgical History: Back Surgery, Orthopedic Surgery, Tubal Ligation Additional Past Surgical History / Comment(s): PARATHYROIDECTOMY 1985,2009 PARTIAL THYROIDECTOMY, Low back surgery Aug 15, 2021. Peg Tube insertion October 23, 2021. right knee replacement 2019,left breast lumpectomy02/25/24 Past Anesthesia/Blood Transfusion Reactions: No Reported Reaction Past Psychological History: No Psychological Hx Reported, Depression Smoking Status: Never smoker Past Alcohol Use History: None Reported Past Drug Use History: None Reported - Past Family History Mother Additional Family Medical History / Comment(s): OSTEOPOROSIS Father Additional Family Medical History / Comment(s): AORTIC ABD. ANEURSYN Medications and Allergies Home Medications Medication Instructions Recorded Confirmed Type Atorvastatin [Lipitor] 10 mg PO DAILY@1700 11/20/16 06/04/24 History Metoclopramide [Reglan] 5 mg PO TID@0930,1700,2300 12/16/21 06/04/24 History Venlafaxine HCl [Effexor XR] 75 mg PO DAILY@0930 12/16/21 06/04/24 History lisinopriL [Zestril] 20 mg PO DAILY@1700 12/16/21 06/04/24 History Alendronate Sodium 70 mg PO TU@1200 12/23/23 06/04/24 History Apixaban [Eliquis] 2.5 mg PO BID@0930,1700 12/23/23 06/04/24 History Carbidopa/Levodopa 2 tab PO BID@0930,1700 12/23/23 06/04/24 History [Carbidopa-Levodopa 25-100 Tab] Cinacalcet [Sensipar] 30 mg PO DAILY@1200 12/23/23 06/04/24 History Ferrous Sulfate [Iron] 325 mg PO DAILY@1200 12/23/2306/04/24 History Fluticasone Nasal [place] [Flonase 1 spray EA NOSTRIL DAILY PRN 12/23/23 06/04/24 History Nasal [place]] L.acidoph,Paracasei, B.lactis 1 cap PO DAILY@119912/23/23 06/04/24 History [Probiotic] Metoprolol Succinate [Toprol XL] 50 mg PO DAILY@92912/23/23 06/04/24 History Mirtazapine [Remeron] 15 mg PO HS@23012/23/23 06/04/24 History Ondansetron [Zofran] 4 mg PO Q8HR PRN 12/23/23 06/04/24 History Oxybutynin Chloride [oxyBUTYnin 15 mg PO DAILY@92912/23/23 06/04/24 History chloride ER] Turmeric Root Extract [Turmeric] 500 mg PO DAILY@119912/23/23 06/04/24 History Acetaminophen Tab [Tylenol Tab] 1,000 mg PO Q6HR PRN 06/04/24 06/04/24 History Anastrozole [Arimidex] 1 mg PO DAILY@23006/04/24 06/04/24 History Cephalexin [Keflex] 2,000 mg PO DIRECTED PRN 06/04/24 06/04/24 History Cholecalciferol [Vitamin D3 (125 125 mcg PO DAILY@119906/04/24 06/04/24 History Mcg = 5000 Iu)] Cyanocobalamin [Vitamin B-12] 500 mcg PO DAILY@119906/04/24 06/04/24 History Folic Acid 1 mg PO DAILY@119906/04/24 06/04/24 History Ibuprofen [Motrin Ib] 400 mg PO Q4H PRN 06/04/24 06/04/24 History Ketoconazole 2% Cream [Nizoral 2%] 1 applic TOPICAL DAILY PRN 06/04/24 06/04/24 History Magnesium Oxide [Mag-Ox] 400 mg PO DAILY@1700 06/04/24 06/04/24 History Mirabegron [Myrbetriq] 50 mg PO DAILY@2300 06/04/24 06/04/24 History Mupirocin 2% Oint [Bactroban 2% 1 applic TOPICAL TID PRN 06/04/24 06/04/24 History Oint] amLODIPine [Norvasc] 5 mg PO DAILY@0930 06/04/24 06/04/24 History lisinopriL [Zestril] 10 mg PO DAILY@1700 06/04/24 06/04/24 History rOPINIRole HCL [Requip] 0.5 mg PO TID@0930,1700,2300 06/04/24 06/04/24 History Allergies Allergy/AdvReac Type Severity Reaction Status Date / Time No Known Allergies Allergy Verified 06/04/24 18:18 Physical Exam Vitals: Vital Signs Temp Pulse Pulse Resp BP BP Pulse Ox 06/05/24 07:30 95 06/05/24 07:00 98.1 F 79 20 124/73 87 L 06/05/24 02:00 98.7 F 74 16 127/83 94 L 06/04/24 20:43 99.0 F 73 16 116/74 99 06/04/24 20:00 98.8 F 74 17 134/64 85 L 06/04/24 17:47 66 18 110/71 94 L Intake and Output 06/04/24 06/05/24 06/05/24 22:59 06:59 14:59 Intake Total 118 Balance 118 Intake: Oral 118 Other: Voiding Method External Catheter # Voids 1 1 Weight 91.172 kg 91.172 kg Results CBC & Chem 7: 06/05/24 03:21 06/05/24 03:21 Labs: Abnormal Lab Results - Last 24 Hours (Table) 06/04/24 06/04/24 06/04/24 Range/Units 13:18 17:22 17:22 WBC 30.3 H (3.8-10.6) k/uL RBC (4.10-5.20) X 10*6/uL Hgb (12.0-15.0) g/dL Hct (37.2-46.3) % Immature Gran # (0.00-0.04) X 10*3/uL Neutrophils # (1.80-7.70) X 10*3/uL Neutrophils # (Manual) 28.18 H (1.3-7.7) k/uL Eosinophils # (0.04-0.35) X 10*3/uL Sodium 133 L (137-145) mmol/L Potassium (3.5-5.5) mmol/L Chloride 97 L (98-107) mmol/L Anion Gap (4.00-12.00) mmol/L BUN 21 H (7-17) mg/dL Creatinine 1.29 H (0.52-1.04) mg/dL Est GFR (CKD-EPI) (>=60) Glucose 119 H (74-99) mg/dL Calcium 10.7 H (8.4-10.2) mg/dL Phosphorus (2.4-5.1) mg/dL Magnesium 2.4 H (1.6-2.3) mg/dL AST 13 L (14-36) U/L ALT (8-44) U/L Total Protein (6.2-8.2) g/dL Albumin (3.8-4.9) g/dL Albumin/Globulin Ratio (1.60-3.17) Ratio Urine Appearance Cloudy H (Clear) Urine Blood Small H (Negative) Ur Leukocyte Esterase Moderate H (Negative) Urine WBC 40 H (0-5) /hpf Urine Bacteria Rare H (None) /hpf 06/05/24 06/05/24 Range/Units 03:21 03:21 WBC 25.46 H (3.8-10.6) k/uL RBC 3.74 L (4.10-5.20) X 10*6/uL Hgb 11.3 L (12.0-15.0) g/dL Hct 35.2 L (37.2-46.3) % Immature Gran # 0.30 H (0.00-0.04) X 10*3/uL Neutrophils # 22.86 H (1.80-7.70) X 10*3/uL Neutrophils # (Manual) (1.3-7.7) k/uL Eosinophils # 0.03 L (0.04-0.35) X 10*3/uL Sodium (137-145) mmol/L Potassium 3.2 L (3.5-5.5) mmol/L Chloride (98-107) mmol/L Anion Gap 12.10 H (4.00-12.00) mmol/L BUN (7-17) mg/dL Creatinine (0.52-1.04) mg/dL Est GFR (CKD-EPI) 43 L (>=60) Glucose (74-99) mg/dL Calcium 10.6 H (8.4-10.2) mg/dL Phosphorus 2.3 L (2.4-5.1) mg/dL Magnesium (1.6-2.3) mg/dL AST 9 L (14-36) U/L ALT <5 L (8-44) U/L Total Protein 5.8 L (6.2-8.2) g/dL Albumin 3.2 L (3.8-4.9) g/dL Albumin/Globulin Ratio 1.23 L (1.60-3.17) Ratio Urine Appearance (Clear) Urine Blood (Negative) Ur Leukocyte Esterase (Negative) Urine WBC (0-5) /hpf Urine Bacteria (None) /hpf Thrombosis Risk Factor Assmnt - Choose All That Apply Any of the Below Risk Factors Present?: Yes Each Factor Represents 1 point: Medical pt on bed rest, Obesity (BMI >25), Swollen legs (current) Other Risk Factors: Yes Each Risk Factor Represents 2 Points: Age 61-74 years Each Risk Factor Represents 3 Points: History of DVT/PE Other congenital or acquired thrombophilia - If yes, enter type in comment: No Thrombosis Risk Factor Assessment Total Risk Factor Score: 8 Thrombosis Risk Factor Assessment Level: High Risk
[2024-06-05] MEDS: ATORVASTATIN 10 MG TAB PO SCH (16:19)
[2024-06-05] MEDS: MAGNESIUM OXIDE 400 MG TAB PO SCH (16:19)
[2024-06-06 06:31] LABS: HCT 36.6 % (34.0-46.0); HGB 11.6 gm/dL (11.4-16.0); MCH 29.4 pg (25.0-35.0); MCHC 31.7 g/dL (31.0-37.0); MCV 92.7 fL (80.0-100.0); Mean Platelet Volume 7.2; Platelet Count 190 k/uL (150-450); RBC 3.95 m/uL (3.80-5.40); RDW 12.9 % (11.5-15.5); WBC 14.3 k/uL (3.8-10.6)
[2024-06-06 06:42] LABS: African American GFR (CKD) 58 (>60 ml/min/1.73 sqM); Anion Gap 5 mmol/L; Blood Urea Nitrogen 17 mg/dL (7-17); Calcium 9.8 mg/dL (8.4-10.2); Carbon Dioxide 27 mmol/L (22-30); Chloride 109 mmol/L (98-107); Glucose 132 mg/dL (74-99); Non-African American GFR(CKD) 50 (>60 ml/min/1.73 sqM); Potassium 2.9 mmol/L (3.5-5.1); Sodium 141 mmol/L (137-145)
[2024-06-06] MEDS ORDERED: Potassium Replacement Protocol 1 EACH MISC MISCELLANE PRN ×2 (07:42)
[2024-06-06] MEDS ORDERED: ENOXAPARIN 40 MG/0.4 ML SYRINGE SQ SCH (09:00)
[2024-06-06] MEDS: POTASSIUM CHLORIDE ER 20 MEQ TAB.ER PO SCH (09:17)
--- NOTE | 2024-06-06 12:08 | P.PN ---
Subjective Progress Note Date: 06/06/24 74-year-old pleasant female was brought in by her because of progressive weakness. Patient does have chronic debility mostly bedbound since her lumbar laminectomy surgery for cord compression in the past. Patient has been getting more and more depressed as she cannot do what ever she wanted to do. Patient occasionally has these kind of episodes patient is on venlafaxine and Myrbetriq for depression. Patient serum creatinine usually within normal limits and upon admission patient creatinine was high at 1.29 with BUN of 21. Patient is also found to have leukocytosis denied any symptoms of UTI or pneumonia chest x-ray did not show any significant abnormality UA is not significant but patient has cellulitis of the right lower extremity extending from the ankle up to one fourth of the right lower fink. Patient also has a circumferential chronic venous stasis dermatosis on the left leg. Patient denied any MRSA history in the past 06/06/2024 Patient is evaluated in follow-up in the medical floor. No acute complaints overnight. The redness to her right lower extremity is improving she continues on IV cefazolin. White blood cell count is down to 14 today. Patient is currently pending insurance authorization for discharge to rehab which will likely not be until Saturday as there is not any insurance authorization yet today. Review of Systems Constitutional: Denied any fatigue denied any fever. Cardio vascular: denied any chest pain, palpitations Gastrointestinal: denied any nausea, vomiting, diarrhea Pulmonary: Denied any shortness of breath cough Neurologic denied any new focal deficits All inpatient medications were reviewed and appropriate changes in these medications as dictated in the interval history and assessment and plan. PHYSICAL EXAMINATION: GENERAL: The patient is alert and oriented x3, not in any acute distress. Well developed, well nourished. HEENT: Pupils are round and equally reacting to light. EOMI. No scleral icterus. No conjunctival pallor. Normocephalic, atraumatic. No pharyngeal erythema. No thyromegaly. CARDIOVASCULAR: S1 and S2 present. No murmurs, rubs, or gallops. PULMONARY: Chest is clear to auscultation, no wheezing or crackles. ABDOMEN: Soft, nontender, nondistended, normoactive bowel sounds. No palpable organomegaly. MUSCULOSKELETAL: No joint swelling or deformity. EXTREMITIES: No cyanosis, clubbing, or pedal edema. NEUROLOGICAL: Patient is significant deformities along with atrophy of muscles of bilateral lower extremities SKIN: As mentioned in the HPI Assessment and plan -Generalized weakness most probably from dehydration there may be a contribution from infection cellulitis of the right lower extremity along with poor p.o. intake secondary to major depression. -Dehydration, acute renal failure prerenal azotemia patient is on IV fluids which will be continued, BUN and creatinine have improved. -Hypovolemic hyponatremia improving with IV fluids -Leukocytosis may be related to her cellulitis of the right lower extremity patient was started on cefazolin, blood cell count down to 14. Continue with IV cefazolin cellulitis is also improving to the lower extremity. -Hypokalemia supplemented with oral potassium we will repeat blood work tomorrow -Cellulitis of the right lower extremity -Hypertension -Hyperlipidemia -History of lumbar laminectomy secondary to cord compression in the past -Major depression secondary to her medical problems and weakness and chronic debility DVT prophylaxis: Lovenox The impression and plan of care has been dictated by Bhargavi Escalona, Nurse Practitioner as directed. Dr. Justine MD I have performed a history and physical examination and medical decision making of this patient, discussed the same with the dictator, and agree with the dictators assessment and plan as written, documented as a scribe. Based on total visit time, I have performed more than 50% of this visit. Objective - Vital Signs Vital signs: Vital Signs Temp 98.2 F 06/06/24 07:00 Pulse 78 06/06/24 07:00 Resp 15 06/06/24 07:00 BP 162/83 06/06/24 07:00 Pulse Ox 95 06/06/24 07:00 FiO2 Intake & Output 06/05/24 06/06/24 06/06/24 18:59 06:59 18:59 Intake Total 118 100 Output Total 500 700 Balance -382 -700 100 Weight 91.172 kg Intake: Oral 118 100 Output: Urine 500 700 Other: # Voids 1 - Labs CBC & Chem 7: 06/06/24 05:37 06/06/24 05:37 Labs: Abnormal Lab Results - Last 24 Hours (Table) 06/06/24 06/06/24 Range/Units 05:37 05:37 WBC 14.3 H (3.8-10.6) k/uL Potassium 2.9 L (3.5-5.1) mmol/L Chloride 109 H (98-107) mmol/L Creatinine 1.09 H (0.52-1.04) mg/dL Glucose 132 H (74-99) mg/dL Assessment and Plan Time with Patient: Less than 30
--- NOTE | 2024-06-06 15:29 | P.PN ---
Progress Note - Text Progress Note Date: 06/06/24 Attempted to meet with Ms. Mtz for a Psychiatry Consultation for depression. She declined the visit and was not willing to engage further. Discussed this with the patient's nurse. Will make another attempt tomorrow. Compa Floers MD Psychiatry
[2024-06-07 08:07] LABS: African American GFR (CKD) 60 (>60 ml/min/1.73 sqM); Anion Gap 4 mmol/L; Blood Urea Nitrogen 17 mg/dL (7-17); Calcium 9.5 mg/dL (8.4-10.2); Carbon Dioxide 29 mmol/L (22-30); Chloride 112 mmol/L (98-107); Glucose 132 mg/dL (74-99); Non-African American GFR(CKD) 52 (>60 ml/min/1.73 sqM); Potassium 3.6 mmol/L (3.5-5.1); Sodium 145 mmol/L (137-145)
[2024-06-07 08:35] LABS: Glucose,Whole Blood 178 mg/dL (70-110)
[2024-06-07 11:31] LABS: Basophils % (A) 0 %; Eosinophils # (A) 0.1 k/uL (0-0.7); Eosinophils % (A) 1 %; HCT 35.5 % (34.0-46.0); HGB 11.4 gm/dL (11.4-16.0); Hypochromasia Slight; Lymphocytes # (A) 1.3 k/uL (1.0-4.8); Lymphocytes % (A) 13 %; MCH 30.6 pg (25.0-35.0); MCHC 32.1 g/dL (31.0-37.0); MCV 95.2 fL (80.0-100.0); Mean Platelet Volume 6.8; Monocytes # (A) 0.4 k/uL (0-1.0); Monocytes % (A) 3 %; Neutrophils # (A) 8.6 k/uL (1.3-7.7); Neutrophils % (A) 82 %; Platelet Count 223 k/uL (150-450); RBC 3.73 m/uL (3.80-5.40); RDW 13.2 % (11.5-15.5); WBC 10.5 k/uL (3.8-10.6)
[2024-06-07 11:32] LABS: African American GFR (CKD) 63 (>60 ml/min/1.73 sqM); Anion Gap 2 mmol/L; Blood Urea Nitrogen 16 mg/dL (7-17); Calcium 9.3 mg/dL (8.4-10.2); Carbon Dioxide 27 mmol/L (22-30); Chloride 115 mmol/L (98-107); Glucose 119 mg/dL (74-99); Non-African American GFR(CKD) 55 (>60 ml/min/1.73 sqM); Potassium 3.5 mmol/L (3.5-5.1); Sodium 144 mmol/L (137-145)
--- NOTE | 2024-06-07 12:07 | P.PN ---
Subjective Progress Note Date: 06/07/24 74-year-old pleasant female was brought in by her because of progressive weakness. Patient does have chronic debility mostly bedbound since her lumbar laminectomy surgery for cord compression in the past. Patient has been getting more and more depressed as she cannot do what ever she wanted to do. Patient occasionally has these kind of episodes patient is on venlafaxine and Myrbetriq for depression. Patient serum creatinine usually within normal limits and upon admission patient creatinine was high at 1.29 with BUN of 21. Patient is also found to have leukocytosis denied any symptoms of UTI or pneumonia chest x-ray did not show any significant abnormality UA is not significant but patient has cellulitis of the right lower extremity extending from the ankle up to one fourth of the right lower fink. Patient also has a circumferential chronic venous stasis dermatosis on the left leg. Patient denied any MRSA history in the past 06/06/2024 Patient is evaluated in follow-up in the medical floor. No acute complaints overnight. The redness to her right lower extremity is improving she continues on IV cefazolin. White blood cell count is down to 14 today. Patient is currently pending insurance authorization for discharge to rehab which will likely not be until Saturday as there is not any insurance authorization yet today. 06/07/2024 Eval seen in follow-up on the medical floor. No acute complaints. She is more lethargic as compared to yesterday. The redness to her right lower extremity again is significantly improved. Blood cell count is normalized to 10.5 today. Her renal function has normalized with a BUN of 16 creatinine of 1.02. Review of Systems Constitutional: Denied any fatigue denied any fever. Cardio vascular: denied any chest pain, palpitations Gastrointestinal: denied any nausea, vomiting, diarrhea Pulmonary: Denied any shortness of breath cough Neurologic denied any new focal deficits All inpatient medications were reviewed and appropriate changes in these medications as dictated in the interval history and assessment and plan. PHYSICAL EXAMINATION: GENERAL: The patient is alert and oriented x3, not in any acute distress. Well developed, well nourished. HEENT: Pupils are round and equally reacting to light. EOMI. No scleral icterus. No conjunctival pallor. Normocephalic, atraumatic. No pharyngeal erythema. No thyromegaly. CARDIOVASCULAR: S1 and S2 present. No murmurs, rubs, or gallops. PULMONARY: Chest is clear to auscultation, no wheezing or crackles. ABDOMEN: Soft, nontender, nondistended, normoactive bowel sounds. No palpable organomegaly. MUSCULOSKELETAL: No joint swelling or deformity. EXTREMITIES: No cyanosis, clubbing, or pedal edema. NEUROLOGICAL: Patient is significant deformities along with atrophy of muscles of bilateral lower extremities SKIN: As mentioned in the HPI Assessment and plan -Generalized weakness most probably from dehydration there may be a contribution from infection cellulitis of the right lower extremity along with poor p.o. intake secondary to major depression. -Dehydration, acute renal failure prerenal azotemia patient is on IV fluids which will be continued, BUN and creatinine have improved. -Hypovolemic hyponatremia improving with IV fluids -Leukocytosis may be related to her cellulitis of the right lower extremity patient was started on cefazolin, blood cell count down to 14. Continue with IV cefazolin cellulitis is also improving to the lower extremity. -Hypokalemia supplemented with oral potassium we will repeat blood work tomorrow -Cellulitis of the right lower extremity -Hypertension -Hyperlipidemia -History of lumbar laminectomy secondary to cord compression in the past -Major depression secondary to her medical problems and weakness and chronic debility DVT prophylaxis: Lovenox The impression and plan of care has been dictated by Bhargavi Escalona, Pr actitioner as directed. Dr. Justine MD I have performed a history and physical examination and medical decision making of this patient, discussed the same with the dictator, and agree with the dicta tors assessment and plan as written, documented as a scribe. Based on total visit time, I have performed more than 50% of this visit. Objective - Vital Signs Vital signs: Vital Signs Temp 98.6 F 06/07/24 07:10 Pulse 77 06/07/24 09:36 Resp 18 06/07/24 09:36 BP 166/79 06/07/24 08:30 Pulse Ox 94 L 06/07/24 08:30 FiO2 Intake & Output 06/06/24 06/07/24 06/07/24 18:59 06:59 18:59 Intake Total 318 Output Total 400 1050 Balance -82 -1050 Intake: Oral 318 Output: Urine 400 1050 Other: Voiding Method External Catheter External Catheter External Catheter - Labs CBC & Chem 7: 06/07/24 11:00 06/07/24 11:00 Labs: Abnormal Lab Results - Last 24 Hours (Table) 06/07/24 06/07/24 06/07/24 Range/Units 07:27 08:33 11:00 RBC 3.73 L (3.80-5.40) m/uL Neutrophils # 8.6 H (1.3-7.7) k/uL Chloride 112 H (98-107) mmol/L Creatinine 1.06 H (0.52-1.04) mg/dL Glucose 132 H (74-99) mg/dL POC Glucose (mg/dL) 178 H (70-110) mg/dL 06/07/24 Range/Units 11:00 RBC (3.80-5.40) m/uL Neutrophils # (1.3-7.7) k/uL Chloride 115 H (98-107) mmol/L Creatinine (0.52-1.04) mg/dL Glucose 119 H (74-99) mg/dL POC Glucose (mg/dL) (70-110) mg/dL Assessment and Plan Time with Patient: Less than 30
--- NOTE | 2024-06-07 17:12 | P.CN ---
Psychiatric Consult - . Consult date: 06/07/24 Consult:: IDENTIFYING DATA: This patient is a 74 year old woman, resides with spouse at home, retired. REASON FOR REFERRAL: Psychiatry was consulted for depression. HISTORY OF PRESENT ILLNESS: Kristin Mtz is a 74 year old woman with a hist ory of major depressive disorder and decline in health and mobility. She was brought to the ER by her on 06/04/2024 due to worsening depression at home and feeling her health status was declining. Psychiatry consult was requested for further evaluation of depression. An attempt was made to see Ms. Mtz on 06/06/2024 however she was confused and unable to engage. Return today; patient's daughter was present at the bedside for part of the visit. Ms. Mtz reports having experienced worsening depressive symptoms for the last month. She does find that the medication she is currently taking is somewhat helpful but not completely in addressing her symptoms. She is on venlafaxine 75 mg daily and mirtazapine 15 mg at bedtime. She has not had any issues with side effects from the medication. She describes her mood as "sad". She often "thinks about things I am missing out on." She describes in particular missing time with her grandchildren and not being able to get out and go to social events as she would like to. She does still enjoy playing cards with friends which is something that she gets to do about once per month. Otherwise she describes experiencing anhedonia, sleeping in excess, and lots of rumination and self blame. Her appetite is stable. She denies having experienced auditory hallucinations either past or present. She has not experienced visual hallucinations. She does not have a history of manic symptoms. She denies suicidal ideation, identified method, intent, or plan. She also denies homicidal ideation, intent, or plan. Patient's daughter who was present for part of our visit stated that she noticed her mom's confusion seem to worsen acutely about 2 days ago when she last saw her. She has seen improvement in her mom's mentation over the last 2 days and feels that she is returning to her prior baseline. PAST PSYCHIATRIC HISTORY: No prior history of inpatient psychiatric admissions nor engagement with an outpatient therapist or psychiatrist. Her primary care provider has been prescribing the antidepressants. She denies any history of suicide attempts. She is currently on venlafaxine 75 mg daily and mirtazapine 15 mg daily and has not had any issues with these medications. PAST MEDICAL HISTORY: -Dehydration, acute renal failure prerenal azotemia -Hypovolemic hyponatremia improving with IV fluids -Leukocytosis may be related to her cellulitis of the right lower extremity patient was started on cefazolin -Cellulitis of the right lower extremity -Hypertension -Hyperlipidemia -History of lumbar laminectomy secondary to cord compression in the past ALLERGIES: No known allergies CHEMICAL DEPENDENCY HISTORY: Patient denies any history of tobacco or nicotine use. She denies any use of alcohol. She denies any use of cocaine, methamphetamine, heroin, LSD, PCP, hallucinogens, or other drugs that are not prescribed to her. FAMILY PSYCHIATRIC/SUBSTANCE USE HISTORY: No known family history of suicide. SOCIAL HISTORY: Patient presently resides at home with her of 51 years and their dog. She has 2 daughters and 1 son; 3 grandchildren. 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 She does not have any firearms at home. MENTAL STATUS EXAM: General Appearance: Patient appears to be stated age is awake, pleasant, and cooperative. Patient appears to have reasonable hygiene and grooming wearing hospital gown with intermittent eye contact. Behavior: Patient is calmly lying in bed without any agitated behavior. Speech: Patient's speech is fluent and nonpressured. Conversational tone and volume. Some word finding difficulty. Mood/Affect: Patient reports their mood is "sad", affect is congruent and constricted. She was silently tearful at various points during the visit. Suicidality/Homicidality: Patient denies having any suicidal or homicidal ideation intent or plan. Perceptions: Patient denies any visual hallucinations and denies any auditory hallucinations Though content/process: There is no evidence of any delusional thought content and thought process is linear and goal-directed. Memory and concentration: Alert and oriented to person. Not oriented to place; patient thought we were at home. Oriented to year (2023) but not month. Incorrectly stated that it was April. Clarified for patient today's date. Able to complete serial fives up to 100. Recalled her own birthdate with accuracy. Recalled 2 out of 3 objects after 2 minutes. Incorrectly spelled the word world (spelled it [id number]). Judgment and insight: Improving IMPRESSIONS: Major depressive disorder, severe, without psychotic features Delirium, resolving, likely multifactorial Ms. Kristin Mtz is a 74-year-old woman with a history of major depressive disorder and several medical problems including or compression that resulted in lumbar laminectomy, hypertension, and present management for cellulitis and acute renal failure. She presented to the ER due to concern that her health status was declining at home. Ms. Sanchez has been experiencing an increase in depressive symptoms over the last month in part related to the changes in her mobility and ability to engage in active joyful activities. She has found her current antidepressants helpful though they are not optimized. We discussed recommendations and increasing the dose to more adequately treat her symptoms. Additionally her mental status was noted to be improved as compared to yesterday's visit. She seems to be returning to her baseline as her medical conditions are being appropriately managed. She would likely also benefit from engaging with a therapist on outpatient basis; she has not received psychiatric care in the past though this would likely be an acid particularly given the challenges she is facing with her health. She denies suicidal ideation, intent, or plan; she also denies homicidal ideation, intent, or or plan. PLAN: -At this time patient DOES NOT meet criteria for inpatient psychiatric admission. -Delirium precautions recommended with patient including - avoiding use of narcotics and [employer]IST sedatives, limit anticholinergic medications when possible, frequent re-orientation, minimize use of restraints, open window shades during the day and close them at night -Would recommend the following medication changes/additions: - Continue Venlafaxine 75 mg daily for now; would recommend increasing the dose to 150 mg daily once patient's renal function has returned to prior baseline (GFR consistently > 60 mL/min) - Continue Mirtazapine 15 mg at bedtime; can consider future adjustment to 30mg at bedtime as a next step after venlafaxine increase (or prior to increase if renal function is slow to recover) -parking worker to provide patient with outpatient mental health/psychiatry resources for appropriate follow up upon discharge -Communicated plan to patient's nurse -Psychiatry will sign off at this time -Please contact with any questions.
[2024-06-07] MEDS: NYSTATIN 100,000 UNIT/GM POWD 15 GM TOPICAL SCH (19:56)
--- NOTE | 2024-06-08 15:47 | P.PN ---
Subjective Progress Note Date: 06/08/24 74-year-old pleasant female was brought in by her because of progressive weakness. Patient does have chronic debility mostly bedbound since her lumbar laminectomy surgery for cord compression in the past. Patient has been getting more and more depressed as she cannot do what ever she wanted to do. Patient occasionally has these kind of episodes patient is on venlafaxine and Myrbetriq for depression. Patient serum creatinine usually within normal limits and upon admission patient creatinine was high at 1.29 with BUN of 21. Patient is also found to have leukocytosis denied any symptoms of UTI or pneumonia chest x-ray did not show any significant abnormality UA is not significant but patient has cellulitis of the right lower extremity extending from the ankle up to one fourth of the right lower fink. Patient also has a circumferential chronic venous stasis dermatosis on the left leg. Patient denied any MRSA history in the past 06/06/2024 Patient is evaluated in follow-up in the medical floor. No acute complaints overnight. The redness to her right lower extremity is improving she continues on IV cefazolin. White blood cell count is down to 14 today. Patient is currently pending insurance authorization for discharge to rehab which will likely not be until Saturday as there is not any insurance authorization yet today. 06/07/2024 Eval seen in follow-up on the medical floor. No acute complaints. She is more lethargic as compared to yesterday. The redness to her right lower extremity again is significantly improved. Blood cell count is normalized to 10.5 today. Her renal function has normalized with a BUN of 16 creatinine of 1.02. 06/08/2024 Patient is seen and evaluated in follow-up patient remains lethargic per nursing staff not eating very much. Patient is significantly depressed evaluated by psychiatry making adjustments and started on antidepressants. Currently working with case management/social work regarding possible ECF for continued strength and mobility as patient is significantly weak. Patient with right lower extremity cellulitis being maintained on cefazolin showing some improvements and will transition to a short course oral antibiotics on discharge. Continue with local wound care. Awaiting updated PT/OT therapy notes. Potassium 3.5 today and will continue current regimen. White count is normal and patient remains afebrile. Review of Systems Constitutional: Reports of feeling fatigue, denied any fever. Cardio vascular: denied any chest pain, palpitations Gastrointestinal: denied any nausea, vomiting, diarrhea, reports not much of an appetite Pulmonary: Denied any shortness of breath cough Neurologic denied any new focal deficits, reports generalized weakness All inpatient medications were reviewed and appropriate changes in these medications as dictated in the interval history and assessment and plan. PHYSICAL EXAMINATION: GENERAL: The patient is alert and oriented x2-3, not in any acute distress. Well developed, elderly appearing, obese HEENT: Pupils are round and equally reacting to light. EOMI. No scleral icterus. No conjunctival pallor. Normocephalic, atraumatic. No pharyngeal erythema. No thyromegaly. CARDIOVASCULAR: S1 and S2 muffled PULMONARY: Diminished breath sounds bilaterally otherwise chest is clear to auscultation, no wheezing or crackles. ABDOMEN: Soft, obese, nontender, nondistended, normoactive bowel sounds. No palpable organomegaly. MUSCULOSKELETAL: No joint swelling or deformity. EXTREMITIES: No cyanosis, clubbing, or pedal edema. NEUROLOGICAL: Patient is significant deformities along with atrophy of muscles of bilateral lower extremities, diffusely weak SKIN: As mentioned in the HPI Assessment and plan -Generalized weakness, most probably from dehydration there may be a contribution from infection cellulitis of the right lower extremity along with poor p.o. intake secondary to major depression. -Dehydration, acute renal failure prerenal azotemia patient is on IV fluids which will be continued, BUN and creatinine have improved. -Hypovolemic hyponatremia improving with IV fluids -Leukocytosis may be related to her cellulitis of the right lower extremity patient was started on cefazolin, blood cell count down to 14. Continue with IV cefazolin cellulitis is also improving to the lower extremity. White count normalized -Hypokalemia supplemented with oral potassium we will repeat blood work tomorrow -Cellulitis of the right lower extremity, present on admission -Hypertension -Hyperlipidemia -History of lumbar laminectomy secondary to cord compression in the past -Major depression secondary to her medical problems and weakness and chronic debility -Obesity with a BMI of 34.5 -GI prophylaxis -DVT prophylaxis: Lovenox Full code Plan: Awaiting updated PT/OT therapy notes with case management/social work following as patient may benefit from ECF on discharge Patient with no real appetite continues to report not feeling like eating. Electrolytes being replaced per protocol and potassium 3.5 today. Will replace and follow-up with repeat labs Encourage sitting up in the chair as well as bed more frequently, recommend PT/OT therapy daily Will discuss further with case management/social work regarding discharge planning, possible [place] and will require insurance authorization. Possible discharge planning in the next 24 to 48 hours to [facility] The impression and plan of care has been dictated by Lis Kern, Nurse Practitioner as directed. Dr. Justine MD I have performed a history and physical examination and medical decision making of this patient, discussed the same with the dictator, and agree with the dictators assessment and plan as written, documented as a scribe. Based on total visit time, I have performed more than 50% of this visit. Objective - Vital Signs Vital signs: Vital Signs Temp 97.9 F 06/08/24 07:00 Pulse 71 06/08/24 07:00 Resp 16 06/08/24 07:00 BP 158/94 06/08/24 07:00 Pulse Ox 97 06/08/24 07:00 FiO2 Intake & Output 06/07/24 06/08/24 06/08/24 18:59 06:59 18:59 Intake Total 340 Output Total 350 600 Balance -10 -600 Intake: Intake, IV Titration 100 Amount Sodium Chloride 0.9% 1, 100 000 ml @ 75 mls/hr IV . [id number] [facility] Rx#:[id number] Oral 240 Output: Urine 350 600 Other: Voiding Method External Catheter External Catheter - Labs CBC & Chem 7: 06/07/24 11:00 06/07/24 11:00 Labs: Abnormal Lab Results - Last 24 Hours (Table) 06/07/24 06/07/24 Range/Units 11:00 11:00 RBC 3.73 L (3.80-5.40) m/uL Neutrophils # 8.6 H (1.3-7.7) k/uL Chloride 115 H (98-107) mmol/L Glucose 119 H (74-99) mg/dL
[2024-06-08] MEDS: POTASSIUM CHLORIDE ER 20 MEQ TAB.ER PO STA (16:09)
[2024-06-09 09:00] LABS: BUN/Creat Ratio 15.89 Ratio (12.00-20.00); Blood Urea Nitrogen 14.3 mg/dL (9.0-27.0); Carbon Dioxide 25.1 mmol/L (21.6-31.8); Chloride 104 mmol/L (96-109); Glucose 143 mg/dL (70-110); Potassium 4.1 mmol/L (3.5-5.5); Sodium 148 mmol/L (135-145)
[2024-06-09] MEDS ORDERED: NON FORMULARY DRUG (Alendronate Sodium [Alendronate Sodium] 70 MG Tablet) PO SCH (12:00)
--- NOTE | 2024-06-09 12:36 | P.DS ---
Providers Date of admission: 06/08/24 13:48 Attending physician: Adrienne Beaver Consults: 06/05/24 13:58 Consult Physician Routine Consulting Provider: Sudarshan Castelan Consult Reason/Comments: Severe depression Do you want consulting provider notified?: Yes Primary care physician: Yanna David MD Hospital Course: Final Diagnosis -Generalized weakness most probably from dehydration there may be a contribution from infection cellulitis of the right lower extremity along with poor p.o. intake secondary to major depression. -Dehydration, acute renal failure prerenal azotemia patient is on IV fluids which will be continued, BUN and creatinine have improved. -Hypovolemic hyponatremia improving with IV fluids -Leukocytosis may be related to her cellulitis of the right lower extremity patient was started on cefazolin, blood cell count down to 14. Continue with IV cefazolin cellulitis is also improving to the lower extremity. -Hypokalemia supplemented with oral potassium we will repeat blood work tomorrow -Cellulitis of the right lower extremity -Hypertension -Hyperlipidemia -History of lumbar laminectomy secondary to cord compression in the past -Major depression secondary to her medical problems and weakness and chronic debility Discharge Disposition Patient is stable for discharge to subacute rehab. Continue to encourage oral intake and oral water intake. Repeat blood work in 2 to 3 days. Continue oral antibiotics for the next 3 days for the cellulitis. Hospital Course 74-year-old pleasant female was brought in by her because of progressive weakness. Patient does have chronic debility mostly bedbound since her lumbar laminectomy surgery for cord compression in the past. Patient has been getting more and more depressed as she cannot do what ever she wanted to do. Patient occasionally has these kind of episodes patient is on venlafaxine and Myrbetriq for depression. Patient serum creatinine usually within normal limits and upon admission patient creatinine was high at 1.29 with BUN of 21. Patient is also found to have leukocytosis denied any symptoms of UTI or pneumonia chest x-ray did not show any significant abnormality UA is not significant but patient has cellulitis of the right lower extremity extending from the ankle up to one fourth of the right lower fink. Patient also has a circumferential chronic venous stasis dermatosis on the left leg. Patient denied any MRSA history in the past. The redness to her right lower extremity is improving she continues on IV cefazolin and today there is no noticable redness on examination. Her white blood cell count is normal at 10.5. Psychiatry evaluated the patient and recommending to continue the venlafaxine and the mirtazapine. Patient to follow up with [facility] on discharge. She has no acute complaints today, no chest pain or shortness of breath. No nausea vomiting and diarrhea. She is tolerating some diet and needs encouragement to increase oral water intake. Please see medication reconciliation for a list of current medications. Thank you for allowing us to participate in the care of this patient. The impression and plan of care has been dictated by Bhargavi Escalona, Nurse Practitioner as directed. Dr. Justine MD I have performed a history and physical examination and medical decision making of this patient, discussed the same with the dictator, and agree with the dictators assessment and plan as written, documented as a scribe. Based on total visit time, I have performed more than 50% of this visit. Patient Condition at Discharge: Stable Plan - Discharge Summary Discharge Rx Participant: No New Discharge Prescriptions: No Action Atorvastatin [Lipitor] 10 mg PO DAILY@1700 Venlafaxine HCl [Effexor XR] 75 mg PO DAILY@0930 Turmeric Root Extract [Turmeric] 500 mg PO DAILY@1200 Ondansetron [Zofran] 4 mg PO Q8HR PRN PRN Reason: Nausea Alendronate Sodium 70 mg PO TU@1200 Cinacalcet [Sensipar] 30 mg PO DAILY@1200 Cephalexin [Keflex] 2,000 mg PO DIRECTED PRN PRN Reason: DENTAL APPT Ketoconazole 2% Cream [Nizoral 2%] 1 applic TOPICAL DAILY PRN PRN Reason: Skin Irritation Anastrozole [Arimidex] 1 mg PO DAILY@2300 Acetaminophen Tab [Tylenol Tab] 1,000 mg PO Q6HR PRN PRN Reason: Fever And/ Or Pain Folic Acid 1 mg PO DAILY@1200 Cyanocobalamin [Vitamin B-12] 500 mcg PO DAILY@1200 Cholecalciferol [Vitamin D3 (125 Mcg = 5000 Iu)] 125 mcg PO DAILY@1200 lisinopriL [Zestril] 20 mg PO DAILY@1700 Metoclopramide [Reglan] 5 mg PO TID@0930,1700,2300 Fluticasone Nasal [place] [Flonase Nasal [place]] 1 spray EA NOSTRIL DAILY PRN PRN Reason: allergies Metoprolol Succinate [Toprol XL] 50 mg PO DAILY@0930 L.acidoph,Paracasei, B.lactis [Probiotic] 1 cap PO DAILY@1200 Ferrous Sulfate [Iron] 325 mg PO DAILY@1200 Carbidopa/Levodopa [Carbidopa-Levodopa 25-100 Tab] 2 tab PO BID@0930,1700 Oxybutynin Chloride [oxyBUTYnin chloride ER] 15 mg PO DAILY@0930 Apixaban [Eliquis] 2.5 mg PO BID@0930,1700 Mirtazapine [Remeron] 15 mg PO HS@2300 amLODIPine [Norvasc] 5 mg PO DAILY@0930 Mupirocin 2% Oint [Bactroban 2% Oint] 1 applic TOPICAL TID PRN PRN Reason: Skin Irritation Mirabegron [Myrbetriq] 50 mg PO DAILY@2300 Magnesium Oxide [Mag-Ox] 400 mg PO DAILY@1700 Ibuprofen [Motrin Ib] 400 mg PO Q4H PRN PRN Reason: Fever And/ Or Pain lisinopriL [Zestril] 10 mg PO DAILY@1700 rOPINIRole HCL [Requip] 0.5 mg PO TID@0930,1700,2300 Discharge Medication List Atorvastatin [Lipitor] 10 mg PO DAILY@17011/20/16 [History] Metoclopramide [Reglan] 5 mg PO TID@0930,1700,2300 12/16/21 [History] Venlafaxine HCl [Effexor XR] 75 mg PO DAILY@92912/16/21 [History] lisinopriL [Zestril] 20 mg PO DAILY@169912/16/21 [History] Alendronate Sodium 70 mg PO TU@119912/23/23 [History] Apixaban [Eliquis] 2.5 mg PO BID@0930,17012/23/23 [History] Carbidopa/Levodopa [Carbidopa-Levodopa 25-100 Tab] 2 tab PO BID@0930,17012/23/23 [History] Cinacalcet [Sensipar] 30 mg PO DAILY@119912/23/23 [History] Ferrous Sulfate [Iron] 325 mg PO DAILY@119912/23/23 [History] Fluticasone Nasal [place] [Flonase Nasal [place]] 1 spray EA NOSTRIL DAILY PRN 12/23/23 [History] L.acidoph,Paracasei, B.lactis [Probiotic] 1 cap PO DAILY@119912/23/23 [History] Metoprolol Succinate [Toprol XL] 50 mg PO DAILY@92912/23/23 [History] Mirtazapine [Remeron] 15 mg PO HS@229912/23/23 [History] Ondansetron [Zofran] 4 mg PO Q8HR PRN 12/23/23 [History] Oxybutynin Chloride [oxyBUTYnin chloride ER] 15 mg PO DAILY@92912/23/23 [History] Turmeric Root Extract [Turmeric] 500 mg PO DAILY@119912/23/23 [History] Acetaminophen Tab [Tylenol Tab] 1,000 mg PO Q6HR PRN 06/04/24 [History] Anastrozole [Arimidex] 1 mg PO DAILY@229906/04/24 [History] Cephalexin [Keflex] 2,000 mg PO DIRECTED PRN 06/04/24 [History] Cholecalciferol [Vitamin D3 (125 Mcg = 5000 Iu)] 125 mcg PO DAILY@119906/04/24 [History] Cyanocobalamin [Vitamin B-12] 500 mcg PO DAILY@119906/04/24 [History] Folic Acid 1 mg PO DAILY@119906/04/24 [History] Ibuprofen [Motrin Ib] 400 mg PO Q4H PRN 06/04/24 [History] Ketoconazole 2% Cream [Nizoral 2%] 1 applic TOPICAL DAILY PRN 06/04/24 [History] Magnesium Oxide [Mag-Ox] 400 mg PO DAILY@169906/04/24 [History] Mirabegron [Myrbetriq] 50 mg PO DAILY@229906/04/24 [History] Mupirocin 2% Oint [Bactroban 2% Oint] 1 applic TOPICAL TID PRN 06/04/24 [History] amLODIPine [Norvasc] 5 mg PO DAILY@92906/04/24 [History] lisinopriL [Zestril] 10 mg PO DAILY@169906/04/24 [History] rOPINIRole HCL [Requip] 0.5 mg PO TID@0930,1700,2300 06/04/24 [History] Follow up Appointment(s)/Referral(s): Yanna David MD [Primary Care Provider] - 1-2 days
[2024-06-09 15:04] VITALS: BP 145/84; PULSE 79; RESP 18; TEMP 97.7
== END 2024-06-09 15:21 | DRG 641 ==
LOC: EC 12:43 → 6NMEDSUR 17:05 → OBSVTOIN 06-08 13:48
PROVIDERS: ADMIT Hospitalist; ATTEND Hospitalist
DX: E86.0 Dehydration (principal); L03.115 Cellulitis of right lower limb; F32.2 Major depressive disorder, single episode, severe without psychotic features; F05 Delirium due to known physiological condition; N17.9 Acute kidney failure, unspecified; E66.9 Obesity, unspecified; Z68.34 Body mass index [BMI] 34.0-34.9, adult; E78.5 Hyperlipidemia, unspecified; E86.1 Hypovolemia; E87.1 Hypo-osmolality and hyponatremia; E87.6 Hypokalemia; I10 Essential (primary) hypertension; I87.8 Other specified disorders of veins; Z79.01 Long term (current) use of anticoagulants; Z79.811 Long term (current) use of aromatase inhibitors; Z79.899 Other long term (current) drug therapy; Z96.651 Presence of right artificial knee joint; Z82.62 Family history of osteoporosis
CPT/HCPCS: 71046; 80048; 80053; 81001; 83735; 84100; 84443; 84484; 85025; 85027; 85610; 85730; 93005; 96360; 96361; 99285

== ENCOUNTER → 2024-07-31 | Outpatient (CLI) | payer MEDICARE ==
[2024-07-31 14:30] VITALS: BP 90/65; PULSE 80; RESP 17; TEMP 98.4
--- NOTE | 2024-07-31 14:49 | P.PN ---
Subjective Progress Note Date: 07/31/24 History of Present Illness Consult date: 07-31-24 Reason for Consult: IDC Left Breast T1 [id number]+ Her2 1+; 01-10-24 Requesting physician: Yanna David History of present illness: Kristin is a 74 year old female seen in consultation foe Dr. David in 2023 regarding a biopsy proven left breast IDC. She had a bilateral mammogram on 12-12-23 which led to a left breast diagnostic mammogram and ultrasound on 12-19-23. This led to an ultrasound core biopsy on 01-10-24. Lesion 8mm, ER+Pr+Hert2-G1 stage I. the mammograms are personally reviewed and discussed with Dr. Lemus from radiology. The patient does not feel any lumps masses or nodules of concern in either breast. She had never had any surgery on her breasts. She had not had any recent trauma or infection in the breast. She was not complaining of any skin changes or nipple discharge. The patient was seen in conjuction with her , who provides medical history. She underwent a left breast lumpectomy 02-25-24. Margins (-). Note medical oncology 05-26-24 reviewed Patient on anastrazole she is tolerating this well She did not have any radiation She is not complaining of any new lumps masses or nodules of concern in either breast. She was treated for cellulitis in her right leg in May 2024, admitted to the hospital with a white count of 30,000. She stayed in the hospital for 4 days and was later transferred to a nursing facility where physical therapy was done. She was discharged home on July 10. She is doing well at this time. She has a history of basal cell cancer on her nose. Caffiene: 1 cup/day nicotine: none chocolate: weekly BCP: 10-15 years, stopped in 1982, tubaligation hormones: none Family History: brother: lung cancer grandmother maternal: skin cancer ? typr Hormonal History: menarche: 13 , breast fed: yes, age at first : 26 menopause: 57 endometrial ablation Surgical History: endometrial ablation thyroidectomy parathyroidectomy tubaligation skin graft on nose, basal cell cancer on nose right knee replacement lamenectomy 2 1/2 years can't walk after surgery bilateral cataracts left breast lumpectomy Medical History: ? spinal stroke urinary incontinence eliquis for pulmonary clot two years ago HTN Social History: nicotine: none alcohol: none drugs: none Review of Systems - Constitutional Denies fever, Denies weight loss - EENT Eyes: bilateral as per HPI Ears: deny: decreased hearing, tinnitus Ears, nose, mouth and throat: Denies dysphagia - Breasts bilateral: as per HPI - Cardiovascular Denies chest pain, Denies shortness of breath - Respiratory Denies cough - Gastrointestinal Reports as per HPI - Genitourinary Genitourinary: Denies dysuria, Denies hematuria - Musculoskeletal Musculoskeleta Comment(s): can't walk or stand Reports as per HPI - Integumentary Reports as per HPI - Neurological Denies headaches, Denies syncope - Psychiatric Reports depression - Endocrine Reports as per HPI - Hematologic/Lymphatic Denies easy bleeding, Denies easy bruising - Allergic/Immunologic Reports as per HPI Past Medical History Past Medical History: Hyperlipidemia, Hypertension, Osteoarthritis (OA) Additional Past Medical History / Comment(s): Well healed left leg wound(brown discoloration). Hx. of bulging disc. C-Diff infection 12/17/21. History of Any Multi-Drug Resistant Organisms: C-DIFF Year Discovered:: 2021 MDRO Source:: stool Past Surgical History: Orthopedic Surgery, Tubal Ligation Additional Past Surgical History / Comment(s): PARATHYROIDECTOMY 1985,2009 PARTIAL THYROIDECTOMY, Low back surgery Aug 15, 2021. Peg Tube insertion October 23, 2021. right knee replacement 2019 Past Anesthesia/Blood Transfusion Reactions: No Reported Reaction Past Psychological History: No Psychological Hx Reported, Depression Smoking Status: Never smoker Past Alcohol Use History: None Reported Past Drug Use History: None Reported - Past Family History Mother Additional Family Medical History / Comment(s): OSTEOPOROSIS Father Additional Family Medical History / Comment(s): AORTIC ABD. ANEURSYN Medications and Allergies Home Medications Medication Instructions Recorded Confirmed Type Atorvastatin [Lipitor] 10 mg PO DAILY@1700 11/20/16 12/23/23 History Mirabegron [Myrbetriq] 50 mg PO DAILY 11/22/21 12/23/23 History Metoclopramide [Reglan] 5 mg PO TID@0800,1200,1700 12/16/21 12/23/23 History Venlafaxine HCl [Effexor XR] 75 mg PO DAILY@0800 12/16/21 12/23/23 History lisinopriL [Zestril] 10 mg PO BID 12/16/21 12/23/23 History Acetaminophen Tab [Tylenol] 650 mg PO Q6HR PRN tab 01/08/22 12/23/23 Rx Cholecalciferol [Vitamin D3 (125 125 mcg PO DAILY tab 01/08/22 12/23/23 Rx Mcg = 5000 Iu)] Cyanocobalamin [Vitamin B-12] 500 mcg PO DAILY tab 01/08/22 12/23/23 Rx Folic Acid 1 mg PO DAILY tab 01/08/22 12/23/23 Rx Magnesium Oxide [Mag-Ox] 400 mg PO DAILY tab 01/08/22 12/23/23 Rx Alendronate Sodium 70 mg PO WEEKLY 12/23/23 12/23/23 History Apixaban [Eliquis] 2.5 mg PO BID 12/23/23 12/23/23 History Carbidopa/Levodopa 2 tab PO TID 12/23/23 12/23/23 History [Carbidopa-Levodopa 25-100 Tab] Cinacalcet [Sensipar] 30 mg PO DAILY 12/23/23 12/23/23 History Ferrous Sulfate [Iron] 325 mg PO DAILY 12/23/23 12/23/23 History Fluticasone Nasal [place] [Flonase 1 spray EA NOSTRIL DAILY PRN 12/23/23 12/23/23 History Nasal [place]] L.acidoph,Paracasei, B.lactis 1 each PO DAILY 12/23/23 12/23/23 History [Probiotic] Metoprolol Succinate [Toprol XL] 50 mg PO DAILY 12/23/23 12/23/23 History Mirtazapine [Remeron] 15 mg PO HS 12/23/23 12/23/23 History Ondansetron [Zofran] 4 mg PO Q8HR PRN 12/23/23 12/23/23 History Oxybutynin Chloride [oxyBUTYnin 15 mg PO DAILY 12/23/23 12/23/23 History chloride ER] Turmeric Root Extract [Turmeric] 500 mg PO DAILY 12/23/23 12/23/23 History amLODIPine BESYLATE 5 mg PO DAILY 12/23/23 12/23/23 History Allergies Allergy/AdvReac Type Severity Reaction Status Date / Time No Known Allergies Allergy Verified 01/31/24 13:13 Objective - Vital Signs Vital signs: Vital Signs Temp 98.4 F 07/31/24 14:18 Pulse 80 07/31/24 14:18 Resp 17 07/31/24 14:18 BP 90/65 07/31/24 14:18 Pulse Ox 96 07/31/24 14:18 FiO2 Intake & Output 07/30/24 07/31/24 07/31/24 18:59 06:59 18:59 Weight 93.44 kg - Constitutional General appearance: Present: cooperative - EENT Eyes: Present: EOMI ENT: Present: hearing grossly normal - Neck Neck: Present: normal ROM - Respiratory Respiratory: bilateral: CTA - Cardiovascular Rhythm: regular Heart sounds: normal: S1, S2 - Integumentary Integumentary: Present: normal turgor - Musculoskeletal Musculoskeletal Comment(s): in a wheel chair - Psychiatric Psychiatric: Present: A&O x's 3, appropriate affect, intact judgment & insight - Additional findings Additional findings: Breast Exam: BRA: 44C Inspection: bilateral grade 3 ptosis palpation: Right breast: Examination in wheelchair, fibrocystic changes no dominant masses or nodules of concern; upper outer quadrant area of the breast Right axilla: No adenopathy of concern Left breast: no dominant masses or nodules of concern incision clean and dry well-healed Left axilla: No adenopathy of concern Assessment and Plan Assessment: impression: Stage I invasive ductal carcinoma left breast, left breaset lumpectomy fungal infection right breast Wheelchair dependent secondary to back spinal issues Urinary incontinence on anastrazole did not have radiation therapy Plan: left breast lumpectomy 02-24-24 Path IDC all margins (-) continue anastrazole bilateral mammogram November 2024 with appointment CC: Dr. David
== END ==
LOC: WWCWWP 13:37
PROVIDERS: ATTEND Surgery
DX: C50.912 Malignant neoplasm of unspecified site of left female breast (principal); B37.89 Other sites of candidiasis; R32 Unspecified urinary incontinence; Z90.12 Acquired absence of left breast and nipple; Z99.3 Dependence on wheelchair

== ENCOUNTER 2024-08-02 10:10 | Observation (INO) | payer MEDICARE ==
--- NOTE | 2024-08-02 10:30 | ED ---
Extremity Problem HPI - General Chief complaint: Extremity Problem,Nontraumatic Stated complaint: infection in R leg Time Seen by Provider: 08/02/24 10:17 Source: patient, family, RN notes reviewed Mode of arrival: wheelchair Limitations: no limitations - History of Present Illness Initial comments: This is a 74-year-old female who presents to the emergency department for concerns of right lower extremity cellulitis. She does have venous stasis changes bilaterally, however family states that over the last week she started to have increasing redness and swelling to the right side of her leg. This is somewhat uncomfortable. However, she is wheelchair-bound and is not ambulating on the leg. Family states that she was here in May for cellulitis and the leg looked the same. She did have blood work done a few days ago for a general recheck and family states that her white blood cell count was 15,000. She is not currently on any antibiotics. She does have a history of a PE a couple of years ago and is still on Eliquis. Denies any chest pain or shortness of breath. - Related Data Home Medications Medication Instructions Recorded Confirmed Atorvastatin [Lipitor] 10 mg PO DAILY@1700 11/20/16 08/02/24 Metoclopramide [Reglan] 5 mg PO TID@0930,1700,2300 12/16/21 08/02/24 Venlafaxine HCl [Effexor XR] 75 mg PO DAILY@0930 12/16/21 08/02/24 lisinopriL [Zestril] 20 mg PO DAILY@1700 12/16/21 08/02/24 Alendronate Sodium 70 mg PO TU@1200 12/23/23 08/02/24 Apixaban [Eliquis] 2.5 mg PO BID@0930,1700 12/23/23 08/02/24 Carbidopa/Levodopa 2 tab PO BID@0930,1700,2300 12/23/23 08/02/24 [Carbidopa/Levodopa 25-100 Tab] Cinacalcet [Sensipar] 30 mg PO DAILY@1200 12/23/23 08/02/24 Ferrous Sulfate [Iron] 325 mg PO DAILY@1200 12/23/23 08/02/24 Fluticasone Nasal [place] [Flonase 1 spray EA NOSTRIL DAILY PRN 12/23/23 08/02/24 Nasal [place]] L.acidoph,Paracasei, B.lactis 1 cap PO DAILY@1200 12/23/23 08/02/24 [Probiotic] Metoprolol Succinate [Toprol XL] 50 mg PO DAILY@17012/23/23 08/02/24 Mirtazapine [Remeron] 15 mg PO HS@2300 12/23/23 08/02/24 Ondansetron [Zofran] 4 mg PO Q8HR PRN 12/23/23 08/02/24 Oxybutynin Chloride [oxyBUTYnin 15 mg PO DAILY@0912/23/23 08/02/24 chloride ER] Turmeric Root Extract [Turmeric] 500 mg PO DAILY@119912/23/23 08/02/24 Acetaminophen Tab [Tylenol] 1,000 mg PO Q6HR PRN 06/04/24 08/02/24 Anastrozole [Arimidex] 1 mg PO DAILY@23006/04/24 08/02/24 Cholecalciferol [Vitamin D3 (125 125 mcg PO DAILY@119906/04/24 08/02/24 Mcg = 5000 Iu)] Cyanocobalamin [Vitamin B-12] 500 mcg PO DAILY@119906/04/24 08/02/24 Folic Acid 1 mg PO DAILY@119906/04/24 08/02/24 Ibuprofen [Motrin Ib] 400 mg PO Q4H PRN 06/04/24 08/02/24 Ketoconazole 2% Cream [Nizoral 2%] 1 applic TOPICAL DAILY PRN 06/04/24 08/02/24 Magnesium Oxide [Mag-Ox] 400 mg PO DAILY@17006/04/24 08/02/24 Mupirocin 2% Oint [Bactroban 2% 1 applic TOPICAL TID PRN 06/04/24 08/02/24 Oint] lisinopriL [Zestril] 10 mg PO DAILY@0906/04/24 08/02/24 rOPINIRole HCL [Requip] 0.5 mg PO TID@0930,1700,2300 06/04/24 08/02/24 Ketoconazole 2% Shampoo [Nizoral] 1 applic TOPICAL DAILY 08/02/24 08/02/24 Nystatin 100,000 Unit/gm Powd 1 applic TOPICAL BID@0930,2300 08/02/24 08/02/24 [Mycostatin Powder] Vibegron [Gemtesa] 75 mg PO DAILY@0930 08/02/24 08/02/24 amLODIPine [Norvasc] 5 mg PO DAILY@0930 08/02/24 08/02/24 Allergies Allergy/AdvReac Type Severity Reaction Status Date / Time No Known Allergies Allergy Verified 08/02/24 10:16 Review of Systems ROS Statement: Those systems with pertinent positive or pertinent negative responses have been documented in the HPI. ROS Other: All systems not noted in ROS Statement are negative. Past Medical History Past Medical History: Hyperlipidemia, Hypertension, Osteoarthritis (OA) Additional Past Medical History / Comment(s): Well healed left leg wound(brown discoloration). Hx. of bulging disc. C-Diff infection 12/17/21. History of Any Multi-Drug Resistant Organisms: C-DIFF Date of last positivie culture/infection: 2021 MDRO Source:: stool Past Surgical History: Orthopedic Surgery, Tubal Ligation Additional Past Surgical History / Comment(s): PARATHYROIDECTOMY 1985,2009 PARTIAL THYROIDECTOMY, Low back surgery Aug 15, 2021. Peg Tube insertion October 23, 2021. right knee replacement 2019 Past Anesthesia/Blood Transfusion Reactions: No Reported Reaction Past Psychological History: No Psychological Hx Reported, Depression Smoking Status: Never smoker Past Alcohol Use History: None Reported Past Drug Use History: None Reported - Past Family History Mother Additional Family Medical History / Comment(s): OSTEOPOROSIS Father Additional Family Medical History / Comment(s): AORTIC ABD. ANEURSYN General Exam Limitations: no limitations General appearance: alert, in no apparent distress Head exam: Present: atraumatic, normocephalic, normal inspection Respiratory exam: Present: normal lung sounds bilaterally. Absent: respiratory distress, wheezes, rales, rhonchi, stridor Cardiovascular Exam: Present: regular rate, normal rhythm, normal heart sounds. Absent: systolic murmur, diastolic murmur, rubs, gallop, clicks Extremities exam: Present: other (Chronic appearing venous stasis changes to the bilateral lower extremities with increasing erythema, swelling, and warmth on the lateral aspect of the right lower extremity. 2+ DP and PT pulses bilaterally) Neurological exam: Present: alert, oriented X3, CN II-XII intact Psychiatric exam: Present: normal affect, normal mood Course Vital Signs 08/02/24 08/02/24 08/02/24 10:12 11:00 11:30 Temperature 97.5 F L Pulse Rate 79 85 Respiratory 16 18 18 Rate Blood Pressure 95/54 129/91 139/82 O2 Sat by Pulse 95 Oximetry 08/02/24 08/02/24 08/02/24 12:00 12:30 13:00 Temperature Pulse Rate 87 85 80 Respiratory 17 18 18 Rate Blood Pressure 146/69 130/67 143/94 O2 Sat by Pulse Oximetry 08/02/24 08/02/24 08/02/24 13:30 14:00 14:30 Temperature Pulse Rate 84 74 Respiratory 16 18 Rate Blood Pressure 147/88 150/99 143/92 O2 Sat by Pulse Oximetry 08/02/24 08/02/24 15:00 15:23 Temperature Pulse Rate 77 86 Respiratory 16 18 Rate Blood Pressure 137/80 146/80 O2 Sat by Pulse 97 Oximetry Medical Decision Making - Medical Decision Making This is a 74-year-old female who presents to the emergency department for concerns of right lower extremity cellulitis. Was pt. sent in by a medical professional or institution? @ -No Did you speak to anyone other than the patient for history? @ -Family provided the majority of the history. Did you review nursing and triage notes? @ -Yes, and I agree, it is accurate with regards to the patient's symptoms. Were old charts reviewed? @ -No Differential Diagnosis? @ -Cellulitis, abscess, eczema, venous stasis changes, this is not meant to be an all-inclusive list. EKG interpreted by me (3pts min.)? @ -EKG interpreted by me demonstrating the following: Sinus rhythm. Ventricular rate 80 bpm, AR interval 197 ms, QRS duration 116 ms, QTc 416 ms. X-rays interpreted by me (1pt min.)? @ -X-ray of the right tib-fib obtained. My interpretation identifies soft tissue swelling. CT interpreted by me (1pt min.)? @ -Not obtained U/S interpreted by me (1pt. min.)? @ -Duplex ultrasound of the right lower extremity obtained. My interpretation identifies no evidence of a DVT. What testing was considered but not performed? (CT, X-rays, U/S, labs)? Why? @ -None What meds were considered but not given? Why? @ -None Did you discuss the management of the patient with other professionals? @ -Yes, Dr. Corrigan, who accepts the patient for admission. Did you reconcile home meds? @ -Yes Was smoking cessation discussed for >3mins.? @ -No Was critical care preformed (if so, how long)? @ -No Were there social determinants of health that impacted care today? How? (Homelessness, low income, unemployed, alcoholism, drug addiction, transportation, low edu. Level, literacy, decrease access to med. care, [facility], rehab)? @ -No Was there de-escalation of care discussed even if they declined? (Discuss DNR or withdrawal of care, Hospice)? @ -No What co-morbidities impacted this encounter? (DM, HTN, Smoking, COPD, CAD, Cancer, CVA, Hep., AIDS, mental health diagnosis, sleep apnea, morbid obesity)? @ -HLD, HTN Was patient admitted / discharged? @ -Admitted. Lab work demonstrates leukocytosis with a white blood cell count of 27.1. CRP mildly elevated at 5.9. Lab work also suggestive of dehydration. X-ray of the right tib-fib demonstrates mild soft tissue swelling and was otherwise unremarkable. Duplex ultrasound of the right lower extremity reveals no evidence of a DVT. She was found to have urinary retention and bladder scan demonstrated greater than 999 mL. Ford catheter was subsequently inserted. Urinalysis not suggestive of infection. She had previously been diagnosed with venous stasis changes to the bilateral lower extremities and the increasing erythema and swelling to the right lower extremity was thought to be a cellulitis causing the leukocytosis. However, case discussed with Dr. 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 He advised discontinuing the antibiotics for now and they will continue to trend her WBC and treated with IV fluids. Case discussed with ED attending, Dr. Henry. Undiagnosed new problem with uncertain prognosis? @ -None Drug Therapy requiring intensive monitoring for toxicity (Heparin, Nitro, Insulin, Cardizem)? @ -None Were any procedures done? @ -None Diagnosis/symptom? @ -Weakness, dehydration, FAIZA Acute, or Chronic, or Acute on Chronic? @ -Acute Uncomplicated (without systemic symptoms) or Complicated (systemic symptoms)? @ -Complicated Side effects of treatment? @ -None Exacerbation, Progression, or Severe Exacerbation] @ -Not applicable Poses a threat to life or bodily function? @ -Yes, patient is struggling to function in this state. - Lab Data Result diagrams: 08/02/24 10:39 08/02/24 10:39 Lab Results 08/02/24 08/02/24 08/02/24 Range/Units 10:39 10:39 10:39 WBC 27.1 H (3.8-10.6) k/uL RBC 3.60 L (3.80-5.40) m/uL Hgb 11.5 (11.4-16.0) gm/dL Hct 34.5 (34.0-46.0) % MCV 95.8 (80.0-100.0) fL MCH 31.8 (25.0-35.0) pg MCHC 33.2 (31.0-37.0) g/dL RDW 14.9 (11.5-15.5) % Plt Count 246 (150-450) k/uL MPV 6.9 Neutrophils % 90 % Lymphocytes % 7 % Monocytes % 2 % Eosinophils % 1 % Basophils % 0 % Neutrophils # 24.2 H (1.3-7.7) k/uL Lymphocytes # 1.9 (1.0-4.8) k/uL Monocytes # 0.6 (0-1.0) k/uL Eosinophils # 0.2 (0-0.7) k/uL Basophils # 0.0 (0-0.2) k/uL Sodium 135 L (137-145) mmol/L Potassium 4.5 (3.5-5.1) mmol/L Chloride 100 (98-107) mmol/L Carbon Dioxide 26 (22-30) mmol/L Anion Gap 9 mmol/L BUN 36 H (7-17) mg/dL Creatinine 1.34 H (0.52-1.04) mg/dL Est GFR (CKD-EPI)AfAm 45 (>60 ml/min/1.73 sqM) Est GFR (CKD-EPI)NonAf 39 (>60 ml/min/1.73 sqM) Glucose 166 H (74-99) mg/dL Plasma Lactic Acid [place] (0.7-2.0) mmol/L Calcium 10.3 H (8.4-10.2) mg/dL Total Bilirubin 0.4 (0.2-1.3) mg/dL AST 14 (14-36) U/L ALT 6 (4-34) U/L Alkaline Phosphatase 76 (38-126) U/L C-Reactive Protein 5.9 H (<1.0) mg/dL Total Protein 6.3 (6.3-8.2) g/dL Albumin 3.4 L (3.5-5.0) g/dL Urine Color Colorless Urine Appearance Clear (Clear) Urine pH 7.0 (5.0-8.0) Ur Specific [place] 1.004 (1.001-1.035) Urine Protein Negative (Negative) Urine Glucose (UA) Negative (Negative) Urine Ketones Negative (Negative) Urine Blood Trace H (Negative) Urine Nitrite Negative (Negative) Urine Bilirubin Negative (Negative) Urine Urobilinogen <2.0 (<2.0) mg/dL Ur Leukocyte Esterase Trace H (Negative) Urine RBC <1 (0-5) /hpf Urine WBC 7 H (0-5) /hpf Ur Squamous Epith Cells 4 (0-4) /hpf 08/02/24 Range/Units 10:39 WBC (3.8-10.6) k/uL RBC (3.80-5.40) m/uL Hgb (11.4-16.0) gm/dL Hct (34.0-46.0) % MCV (80.0-100.0) fL MCH (25.0-35.0) pg MCHC (31.0-37.0) g/dL RDW (11.5-15.5) % Plt Count (150-450) k/uL MPV Neutrophils % % Lymphocytes % % Monocytes % % Eosinophils % % Basophils % % Neutrophils # (1.3-7.7) k/uL Lymphocytes # (1.0-4.8) k/uL Monocytes # (0-1.0) k/uL Eosinophils # (0-0.7) k/uL Basophils # (0-0.2) k/uL Sodium (137-145) mmol/L Potassium (3.5-5.1) mmol/L Chloride (98-107) mmol/L Carbon Dioxide (22-30) mmol/L Anion Gap mmol/L BUN (7-17) mg/dL Creatinine (0.52-1.04) mg/dL Est GFR (CKD-EPI)AfAm (>60 ml/min/1.73 sqM) Est GFR (CKD-EPI)NonAf (>60 ml/min/1.73 sqM) Glucose (74-99) mg/dL Plasma Lactic Acid [place] 1.8 (0.7-2.0) mmol/L Calcium (8.4-10.2) mg/dL Total Bilirubin (0.2-1.3) mg/dL AST (14-36) U/L ALT (4-34) U/L Alkaline Phosphatase (38-126) U/L C-Reactive Protein (<1.0) mg/dL Total Protein (6.3-8.2) g/dL Albumin (3.5-5.0) g/dL Urine Color Urine Appearance (Clear) Urine pH (5.0-8.0) Ur Specific [place] (1.001-1.035) Urine Protein (Negative) Urine Glucose (UA) (Negative) Urine Ketones (Negative) Urine Blood (Negative) Urine Nitrite (Negative) Urine Bilirubin (Negative) Urine Urobilinogen (<2.0) mg/dL Ur Leukocyte Esterase (Negative) Urine RBC (0-5) /hpf Urine WBC (0-5) /hpf Ur Squamous Epith Cells (0-4) /hpf - Radiology Data Radiology results: report reviewed, image reviewed Disposition Clinical Impression: Weakness, Dehydration, FAIZA (acute kidney injury) Disposition: ADMITTED IP TO THIS HOSP
[2024-08-02] MEDS: SODIUM CHLORIDE 0.9% 1,000 ML IV STA (10:54)
[2024-08-02 10:55] LABS: Basophils % (A) 0 %; Eosinophils # (A) 0.2 k/uL (0-0.7); Eosinophils % (A) 1 %; HCT 34.5 % (34.0-46.0); HGB 11.5 gm/dL (11.4-16.0); Lymphocytes # (A) 1.9 k/uL (1.0-4.8); Lymphocytes % (A) 7 %; MCH 31.8 pg (25.0-35.0); MCHC 33.2 g/dL (31.0-37.0); MCV 95.8 fL (80.0-100.0); Mean Platelet Volume 6.9; Monocytes # (A) 0.6 k/uL (0-1.0); Monocytes % (A) 2 %; Neutrophils # (A) 24.2 k/uL (1.3-7.7); Neutrophils % (A) 90 %; Platelet Count 246 k/uL (150-450); RDW 14.9 % (11.5-15.5); WBC 27.1 k/uL (3.8-10.6)
[2024-08-02 11:10] LABS: ALT 6 U/L (4-34); AST 14 U/L (14-36); African American GFR (CKD) 45 (>60 ml/min/1.73 sqM); Albumin 3.4 g/dL (3.5-5.0); Alkaline Phosphatase 76 U/L (38-126); Anion Gap 9 mmol/L; Blood Urea Nitrogen 36 mg/dL (7-17); Calcium 10.3 mg/dL (8.4-10.2); Carbon Dioxide 26 mmol/L (22-30); Chloride 100 mmol/L (98-107); Glucose 166 mg/dL (74-99); Non-African American GFR(CKD) 39 (>60 ml/min/1.73 sqM); Potassium 4.5 mmol/L (3.5-5.1); Sodium 135 mmol/L (137-145); Total Bilirubin 0.4 mg/dL (0.2-1.3); Total Protein 6.3 g/dL (6.3-8.2)
--- NOTE | 2024-08-02 11:30 | US ---
EXAMINATION TYPE: US venous doppler duplex LE RT DATE OF EXAM: 08/02/2024 10:25 AM COMPARISON: US 2017 CLINICAL INDICATION: Female, 74 years old with history of Right leg redness and swelling; Right leg r edness, Pain TECHNIQUE: The lower extremity deep venous system is examined utilizing real time linear array sonog mekhi with graded compression, color doppler sonography, and spectral doppler. SIDE PERFORMED: Right FINDINGS: VESSELS IMAGED: Common Femoral Vein Deep Femoral Vein Greater Saphenous Vein * Femoral Vein Popliteal Vein Small Saphenous Vein * Proximal Calf Veins (* superficial vessels) Veins very small in caliber making scan difficult Right Leg: Negative for DVT, Color Doppler imaging shows patency of the vessels. Spectral waveforms are within normal limits. IMPRESSION: No ultrasound evidence for deep venous thrombosis. [facility], , 08/02/2024 11:28 AM
[2024-08-02 12:09] LABS: C Reactive Protein 5.9 mg/dL (<1.0)
[2024-08-02] MEDS ORDERED: NALOXONE 0.4 MG/ML 1 ML VIAL IV PRN (12:57)
[2024-08-02] MEDS ORDERED: MORPHINE SULFATE 4 MG/ML SYRINGE IV PRN (12:57)
[2024-08-02] MEDS ORDERED: ONDANSETRON 4 MG/2 ML VIAL IVP PRN (12:57)
[2024-08-02] MEDS ORDERED: ACETAMINOPHEN TAB 325 MG TAB PO PRN (12:57)
--- NOTE | 2024-08-02 12:57 | XR ---
EXAMINATION TYPE: XR tibia fibula RT DATE OF EXAM: 08/02/2024 12:45 PM COMPARISON: None CLINICAL INDICATION: Female, 74 years old with history of Infection;, pain TECHNIQUE: XR tibia fibula RT; examined in AP and lateral projections. FINDINGS: No evidence of any acute osseous pathology, joint dislocation. Total knee arthroplasty aquino ges. Soft tissue swelling around the ankle. No evidence for osseous erosion. Total knee arthroplasty with hardware intact.. Skin calcifications possibly representing phleboliths are present. IMPRESSION: 1. No evidence of acute fracture. 2. Mild soft tissue swelling around the ankle. [facility], , 08/02/2024 12:55 PM
[2024-08-02] MEDS ORDERED: ONDANSETRON 4 MG TAB PO PRN (12:58)
[2024-08-02] MEDS ORDERED: MUPIROCIN 2% OINT 22 GM TUBE TOPICAL PRN (12:58)
[2024-08-02] MEDS ORDERED: FLUTICASONE NASAL 50MCG/SPRAY 16GM BTL EA NOSTRIL PRN (12:58)
[2024-08-02] MEDS ORDERED: ACETAMINOPHEN TAB 500 MG TAB PO PRN (12:58)
[2024-08-02] MEDS ORDERED: CLOTRIMAZOLE 1% CREAM 30 GM TUBE TOPICAL PRN (12:58)
[2024-08-02] MEDS: CEFEPIME 2 GM in SODIUM CHLORIDE 0.9% 100 ML IVPB STA (13:07)
[2024-08-02 14:19] LABS: Appearance,Urine Clear (Clear); Bilirubin,Urine Negative (Negative); Blood,Urine Trace (Negative); Color,Urine Colorless; Glucose,Urine (UA) Negative (Negative); Ketones,Urine Negative (Negative); Leukocyte Esterase,Urine Trace (Negative); Nitrite,Urine Negative (Negative); Protein,Urine Negative (Negative); RBC,Urine <1 /hpf (0-5); Specific Gravity,Urine 1.004 (1.001-1.035); Squamous Epithelial Cell,Urine 4 /hpf (0-4); Urobilinogen,Urine <2.0 mg/dL (<2.0); WBC,Urine 7 /hpf (0-5)
--- NOTE | 2024-08-02 15:47 | P.HPIM ---
History of Present Illness H&P Date: 08/02/24 Chief Complaint: Weak and tired Pleasant 74-year-old patient follows with Dr. Yanna David. Chronic medical conditions include hyperlipidemia, hypertension, osteoarthritis, hydrated disc. Patient is accompanied by her at the bedside in the ER. Patient is nonambulatory. Requires a contraption call joão flex lift for transfers. brought the patient to the ER there was concerns about possible cellulitis of the right lower extremity. There is no fever no chills. Decreased appetite. Patient been rather tired and near syncope at home. When tried to use the left assist. Patient does feel rather dry mouth. No tenderness in the leg. Review of systems: GEN.: Tired EYES: None HEENT: [Dry mouth NECK: None RESPIRATORY: None CARDIOVASCULAR: None GASTROINTESTINAL: Patient found to have 1000 cc retention in the bladder in the ER GENITOURINARY: None MUSCULOSKELETAL: Joint pains e LYMPHATICS: None HEMATOLOGICAL: Foot drop PSYCHIATRY: [Bit forgetful NEUROLOGICAL: [Chronic weakness in both legs Social history: No history of smoking alcohol. Lives with her . Nonambulatory. Does use a assist contraption to transfer. Physical examination: VITAL SIGNS: 97.5, 79, 16, 130 x 67, 95% room air GENERAL: [BMI 35.4, laying and awake tired. EYES: Pupils equal. Conjunctiva yaz l. HEENT: [External appearance of nose and ears normal, oral cavity dry mucous membrane NECK: JVD unable to assist masses not palpable. HEART: Heart sounds distant al, some edema in the right lower extremity]. LUNGS: Respiratory rate normal; distant breath sounds. ABDOMEN: Soft, nontender, liver spleen not palpable, no masses palpable. PSYCH: Able answer simple questions l. MUSCULOSKELETAL:No Clubbing/cyanosis;muscles-grossly intact. Bilateral foot drop. Some swelling of the left lower extremity. Dermatological: Brownish discoloration both lower extremity above the ankle. Macular. Nontender. NEUROLOGICAL: Cranial nerves grossly intact; no facial asymmetry, decreased power both lower extremity. LYMPHATICS: No lymph nodes palpable in the axilla and neck INVESTIGATIONS, reviewed in the clinical context: August 02, 2024: White count 27.1 hemoglobin 11.5 platelets 246 sodium 135 potassium 4.5 BUN 36 creatinine 1.34 glucose 166 UA trace leukoesterase WBC 7 Doppler ultrasound right lower extremity: Negative for DVT Previous labs: June 15, 2024: Creatinine 1.0 Assessment plan: -Near syncope. From dehydration decreased oral intake Nubia acute kidney injury -Acute kidney injury, likely prerenal. IV fluids. Decrease ELIE inhibitor. Follow labs. 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 -Acute urinary retention, from bladder outflow obstruction. Had 1000 cc drained in the ER. Continue home medications. Ford catheter for now. -Chronic medical debility. Patient baseline nonambulatory. Does use a assist device to transfer. -Hyperlipidemia Lipitor -Right lower extremity edema. DVT ruled out. Elie wrap -Essential hypertension Toprol-XL 50 mg a day. Amlodipine 5 mg a day. Zestril. -Restless leg syndrome Requip 0.5 mg 3 times daily -Depression Effexor XR 75 mg a day Remeron 15 mg nightly -Parkinson's disease Sinemet 2 tablet twice daily -DNR -Carroll Sanchez, medical POA Care was discussed with the patient's at the bedside. Questions answered. - Past Medical History Past Medical History: Hyperlipidemia, Hypertension, Osteoarthritis (OA) Additional Past Medical History / Comment(s): Well healed left leg wound(brown discoloration). Hx. of bulging disc. C-Diff infection 12/17/21. History of Any Multi-Drug Resistant Organisms: C-DIFF Date of last positivie culture/infection: 2021 MDRO Source:: stool Past Surgical History: Orthopedic Surgery, Tubal Ligation Additional Past Surgical History / Comment(s): PARATHYROIDECTOMY 1985,2009 PARTIAL THYROIDECTOMY, Low back surgery Aug 15, 2021. Peg Tube insertion October 23, 2021. right knee replacement 2019 Past Anesthesia/Blood Transfusion Reactions: No Reported Reaction Past Psychological History: No Psychological Hx Reported, Depression Smoking Status: Never smoker Past Alcohol Use History: None Reported Past Drug Use History: None Reported - Past Family History Mother Additional Family Medical History / Comment(s): OSTEOPOROSIS Father Additional Family Medical History / Comment(s): AORTIC ABD. ANEURSYN Medications and Allergies Home Medications Medication Instructions Recorded Confirmed Type Atorvastatin [Lipitor] 10 mg PO DAILY@1700 11/20/16 08/02/24 History Metoclopramide [Reglan] 5 mg PO TID@0930,1700,2300 12/16/21 08/02/24 History Venlafaxine HCl [Effexor XR] 75 mg PO DAILY@0930 12/16/21 08/02/24 History lisinopriL [Zestril] 20 mg PO DAILY@1700 12/16/21 08/02/24 History Alendronate Sodium 70 mg PO TU@1200 12/23/23 08/02/24 History Apixaban [Eliquis] 2.5 mg PO BID@0930,1700 12/23/23 08/02/24 History Carbidopa/Levodopa 2 tab PO BID@0930,1700,2300 12/23/23 08/02/24 History [Carbidopa/Levodopa 25-100 Tab] Cinacalcet [Sensipar] 30 mg PO DAILY@119912/23/23 08/02/24 History Ferrous Sulfate [Iron] 325 mg PO DAILY@1200 12/23/23 08/02/24 History Fluticasone Nasal [place] [Flonase 1 spray EA NOSTRIL DAILY PRN 12/23/23 08/02/24 History Nasal [place]] L.acidoph,Paracasei, B.lactis 1 cap PO DAILY@1200 12/23/23 08/02/24 History [Probiotic] Metoprolol Succinate [Toprol XL] 50 mg PO DAILY@1700 12/23/23 08/02/24 History Mirtazapine [Remeron] 15 mg PO HS@2300 12/23/23 08/02/24 History Ondansetron [Zofran] 4 mg PO Q8HR PRN 12/23/23 08/02/24 History Oxybutynin Chloride [oxyBUTYnin 15 mg PO DAILY@0930 12/23/23 08/02/24 History chloride ER] Turmeric Root Extract [Turmeric] 500 mg PO DAILY@1200 12/23/23 08/02/24 History Acetaminophen Tab [Tylenol] 1,000 mg PO Q6HR PRN 06/04/24 08/02/24 History Anastrozole [Arimidex] 1 mg PO DAILY@2300 06/04/24 08/02/24 History Cholecalciferol [Vitamin D3 (125 125 mcg PO DAILY@1200 06/04/24 08/02/24 History Mcg = 5000 Iu)] Cyanocobalamin [Vitamin B-12] 500 mcg PO DAILY@1200 06/04/24 08/02/24 History Folic Acid 1 mg PO DAILY@1200 06/04/24 08/02/24 History Ibuprofen [Motrin Ib] 400 mg PO Q4H PRN 06/04/24 08/02/24 History Ketoconazole 2% Cream [Nizoral 2%] 1 applic TOPICAL DAILY PRN 06/04/24 08/02/24 History Magnesium Oxide [Mag-Ox] 400 mg PO DAILY@1700 06/04/24 08/02/24 History Mupirocin 2% Oint [Bactroban 2% 1 applic TOPICAL TID PRN 06/04/24 08/02/24 History Oint] lisinopriL [Zestril] 10 mg PO DAILY@0930 06/04/24 08/02/24 History rOPINIRole HCL [Requip] 0.5 mg PO TID@0930,1700,2300 06/04/24 08/02/24 History Ketoconazole 2% Shampoo [Nizoral] 1 applic TOPICAL DAILY 08/02/24 08/02/24 History Nystatin 100,000 Unit/gm Powd 1 applic TOPICAL BID@0930,2300 08/02/24 08/02/24 History [Mycostatin Powder] Vibegron [Gemtesa] 75 mg PO DAILY@0930 08/02/24 08/02/24 History amLODIPine [Norvasc] 5 mg PO DAILY@0930 08/02/24 08/02/24 History Allergies Allergy/AdvReac Type Severity Reaction Status Date / Time No Known Allergies Allergy Verified 08/02/24 10:16 Physical Exam Vitals: Vital Signs Temp Pulse Resp BP Pulse Ox 08/02/24 15:23 86 18 146/80 97 08/02/24 15:00 77 16 137/80 08/02/24 14:30 74 18 143/92 08/02/24 14:00 150/99 08/02/24 13:30 84 16 147/88 08/02/24 13:00 80 18 143/94 08/02/24 12:30 85 18 130/67 08/02/24 12:00 87 17 146/69 08/02/24 11:30 85 18 139/82 08/02/24 11:00 18 129/91 08/02/24 10:12 97.5 F L 79 16 95/54 95 Intake and Output 08/02/24 08/02/24 08/02/24 06:59 14:59 22:59 Other: Weight 93.44 kg Results CBC & Chem 7: 08/02/24 10:39 08/02/24 10:39 Labs: Abnormal Lab Results - Last 24 Hours (Table) 08/02/24 08/02/24 08/02/24 Range/Units 10:39 10:39 10:39 WBC 27.1 H (3.8-10.6) k/uL RBC 3.60 L (3.80-5.40) m/uL Neutrophils # 24.2 H (1.3-7.7) k/uL Sodium 135 L (137-145) mmol/L BUN 36 H (7-17) mg/dL Creatinine 1.34 H (0.52-1.04) mg/dL Glucose 166 H (74-99) mg/dL Calcium 10.3 H (8.4-10.2) mg/dL C-Reactive Protein 5.9 H (<1.0) mg/dL Albumin 3.4 L (3.5-5.0) g/dL Urine Blood Trace H (Negative) Ur Leukocyte Esterase Trace H (Negative) Urine WBC 7 H (0-5) /hpf
[2024-08-02] MEDS ORDERED: CEFEPIME 2 GM in SODIUM CHLORIDE 0.9% 100 ML IVPB SCH (16:00)
[2024-08-02] MEDS: LACTATED RINGERS 1,000 ML IV SCH (16:03)
[2024-08-02] MEDS: APIXABAN 2.5 MG TABLET PO SCH (16:16)
[2024-08-02] MEDS: METOCLOPRAMIDE 5 MG TAB PO SCH (16:16)
[2024-08-02] MEDS: lisinopriL 20 MG TAB PO SCH (16:16)
[2024-08-02] MEDS: MAGNESIUM OXIDE 400 MG TAB PO SCH (16:16)
[2024-08-02] MEDS: METOPROLOL SUCCINATE (ER) 50 MG TAB.ER.24H PO SCH (16:16)
[2024-08-02] MEDS: ATORVASTATIN 10 MG TAB PO SCH (16:16)
[2024-08-02] MEDS: CARBIDOPA-LEVODOPA 25-100 MG 1 EACH TAB PO SCH (16:17)
[2024-08-02] MEDS: MIRTAZAPINE 15 MG TAB PO SCH (21:59)
[2024-08-02] MEDS: NYSTATIN 100,000 UNIT/GM POWD 15 GM TOPICAL SCH (22:00)
[2024-08-02] MEDS: ANASTROZOLE 1 MG TAB PO SCH (22:00)
[2024-08-02] MEDS: HYDROcodone/APAP 5-325MG 1 EACH TAB PO PRN (22:00)
[2024-08-02 22:59] LABS: Erythrocyte Sedimentation Rate 44 mm/Hr (0-30)
[2024-08-03 03:44] LABS: Basophils % (A) 0 %; Eosinophils # (A) 0.1 k/uL (0-0.7); Eosinophils % (A) 0 %; HCT 33.5 % (34.0-46.0); Lymphocytes # (A) 1.6 k/uL (1.0-4.8); Lymphocytes % (A) 11 %; MCH 31.3 pg (25.0-35.0); MCHC 32.9 g/dL (31.0-37.0); Monocytes # (A) 0.4 k/uL (0-1.0); Monocytes % (A) 3 %; Neutrophils # (A) 12.4 k/uL (1.3-7.7); Neutrophils % (A) 85 %; Platelet Count 230 k/uL (150-450); RBC 3.52 m/uL (3.80-5.40); RDW 15.3 % (11.5-15.5); WBC 14.6 k/uL (3.8-10.6)
[2024-08-03 04:10] LABS: African American GFR (CKD) 49 (>60 ml/min/1.73 sqM); Anion Gap 6 mmol/L; Blood Urea Nitrogen 28 mg/dL (7-17); Calcium 9.9 mg/dL (8.4-10.2); Carbon Dioxide 26 mmol/L (22-30); Chloride 106 mmol/L (98-107); Glucose 126 mg/dL (74-99); Non-African American GFR(CKD) 43 (>60 ml/min/1.73 sqM); Potassium 4.7 mmol/L (3.5-5.1); Sodium 138 mmol/L (137-145)
[2024-08-03] MEDS ORDERED: PANTOPRAZOLE 40 MG/10 ML VIAL IV SCH (09:00)
[2024-08-03] MEDS: VENLAFAXINE HCL ER 75 MG CAP PO SCH (09:19)
[2024-08-03] MEDS: amLODIPine 5 MG TAB PO SCH (09:19)
[2024-08-03] MEDS: OXYBUTYNIN 15 MG TAB.ER.24 PO SCH (09:20)
[2024-08-03] MEDS: NON FORMULARY DRUG (Vibegron [Gemtesa] 75 MG Tablet) PO SCH (09:20)
[2024-08-03] MEDS ORDERED: lisinopriL 10 MG TAB PO SCH (09:30)
[2024-08-03] MEDS ORDERED: ZINC OXIDE PASTE (Z-GUARD) 1 APPLIC TOPICAL PRN (10:31)
[2024-08-03] MEDS ORDERED: NON FORMULARY DRUG (Turmeric Root Extract [Turmeric] 500 MG Tablet) PO SCH (12:00)
[2024-08-03] MEDS: FERROUS SULFATE 325 MG TAB PO SCH (13:07)
[2024-08-03] MEDS: CYANOCOBALAMIN 500 MCG TAB PO SCH (13:08)
[2024-08-03] MEDS: CHOLECALCIFEROL 125 MCG (5000 IU) TABLET PO SCH (13:08)
[2024-08-03] MEDS: LACTOBACILLUS ACIDOPHILUS/PECT 1 EACH CAPSULE PO SCH (13:08)
[2024-08-03] MEDS: CINACALCET 30 MG TAB PO SCH (13:08)
[2024-08-03] MEDS: FOLIC ACID 1 MG TAB PO SCH (13:08)
--- NOTE | 2024-08-03 15:15 | P.PN ---
Progress Note - Text Progress Note Date: 08/03/24 Chief Complaint: Weak and tired Pleasant 74-year-old patient follows with Dr. Yanna David. Chronic medical conditions include hyperlipidemia, hypertension, osteoarthritis, hydrated disc. Patient is accompanied by her at the bedside in the ER. Patient is nonambulatory. Requires a contraption call joão flex lift for transfers. brought the patient to the ER there was concerns about possible cellulitis of the right lower extremity. There is no fever no chills. Decreased appetite. Patient been rather tired and near syncope at home. When tried to use the left assist. Patient does feel rather dry mouth. No tenderness in the leg. August 03: Patient doing better. Looks most lively. Answering questions better. at the bedside. Slight improvement in creatinine. Continue IV fluids. Review of systems: GEN.: Tired EYES: None HEENT: [Dry mouth NECK: None RESPIRATORY: None CARDIOVASCULAR: None GASTROINTESTINAL: Patient found to have 1000 cc retention in the bladder in the ER GENITOURINARY: None MUSCULOSKELETAL: Joint pains e LYMPHATICS: None HEMATOLOGICAL: Foot drop PSYCHIATRY: [Bit forgetful NEUROLOGICAL: [Chronic weakness in both legs Social history: No history of smoking alcohol. Lives with her . Nonambulatory. Does use a assist contraption to transfer. Physical examination: VITAL SIGNS: 97.5, 79, 16, 130 x 67, 95% room air GENERAL: [BMI 35.4, laying and awake tired. EYES: Pupils equal. Conjunctiva yaz l. HEENT: [External appearance of nose and ears normal, oral cavity dry mucous membrane NECK: JVD unable to assist masses not palpable. HEART: Heart sounds distant al, some edema in the right lower extremity]. LUNGS: Respiratory rate normal; distant breath sounds. ABDOMEN: Soft, nontender, liver spleen not palpable, no masses palpable. PSYCH: Able answer simple questions l. MUSCULOSKELETAL:No Clubbing/cyanosis;muscles-grossly intact. Bilateral foot drop. Some swelling of the left lower extremity. Dermatological: Brownish discoloration both lower extremity above the ankle. Macular. Nontender. NEUROLOGICAL: Cranial nerves grossly intact; no facial asymmetry, decreased power both lower extremity. LYMPHATICS: No lymph nodes palpable in the axilla and neck INVESTIGATIONS, reviewed in the clinical context: August 02, 2024: White count 27.1 hemoglobin 11.5 platelets 246 sodium 135 potassium 4.5 BUN 36 creatinine 1.34 glucose 166 UA trace leukoesterase WBC 7 Doppler ultrasound right lower extremity: Negative for DVT Previous labs: June 15, 2024: Creatinine 1.0 Assessment plan: -Near syncope. From dehydration decreased oral intake: Acute kidney injury -Acute kidney injury, likely prerenal. IV fluids increased to 100 cc an hour. Decrease ELIE inhibitor. Follow labs. 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 -Acute urinary retention, from bladder outflow obstruction. Had 1000 cc drained in the ER. Continue home medications. Ford catheter for now. -Chronic medical debility. Patient baseline nonambulatory. Does use a assist device to transfer. -Hyperlipidemia Lipitor -Right lower extremity edema. DVT ruled out. Elie wrap -Essential hypertension Toprol-XL 50 mg a day. Amlodipine 5 mg a day. Zestril. -Restless leg syndrome Requip 0.5 mg 3 times daily -Depression Effexor XR 75 mg a day Remeron 15 mg nightly -Parkinson's disease Sinemet 2 tablet twice daily -DNR -Carroll Sanchez, medical POA Discussed with patient at the bedside. Increase IV fluids. Repeat labs tomorrow. Doing better. - Past Medical History Past Medical History: Hyperlipidemia, Hypertension, Osteoarthritis (OA) Additional Past Medical History / Comment(s): Well healed left leg wound(brown discoloration). Hx. of bulging disc. C-Diff infection 12/17/21. History of Any Multi-Drug Resistant Organisms: C-DIFF Date of last positivie culture/infection: 2021 MDRO Source:: stool Past Surgical History: Orthopedic Surgery, Tubal Ligation Additional Past Surgical History / Comment(s): PARATHYROIDECTOMY 1985,2009 PARTIAL THYROIDECTOMY, Low back surgery Aug 15, 2021. Peg Tube insertion October 23, 2021. right knee replacement 2019 Past Anesthesia/Blood Transfusion Reactions: No Reported Reaction Past Psychological History: No Psychological Hx Reported, Depression Smoking Status: Never smoker Past Alcohol Use History: None Reported Past Drug Use History: None Reported
[2024-08-03] MEDS: KETOCONAZOLE 2% SHAMPOO 1 APPLIC/ML TOPICAL SCH (22:07)
[2024-08-04 04:44] VITALS: RESP 15
[2024-08-04 07:32] VITALS: BP 169/81; PULSE 76; TEMP 98
[2024-08-04 10:52] LABS: African American GFR (CKD) 71 (>60 ml/min/1.73 sqM); Anion Gap 9 mmol/L; Blood Urea Nitrogen 20 mg/dL (7-17); Calcium 9.7 mg/dL (8.4-10.2); Carbon Dioxide 24 mmol/L (22-30); Chloride 107 mmol/L (98-107); Glucose 116 mg/dL (74-99); Non-African American GFR(CKD) 61 (>60 ml/min/1.73 sqM); Potassium 4.6 mmol/L (3.5-5.1); Sodium 140 mmol/L (137-145)
[2024-08-04] MEDS: NON FORMULARY DRUG (Alendronate Sodium [Alendronate Sodium] 70 MG Tablet) PO SCH (12:22)
--- NOTE | 2024-08-05 15:33 | P.DS ---
Providers Date of admission: 08/02/24 15:46 Expected date of discharge: 08/04/24 Attending physician: Sotero Corrigan Primary care physician: Yanna David MD Hospital Course: Chief Complaint: Weak and tired Pleasant 74-year-old patient follows with Dr. Yanna David. Chronic medical conditions include hyperlipidemia, hypertension, osteoarthritis, hydrated disc. Patient is accompanied by her at the bedside in the ER. Patient is nonambulatory. Requires a contraption call joão flex lift for transfers. brought the patient to the ER there was concerns about possible chayo lulitis of the right lower extremity. There is no fever no chills. Decreased appetite. Patient been rather tired and near syncope at home. When tried to use the left assist. Patient does feel rather dry mouth. No tenderness in the leg. August 03: Patient doing better. Looks most lively. Answering questions better. at the bedside. Slight improvement in creatinine. Continue IV fluids. August 04: at the bedside. Patient back to baseline. Eating well. Creatinine back to normal. Trial of DC Ford done. Patient voided on her own. Discussed with . No UTI. Questions answered Discussion and discharge planning more than 35 minutes Social history: No history of smoking alcohol. Lives with her . Nonambulatory. Does use a assist contraption to transfer. Physical examination: VITAL SIGNS: 98, 76, 15, 1 6981, 95% room air GENERAL: [BMI 35.4, laying and awake answering simple questions EYES: Pupils equal. Conjunctiva yaz l. HEENT: [External appearance of nose and ears normal, oral cavity dry mucous membrane NECK: JVD unable to assist masses not palpable. HEART: Heart sounds distant al, some edema in the right lower extremity]. LUNGS: Respiratory rate normal; distant breath sounds. ABDOMEN: Soft, nontender, liver spleen not palpable, no masses palpable. PSYCH: Able answer simple questions l. MUSCULOSKELETAL:No Clubbing/cyanosis;muscles-grossly intact. Bilateral foot drop. Some swelling of the left lower extremity. Dermatological: Brownish discoloration both lower extremity above the ankle. Macular. Nontender. NEUROLOGICAL: Cranial nerves grossly intact; no facial asymmetry, decreased power both lower extremity. Delete that INVESTIGATIONS, reviewed in the clinical context: August 04: Potassium 4.6 creatinine 0.93 August 02, 2024: White count 27.1 hemoglobin 11.5 platelets 246 sodium 135 potassium 4.5 BUN 36 creatinine 1.34 glucose 166 UA trace leukoesterase WBC 7 Doppler ultrasound right lower extremity: Negative for DVT Previous labs: June 15, 2024: Creatinine 1.0 Assessment plan: -Near syncope. 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 -Acute urinary retention, from bladder outflow obstruction. Had 1000 cc drained in the ER. Ford catheter was placed. Patient urinated needed on her own after discontinuation of Ford.. -Chronic medical debility. Patient baseline nonambulatory. Does use a assist device to transfer. -Hyperlipidemia Lipitor -Right lower extremity edema. DVT ruled out. Elie wrap -Essential hypertension Toprol-XL 50 mg a day. Amlodipine 5 mg a day. Zestril. -Restless leg syndrome Requip 0.5 mg 3 times daily -Depression Effexor XR 75 mg a day Remeron 15 mg nightly -Parkinson's disease Sinemet 2 tablet twice daily -DNR -Carroll Sanchez, medical POA Disposition: Home - Past Medical History Past Medical History: Hyperlipidemia, Hypertension, Osteoarthritis (OA) Additional Past Medical History / Comment(s): Well healed left leg wound(brown discoloration). Hx. of bulging disc. C-Diff infection 12/17/21. History of Any Multi-Drug Resistant Organisms: C-DIFF Date of last positivie culture/infection: 2021 MDRO Source:: stool Past Surgical History: Orthopedic Surgery, Tubal Ligation Additional Past Surgical History / Comment(s): PARATHYROIDECTOMY 1985,2009 PARTIAL THYROIDECTOMY, Low back surgery Aug 15, 2021. Peg Tube insertion October 23, 2021. right knee replacement 2019 Past Anesthesia/Blood Transfusion Reactions: No Reported Reaction Past Psychological History: No Psychological Hx Reported, Depression Smoking Status: Never smoker Past Alcohol Use History: None Reported Past Drug Use History: None Reported Plan - Discharge Summary Discharge Rx Participant: No New Discharge Prescriptions: Continue Atorvastatin [Lipitor] 10 mg PO DAILY@1700 Venlafaxine HCl [Effexor XR] 75 mg PO DAILY@0930 Ondansetron [Zofran] 4 mg PO Q8HR PRN PRN Reason: Nausea Alendronate Sodium 70 mg PO TU@1200 Cinacalcet [Sensipar] 30 mg PO DAILY@1200 Ketoconazole 2% Cream [Nizoral 2%] 1 applic TOPICAL DAILY PRN PRN Reason: Skin Irritation Anastrozole [Arimidex] 1 mg PO DAILY@2300 Acetaminophen Tab [Tylenol] 1,000 mg PO Q6HR PRN PRN Reason: Fever And/ Or Pain Folic Acid 1 mg PO DAILY@1200 Cyanocobalamin [Vitamin B-12] 500 mcg PO DAILY@1200 Cholecalciferol [Vitamin D3 (125 Mcg = 5000 Iu)] 125 mcg PO DAILY@1200 Nystatin 100,000 Unit/gm Powd [Mycostatin Powder] 1 applic TOPICAL BID@0930,2300 Metoclopramide [Reglan] 5 mg PO TID@0930,1700,2300 Fluticasone Nasal [place] [Flonase Nasal [place]] 1 spray EA NOSTRIL DAILY PRN PRN Reason: allergies Metoprolol Succinate [Toprol XL] 50 mg PO DAILY@1700 L.acidoph,Paracasei, B.lactis [Probiotic] 1 cap PO DAILY@1200 Ferrous Sulfate [Iron] 325 mg PO DAILY@1200 Carbidopa/Levodopa [Carbidopa/Levodopa 25-100 Tab] 2 tab PO BID@0930,1700,2300 Oxybutynin Chloride [oxyBUTYnin chloride ER] 15 mg PO DAILY@0930 Apixaban [Eliquis] 2.5 mg PO BID@0930,1700 Mirtazapine [Remeron] 15 mg PO HS@2300 Mupirocin 2% Oint [Bactroban 2% Oint] 1 applic TOPICAL TID PRN PRN Reason: Skin Irritation Magnesium Oxide [Mag-Ox] 400 mg PO DAILY@1700 Ibuprofen [Motrin Ib] 400 mg PO Q4H PRN PRN Reason: Fever And/ Or Pain rOPINIRole HCL [Requip] 0.5 mg PO TID@0930,1700,2300 amLODIPine [Norvasc] 5 mg PO DAILY@0930 Ketoconazole 2% Shampoo [Nizoral] 1 applic TOPICAL DAILY Vibegron [Gemtesa] 75 mg PO DAILY@0930 Changed lisinopriL [Zestril] 20 mg PO HS #0 Discontinued lisinopriL [Zestril] 10 mg PO DAILY@0930 No Action Turmeric Root Extract [Turmeric] 500 mg PO DAILY@1200 Discharge Medication List Atorvastatin [Lipitor] 10 mg PO DAILY@169911/20/16 [History] Metoclopramide [Reglan] 5 mg PO TID@0930,1700,23012/16/21 [History] Venlafaxine HCl [Effexor XR] 75 mg PO DAILY@92912/16/21 [History] Alendronate Sodium 70 mg PO TU@119912/23/23 [History] Apixaban [Eliquis] 2.5 mg PO BID@0930,169912/23/23 [History] Carbidopa/Levodopa [Carbidopa/Levodopa 25-100 Tab] 2 tab PO BID@0930,1700,229912/23/23 [History] Cinacalcet [Sensipar] 30 mg PO DAILY@119912/23/23 [History] Ferrous Sulfate [Iron] 325 mg PO DAILY@119912/23/23 [History] Fluticasone Nasal [place] [Flonase Nasal [place]] 1 spray EA NOSTRIL DAILY PRN 12/23/23 [History] L.acidoph,Paracasei, B.lactis [Probiotic] 1 cap PO DAILY@119912/23/23 [History] Metoprolol Succinate [Toprol XL] 50 mg PO DAILY@169912/23/23 [History] Mirtazapine [Remeron] 15 mg PO HS@229912/23/23 [History] Ondansetron [Zofran] 4 mg PO Q8HR PRN 12/23/23 [History] Oxybutynin Chloride [oxyBUTYnin chloride ER] 15 mg PO DAILY@92912/23/23 [History] Turmeric Root Extract [Turmeric] 500 mg PO DAILY@119912/23/23 [History] Acetaminophen Tab [Tylenol] 1,000 mg PO Q6HR PRN 06/04/24 [History] Anastrozole [Arimidex] 1 mg PO DAILY@229906/04/24 [History] Cholecalciferol [Vitamin D3 (125 Mcg = 5000 Iu)] 125 mcg PO DAILY@119906/04/24 [History] Cyanocobalamin [Vitamin B-12] 500 mcg PO DAILY@1200 06/04/24 [History] Folic Acid 1 mg PO DAILY@1200 06/04/24 [History] Ibuprofen [Motrin Ib] 400 mg PO Q4H PRN 06/04/24 [History] Ketoconazole 2% Cream [Nizoral 2%] 1 applic TOPICAL DAILY PRN 06/04/24 [History] Magnesium Oxide [Mag-Ox] 400 mg PO DAILY@1700 06/04/24 [History] Mupirocin 2% Oint [Bactroban 2% Oint] 1 applic TOPICAL TID PRN 06/04/24 [History] rOPINIRole HCL [Requip] 0.5 mg PO TID@0930,1700,2300 06/04/24 [History] Ketoconazole 2% Shampoo [Nizoral] 1 applic TOPICAL DAILY 08/02/24 [History] Nystatin 100,000 Unit/gm Powd [Mycostatin Powder] 1 applic TOPICAL BID@0930,2300 08/02/24 [History] Vibegron [Gemtesa] 75 mg PO DAILY@0930 08/02/24 [History] amLODIPine [Norvasc] 5 mg PO DAILY@0908/02/24 [History] lisinopriL [Zestril] 20 mg PO HS #0 08/04/24 [Rx] Follow up Appointment(s)/Referral(s): Yanna David MD [Primary Care Provider] - 1-2 days (Please call to schedule appointment) Patient Instructions/Handouts: Dehydration (DC) Activity/Diet/Wound Care/Special Instructions: no new Rx Discharge Disposition: HOME SELF-CARE
== END 2024-08-04 16:34 | disposition home or self-care (01) ==
LOC: EC 10:10 → UNDOADMOB 13:23 → 5NMEDONC 13:23 → INTOOBSV 13:23 → 4SSUR 13:29 → 5NMEDONC 13:29 → 4SSUR 14:30
PROVIDERS: ADMIT Hospitalist; ATTEND Hospitalist
DX: R55 Syncope and collapse (principal); E86.0 Dehydration; N17.9 Acute kidney failure, unspecified; L92.1 Necrobiosis lipoidica, not elsewhere classified; N32.0 Bladder-neck obstruction; R54 Age-related physical debility; R60.0 Localized edema; G25.81 Restless legs syndrome; G20.A1 Parkinson's disease without dyskinesia, without mention of fluctuations; I10 Essential (primary) hypertension; E78.5 Hyperlipidemia, unspecified; E89.0 Postprocedural hypothyroidism; F32.A Depression, unspecified; Z66 Do not resuscitate; Z86.711 Personal history of pulmonary embolism; Z79.01 Long term (current) use of anticoagulants; Z79.811 Long term (current) use of aromatase inhibitors; Z79.899 Other long term (current) drug therapy
CPT/HCPCS: 96365; 99285; 36415; 93005; 80053; 80048 ×2; 85652; 83605; 85025 ×2; 86140; 81001; 87040; 73590; 93971; G0378 ×3; J0690; S0170 ×2

== ENCOUNTER 2024-08-29 11:30 | Inpatient (IN) | payer MEDICARE ==
--- NOTE | 2024-08-29 11:57 | ED ---
SOB HPI - General Chief Complaint: Shortness of Breath Stated Complaint: Covid+,STEFANIE Time Seen by Provider: 08/29/24 11:34 Source: patient, RN/MD, EMS, RN notes reviewed Mode of arrival: EMS Limitations: altered mental status - History of Present Illness Initial Comments: This is a 74-year-old female who presents to the emergency department for shortness of breath and altered mental status. Patient was discharged from this facility 2 days ago. She was admitted for a Pseudomonas UTI and also had acute hypoxic respiratory failure from COVID-19. She was discharged to [facility]. She has been on oxygen which was instructed to be tapered from 4 to 5 L to maintain an SpO2 of greater than 92%. Per staff at [facility] she seemed alert yesterday and today she seemed more confused and altered. They were also concerned that her respirations seem to be getting worse. She is still on Zosyn via midline for the UTI. Patient is very fatigued and appears confused on exam. She knows her name and that she is at a hospital, but is otherwise not able to give much information. MD Complaint: shortness of breath - Related Data Home Medications Medication Instructions Recorded Confirmed Atorvastatin [Lipitor] 10 mg PO DAILY@1700 11/20/16 08/29/24 Venlafaxine HCl [Effexor XR] 75 mg PO DAILY@0800 12/16/21 08/29/24 Alendronate Sodium 70 mg PO TU@1200 12/23/23 08/29/24 Apixaban [Eliquis] 2.5 mg PO BID@0800,1700 12/23/23 08/29/24 Carbidopa/Levodopa 2 tab PO TID@0800,1700,2300 12/23/23 08/29/24 [Carbidopa/Levodopa 25-100 Tab] Ferrous Sulfate [Iron] 325 mg PO DAILY@119912/23/23 08/29/24 L.acidoph,Paracasei, B.lactis 1 cap PO DAILY@119912/23/23 08/29/24 [Probiotic] Metoprolol Succinate [Toprol XL] 50 mg PO DAILY@1700 12/23/23 08/29/24 Ondansetron [Zofran] 4 mg PO Q8HR PRN 12/23/23 08/29/24 Oxybutynin Chloride [oxyBUTYnin 15 mg PO DAILY@0800 12/23/23 08/29/24 chloride ER] Acetaminophen Tab [Tylenol] 1,000 mg PO Q6HR PRN 06/04/24 08/29/24 Anastrozole [Arimidex] 1 mg PO DAILY@2300 06/04/24 08/29/24 Folic Acid 1 mg PO DAILY@1200 06/04/24 08/29/24 Ibuprofen [Motrin Ib] 400 mg PO Q4H PRN 06/04/24 08/29/24 Ketoconazole 2% Cream [Nizoral 2%] 1 applic TOPICAL DAILY PRN 06/04/24 08/29/24 Magnesium Oxide [Mag-Ox] 400 mg PO DAILY@1700 06/04/24 08/29/24 Mupirocin 2% Oint [Bactroban 2% 1 applic TOPICAL TID PRN 06/04/24 08/29/24 Oint] rOPINIRole HCL [Requip] 0.5 mg PO TID@0800,1200,1700 06/04/24 08/29/24 Ketoconazole 2% Shampoo [Nizoral] 1 applic TOPICAL DAILY 08/02/24 08/29/24 Nystatin 100,000 Unit/gm Powd 1 applic TOPICAL BID 08/02/24 08/29/24 [Mycostatin Powder] Vibegron [Gemtesa] 75 mg PO DAILY@0800 08/02/24 08/29/24 Ensure Enlive 237 ml PO TID@0800,1200,1700 08/29/24 08/29/24 Ipratropium-Albuterol Nebulize 3 ml INHALATION RT-Q6H 08/29/24 08/29/24 [Duoneb 0.5 mg-3 mg/3 ml Soln] Magnesium Hydroxide [Milk of 7,200 mg PO DAILY PRN 08/29/24 08/29/24 Magnesia Concentrate] Na Phos,M-B/Na Phos,Di-Ba [Fleet 133 ml RECTAL DAILY PRN 08/29/24 08/29/24 Adult] Sodium Bicarbonate Tab 650 mg PO BID@0800,1700 08/29/24 08/29/24 amLODIPine [Norvasc] 5 mg PO DAILY@0800 08/29/24 08/29/24 bisacodyL [Dulcolax] 10 mg RECTAL DAILY PRN 08/29/24 08/29/24 predniSONE See Taper PO DAILY@0800 08/29/24 08/29/24 Previous Rx's Medication Instructions Recorded Cinacalcet [Sensipar] 60 mg PO DAILY@1200 #0 08/26/24 Piperacillin-Tazobactam [Zosyn] 3.375 gm IVPB Q8HR #21 each 08/26/24 Allergies Allergy/AdvReac Type Severity Reaction Status Date / Time No Known Allergies Allergy Verified 08/29/24 18:33 Review of Systems ROS Statement: Those systems with pertinent positive or pertinent negative responses have been documented in the HPI. ROS Other: All systems not noted in ROS Statement are negative. Past Medical History Past Medical History: Cancer, Hyperlipidemia, Hypertension, Osteoarthritis (OA) Additional Past Medical History / Comment(s): Well healed left leg wound(brown discoloration). Hx. of bulging disc. C-Diff infection 12/17/21. History of Any Multi-Drug Resistant Organisms: C-DIFF Date of last positivie culture/infection: 2021 MDRO Source:: stool Past Surgical History: Orthopedic Surgery, Tubal Ligation Additional Past Surgical History / Comment(s): PARATHYROIDECTOMY 1985,2009 PARTIAL THYROIDECTOMY, Low back surgery Aug 15, 2021. Peg Tube insertion October 23, 2021. right knee replacement 2019 Past Anesthesia/Blood Transfusion Reactions: No Reported Reaction Past Psychological History: No Psychological Hx Reported, Depression Smoking Status: Never smoker Past Alcohol Use History: None Reported Past Drug Use History: None Reported - Past Family History Mother Additional Family Medical History / Comment(s): OSTEOPOROSIS Father Additional Family Medical History / Comment(s): AORTIC ABD. ANEURSYN General Exam Limitations: no limitations General appearance: alert, in no apparent distress Head exam: Present: atraumatic, normocephalic, normal inspection Respiratory exam: Present: wheezes, rales, rhonchi, decreased breath sounds, p rolonged expiratory Cardiovascular Exam: Present: regular rate, normal rhythm GI/Abdominal exam: Present: distended, tenderness Neurological exam: Present: alert Skin exam: Present: warm, dry Course Vital Signs 08/29/24 08/29/24 08/29/24 11:34 11:44 12:37 Temperature 99.5 F Pulse Rate 88 84 Pulse Rate [ Pulse Oximetery ] Respiratory 28 H 28 H 28 H Rate Blood Pressure 133/87 128/82 Blood Pressure [Left Arm] O2 Sat by Pulse 92 L 93 L Oximetry 08/29/24 08/29/24 08/29/24 13:06 17:02 19:30 Temperature 102.2 F H Pulse Rate 84 81 80 Pulse Rate [ Pulse Oximetery ] Respiratory 30 H 28 H 28 H Rate Blood Pressure 132/76 137/86 Blood Pressure [Left Arm] O2 Sat by Pulse 93 L 92 L 92 L Oximetry 08/29/24 08/29/24 08/30/24 20:09 22:13 00:10 Temperature 100.2 F H Pulse Rate 82 74 Pulse Rate [ Pulse Oximetery ] Respiratory 18 18 Rate Blood Pressure 120/78 121/74 Blood Pressure [Left Arm] O2 Sat by Pulse 92 L 92 L 92 L Oximetry 08/30/24 08/30/24 08/30/24 03:21 04:37 06:49 Temperature Pulse Rate 79 73 79 Pulse Rate [ Pulse Oximetery ] Respiratory 18 16 18 Rate Blood Pressure 149/90 129/99 119/70 Blood Pressure [Left Arm] O2 Sat by Pulse 94 L 94 L 93 L Oximetry 08/30/24 08/30/24 08/30/24 09:19 12:00 13:35 Temperature 98.1 F Pulse Rate Pulse Rate [ 74 80 Pulse Oximetery ] Respiratory 18 16 Rate Blood Pressure Blood Pressure 146/79 155/74 [Left Arm] O2 Sat by Pulse 93 L 94 L 94 L Oximetry 08/30/24 08/30/24 08/31/24 19:57 23:49 04:00 Temperature Pulse Rate 89 67 76 Pulse Rate [ Pulse Oximetery ] Respiratory 18 16 18 Rate Blood Pressure 119/71 119/71 99/56 Blood Pressure [Left Arm] O2 Sat by Pulse 92 L 93 L 93 L Oximetry Medical Decision Making - Medical Decision Making This is a 74-year-old female who presents to the emergency department for altered mental status and shortness of breath. Was pt. sent in by a medical professional or institution? @ -No Did you speak to anyone other than the patient for history? @ -EMS and Miriam provided all of the history. Did you review nursing and triage notes? @ -Yes, and I agree, it is accurate with regards to the patient's symptoms. Were old charts reviewed? @ -Discharge summary from 08/27/2024 discussing patient's diagnoses and reason for admission. Differential Diagnosis? @ -Differential Altered Mental Status: Hypoglycemia, DKA, hypercapnia, ETOH, overdose, CO poisoning, trauma, myxedema coma, HTN encephalopathy, infection, encephalitis, psychosis, intercranial hemorrhage, hepatic encephalopathy, meningitis, CVA, this is not meant to be an all-inclusive list EKG interpreted by me (3pts min.)? @ -EKG interpreted by me demonstrating the following: Sinus rhythm. Ventricular rate 90 bpm, VT interval 150 ms, QRS duration 117 ms, QTc 422 ms. X-rays interpreted by me (1pt min.)? @ -Chest x-ray obtained. My interpretation identifies multifocal airspace opacities. CT interpreted by me (1pt min.)? @ -CT scan of the abdomen and pelvis obtained. My interpretation identifies dilation of the small bowel loops. U/S interpreted by me (1pt. min.)? @ -Not obtained What testing was considered but not performed? (CT, X-rays, U/S, labs)? Why? @ -None What meds were considered but not given? Why? @ -None Did you discuss the management of the patient with other professionals? @ -Yes, Dr. Corrigan, who accepts the patient for admission. Did you reconcile home meds? @ -No Was smoking cessation discussed for >3mins.? @ -No Was critical care preformed (if so, how long)? @ -No Were there social determinants of health that impacted care today? How? (Homelessness, low income, unemployed, alcoholism, drug addiction, transpo rtation, low edu. Level, literacy, decrease access to med. care, care home, rehab)? @ -No Was there de-escalation of care discussed even if they declined? (Discuss DNR or withdrawal of care, Hospice)? @ -No What co-morbidities impacted this encounter? (DM, HTN, Smoking, COPD, CAD, Cancer, CVA, Hep., AIDS, mental health diagnosis, sleep apnea, morbid obesity)? @ -Possible Parkinson's Was patient admitted / discharged? @ -Admitted. Lab work demonstrates leukocytosis with a white blood cell count of 27.9. However, patient has had fairly substantial leukocytosis over the last couple of visits and this is an ongoing issue for her that will be followed up on with hematology. This is not necessarily felt to be correlated only to infection. BNP 5530. Chest x-ray demonstrates multifocal airspace opacities th at are worse on the right. The chest x-ray does appear to have worsened when compared with previous admission. Patient also had fairly prominent rhonchi on exam. With the elevated BNP and patient sounding very fluid overloaded, 40 mg of Lasix was administered. The chest x-ray also demonstrated gaseous distention in the left upper quadrant. Patient was denying abdominal pain, however on palpation she did start to become very uncomfortable. Her abdomen also felt very firm. CT scan of the abdomen and pelvis subsequently obtained demonstrating a distended gastric lumen with dilated loops of small bowel at least concerning for ileus versus partial small bowel obstruction. There is also a dilated tubular structure with some inflammation around the right lower quadrant that could represent an appendix with an appendicolith. Advised correlation for signs or symptoms of appendicitis. Patient is already maintained on Zosyn, which will provide broad-spectrum coverage for intra-abdominal process. She was given 500 mg of azithromycin for potential secondary pneumonia. Patient admitted to medicine for COVID-pneumonia, respiratory distress, and ileus versus partial SBO. Infectious disease and pulmonology consulted regarding the respiratory issues and COVID-pneumonia. General surgery consulted regarding ileus versus partial SBO and consideration of appendicitis. Case discussed with ED attending Dr. Grey. Undiagnosed new problem with uncertain prognosis? @ -None Drug Therapy requiring intensive monitoring for toxicity (Heparin, Nitro, I nsulin, Cardizem)? @ -None Were any procedures done? @ -None Diagnosis/symptom? @ -COVID-pneumonia, respiratory distress, altered mental status, ileus versus partial SBO Acute, or Chronic, or Acute on Chronic? @ -Acute Uncomplicated (without systemic symptoms) or Complicated (systemic symptoms)? @ -Complicated Side effects of treatment? @ -None Exacerbation, Progression, or Severe Exacerbation] @ -Not applicable Poses a threat to life or bodily function? @ -Yes, can lead to septic shock and - Lab Data Result diagrams: 08/29/24 12:07 08/30/24 21:11 Lab Results 08/29/24 08/29/24 08/29/24 Range/Units 12:07 12:07 12:07 WBC 27.9 H (3.8-10.6) k/uL RBC 3.36 L (3.80-5.40) m/uL Hgb 10.2 L (11.4-16.0) gm/dL Hct 32.6 L (34.0-46.0) % MCV 97.2 (80.0-100.0) fL MCH 30.5 (25.0-35.0) pg MCHC 31.3 (31.0-37.0) g/dL RDW 14.5 (11.5-15.5) % Plt Count 473 H (150-450) k/uL MPV 7.5 Neutrophils % 93 % Lymphocytes % 3 % Monocytes % 2 % Eosinophils % 0 % Basophils % 0 % Neutrophils # 26.0 H (1.3-7.7) k/uL Lymphocytes # 0.9 L (1.0-4.8) k/uL Monocytes # 0.6 (0-1.0) k/uL Eosinophils # 0.1 (0-0.7) k/uL Basophils # 0.1 (0-0.2) k/uL Manual Slide Review Performed Polychromasia Present Hypochromasia Slight Sodium 141 (137-145) mmol/L Potassium 4.0 (3.5-5.1) mmol/L Chloride 109 H (98-107) mmol/L Carbon Dioxide 25 (22-30) mmol/L Anion Gap 7 mmol/L BUN 35 H (7-17) mg/dL Creatinine 0.83 (0.52-1.04) mg/dL Est GFR (CKD-EPI)AfAm 81 (>60 ml/min/1.73 sqM) Est GFR (CKD-EPI)NonAf 70 (>60 ml/min/1.73 sqM) Glucose 187 H (74-99) mg/dL Plasma Lactic Acid [place] 1.1 (0.7-2.0) mmol/L Calcium 9.7 (8.4-10.2) mg/dL Total Bilirubin 0.4 (0.2-1.3) mg/dL AST 16 (14-36) U/L ALT <6 (4-34) U/L Alkaline Phosphatase 56 (38-126) U/L C-Reactive Protein (<1.0) mg/dL NT-Pro-B Natriuret Pep 5530 pg/mL Total Protein 5.9 L (6.3-8.2) g/dL Albumin 2.9 L (3.5-5.0) g/dL Urine Color Urine Appearance (Clear) Urine pH (5.0-8.0) Ur Specific [place] (1.001-1.035) Urine Protein (Negative) Urine Glucose (UA) (Negative) Urine Ketones (Negative) Urine Blood (Negative) Urine Nitrite (Negative) Urine Bilirubin (Negative) Urine Urobilinogen (<2.0) mg/dL Ur Leukocyte Esterase (Negative) Urine RBC (0-5) /hpf Urine WBC (0-5) /hpf Ur Squamous Epith Cells (0-4) /hpf Hyaline Casts (0-2) /lpf Urine Mucus (None) /hpf Urine Legionella Ag (Negative) 08/29/24 08/29/24 08/29/24 Range/Units 12:07 13:06 13:06 WBC (3.8-10.6) k/uL RBC (3.80-5.40) m/uL Hgb (11.4-16.0) gm/dL Hct (34.0-46.0) % MCV (80.0-100.0) fL MCH (25.0-35.0) pg MCHC (31.0-37.0) g/dL RDW (11.5-15.5) % Plt Count (150-450) k/uL MPV Neutrophils % % Lymphocytes % % Monocytes % % Eosinophils % % Basophils % % Neutrophils # (1.3-7.7) k/uL Lymphocytes # (1.0-4.8) k/uL Monocytes # (0-1.0) k/uL Eosinophils # (0-0.7) k/uL Basophils # (0-0.2) k/uL Manual Slide Review Polychromasia Hypochromasia Sodium (137-145) mmol/L Potassium (3.5-5.1) mmol/L Chloride (98-107) mmol/L Carbon Dioxide (22-30) mmol/L Anion Gap mmol/L BUN (7-17) mg/dL Creatinine (0.52-1.04) mg/dL Est GFR (CKD-EPI)AfAm (>60 ml/min/1.73 sqM) Est GFR (CKD-EPI)NonAf (>60 ml/min/1.73 sqM) Glucose (74-99) mg/dL Plasma Lactic Acid [place] (0.7-2.0) mmol/L Calcium (8.4-10.2) mg/dL Total Bilirubin (0.2-1.3) mg/dL AST (14-36) U/L ALT (4-34) U/L Alkaline Phosphatase (38-126) U/L C-Reactive Protein 5.2 H (<1.0) mg/dL NT-Pro-B Natriuret Pep pg/mL Total Protein (6.3-8.2) g/dL Albumin (3.5-5.0) g/dL Urine Color Yellow Urine Appearance Clear (Clear) Urine pH 6.0 (5.0-8.0) Ur Specific [place] 1.017 (1.001-1.035) Urine Protein 1+ H (Negative) Urine Glucose (UA) Negative (Negative) Urine Ketones Negative (Negative) Urine Blood Small H (Negative) Urine Nitrite Negative (Negative) Urine Bilirubin Negative (Negative) Urine Urobilinogen <2.0 (<2.0) mg/dL Ur Leukocyte Esterase Negative (Negative) Urine RBC 25 H (0-5) /hpf Urine WBC 3 (0-5) /hpf Ur Squamous Epith Cells <1 (0-4) /hpf Hyaline Casts 1 (0-2) /lpf Urine Mucus Rare H (None) /hpf Urine Legionella Ag Negative (Negative) - Radiology Data Radiology results: report reviewed, image reviewed Disposition Clinical Impression: Pneumonia due to COVID-19 virus, Altered mental status, Respiratory distress, Partial small bowel obstruction Disposition: ADMITTED IP TO THIS HOSP
[2024-08-29] MEDS: ALBUTEROL HFA INHALER INHALATION STA (12:17)
--- NOTE | 2024-08-29 12:30 | XR ---
EXAMINATION TYPE: XR chest 2V DATE OF EXAM: 08/29/2024 12:15 PM COMPARISON: Chest radiographs from 08/25/2024 CLINICAL INDICATION: Female, 74 years old with history of STEFANIE; TECHNIQUE: XR chest 2V Frontal and lateral views of the chest. FINDINGS: Lungs/Pleura: There is no evidence of pleural effusion, focal consolidation, or pneumothorax. Pulmonary vascularity: Unremarkable. Heart/mediastinum: Cardiomediastinal silhouette is unremarkable. Musculoskeletal: No acute osseous pathology. Gaseous distention upper abdomen possibly in the peritoneal space. IMPRESSION: 1. Multifocal airspace opacities worse on the right colon for pneumonia. 2. Gaseous distention in the left upper quadrant. Given PEG tube seen on prior CT in 2021, correlate for PEG tube, if there is a PEG tube consider PEG tube malfunction. Further evaluation recommended o f the abdomen. [facility], , 08/29/2024 12:28 PM
[2024-08-29 13:10] LABS: Basophils # (A) 0.1 k/uL (0-0.2); Basophils % (A) 0 %; Eosinophils # (A) 0.1 k/uL (0-0.7); Eosinophils % (A) 0 %; HCT 32.6 % (34.0-46.0); HGB 10.2 gm/dL (11.4-16.0); Hypochromasia Slight; Lymphocytes # (A) 0.9 k/uL (1.0-4.8); Lymphocytes % (A) 3 %; MCH 30.5 pg (25.0-35.0); MCHC 31.3 g/dL (31.0-37.0); MCV 97.2 fL (80.0-100.0); Mean Platelet Volume 7.5; Monocytes # (A) 0.6 k/uL (0-1.0); Monocytes % (A) 2 %; Neutrophils % (A) 93 %; Platelet Count 473 k/uL (150-450); RBC 3.36 m/uL (3.80-5.40); RDW 14.5 % (11.5-15.5); WBC 27.9 k/uL (3.8-10.6)
[2024-08-29] MEDS: FUROSEMIDE 10 MG/ML 4 ML VIAL IV STA (13:10)
[2024-08-29 13:20] LABS: ALT <6 U/L (4-34); African American GFR (CKD) 81 (>60 ml/min/1.73 sqM); Albumin 2.9 g/dL (3.5-5.0); Anion Gap 7 mmol/L; Blood Urea Nitrogen 35 mg/dL (7-17); Calcium 9.7 mg/dL (8.4-10.2); Carbon Dioxide 25 mmol/L (22-30); Chloride 109 mmol/L (98-107); Glucose 187 mg/dL (74-99); Non-African American GFR(CKD) 70 (>60 ml/min/1.73 sqM); Sodium 141 mmol/L (137-145); Total Bilirubin 0.4 mg/dL (0.2-1.3); Total Protein 5.9 g/dL (6.3-8.2)
[2024-08-29 13:27] LABS: NT-Pro-B-Type Natriuretic Pept 5530 pg/mL
[2024-08-29 13:29] LABS: Appearance,Urine Clear (Clear); Bilirubin,Urine Negative (Negative); Blood,Urine Small (Negative); Color,Urine Yellow; Glucose,Urine (UA) Negative (Negative); Hyaline Casts,Urine 1 /lpf (0-2); Ketones,Urine Negative (Negative); Leukocyte Esterase,Urine Negative (Negative); Mucus,Urine Rare /hpf; Nitrite,Urine Negative (Negative); Protein,Urine 1+ (Negative); RBC,Urine 25 /hpf (0-5); Specific Gravity,Urine 1.017 (1.001-1.035); Squamous Epithelial Cell,Urine <1 /hpf (0-4); Urobilinogen,Urine <2.0 mg/dL (<2.0); WBC,Urine 3 /hpf (0-5)
--- NOTE | 2024-08-29 13:29 | CT ---
EXAMINATION TYPE: CT brain wo con DATE OF EXAM: 08/29/2024 1:04 PM COMPARISON: 08/25/2024. CLINICAL INDICATION: Female, 74 years old with history of AMS, AMS TECHNIQUE: Brain: Axial CT images of the brain were obtained with coronal and sagittal reformats created and rev iewed. Contrast used: None. Oral contrast used: None. CT DLP: 1154.4 mGycm, Automated exposure control for dose reduction was used. FINDINGS: Brain: Extra-axial spaces: No abnormal extra-axial fluid collections. Left extra-axial 11 mm calcified menin gioma. Ventricular system: Within normal limits Cerebral parenchyma: No acute intraparenchymal hemorrhage or mass effect. The cabrera-white junction is well differentiated. Cerebellum: Unremarkable. Mass effect: No evidence of midline shift. Intracranial vasculature: Atherosclerotic calcifications of the intracranial vessels. Soft tissues: Normal. Calvarium/osseous structures: No depressed skull fracture. Paranasal sinuses and mastoid air cells: Mild scattered paranasal sinus disease. Visualized orbits: Bilateral aphakia IMPRESSION: No acute intracranial process. [facility], , 08/29/2024 1:27 PM
[2024-08-29 13:37] LABS: Polychromasia Present
[2024-08-29 13:42] LABS: AST 16 U/L (14-36); Alkaline Phosphatase 56 U/L (38-126)
[2024-08-29] MEDS ORDERED: PNEUMONIA PROTOCOL UTILIZED 1 EACH MISC PO PRN (13:56)
[2024-08-29] MEDS ORDERED: VANCOMYCIN IV PER PHARMACY 1 EACH MISC MISCELLANE PRN (13:56)
[2024-08-29] MEDS ORDERED: ALBUTEROL HFA INHALER INHALATION PRN (13:59)
[2024-08-29] MEDS ORDERED: ONDANSETRON 4 MG/2 ML VIAL IVP PRN (14:09)
[2024-08-29] MEDS ORDERED: NALOXONE 0.4 MG/ML 1 ML VIAL IV PRN (14:09)
--- NOTE | 2024-08-29 14:50 | CT ---
EXAMINATION TYPE: CT abdomen pelvis wo con DATE OF EXAM: 08/29/2024 2:23 PM COMPARISON: Radiograph CLINICAL INDICATION: Female, 74 years old with history of Abnormal stomach on x-ray; Large amount of air on chest x-ray , pain TECHNIQUE: Axial CT abdomen pelvis wo con;Sagittal and coronal reformats were created on a separate workstation. Contrast used: mL of , (none if empty) Oral contrast used: without Oral Contrast (none if empty) CT DLP: 1434.4 mGycm, Automated exposure control for dose reduction was used. FINDINGS: LOWER CHEST: Consolidation changes in the lung bases posteriorly bilaterally. ABDOMEN LIVER: Unremarkable GALLBLADDER AND BILE DUCTS: Unremarkable. PANCREAS: Unremarkable. SPLEEN: Unremarkable. ADRENAL GLANDS: Unremarkable. KIDNEYS AND URETERS: Nonobstructing bilateral renal calculi. Degenerative 5 mm left and 10 mm on the right. PELVIS BLADDER: No evidence for wall thickening or mass given limitations of exam. REPRODUCTIVE: Unremarkable. ABDOMEN & PELVIS STOMACH AND BOWEL: No evidence of bowel obstruction. Markedly distended gastric lumen. Air on radiogr aph correlates with distended gastric lumen. There is small bowel dilation throughout the abdomen [place] suring up to 4.1 cm. Large amount stool in the rectum measuring up to 9.3 cm in transverse dimension. Dilated tubular structure in the right lower quadrant possibly representing the appendix with append icolith measuring up to 7 mm. PERITONEUM/RETROPERITONEUM: No evidence of pneumoperitoneum or free fluid. VASCULATURE: No evidence of aortic aneurysm. MUSCULOSKELETAL: No acute osseous abnormalities. Moderate disc degeneration changes are present throu ghout the thoracolumbar spine. Fixation changes at L3-S1 present. Hardware appears intact. LYMPH NODES: No gross evidence for lymphadenopathy. SOFT TISSUE/ABDOMINAL WALL: Unremarkable IMPRESSION: 1. Air on radiograph correlates with a distended gastric lumen. There is also dilated loops of small bowel also present throughout the abdomen with relative sparing of the distal small bowel. There is a large amount stool in the colon. Findings are at least concerning for ileus versus partial bowel ob struction. Dedicated small bowel follow-through recommended with Gastrografin. 2. Dilated tubular structure with some inflammation around the right lower quadrant possibly represe nting an appendix with appendicolith. Correlate for signs and symptoms of appendicitis. 3. Nonobstructing bilateral renal calculi. 4. Bibasilar atelectasis and/or airspace disease correlate for pneumonia consider aspiration. [facility], , 08/29/2024 2:48 PM
[2024-08-29] MEDS: ALBUTEROL HFA INHALER INHALATION SCH (14:58)
[2024-08-29] MEDS: ACETAMINOPHEN TAB 500 MG TAB PO STA (15:20)
[2024-08-29] MEDS: AZITHROMYCIN 500 MG in SODIUM CHLORIDE 0.9% 250 ML IVPB STA (15:22)
--- NOTE | 2024-08-29 18:25 | P.HPIM ---
History of Present Illness H&P Date: 08/29/24 Chief Complaint: Not feeling well 74-year-old patient follows with Dr. Yanna David. Chronic medical conditions include hyperlipidemia, hypertension, osteoarthritis, herniated disc. Possible diagnosis of Parkinson's disease. Patient at baseline is nonambulatory. Does use a assist device for transfer. Very recently in the hospital from August 22, 2024 through August 27, 2024. [This last admission patient was treated with Pseudomonas UTI for outpatient treatment failure received IV cefepime in the hospital and was discharged on 7 days of IV Zosyn. Also treated for COVID-19 becoming hypoxic with dexamethasone. When patient left 2 days ago patient was awake. Tolerating diet. Answering questions. Patient's Remeron was discontinued because patient is found to contributing to her lethargy. She also neurological workup that was unremarkable. Patient's elevated white count was felt to be from underlying infection. Patient was discharged to [facility]. Patient was sent back to the ER from [facility] for the following symptoms. Less responsive. Shortness of breath. Abdominal distention. Patient is somewhat lethargic. Able answer simple question but not any further details. Denies any abdominal pain. Review of systems difficult obtain as patient somewhat lethargic Social history: No history of smoking alcohol. . Nonambulatory. Does use assistive aid for transfer. Physical examination: VITAL SIGNS: 102.2, 84, 30, 132 x 76, 93% on 4 L GENERAL: [BMI 35.2, laying in bed, a bit short of breath but lethargic EYES: Pupils equal. Conjunctiva yaz l. HEENT: [External appearance of nose and ears normal, oral cavity dry mucous membrane NECK: JVD unable to assist masses not palpable. HEART: Heart sounds distant al, some edema in the right lower extremity]. LUNGS: Respiratory rate increased, some crackles. ABDOMEN: Soft, distended nontender, liver spleen not palpable, no masses palpable. PSYCH: Lethargic. May answer occasional question MUSCULOSKELETAL:No Clubbing/cyanosis;muscles-grossly intact. Bilateral foot drop. Some swelling extremity. Dermatological: Brownish discoloration both lower extremity above the ankle. Macular. Nontender. NEUROLOGICAL: Cranial nerves grossly intact; no facial asymmetry, INVESTIGATIONS, reviewed in the clinical context: August 29, 2024: White count 27.9 hemoglobin 10.2 platelets 473 sodium 141 potassium 4 BUN 35 creatinine 0.83 CRP 5.2 proBNP 5530 EKG tracing personally reviewed by me-normal sinus rhythm. Some globally ST segment changes Chest x-ray film personally reviewed by me-scattered infiltrates. Gaseous distention in the left side. CT abdomen pelvis: Mild distended gastric lumen. Small bowel distention throughout the abdomen measuring up to 4.1 cm. Large amount of stool in the rectum up to 9.3 cm transverse dimension. Nonobstructing bilateral renal calculi. From last week EEG: Negative for seizure activity CT brain: Nothing acute. 1.1 cm meningioma left lateral convexity. August 27: White count 22.1 hemoglobin 10.7 platelets 354 August 26: Potassium 4.7 creatinine 0.83 Febrile 11: COVID-19 PCR: Detected August 24: White count 22.8 hemoglobin 11.7 platelets 322 immature granulocytes 0.22 neutrophils 40.82 lymphocytes low at 0.78 sodium 137 potassium 5.4 BUN 62 creatinine 0.99 albumin 3.2 Assessment and plan: -Probable worsening pneumonia. Would consider aspiration. Continue IV Zosyn. Consultation to ID and pulmonary. -Pseudomonas, acute UTI on admission with outpatient treatment failure Received cefepime 1 g every 12 hours initially,. And received IV Zosyn after today ID consulted -Sepsis probably from pneumonia IV fluids antibiotics. -Acute COVID-19, diagnosed August 25. Causing hypoxia: DEXA Methasone 6 mg every 12 - -Acute hypoxic respiratory failure from COVID-19 and pneumonia Oxygen 4 L -Left lateral convexity meningioma 1.1 cm. -Probable ileus involving the small bowel. And gaseous distention. Place NG tube to intermittent suction -Acute metabolic encephalopathy likely from hypoxia and infection Treat underlying conditions -Chronic medical debility Patient baseline nonambulatory. Does use a assist device to transfer. 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 Prognosis guarded. Advance care planning [August 29, 2024] Spoke to patient . Carroll. At length. Explained to him what is going currently in context of the recent admission. He does not feel the patient should go on the ventilator where she is. At this point is decided to proceed with DO NOT RESUSCITATE. Understanding full treatment plan will be given. Time spent about 20 minutes Past Medical History Past Medical History: Cancer, Hyperlipidemia, Hypertension, Osteoarthritis (OA) Additional Past Medical History / Comment(s): Well healed left leg wound(brown discoloration). Hx. of bulging disc. C-Diff infection 12/17/21. History of Any Multi-Drug Resistant Organisms: C-DIFF Date of last positivie culture/infection: 2021 MDRO Source:: stool Past Surgical History: Orthopedic Surgery, Tubal Ligation Additional Past Surgical History / Comment(s): PARATHYROIDECTOMY 1985,2009 PARTIAL THYROIDECTOMY, Low back surgery Aug 15, 2021. Peg Tube insertion October 23, 2021. right knee replacement 2019 Past Anesthesia/Blood Transfusion Reactions: No Reported Reaction Past Psychological History: No Psychological Hx Reported, Depression Smoking Status: Never smoker Past Alcohol Use History: None Reported Past Drug Use History: None Reported - Past Family History Mother Additional Family Medical History / Comment(s): OSTEOPOROSIS Father Additional Family Medical History / Comment(s): AORTIC ABD. ANEURSYN Medications and Allergies Home Medications Medication Instructions Recorded Confirmed Type Atorvastatin [Lipitor] 10 mg PO DAILY@1700 11/20/16 08/21/24 History Venlafaxine HCl [Effexor XR] 75 mg PO DAILY@0930 12/16/21 08/21/24 History Alendronate Sodium 70 mg PO TU@1200 12/23/23 08/21/24 History Apixaban [Eliquis] 2.5 mg PO BID@0930,1700 12/23/23 08/21/24 History Carbidopa/Levodopa 2 tab PO TID@0930,1700,2300 12/23/23 08/24/24 History [Carbidopa/Levodopa 25-100 Tab] Ferrous Sulfate [Iron] 325 mg PO DAILY@1200 12/23/23 08/21/24 History L.acidoph,Paracasei, B.lactis 1 cap PO DAILY@1200 12/23/23 08/21/24 History [Probiotic] Metoprolol Succinate [Toprol XL] 50 mg PO DAILY@1700 12/23/23 08/21/24 History Ondansetron [Zofran] 4 mg PO Q8HR PRN 12/23/23 08/21/24 History Oxybutynin Chloride [oxyBUTYnin 15 mg PO DAILY@0930 12/23/23 08/21/24 History chloride ER] Acetaminophen Tab [Tylenol] 1,000 mg PO Q6HR PRN 06/04/24 08/21/24 History Anastrozole [Arimidex] 1 mg PO DAILY@2300 06/04/24 08/21/24 History Folic Acid 1 mg PO DAILY@1200 06/04/24 08/21/24 History Ibuprofen [Motrin Ib] 400 mg PO Q4H PRN 06/04/24 08/21/24 History Ketoconazole 2% Cream [Nizoral 2%] 1 applic TOPICAL DAILY PRN 06/04/24 08/21/24 History Magnesium Oxide [Mag-Ox] 400 mg PO DAILY@1700 06/04/24 08/21/24 History Mupirocin 2% Oint [Bactroban 2% 1 applic TOPICAL TID PRN 06/04/24 08/21/24 History Oint] rOPINIRole HCL [Requip] 0.5 mg PO TID@0930,1700,2300 06/04/24 08/21/24 History Ketoconazole 2% Shampoo [Nizoral] 1 applic TOPICAL DAILY 08/02/24 08/21/24 History Nystatin 100,000 Unit/gm Powd 1 applic TOPICAL BID@0930,2300 08/02/24 08/21/24 History [Mycostatin Powder] Vibegron [Gemtesa] 75 mg PO DAILY@0930 08/02/24 08/21/24 History Cinacalcet [Sensipar] 60 mg PO DAILY@1200 #0 08/26/24 08/21/24 Rx Piperacillin-Tazobactam [Zosyn] 3.375 gm IVPB Q8HR #21 each 08/26/24 Rx Sodium Bicarbonate Tab 650 mg PO BID tab 08/26/24 Rx amLODIPine [Norvasc] 5 mg PO DAILY tab 08/26/24 Rx predniSONE 10 mg PO DAILY #30 tab 08/26/24 Rx Allergies Allergy/AdvReac Type Severity Reaction Status Date / Time No Known Allergies Allergy Verified 08/29/24 11:36 Physical Exam Vitals: Vital Signs Temp Pulse Resp BP Pulse Ox 08/29/24 17:02 81 28 H 132/76 92 L 08/29/24 13:06 102.2 F H 84 30 H 93 L 08/29/24 12:37 84 28 H 128/82 93 L 08/29/24 11:44 28 H 08/29/24 11:34 99.5 F 88 28 H 133/87 92 L Intake and Output 08/29/24 08/29/24 08/29/24 06:59 14:59 22:59 Other: Weight 93 kg Results CBC & Chem 7: 08/29/24 12:07 08/29/24 12:07 Labs: Abnormal Lab Results - Last 24 Hours (Table) 08/29/24 08/29/24 08/29/24 Range/Units 12:07 12:07 12:07 WBC 27.9 H (3.8-10.6) k/uL RBC 3.36 L (3.80-5.40) m/uL Hgb 10.2 L (11.4-16.0) gm/dL Hct 32.6 L (34.0-46.0) % Plt Count 473 H (150-450) k/uL Neutrophils # 26.0 H (1.3-7.7) k/uL Lymphocytes # 0.9 L (1.0-4.8) k/uL Chloride 109 H (98-107) mmol/L BUN 35 H (7-17) mg/dL Glucose 187 H (74-99) mg/dL C-Reactive Protein 5.2 H (<1.0) mg/dL Total Protein 5.9 L (6.3-8.2) g/dL Albumin 2.9 L (3.5-5.0) g/dL Urine Protein (Negative) Urine Blood (Negative) Urine RBC (0-5) /hpf Urine Mucus (None) /hpf 08/29/24 Range/Units 13:06 WBC (3.8-10.6) k/uL RBC (3.80-5.40) m/uL Hgb (11.4-16.0) gm/dL Hct (34.0-46.0) % Plt Count (150-450) k/uL Neutrophils # (1.3-7.7) k/uL Lymphocytes # (1.0-4.8) k/uL Chloride (98-107) mmol/L BUN (7-17) mg/dL Glucose (74-99) mg/dL C-Reactive Protein (<1.0) mg/dL Total Protein (6.3-8.2) g/dL Albumin (3.5-5.0) g/dL Urine Protein 1+ H (Negative) Urine Blood Small H (Negative) Urine RBC 25 H (0-5) /hpf Urine Mucus Rare H (None) /hpf
[2024-08-29] MEDS: VANCOMYCIN 1,500 MG in SODIUM CHLORIDE 0.9% 500 ML 500 ML IVPB STA (18:45)
[2024-08-29] MEDS: PIPERACILLIN-TAZOBACTAM 3.375 GM VIAL IVPB SCH (19:04)
[2024-08-29] MEDS: APIXABAN 2.5 MG TABLET PO SCH (19:05)
[2024-08-29] MEDS: DEXAMETHASONE SOD PHOSPHATE 10 MG/ML 1 ML VIAL IVP SCH (19:05)
[2024-08-29] MEDS: SODIUM BICARBONATE TAB 650 MG TAB PO SCH (21:23)
[2024-08-29] MEDS: ENOXAPARIN 40 MG/0.4 ML SYRINGE SQ SCH (21:43)
[2024-08-30] MEDS: CARBIDOPA-LEVODOPA 25-100 MG 1 EACH TAB PO SCH (00:09)
[2024-08-30] MEDS: ANASTROZOLE 1 MG TAB PO SCH (00:10)
--- NOTE | 2024-08-30 01:21 | XR ---
EXAM: XR Chest, 1 View CLINICAL HISTORY: ITS.REASON XR Reason: ngt placement TECHNIQUE: Frontal view of the chest. COMPARISON: 08/29/24 FINDINGS/IMPRESSION: Enteric tube loops in the lower esophagus with distal tip extending cephalad beyond the [id number]. Recommend repositioning. Marked gaseous distention of stomach and small bowel. Compared to prior, mildly improved aeration of the lungs. Persistent bibasilar opacities. No pleural effusion or pneumothorax. Stable heart size. Thoracolumbar spondylosis. Partially imaged lumbar fixation hardware.
--- NOTE | 2024-08-30 01:30 | XR ---
EXAM: XR Chest, 1 View CLINICAL HISTORY: ITS.REASON XR Reason: NGT placement confirmation TECHNIQUE: Frontal view of the chest. COMPARISON: 08/30/24 at 0019 hours FINDINGS/IMPRESSION: 1. Repositioned enteric tube, tip now located at the gastroesophageal junction, side port in the distal esophagus. Recommend advancing 10-15 cm into the stomach. 2. Persistent gaseous distention of stomach and small bowel.
[2024-08-30] MEDS: PANTOPRAZOLE 40 MG/10 ML VIAL IV SCH (09:23)
[2024-08-30] MEDS: amLODIPine 5 MG TAB PO SCH (09:32)
[2024-08-30] MEDS: NON FORMULARY DRUG (Vibegron [Gemtesa] 75 MG Tablet) PO SCH (11:36)
--- NOTE | 2024-08-30 12:36 | P.CNPUL ---
History of Present Illness Consult date: 08/30/24 Requesting physician: Sotero Corrigan Reason for consult: dyspnea, hypoxemia, abnormal CXR/CT Chief complaint: Altered mental status, hypoxemia History of present illness: This is a 74-year-old female patient who has a history of obesity, hypertension, hyperlipidemia, osteoarthritis who was just discharged from here 2 days prior to arrival in the emergency room yesterday. She had been treated for Pseudomonas UTI and COVID-19 infection. She was discharged to [facility]. She was brought back because of altered mental status and confusion. She had still been receiving Zosyn via midline for her UTI. CT scan of the brain revealed no acute intracranial process. Chest x-ray reveals multifocal airspace opacities worse on the right concerning for pneumonia. There is gaseous distention of the left upper quadrant. Possible PEG tube malfunction. CT scan of the abdomen reveals distended gastric lumen. There are also dilated loops of small bowel present throughout the abdomen with relative sparing of the distant small bowel. Large amount of stool in the colon. Concerning for ileus versus possible partial bowel obstruction. Bibasilar atelectasis and/or airspace disease correlate for pneumonia, possible aspiration. 27.9. Hemoglobin 10.2. Platelets 473. Sodium 141. Potassium 4.0. Bicarb 25. BUN 35. Creatinine 0.83. Glucose 187. She is seen today in consultation in the emergency department. She is currently resting on a stretcher. She is arousable. Able to state her name. Maintaining O2 saturations in the 90s on 4 L/min per nasal cannula. She is afebrile. H emodynamically stable. Nasogastric tube has been placed. Review of Systems ROS unobtainable: due to mental status Past Medical History Past Medical History: Cancer, Hyperlipidemia, Hypertension, Osteoarthritis (OA) Additional Past Medical History / Comment(s): Well healed left leg wound(brown discoloration). Hx. of bulging disc. C-Diff infection 12/17/21. History of Any Multi-Drug Resistant Organisms: C-DIFF Date of last positivie culture/infection: 2021 MDRO Source:: stool Past Surgical History: Orthopedic Surgery, Tubal Ligation Additional Past Surgical History / Comment(s): PARATHYROIDECTOMY 1985,2009 PARTIAL THYROIDECTOMY, Low back surgery Aug 15, 2021. Peg Tube insertion October 23, 2021. right knee replacement 2019 Past Anesthesia/Blood Transfusion Reactions: No Reported Reaction Past Psychological History: No Psychological Hx Reported, Depression Smoking Status: Never smoker Past Alcohol Use History: None Reported Past Drug Use History: None Reported - Past Family History Mother Additional Family Medical History / Comment(s): OSTEOPOROSIS Father Additional Family Medical History / Comment(s): AORTIC ABD. ANEURSYN Medications and Allergies Home Medications Medication Instructions Recorded Confirmed Type Atorvastatin [Lipitor] 10 mg PO DAILY@1700 11/20/16 08/29/24 History Venlafaxine HCl [Effexor XR] 75 mg PO DAILY@0800 12/16/21 08/29/24 History Alendronate Sodium 70 mg PO TU@1200 12/23/23 08/29/24 History Apixaban [Eliquis] 2.5 mg PO BID@0800,1700 12/23/23 08/29/24 History Carbidopa/Levodopa 2 tab PO TID@0800,1700,2300 12/23/23 08/29/24 History [Carbidopa/Levodopa 25-100 Tab] Ferrous Sulfate [Iron] 325 mg PO DAILY@119912/23/23 08/29/24 History L.acidoph,Paracasei, B.lactis 1 cap PO DAILY@1200 12/23/23 08/29/24 History [Probiotic] Metoprolol Succinate [Toprol XL] 50 mg PO DAILY@17012/23/23 08/29/24 History Ondansetron [Zofran] 4 mg PO Q8HR PRN 12/23/23 08/29/24 History Oxybutynin Chloride [oxyBUTYnin 15 mg PO DAILY@0800 12/23/23 08/29/24 History chloride ER] Acetaminophen Tab [Tylenol] 1,000 mg PO Q6HR PRN 06/04/24 08/29/24 History Anastrozole [Arimidex] 1 mg PO DAILY@2300 06/04/24 08/29/24 History Folic Acid 1 mg PO DAILY@1200 06/04/24 08/29/24 History Ibuprofen [Motrin Ib] 400 mg PO Q4H PRN 06/04/24 08/29/24 History Ketoconazole 2% Cream [Nizoral 2%] 1 applic TOPICAL DAILY PRN 06/04/24 08/29/24 History Magnesium Oxide [Mag-Ox] 400 mg PO DAILY@1700 06/04/24 08/29/24 History Mupirocin 2% Oint [Bactroban 2% 1 applic TOPICAL TID PRN 06/04/24 08/29/24 History Oint] rOPINIRole HCL [Requip] 0.5 mg PO TID@0800,1200,1700 06/04/24 08/29/24 History Ketoconazole 2% Shampoo [Nizoral] 1 applic TOPICAL DAILY 08/02/24 08/29/24 History Nystatin 100,000 Unit/gm Powd 1 applic TOPICAL BID 08/02/24 08/29/24 History [Mycostatin Powder] Vibegron [Gemtesa] 75 mg PO DAILY@0800 08/02/24 08/29/24 History Cinacalcet [Sensipar] 60 mg PO DAILY@1200 #0 08/26/24 08/29/24 Rx Piperacillin-Tazobactam [Zosyn] 3.375 gm IVPB Q8HR #21 each 08/26/24 08/29/24 Rx Ensure Enlive 237 ml PO TID@0800,1200,1700 08/29/24 08/29/24 History Ipratropium-Albuterol Nebulize 3 ml INHALATION RT-Q6H 08/29/24 08/29/24 History [Duoneb 0.5 mg-3 mg/3 ml Soln] Magnesium Hydroxide [Milk of 7,200 mg PO DAILY PRN 08/29/24 08/29/24 History Magnesia Concentrate] Na Phos,M-B/Na Phos,Di-Ba [Fleet 133 ml RECTAL DAILY PRN 08/29/24 08/29/24 History Adult] Sodium Bicarbonate Tab 650 mg PO BID@0800,1700 08/29/24 08/29/24 History amLODIPine [Norvasc] 5 mg PO DAILY@0800 08/29/24 08/29/24 History bisacodyL [Dulcolax] 10 mg RECTAL DAILY PRN 08/29/24 08/29/24 History predniSONE See Taper PO DAILY@0800 08/29/24 08/29/24 History Allergies Allergy/AdvReac Type Severity Reaction Status Date / Time No Known Allergies Allergy Verified 02/15/25 18:33 Physical Exam Vitals: Vital Signs Temp Pulse Pulse Resp BP BP Pulse Ox 08/30/24 09:19 98.1 F 74 18 146/79 93 L 08/30/24 06:49 79 18 119/70 93 L 08/30/24 04:37 73 16 129/99 94 L 08/30/24 03:21 79 18 149/90 94 L 08/30/24 00:10 74 18 121/74 92 L 08/29/24 22:13 100.2 F H 82 18 120/78 92 L 08/29/24 20:09 92 L 08/29/24 19:30 80 28 H 137/86 92 L 08/29/24 17:02 81 28 H 132/76 92 L 08/29/24 13:06 102.2 F H 84 30 H 93 L 08/29/24 12:37 84 28 H 128/82 93 L Intake and Output 08/29/24 08/30/24 08/30/24 22:59 06:59 14:59 Other: Voiding Method Incontinent GENERAL EXAM: Arousable, obtunded obese 74-year-old female on 4 L nasal cannula, in no apparent distress. HEAD: Normocephalic. EYES: Normal reaction of pupils, equal size. NOSE: Clear with pink turbinates. Nasogastric tube in place. THROAT: No erythema or exudates. NECK: No masses, no JVD. CHEST: No chest wall deformity. LUNGS: Equal air entry with crackles in the bilateral bases. CVS: S1 and S2 normal with no audible murmur, regular rhythm. ABDOMEN: No hepatosplenomegaly, normal bowel sounds, no guarding or rigidity. SPINE: No scoliosis or deformity SKIN: No rashes CENTRAL NERVOUS SYSTEM: No focal deficits, tone is normal in all 4 extremities. EXTREMITIES: Changes of chronic venous stasis. There is no peripheral edema. No clubbing, no cyanosis. Peripheral pulses are intact. Results - Laboratory Findings CBC and BMP: 08/29/24 12:07 08/29/24 12:07 Abnormal lab findings: Abnormal Labs 08/29/24 08/29/24 08/29/24 12:07 12:07 12:07 WBC 27.9 H RBC 3.36 L Hgb 10.2 L Hct 32.6 L Plt Count 473 H Neutrophils # 26.0 H Lymphocytes # 0.9 L Chloride 109 H BUN 35 H Glucose 187 H C-Reactive Protein 5.2 H Total Protein 5.9 L Albumin 2.9 L Urine Protein Urine Blood Urine RBC Urine Mucus 08/29/24 13:06 WBC RBC Hgb Hct Plt Count Neutrophils # Lymphocytes # Chloride BUN Glucose C-Reactive Protein Total Protein Albumin Urine Protein 1+ H Urine Blood Small H Urine RBC 25 H Urine Mucus Rare H - Diagnostic Findings Chest x-ray: image reviewed CT scan - chest: image reviewed Assessment and Plan Assessment: Altered mental status of unclear etiology, possible metabolic encephalopathy Acute hypoxemic respiratory failure secondary to suspected aspiration pneumonia Abdominal distention secondary to possible small bowel obstruction versus ileus. Nasogastric tube in place Leukocytosis secondary to above Recent hospitalization here for pseudomonal UTI, acute COVID 19 infection discharged on 08/27/2024 to [facility] Hypertension Hyperlipidemia Restless leg syndrome History of depression History of Parkinson's disease Poor functional performance based on the above-mentioned multiple comorbidities Hand: The patient was seen and evaluated Imaging, labs and medications reviewed Currently on 4 L nasal cannula Titrate the FiO2 as tolerated Continued on Decadron from previous COVID infection Anticoagulated with Eliquis for immobility Continued on Zosyn for recent UTI Continue albuterol HFA Protonix for GI prophylaxis We will continue to follow and make further recommendations based on her clini pina status I have personally seen and examined the patient, performed the documentation and the assessment and plan as written. Number of minutes spent on the visit: 20 Dictation was produced using [employer] dictation software. Please excuse any grammatical, word or spelling errors.
[2024-08-30] MEDS: FOLIC ACID 1 MG TAB PO SCH (13:34)
[2024-08-30] MEDS: CINACALCET 30 MG TAB PO SCH (13:34)
[2024-08-30] MEDS: ATORVASTATIN 10 MG TAB PO SCH (17:29)
--- NOTE | 2024-08-30 19:03 | P.PN ---
Progress Note - Text Progress Note Date: 08/30/24 Chief Complaint: Not feeling well 74-year-old patient follows with Dr. Yanna David. Chronic medical conditions include hyperlipidemia, hypertension, osteoarthritis, herniated disc. Possible diagnosis of Parkinson's disease. Patient at baseline is nonambulatory. Does use a assist device for transfer. Very recently in the hospital from August 22, 2024 through August 27, 2024. [This last admission patient was treated with Pseudomonas UTI for outpatient t reatment failure received IV cefepime in the hospital and was discharged on 7 days of IV Zosyn. Also treated for COVID-19 becoming hypoxic with dexamethasone. When patient left 2 days ago patient was awake. Tolerating diet. Answering questions. Patient's Remeron was discontinued because patient is found to contributing to her lethargy. She also neurological workup that was unremarkable. Patient's elevated white count was felt to be from underlying infection. Patient was discharged to [facility]. Patient was sent back to the ER from [facility] for the following symptoms. Less responsive. Shortness of breath. Abdominal distention. Patient is somewhat lethargic. Able answer simple question but not any further details. Denies any abdominal pain. August 30: Lungs sounding a bit better. Bit more awake. Tired. On IV Zosyn. 4 L nasal cannula. Answering simple questions. NG tube to intermittent suction. Large output. Getting oral medications through the NG tube. Spoke to daughter at the bedside. Active Medications Acetaminophen (Acetaminophen Tab 325 Mg Tab) 650 mg PO Q6HR PRN PRN Reason: Mild Pain or Fever > 100.5 Albuterol Sulfate (Albuterol Hfa Inhaler) 2 puff INHALATION RT-Q6H PRN PRN Reason: Shortness Of Breath Or Wheezing Albuterol Sulfate (Albuterol Hfa Inhaler) 2 puff INHALATION RT-Q6H [facility] Last Admin: 08/30/24 17:09 Dose: Not Given Amlodipine Besylate (Amlodipine 5 Mg Tab) 5 mg PO DAILY [facility] Last Admin: 08/30/24 09:32 Dose: 5 mg Anastrozole (Anastrozole 1 Mg Tab) 1 mg PO DAILY@2300 [facility] Last Admin: 08/30/24 00:10 Dose: 1 mg Apixaban (Apixaban 2.5 Mg Tablet) 2.5 mg PO BID@0930,1700 [facility]; Protocol Last Admin: 08/30/24 17:29 Dose: 2.5 mg Atorvastatin Calcium (Atorvastatin 10 Mg Tab) 10 mg PO DAILY@1700 [facility] Last Admin: 08/30/24 17:29 Dose: 10 mg Carbidopa/Levodopa (Carbidopa-Levodopa 25-100 Mg 1 Each Tab) 2 each PO TID@0930,1700,2300 [facility] Last Admin: 08/30/24 17:29 Dose: 2 each Cinacalcet (Cinacalcet 30 Mg Tab) 60 mg PO DAILY@1200 [facility] Last Admin: 08/30/24 13:34 Dose: Not Given Dexamethasone Sodium Phosphate (Dexamethasone Sod Phosphate 10 Mg/Ml 1 Ml Vial) 6 mg IVP BID [facility] Last Admin: 08/30/24 09:24 Dose: 6 mg Folic Acid (Folic Acid 1 Mg Tab) 1 mg PO DAILY@1200 [facility] Last Admin: 08/30/24 13:34 Dose: Not Given Miscellaneous Information (Pneumonia Protocol Utilized 1 Each Misc) 1 each PO ONCE PRN PRN Reason: Per Protocol Naloxone HCl (Naloxone 0.4 Mg/Ml 1 Ml Vial) 0.2 mg IV Q2M PRN PRN Reason: Opioid Reversal Non-Formulary Medication (Vibegron [Gemtesa]) 75 mg PO DAILY@0930 [facility] Last Admin: 08/30/24 11:36 Dose: Not Given Ondansetron HCl (Ondansetron 4 Mg/2 Ml Vial) 4 mg IVP Q8HR PRN PRN Reason: Nausea And Vomiting Pantoprazole Sodium (Pantoprazole 40 Mg/10 Ml Vial) 40 mg IV DAILY [facility] Last Admin: 08/30/24 09:23 Dose: 40 mg Piperacillin Sod/Tazobactam Sod (Piperacillin-Tazobactam 3.375 Gm Vial) 3.375 gm IVPB Q8HR [facility]; Protocol Last Admin: 08/30/24 17:29 Dose: 3.375 gm Ropinirole HCl (Ropinirole Hcl 0.25 Mg Tab) 0.5 mg PO TID@0930,1700,2300 [facility] Last Admin: 08/30/24 17:29 Dose: 0.5 mg Sodium Bicarbonate (Sodium Bicarbonate Tab 650 Mg Tab) 650 mg PO BID [facility] Last Admin: 08/30/24 09:31 Dose: 650 mg Social history: No history of smoking alcohol. . Nonambulatory. Does use assistive aid for transfer. Physical examination: VITAL SIGNS: Tmax 102.2 yesterday, today 98.1, 80, 20, 155 x 74, 94% on 4 L GENERAL: [BMI 35.2, laying in bed, tired EYES: Pupils equal. Conjunctiva yaz l. HEENT: [External appearance of nose and ears normal, oral cavity dry mucous membrane. NG tube to intermittent suction NECK: JVD unable to assist masses not palpable. HEART: Heart sounds distant al, some edema in the right lower extremity]. LUNGS: Respiratory rate increased, some crackles. ABDOMEN: Soft, a bit less distended, nontender, liver spleen not palpable, no masses palpable. PSYCH: Bit more awake today. May answer occasional question MUSCULOSKELETAL:No Clubbing/cyanosis;muscles-grossly intact. Bilateral foot drop. Some swelling extremity. Dermatological: Brownish discoloration both lower extremity above the ankle. Macular. Nontender. NEUROLOGICAL: Cranial nerves grossly intact; no facial asymmetry, INVESTIGATIONS, reviewed in the clinical context: August 29, 2024: White count 27.9 hemoglobin 10.2 platelets 473 sodium 141 potassium 4 BUN 35 creatinine 0.83 CRP 5.2 proBNP 5530. Procalcitonin 0.15 EKG tracing personally reviewed by me-normal sinus rhythm. Some globally ST segment changes Chest x-ray film personally reviewed by me-scattered infiltrates. Gaseous distention in the left side. CT abdomen pelvis: Mild distended gastric lumen. Small bowel distention throughout the abdomen measuring up to 4.1 cm. Large amount of stool in the rectum up to 9.3 cm transverse dimension. Nonobstructing bilateral renal calculi. From last week EEG: Negative for seizure activity CT brain: Nothing acute. 1.1 cm meningioma left lateral convexity. August 27: White count 22.1 hemoglobin 10.7 platelets 354 August 26: Potassium 4.7 creatinine 0.83 Febrile 11: COVID-19 PCR: Detected August 24: White count 22.8 hemoglobin 11.7 platelets 322 immature granulocytes 0.22 neutrophils 40.82 lymphocytes low at 0.78 sodium 137 potassium 5.4 BUN 62 creatinine 0.99 albumin 3.2 Assessment and plan: -Probable worsening pneumonia. Would consider aspiration. Continue IV Zosyn. Consultation to ID and pulmonary. -Pseudomonas, acute UTI on last admission with outpatient treatment failure Received cefepime 1 g every 12 hours initially,. And received IV Zosyn and was discharged on the same. Continued ID on the case -Sepsis probably from pneumonia IV fluids antibiotics. -Acute COVID-19, diagnosed August 25 [last admission]. Causing hypoxia: DEXA Methasone 6 mg every 12 - -Acute hypoxic respiratory failure from COVID-19 and pneumonia Oxygen 4 L -Left lateral convexity meningioma 1.1 cm. -Probable ileus involving the small bowel. And gaseous distention.: Slow improvement Continue NG tube to intermittent suction -Acute metabolic encephalopathy likely from hypoxia and infection: Some improvement Treat underlying conditions -Chronic medical debility Patient baseline nonambulatory. Does use a assist device to transfer. 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 Carroll. At length. Explained to him what is going currently in context of the recent admission. He does not feel the patient should go on the ventilator where she is. At this point is decided to proceed with DO NOT RESUSCITATE. Understanding full treatment plan will be given. Time spent about 20 minutes Gnosis guarded. Past Medical History Past Medical History: Cancer, Hyperlipidemia, Hypertension, Osteoarthritis (OA) Additional Past Medical History / Comment(s): Well healed left leg wound(brown discoloration). Hx. of bulging disc. C-Diff infection 12/17/21. History of Any Multi-Drug Resistant Organisms: C-DIFF Date of last positivie culture/infection: 2021 MDRO Source:: stool Past Surgical History: Orthopedic Surgery, Tubal Ligation Additional Past Surgical History / Comment(s): PARATHYROIDECTOMY 1985,2009 PARTIAL THYROIDECTOMY, Low back surgery Aug 15, 2021. Peg Tube insertion October 23, 2021. right knee replacement 2019 Past Anesthesia/Blood Transfusion Reactions: No Reported Reaction Past Psychological History: No Psychological Hx Reported, Depression Smoking Status: Never smoker Past Alcohol Use History: None Reported Past Drug Use History: None Reported
[2024-08-30] MEDS: ALBUTEROL HFA INHALER INHALATION SCH (19:49)
[2024-08-30 22:53] LABS: African American GFR (CKD) >90 (>60 ml/min/1.73 sqM); Non-African American GFR(CKD) 81 (>60 ml/min/1.73 sqM)
--- NOTE | 2024-08-30 23:07 | P.CONS ---
History of Present Illness - Reason for Consult Consult date: 08/30/24 COVID-pneumonia Requesting physician: Janki Jason - Chief Complaint Decreased level of responsiveness and hypoxemia x 1 day - History of Present Illness Patient is a 74-year-old female with a past medical history significant for parkinsonism hypertension hyperlipidemia osteoarthritis recently treated at this facility for Pseudomonas UTI also have elevated white count and the patient was transferred to the residential on IV Zosyn patient has been brought back to the hospital for evaluation of increasing shortness of breath and mental status changes, apparently also noticed to have worsening hypoxemia for the patient has been brought back to the hospital on arrival to the ER the patient initially have low-grade fever 99.5 subsequently spiked a temperature of 102.2 F patient was nontachycardic or hypotensive mildly hypoxic currently on 4 L nasal cannula oxygen patient did have a white count of 27.9 creatinine 0.83 electrolytes has been normal liver isms are normal urine has been negative patient did have chest x-ray multifocal airspace opacity worse on the right side concerning for pneumonia and gaseous distention of the left upper quadrant, subsequent did have a abdominal pelvis CT consult due to changes in the lungs bases bilaterally and air on the radiograph correlate with distended gastric lumen and also have dilated loops of the small bowel concerning for partial small bowel obstruction and there was tubular structure with some inflammation of the right lower quadrant possibly representing an appendix with appendicolith patient has been started on dexamethasone continue Zosyn infectious he was consulted for further management of antibiotic therapy most information has been obtained for review the chart talking the family the bedside the patient did not provide any history Review of Systems Positive point and negatives has been mentioned in the HPI, complete review of systems was performed and all other systems are negative Past Medical History Past Medical History: Cancer, Hyperlipidemia, Hypertension, Osteoarthritis (OA) Additional Past Medical History / Comment(s): Well healed left leg wound(brown discoloration). Hx. of bulging disc. C-Diff infection 12/17/21. History of Any Multi-Drug Resistant Organisms: C-DIFF Year Discovered:: 2021 MDRO Source:: stool Past Surgical History: Orthopedic Surgery, Tubal Ligation Additional Past Surgical History / Comment(s): PARATHYROIDECTOMY 1985,2009 PART IAL THYROIDECTOMY, Low back surgery Aug 15, 2021. Peg Tube insertion October 23, 2021. right knee replacement 2019 Past Anesthesia/Blood Transfusion Reactions: No Reported Reaction Past Psychological History: No Psychological Hx Reported, Depression Smoking Status: Never smoker Past Alcohol Use History: None Reported Past Drug Use History: None Reported - Past Family History Mother Additional Family Medical History / Comment(s): OSTEOPOROSIS Father Additional Family Medical History / Comment(s): AORTIC ABD. ANEURSYN Medications and Allergies Home Medications Medication Instructions Recorded Confirmed Type Atorvastatin [Lipitor] 10 mg PO DAILY@1700 11/20/16 08/29/24 History Venlafaxine HCl [Effexor XR] 75 mg PO DAILY@0800 12/16/21 08/29/24 History Alendronate Sodium 70 mg PO TU@1200 12/23/23 08/29/24 History Apixaban [Eliquis] 2.5 mg PO BID@0800,1700 12/23/23 08/29/24 History Carbidopa/Levodopa 2 tab PO TID@0800,1700,2300 12/23/23 08/29/24 History [Carbidopa/Levodopa 25-100 Tab] Ferrous Sulfate [Iron] 325 mg PO DAILY@1200 12/23/23 08/29/24 History L.acidoph,Paracasei, B.lactis 1 cap PO DAILY@1200 12/23/23 08/29/24 History [Probiotic] Metoprolol Succinate [Toprol XL] 50 mg PO DAILY@17012/23/23 08/29/24 History Ondansetron [Zofran] 4 mg PO Q8HR PRN 12/23/23 08/29/24 History Oxybutynin Chloride [oxyBUTYnin 15 mg PO DAILY@0800 12/23/23 08/29/24 History chloride ER] Acetaminophen Tab [Tylenol] 1,000 mg PO Q6HR PRN 06/04/24 08/29/24 History Anastrozole [Arimidex] 1 mg PO DAILY@2300 06/04/24 08/29/24 History Folic Acid 1 mg PO DAILY@1200 06/04/24 08/29/24 History Ibuprofen [Motrin Ib] 400 mg PO Q4H PRN 06/04/24 08/29/24 History Ketoconazole 2% Cream [Nizoral 2%] 1 applic TOPICAL DAILY PRN 06/04/24 08/29/24 History Magnesium Oxide [Mag-Ox] 400 mg PO DAILY@1700 06/04/24 08/29/24 History Mupirocin 2% Oint [Bactroban 2% 1 applic TOPICAL TID PRN 06/04/24 08/29/24 History Oint] rOPINIRole HCL [Requip] 0.5 mg PO TID@0800,1200,1700 06/04/24 08/29/24 History Ketoconazole 2% Shampoo [Nizoral] 1 applic TOPICAL DAILY 08/02/24 08/29/24 History Nystatin 100,000 Unit/gm Powd 1 applic TOPICAL BID 08/02/24 08/29/24 History [Mycostatin Powder] Vibegron [Gemtesa] 75 mg PO DAILY@0800 08/02/24 08/29/24 History Cinacalcet [Sensipar] 60 mg PO DAILY@1200 #0 08/26/24 08/29/24 Rx Piperacillin-Tazobactam [Zosyn] 3.375 gm IVPB Q8HR #21 each 08/26/24 08/29/24 Rx Ensure Enlive 237 ml PO TID@0800,1200,1700 08/29/24 08/29/24 History Ipratropium-Albuterol Nebulize 3 ml INHALATION RT-Q6H 08/29/24 08/29/24 History [Duoneb 0.5 mg-3 mg/3 ml Soln] Magnesium Hydroxide [Milk of 7,200 mg PO DAILY PRN 08/29/24 08/29/24 History Magnesia Concentrate] Na Phos,M-B/Na Phos,Di-Ba [Fleet 133 ml RECTAL DAILY PRN 08/29/24 08/29/24 History Adult] Sodium Bicarbonate Tab 650 mg PO BID@0800,1700 08/29/24 08/29/24 History amLODIPine [Norvasc] 5 mg PO DAILY@0800 08/29/24 08/29/24 History bisacodyL [Dulcolax] 10 mg RECTAL DAILY PRN 08/29/24 08/29/24 History predniSONE See Taper PO DAILY@0800 08/29/24 08/29/24 History Allergies Allergy/AdvReac Type Severity Reaction Status Date / Time No Known Allergies Allergy Verified 08/29/24 18:33 Physical Exam Vitals: Vital Signs Temp Pulse Pulse Resp BP BP Pulse Ox 02/16/25 13:35 80 16 155/74 94 L 08/30/24 12:00 94 L 08/30/24 09:19 98.1 F 74 18 146/79 93 L 08/30/24 06:49 79 18 119/70 93 L 08/30/24 04:37 73 16 129/99 94 L 08/30/24 03:21 79 18 149/90 94 L 08/30/24 00:10 74 18 121/74 92 L 08/29/24 22:13 100.2 F H 82 18 120/78 92 L 08/29/24 20:09 92 L 08/29/24 19:30 80 28 H 137/86 92 L 08/29/24 17:02 81 28 H 132/76 92 L Intake and Output 08/29/24 08/30/24 08/30/24 22:59 06:59 14:59 Other: Voiding Method Incontinent GENERAL DESCRIPTION: Elderly female lying in bed, no distress. No tachypnea or accessory muscle of respiration use. HEENT: Shows Pallor , no scleral icterus. Oral mucous membrane is dry. NECK: Trachea central, no thyromegaly. LUNGS: Unlabored breathing. Decreased breath sound the base HEART: S1, S2, regular rate and rhythm. No loud murmur ABDOMEN: Soft, no tenderness , guarding or rigidity, no organomegaly EXTREMITIES: No edema of feet. SKIN: No rash, no masses palpable. NEUROLOGICAL: The patient is lethargic but arousable mood and affect normal. Results CBC & Chem 7: 08/29/24 12:07 08/30/24 21:11 Labs: Abnormal Lab Results - Last 24 Hours (Table) 08/29/24 Range/Units 12:07 C-Reactive Protein 5.2 H (<1.0) mg/dL Assessment and Plan (1) Altered mental status Current Visit: Yes Status: Acute Code(s): R41.82 - ALTERED MENTAL STATUS, U NSPECIFIED SNOMED Code(s): 183646574 (2) Pneumonia due to COVID-19 virus Current Visit: Yes Status: Acute Code(s): U07.1 - COVID-19; J12.82 - PNEUMONIA DUE TO CORONAVIRUS DISEASE 2019 SNOMED Code(s): 538431667782832087 (3) Leukocytosis Current Visit: No Status: Acute Priority: Medium Code(s): D72.829 - ELEVATED WHITE BLOOD CELL COUNT, UNSPECIFIED SNOMED Code(s): 068648769 Plan: 1patient presented to hospital with mental status changes in this patient who also noted to be hypoxemic recently diagnosed with COVID-19 on 08/25/2024 now with evidence of multifocal infiltrate and bibasilar infiltrate concerning for possible COVID versus secondary bacterial pneumonia patient also noted to have some abnormality on the CT abdominal pelvis with a question for possible appendicitis though no significant tenderness to the right lower quadrant was noticed on Examination General Surgery has been consulted 2-patient had been started on dexamethasone to continue with Zosyn try to obtain a sputum for Gram stain and culture Family at the bedside question consult We will follow on clinical condition and cultures to further adjust medication if needed Thank you for this consultation we will follow the patient along with you Dictation was produced using [employer] dictation software. please excuse any grammatical, word or spelling errors. Time with Patient: Greater than 30
--- NOTE | 2024-08-31 09:41 | XR ---
EXAMINATION TYPE: XR chest 1V DATE OF EXAM: 08/31/2024 9:30 AM COMPARISON: 08/30/2024 CLINICAL INDICATION: Female, 74 years old with history of NG tube placement, TECHNIQUE: XR chest 1V view(s) obtained. FINDINGS: Degree of inspiration is limited. The heart size is normal. The pulmonary vasculature is normal. There may be a moderate right pleural effusion. Right lower lobe infiltrate may be present. Nasogastric tube transverses the thorax the tip in the left upper quadrant of the abdomen IMPRESSION: 1. Right lower lobe infiltrate and right pleural effusion. 2. Nasogastric tube transverses the thorax. [facility], , 08/31/2024 9:39 AM
[2024-08-31] MEDS: METOPROLOL SUCCINATE (ER) 50 MG TAB.ER.24H PO SCH (09:43)
--- NOTE | 2024-08-31 09:43 | XR ---
EXAMINATION TYPE: XR abdomen 2V DATE OF EXAM: 08/31/2024 9:30 AM COMPARISON: None. CLINICAL INDICATION: Female, 74 years old with history of Nausea, TECHNIQUE: XR abdomen 2V view(s) obtained. FINDINGS: Colonic bowel gas is in the transverse colon. There are dilated small bowel loops containing air in t he midabdomen. Correlate for early obstruction or ileus. Air-fluid levels or differential air-fluid l evels are not identified. Psoas margins are poorly visualized. There is fixation evident within the lumbar spine L3-S1. No organomegaly is present. Nasogastric tube is present with the tip in the proximal left upper quadrant of the abdomen. IMPRESSION: 1. Dilated air-filled small bowel loops. Correlate for early small bowel obstruction or ileus. [facility], , 08/31/2024 9:41 AM
--- NOTE | 2024-08-31 11:32 | XR ---
EXAMINATION TYPE: XR chest 1V portable DATE OF EXAM: 08/31/2024 11:27 AM COMPARISON: 08/31/2024 earlier exam CLINICAL INDICATION: Female, 74 years old with history of NG placement, TECHNIQUE: XR chest 1V portable view(s) obtained. FINDINGS: The heart size is normal. The pulmonary vasculature is normal. Small right pleural effusion is present Nasogastric tube is in place with the tip in the abdomen. IMPRESSION: 1. Small right pleural effusion. 2. Nasogastric tube placement with the tip in the region of the abdomen. Air remains present within t he stomach. [facility], , 08/31/2024 11:29 AM
--- NOTE | 2024-08-31 11:57 | P.CRDCN ---
History of Present Illness Consult date: 08/31/24 Reason for Consult (text): Runs of A-fib with RVR History of present illness: This is a 74-year-old female with past medical history of hypertension, hyperlipidemia, osteoarthritis. Patient does not follow in the [facility] office. We have been asked to evaluate the patient for runs of A-fib with RVR. Patient was recently hospitalized and treated for Pseudomonas UTI and COVID-19 infection and was discharged to [facility]. She apparently had mental status changes and was brought back into the hospital. Patient denies having a ny chest pain or shortness of breath at this time. Patient apparently has been having short runs of A-fib with RVR and then converting back to sinus rhythm. Patient is currently in a sinus rhythm at the time of this evaluation. She is on anticoagulation with Eliquis. Atrial fibrillation is not listed in her history. Reviewed previous EKGs and all have been sinus rhythm. Blood pressure 132/96, heart rate 80, pulse ox 97% on 4 L nasal cannula. -EKG: Sinus rhythm 90 bpm. -Chest x-ray: Performed 08/31: Right lower lobe infiltrate and right pleural effusion. NG tube. -CT brain: No acute process. -CT abdomen and pelvis without contrast revealed distended gastric lumen. Dilated loops of small bowel. Large amount of stool in the colon. Concerning for ileus versus partial bowel obstruction. Possible appendicolith. Nonobstructing bilateral renal calculi. Bibasilar atelectasis and/or airspace disease correlate for pneumonia consider aspiration. -Laboratory studies: WBC 27.9, hemoglobin 10.2, platelet count 473. Sodium 141, potassium 4, BUN 35 creatinine 0.83. C-reactive protein 5.2. proBNP 5530. Procalcitonin 0.15. COVID detected. -Home cardiac medications: Amlodipine 5 mg daily, Eliquis 2.5 mg twice daily, ferrous sulfate 325 mg daily, magnesium oxide 400 mg daily, Toprol XL 50 mg daily. Review Of Systems: At the time of my exam: Patient is unable to provide detailed information due to mental status changes. Physical examination: Gen: This is a 74-year-old female appears to be in no acute respiratory distress, slow to respond VS: reviewed HEENT: Head is atraumatic, normocephalic. Pupils equal, round. Sclerae is anicteric. NECK: Supple. No JVD. LUNGS: Diminished bilateral bases. No intercostal retractions. HEART: Regular rate and rhythm. No murmur. ABDOMEN: Soft No tenderness. EXTREMITIES: No pedal edema. No calf tenderness. NEUROLOGICAL: Patient is awake, slow to respond and answer questions. Assessment: Sinus rhythm with runs of A-fib with RVR Metabolic encephalopathy COVID-19 Acute hypoxic respiratory failure secondary to aspiration pneumonia Possible ileus versus bowel obstruction with NG tube Recent hospitalization for Pseudomonas UTI, acute COVID infection and discharged on 08/27 to [facility] Hypertension Hyperlipidemia Parkinson's Plan: Resume patient's home cardiac medications Increase Toprol XL to 50 mg in the morning and 25 mg in the evening Obtain 2-D echocardiogram and Doppler study to assess cardiac structure and function Continue telemetry monitoring Further recommendations to follow based upon clinical course Thank you kindly for this consultation. Nurse practitioner note has been reviewed, I agree with documented findings and plan of care. Patient was seen and examined. Past Medical History Past Medical History: Cancer, Hyperlipidemia, Hypertension, Osteoarthritis (OA) Additional Past Medical History / Comment(s): Well healed left leg wound(brown discoloration). Hx. of bulging disc. C-Diff infection 12/17/21. History of Any Multi-Drug Resistant Organisms: C-DIFF Date of last positivie culture/infection: 2021 MDRO Source:: stool Past Surgical History: Orthopedic Surgery, Tubal Ligation Additional Past Surgical History / Comment(s): PARATHYROIDECTOMY 1985,2009 PARTIAL THYROIDECTOMY, Low back surgery Aug 15, 2021. Peg Tube insertion October 23, 2021. right knee replacement 2019 Past Anesthesia/Blood Transfusion Reactions: No Reported Reaction Past Psychological History: No Psychological Hx Reported, Depression Smoking Status: Never smoker Past Alcohol Use History: None Reported Past Drug Use History: None Reported - Past Family History Mother Additional Family Medical History / Comment(s): OSTEOPOROSIS Father Additional Family Medical History / Comment(s): AORTIC ABD. ANEURSYN Medications and Allergies Home Medications Medication Instructions Recorded Confirmed Type Atorvastatin [Lipitor] 10 mg PO DAILY@1700 11/20/16 08/29/24 History Venlafaxine HCl [Effexor XR] 75 mg PO DAILY@0800 12/16/21 08/29/24 History Alendronate Sodium 70 mg PO TU@1200 12/23/23 08/29/24 History Apixaban [Eliquis] 2.5 mg PO BID@0800,1700 12/23/23 08/29/24 History Carbidopa/Levodopa 2 tab PO TID@0800,1700,2300 12/23/23 08/29/24 History [Carbidopa/Levodopa 25-100 Tab] Ferrous Sulfate [Iron] 325 mg PO DAILY@1200 12/23/23 08/29/24 History L.acidoph,Paracasei, B.lactis 1 cap PO DAILY@1200 12/23/23 08/29/24 History [Probiotic] Metoprolol Succinate [Toprol XL] 50 mg PO DAILY@1700 12/23/23 08/29/24 History Ondansetron [Zofran] 4 mg PO Q8HR PRN 12/23/23 08/29/24 History Oxybutynin Chloride [oxyBUTYnin 15 mg PO DAILY@0800 12/23/23 08/29/24 History chloride ER] Acetaminophen Tab [Tylenol] 1,000 mg PO Q6HR PRN 06/04/24 08/29/24 History Anastrozole [Arimidex] 1 mg PO DAILY@2300 06/04/24 08/29/24 History Folic Acid 1 mg PO DAILY@1200 06/04/24 08/29/24 History Ibuprofen [Motrin Ib] 400 mg PO Q4H PRN 06/04/24 08/29/24 History Ketoconazole 2% Cream [Nizoral 2%] 1 applic TOPICAL DAILY PRN 06/04/24 08/29/24 History Magnesium Oxide [Mag-Ox] 400 mg PO DAILY@1700 06/04/24 08/29/24 History Mupirocin 2% Oint [Bactroban 2% 1 applic TOPICAL TID PRN 06/04/24 08/29/24 History Oint] rOPINIRole HCL [Requip] 0.5 mg PO TID@0800,1200,1700 06/04/24 08/29/24 History Ketoconazole 2% Shampoo [Nizoral] 1 applic TOPICAL DAILY 08/02/24 08/29/24 History Nystatin 100,000 Unit/gm Powd 1 applic TOPICAL BID 08/02/24 08/29/24 History [Mycostatin Powder] Vibegron [Gemtesa] 75 mg PO DAILY@0800 08/02/24 08/29/24 History Cinacalcet [Sensipar] 60 mg PO DAILY@1200 #0 08/26/24 08/29/24 Rx Piperacillin-Tazobactam [Zosyn] 3.375 gm IVPB Q8HR #21 each 08/26/24 08/29/24 Rx Ensure Enlive 237 ml PO TID@0800,1200,1700 08/29/24 08/29/24 History Ipratropium-Albuterol Nebulize 3 ml INHALATION RT-Q6H 08/29/24 08/29/24 History [Duoneb 0.5 mg-3 mg/3 ml Soln] Magnesium Hydroxide [Milk of 7,200 mg PO DAILY PRN 08/29/24 08/29/24 History Magnesia Concentrate] Na Phos,M-B/Na Phos,Di-Ba [Fleet 133 ml RECTAL DAILY PRN 08/29/24 08/29/24 History Adult] Sodium Bicarbonate Tab 650 mg PO BID@0800,1700 08/29/24 08/29/24 History amLODIPine [Norvasc] 5 mg PO DAILY@0800 08/29/24 08/29/24 History bisacodyL [Dulcolax] 10 mg RECTAL DAILY PRN 08/29/24 08/29/24 History predniSONE See Taper PO DAILY@0800 08/29/24 08/29/24 History Allergies Allergy/AdvReac Type Severity Reaction Status Date / Time No Known Allergies Allergy Verified 08/29/24 18:33 Physical Exam Vitals: Vital Signs Pulse Pulse Resp BP BP Pulse Ox 08/31/24 08:35 95 08/31/24 07:57 80 18 132/96 97 08/31/24 04:00 76 18 99/56 93 L 08/30/24 23:49 67 16 119/71 93 L 08/30/24 19:57 89 18 119/71 92 L 08/30/24 13:35 80 16 155/74 94 L 08/30/24 12:00 94 L Results 08/29/24 12:07 08/30/24 21:11 Comprehensive Metabolic Panel 08/30/24 Range/Units 21:11 Creatinine 0.74 (0.52-1.04) mg/dL Current Medications Generic Name Dose Route Start Last Admin Trade Name Freq PRN Reason Stop Dose Admin Acetaminophen 650 mg 08/29/24 14:09 Acetaminophen Tab 325 Mg Tab PO Q6HR PRN Mild Pain or Fever > 100.5 Albuterol Sulfate 2 puff 08/29/24 13:59 Albuterol Hfa Inhaler INHALATION RT-Q6H PRN Shortness Of Breath Or Wheezing Albuterol Sulfate 2 puff 08/30/24 20:00 08/31/24 08:36 Albuterol Hfa Inhaler INHALATION 2 puff RT-QID TONI Administration Amlodipine Besylate 5 mg 08/30/24 09:00 08/31/24 09:25 Amlodipine 5 Mg Tab PO 5 mg DAILY TONI Administration Anastrozole 1 mg 08/29/24 23:00 08/30/24 23:51 Anastrozole 1 Mg Tab PO 1 mg DAILY@2300 [facility] Administration Apixaban 2.5 mg 08/29/24 18:17 08/31/24 09:27 Apixaban 2.5 Mg Tablet PO 2.5 mg BID@0930,1700 [facility] Administration Protocol Atorvastatin Calcium 10 mg 08/30/24 17:00 08/30/24 17:29 Atorvastatin 10 Mg Tab PO 10 mg DAILY@1700 [facility] Administration Carbidopa/Levodopa 2 each 08/29/24 23:00 08/31/24 09:27 Carbidopa-Levodopa 25-100 Mg 1 Each Tab PO 2 each TID@0930,1700,2300 [facility] Administration Cinacalcet 60 mg 08/30/24 12:00 08/30/24 13:34 Cinacalcet 30 Mg Tab PO Not Given DAILY@1200 [facility] Dexamethasone Sodium Phosphate 6 mg 08/29/24 18:11 08/31/24 09:25 Dexamethasone Sod Phosphate 10 Mg/Ml 1 Ml Vial IVP 6 mg BID TONI Administration Folic Acid 1 mg 08/30/24 12:00 08/30/24 13:34 Folic Acid 1 Mg Tab PO Not Given DAILY@1200 [facility] Metoprolol Succinate 50 mg 08/31/24 09:15 08/31/24 09:43 Metoprolol Succinate (Er) 50 Mg Tab.Er.24h PO 50 mg DAILY TONI Administration Metoprolol Tartrate 25 mg 08/31/24 21:00 Metoprolol Tartrate 25 Mg Tab PO [facility] Miscellaneous Information 1 each 08/29/24 13:56 Pneumonia Protocol Utilized 1 Each Misc PO ONCE PRN Per Protocol Naloxone HCl 0.2 mg 08/29/24 14:09 Naloxone 0.4 Mg/Ml 1 Ml Vial IV Q2M PRN Opioid Reversal Non-Formulary Medication 75 mg 08/30/24 09:30 08/31/24 09:41 Vibegron [Gemtesa] PO Not Given DAILY@0930 TONI Ondansetron HCl 4 mg 08/29/24 14:09 Ondansetron 4 Mg/2 Ml Vial IVP Q8HR PRN Nausea And Vomiting Pantoprazole Sodium 40 mg 08/30/24 09:00 08/31/24 09:26 Pantoprazole 40 Mg/10 Ml Vial IV 40 mg DAILY TONI Administration Piperacillin Sod/Tazobactam Sod 3.375 gm 08/29/24 18:30 08/31/24 09:25 Piperacillin-Tazobactam 3.375 Gm Vial IVPB 3.375 gm Q8HR TONI Administration Protocol Ropinirole HCl 0.5 mg 08/29/24 23:00 08/31/24 09:27 Ropinirole Hcl 0.25 Mg Tab PO 0.5 mg TID@0930,1700,2300 TONI Administration Sodium Bicarbonate 650 mg 08/29/24 21:00 08/31/24 09:26 Sodium Bicarbonate Tab 650 Mg Tab PO 650 mg BID TONI Administration 08/29/24 12:07 08/30/24 21:11
--- NOTE | 2024-08-31 13:08 | P.GSCN ---
History of Present Illness Consult date: 08/31/24 History of present illness: CHIEF COMPLAINT: Shortness of breath HISTORY OF PRESENT ILLNESS: This is a 74-year-old female who presented to the ER with shortness of breath and altered mental status. Patient had recent hospitalization and discharged 2 days ago after being treated for UTI and respiratory failure with COVID-19. Patient was at [facility] for rehab and requ ired to be transferred back to the ER due to worsening shortness of breath and altered mental status. She also had reported abdominal pain. And a CT scan abdomen and pelvis have been completed that reported ileus versus partial small bowel obstruction. Patient had NG tube placed with 800 mL output. Patient reports that the abdominal pain that has improved after NG tube placement. Patient denies any nausea or vomiting. Her pain has resolved. She is having flatus. It has been about 3 days since her last bowel movement. Patient reports no prior history of bowel obstruction. She does have a prior history of tube placement. Otherwise no prior abdominal surgeries. Denies any prior colo noscopy. PAST MEDICAL HISTORY: See below. History of Parkinson's PAST SURGICAL HISTORY: See below MEDICATIONS: See below ALLERGIES: See below SOCIAL HISTORY: No illicit drug use. REVIEW OF SYSTEMS: CONSTITUTIONAL: Denies fever or chills. HEENT: Denies blurred vision, vision changes, or eye pain. Denies hemoptysis CARDIOVASCULAR: Denies chest pain or pressure. RESPIRATORY: No shortness of breath. GASTROINTESTINAL: See HPI for pertinent findings HEMATOLOGIC: Denies bleeding disorders. GENITOURINARY: Denies any blood in urine or increased urinary frequency. SKIN: Denies pruitis. Denies rash. PHYSICAL EXAM: VITAL SIGNS: Reviewed GENERAL: Well-developed in no acute distress. ABDOMEN: Soft. Obese. Nondistended. Nontender with palpation. No tenderness noted in the right lower quadrant with palpation. No rebound or guarding noted. NEUROLOGIC: Awake and alert able to answer most questions. LABORATORY DATA: WBC 27.9 Hgb 10.2 platelets 473 Sodium 141 potassium is 4.0 creatinine 0.3 COVID-19 detected IMAGING: CT scan abdomen pelvis reports and radiographic correlate with a distended gastric lumen. There is also dilated loops of small bowel also present throughout the abdomen with relative sparing of the distal small bowel large amount of stool in the colon. Findings are at least concerning for ileus versus partial bowel obstruction. Dilated tubular structure with some inflammation around the right lower quadrant possibly representing the appendix with nida endicolith. Nonobstructive bilateral renal calculi. Bibasilar atelectasis and/or airspace disease correlate for pneumonia consider aspiration. Abdominal x-ray reported dilated air-filled small bowel loops correlate for early small bowel obstruction or ileus ASSESSMENT: 1. Abdominal pain with evidence of ileus versus partial small bowel obstruction on CT scan. Abdominal x-ray still reporting dilated air-filled filled small bowel loops 2. COVID-pneumonia PLAN: -Continue NG tube for decompression -Keep patient n.p.o. -Continue to monitor Physician Bell Valet note has been reviewed by physician. Signing provider agrees with the documented findings, assessment, and plan of care. Past Medical History Past Medical History: Cancer, Hyperlipidemia, Hypertension, Osteoarthritis (OA) Additional Past Medical History / Comment(s): Well healed left leg wound(brown discoloration). Hx. of bulging disc. C-Diff infection 12/17/21. History of Any Multi-Drug Resistant Organisms: C-DIFF Year Discovered:: 2021 MDRO Source:: stool Past Surgical History: Orthopedic Surgery, Tubal Ligation Additional Past Surgical History / Comment(s): PARATHYROIDECTOMY 1985,2009 PARTIAL THYROIDECTOMY, Low back surgery Aug 15, 2021. Peg Tube insertion October 23, 2021. right knee replacement 2019 Past Anesthesia/Blood Transfusion Reactions: No Reported Reaction Past Psychological History: No Psychological Hx Reported, Depression Smoking Status: Never smoker Past Alcohol Use History: None Reported Past Drug Use History: None Reported - Past Family History Mother Additional Family Medical History / Comment(s): OSTEOPOROSIS Father Additional Family Medical History / Comment(s): AORTIC ABD. ANEURSYN Medications and Allergies Home Medications Medication Instructions Recorded Confirmed Type Atorvastatin [Lipitor] 10 mg PO DAILY@1700 11/20/16 08/29/24 History Venlafaxine HCl [Effexor XR] 75 mg PO DAILY@0800 12/16/21 08/29/24 History Alendronate Sodium 70 mg PO TU@1200 12/23/23 08/29/24 History Apixaban [Eliquis] 2.5 mg PO BID@0800,1700 12/23/23 08/29/24 History Carbidopa/Levodopa 2 tab PO TID@0800,1700,2300 12/23/23 08/29/24 History [Carbidopa/Levodopa 25-100 Tab] Ferrous Sulfate [Iron] 325 mg PO DAILY@1200 12/23/23 08/29/24 History L.acidoph,Paracasei, B.lactis 1 cap PO DAILY@1200 12/23/23 08/29/24 History [Probiotic] Metoprolol Succinate [Toprol XL] 50 mg PO DAILY@1700 12/23/23 08/29/24 History Ondansetron [Zofran] 4 mg PO Q8HR PRN 12/23/23 08/29/24 History Oxybutynin Chloride [oxyBUTYnin 15 mg PO DAILY@0800 12/23/23 08/29/24 History chloride ER] Acetaminophen Tab [Tylenol] 1,000 mg PO Q6HR PRN 06/04/24 08/29/24 History Anastrozole [Arimidex] 1 mg PO DAILY@2300 06/04/24 08/29/24 History Folic Acid 1 mg PO DAILY@1200 06/04/24 08/29/24 History Ibuprofen [Motrin Ib] 400 mg PO Q4H PRN 06/04/24 08/29/24 History Ketoconazole 2% Cream [Nizoral 2%] 1 applic TOPICAL DAILY PRN 06/04/24 08/29/24 History Magnesium Oxide [Mag-Ox] 400 mg PO DAILY@17006/04/24 08/29/24 History Mupirocin 2% Oint [Bactroban 2% 1 applic TOPICAL TID PRN 06/04/24 08/29/24 History Oint] rOPINIRole HCL [Requip] 0.5 mg PO TID@0800,1200,1700 06/04/24 08/29/24 History Ketoconazole 2% Shampoo [Nizoral] 1 applic TOPICAL DAILY 08/02/24 08/29/24 History Nystatin 100,000 Unit/gm Powd 1 applic TOPICAL BID 08/02/24 08/29/24 History [Mycostatin Powder] Vibegron [Gemtesa] 75 mg PO DAILY@0800 08/02/24 08/29/24 History Cinacalcet [Sensipar] 60 mg PO DAILY@1200 #0 08/26/24 08/29/24 Rx Piperacillin-Tazobactam [Zosyn] 3.375 gm IVPB Q8HR #21 each 08/26/24 08/29/24 Rx Ensure Enlive 237 ml PO TID@0800,1200,1700 08/29/24 08/29/24 History Ipratropium-Albuterol Nebulize 3 ml INHALATION RT-Q6H 08/29/24 08/29/24 History [Duoneb 0.5 mg-3 mg/3 ml Soln] Magnesium Hydroxide [Milk of 7,200 mg PO DAILY PRN 08/29/24 08/29/24 History Magnesia Concentrate] Na Phos,M-B/Na Phos,Di-Ba [Fleet 133 ml RECTAL DAILY PRN 08/29/24 08/29/24 History Adult] Sodium Bicarbonate Tab 650 mg PO BID@0800,1700 08/29/24 08/29/24 History amLODIPine [Norvasc] 5 mg PO DAILY@0800 08/29/24 08/29/24 History bisacodyL [Dulcolax] 10 mg RECTAL DAILY PRN 08/29/24 08/29/24 History predniSONE See Taper PO DAILY@0800 08/29/24 08/29/24 History Allergies Allergy/AdvReac Type Severity Reaction Status Date / Time No Known Allergies Allergy Verified 08/29/24 18:33 Surgical - Exam Vital Signs Temp Pulse Resp BP Pulse Ox 99.5 F 88 28 H 133/87 92 L 08/29/24 11:34 08/29/24 11:34 08/29/24 11:34 08/29/24 11:34 08/29/24 11:34 Results - Labs 08/29/24 12:07 08/30/24 21:11 Abnormal Lab Results - Last 24 Hours (Table) 08/31/24 Range/Units 08:03 SARS-CoV-2 (PCR) Detected A (Not Detectd) Microbiology - Last 24 Hours (Table) 08/29/24 17:43 Blood Culture - Preliminary Blood Diabetes panel 08/30/24 Range/Units 21:11 Creatinine 0.74 (0.52-1.04) mg/dL Pituitary panel 08/30/24 Range/Units 21:11 Creatinine 0.74 (0.52-1.04) mg/dL Adrenal panel 08/30/24 Range/Units 21:11 Creatinine 0.74 (0.52-1.04) mg/dL
[2024-08-31] MEDS: ACETAMINOPHEN TAB 325 MG TAB PO PRN (16:26)
--- NOTE | 2024-08-31 17:09 | P.PN ---
Subjective Progress Note Date: 08/31/24 Principal diagnosis: Reason for follow-up is leukocytosis, pneumonia Patient is a 74-year-old female with a past medical history significant for parkinsonism hypertension hyperlipidemia osteoarthritis recently treated at this facility for Pseudomonas UTI also have elevated white count and the patient was transferred to the senior care on IV Zosyn patient has been br ought back to the hospital for evaluation of increasing shortness of breath and mental status changes patient did have a fever with concern for pneumonia and abdominal CT prompting this consultation. On today's evaluation that is 08/31/2024, patient did have resolution of her fever has been afebrile, patient is more awake and alert breathing comfortably and is currently on 4 L nasal cannula oxygen, patient denies having any significant cough no chest pain, patient denies nausea vomiting or diarrhea and no abdominal pain. Patient did not have lab draw today Objective - Vital Signs Vital signs: Vital Signs Temp 98.1 F 08/30/24 09:19 Pulse 80 08/31/24 07:57 Resp 18 08/31/24 07:57 BP 132/96 08/31/24 07:57 Pulse Ox 95 08/31/24 08:35 FiO2 Intake & Output 08/30/24 08/31/24 08/31/24 18:59 06:59 18:59 Output Total 800 Balance -800 Weight 93 kg Output: Gastric Drainage 800 Other: Voiding Method Incontinent - Exam GENERAL DESCRIPTION: An elderly female lying in bed in no distress RESPIRATORY SYSTEM: Unlabored breathing , decreased breath sounds at bases HEART: S1 S2 regular rate and rhythm , ABDOMEN: Soft , no tenderness EXTREMITIES: No edema feet - Labs CBC & Chem 7: 08/29/24 12:07 08/30/24 21:11 Labs: Abnormal Lab Results - Last 24 Hours (Table) 08/31/24 Range/Units 08:03 SARS-CoV-2 (PCR) Detected A (Not Detectd) Microbiology - Last 24 Hours (Table) 08/29/24 17:43 Blood Culture - Preliminary Blood Assessment and Plan (1) Altered mental status Current Visit: Yes Status: Acute Code(s): R41.82 - ALTERED MENTAL STATUS, UNSPECIFIED SNOMED Code(s): 072196947 (2) Pneumonia due to COVID-19 virus Current Visit: Yes Status: Acute Code(s): U07.1 - COVID-19; J12.82 - PNEUMONIA DUE TO CORONAVIRUS DISEASE 2018 SNOMED Code(s): 811288083233355995 (3) Leukocytosis Current Visit: No Status: Acute Priority: Medium Code(s): D72.829 - ELEVATED WHITE BLOOD CELL COUNT, UNSPECIFIED SNOMED Code(s): 905702087 Plan: 1patient presented to hospital with mental status changes in this patient who also noted to be hypoxemic recently diagnosed with COVID-19 on 08/25/2024 now with evidence of multifocal infiltrate and bibasilar infiltrate concerning for possible COVID versus secondary bacterial pneumonia patient also noted to have some abnormality on the CT abdominal pelvis with a question for possible appendicitis though no significant tenderness to the right lower quadrant was noticed on Examination General Surgery has been consulted and currently monitor ing the patient with n.p.o. NG 2-patient seem to have some clinical point we will continue dexamethasone along with with Zosyn and monitor clinical course closely Dictation was produced using [employer] dictation software. please excuse any grammatical, word or spelling errors. Time with Patient: Less than 30
--- NOTE | 2024-08-31 19:19 | P.PN ---
Progress Note - Text Progress Note Date: 08/31/24 Chief Complaint: Not feeling well 74-year-old patient follows with Dr. Yanna David. Chronic medical conditions include hyperlipidemia, hypertension, osteoarthritis, herniated disc. Possible diagnosis of Parkinson's disease. Patient at baseline is nonambulatory. Does use a assist device for transfer. Very recently in the hospital from August 22, 2024 through August 27, 2024. [This last admission patient was treated with Pseudomonas UTI for outpatient t reatment failure received IV cefepime in the hospital and was discharged on 7 days of IV Zosyn. Also treated for COVID-19 becoming hypoxic with dexamethasone. When patient left 2 days ago patient was awake. Tolerating diet. Answering questions. Patient's Remeron was discontinued because patient is found to contributing to her lethargy. She also neurological workup that was unremarkable. Patient's elevated white count was felt to be from underlying infection. Patient was discharged to [facility] [place]. Patient was sent back to the ER from [facility] for the following symptoms. Less responsive. Shortness of breath. Abdominal distention. Patient is somewhat lethargic. Able answer simple question but not any further details. Denies any abdominal pain. August 30: Lungs sounding a bit better. Bit more awake. Tired. On IV Zosyn. 4 L nasal cannula. Answering simple questions. NG tube to intermittent suction. Large output. Getting oral medications through the NG tube. Spoke to daughter at the bedside. August 31: Earlier today NG tube and [place] not. It was replaced. Abdominal x-ray ordered this morning. Showing some air-fluid level. Abdomen is much softer. Patient is awake. at the bedside, discussed.-Understands prognosis guarded. Patient tested positive for SARS-CoV-2. Active Medications Acetaminophen (Acetaminophen Tab 325 Mg Tab) 650 mg PO Q6HR PRN PRN Reason: Mild Pain or Fever > 100.5 Last Admin: 08/31/24 16:26 Dose: 650 mg Albuterol Sulfate (Albuterol Hfa Inhaler) 2 puff INHALATION RT-Q6H PRN PRN Reason: Shortness Of Breath Or Wheezing Albuterol Sulfate (Albuterol Hfa Inhaler) 2 puff INHALATION RT-QID TONI Last Admin: 08/31/24 17:27 Dose: 2 puff Amlodipine Besylate (Amlodipine 5 Mg Tab) [address] [facility] Last Admin: 08/31/24 09:25 Dose: 5 mg Anastrozole (Anastrozole 1 Mg Tab) 1 mg PO DAILY@2300 [facility] Last Admin: 08/30/24 23:51 Dose: 1 mg Apixaban (Apixaban 2.5 Mg Tablet) 2.5 mg PO BID@0930,1700 [facility]; Protocol Last Admin: 08/31/24 16:26 Dose: 2.5 mg Atorvastatin Calcium (Atorvastatin 10 Mg Tab) 10 mg PO DAILY@1700 [facility] Last Admin: 08/31/24 16:26 Dose: 10 mg Carbidopa/Levodopa (Carbidopa-Levodopa 25-100 Mg 1 Each Tab) 2 each PO TID@0930,1700,2300 [facility] Last Admin: 08/31/24 16:25 Dose: 2 each Cinacalcet (Cinacalcet 30 Mg Tab) 60 mg PO DAILY@1200 [facility] Last Admin: 08/31/24 11:34 Dose: 60 mg Dexamethasone Sodium Phosphate (Dexamethasone Sod Phosphate 10 Mg/Ml 1 Ml Vial) [address] [facility] Last Admin: 08/31/24 09:25 Dose: 6 mg Folic Acid (Folic Acid 1 Mg Tab) 1 mg PO DAILY@1200 [facility] Last Admin: 08/31/24 11:34 Dose: 1 mg Metoprolol Succinate (Metoprolol Succinate (Er) 50 Mg Tab.Er.24h) [address] [facility] Last Admin: 08/31/24 09:43 Dose: 50 mg Metoprolol Tartrate (Metoprolol Tartrate 25 Mg Tab) [address] [facility] Miscellaneous Information (Pneumonia Protocol Utilized 1 Each [facility]) 1 each PO ONCE PRN PRN Reason: Per Protocol Naloxone HCl (Naloxone 0.4 Mg/Ml 1 Ml Vial) 0.2 mg IV Q2M PRN PRN Reason: Opioid Reversal Non-Formulary Medication (Vibegron [Gemtesa]) 75 mg PO DAILY@0930 [facility] Last Admin: 08/31/24 09:41 Dose: Not Given Ondansetron HCl (Ondansetron 4 Mg/2 Ml Vial) 4 mg IVP Q8HR PRN PRN Reason: Nausea And Vomiting Pantoprazole Sodium (Pantoprazole 40 Mg/10 Ml Vial) [address] [facility] Last Admin: 02/17/25 09:26 Dose: 40 mg Piperacillin Sod/Tazobactam Sod (Piperacillin-Tazobactam 3.375 Gm Vial) 3.[address] [facility]; Protocol Ropinirole HCl (Ropinirole Hcl 0.25 Mg Tab) 0.5 mg PO TID@0930,1700,2300 [facility] Last Admin: 08/31/24 16:25 Dose: 0.5 mg Sodium Bicarbonate (Sodium Bicarbonate Tab 650 Mg Tab) [address] [facility] Last Admin: 08/31/24 09:26 Dose: 650 mg Social history: No history of smoking alcohol. . Nonambulatory. Does use assistive aid for transfer. Physical examination: VITAL SIGNS: 97.8, 78, 18, 136 with 75, 94% 4 L GENERAL: [BMI 35.2, laying in bed, tired EYES: Pupils equal. Conjunctiva yaz l. HEENT: [External appearance of nose and ears normal, oral cavity dry mucous membrane. NG tube to intermittent suction NECK: JVD unable to assist masses not palpable. HEART: Heart sounds distant al, some edema in the right lower extremity]. LUNGS: Respiratory rate increased, some crackles. ABDOMEN: Soft, much less distended, nontender, liver spleen not palpable, no masses palpable. PSYCH: Awake, answering simple questions MUSCULOSKELETAL:No Clubbing/cyanosis;muscles-grossly intact. Bilateral foot drop. Some swelling extremity. Dermatological: Brownish discoloration both lower extremity above the ankle. Macular. Nontender. , INVESTIGATIONS, reviewed in the clinical context: August 29, 2024: White count 27.9 hemoglobin 10.2 platelets 473 sodium 141 potassium 4 BUN 35 creatinine 0.83 CRP 5.2 proBNP 5530. Procalcitonin 0.15 EKG tracing personally reviewed by me-normal sinus rhythm. Some globally ST segment changes Chest x-ray film personally reviewed by me-scattered infiltrates. Gaseous distention in the left side. CT abdomen pelvis: Mild distended gastric lumen. Small bowel distention throughout the abdomen measuring up to 4.1 cm. Large amount of stool in the rectum up to 9.3 cm transverse dimension. Nonobstructing bilateral renal calculi. From last week EEG: Negative for seizure activity CT brain: Nothing acute. 1.1 cm meningioma left lateral convexity. August 27: White count 22.1 hemoglobin 10.7 platelets 354 August 26: Potassium 4.7 creatinine 0.83 Febrile 11: COVID-19 PCR: Detected August 24: White count 22.8 hemoglobin 11.7 platelets 322 immature granulocytes 0.22 neutrophils 40.82 lymphocytes low at 0.78 sodium 137 potassium 5.4 BUN 62 creatinine 0.99 albumin 3.2 Assessment and plan: - worsening pneumonia. Would consider aspiration. Continue IV Zosyn. Consultation to ID and pulmonary. -Pseudomonas, acute UTI on last admission with outpatient treatment failure Received cefepime 1 g every 12 hours initially,. And received IV Zosyn and was discharged on the same. Continued ID on the case -Sepsis probably from pneumonia IV fluids antibiotics. -Acute COVID-19, diagnosed August 25 [last admission]. Causing hypoxia: DEXA Methasone 6 mg every 12 Repeat SARS-CoV-2 tested August 21: Positive - -Acute hypoxic respiratory failure from COVID-19 and pneumonia Oxygen 4 L -Left lateral convexity meningioma 1.1 cm. -Probable ileus involving the small bowel. And gaseous distention.: Slow improvement Continue NG tube to intermittent suction General Surgery following -Acute metabolic encephalopathy likely from hypoxia and infection: Better Treat underlying conditions -Chronic medical debility Patient baseline nonambulatory. Does use a assist device to transfer. 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 Carroll. At length. Explained to him what is going currently in context of the recent admission. He does not feel the patient should go on the ventilator where she is. At this point is decided to proceed with DO NOT RESUSCITATE. Understanding full treatment plan will be given. Time spent about 20 minutes Past Medical History Past Medical History: Cancer, Hyperlipidemia, Hypertension, Osteoarthritis (OA) Additional Past Medical History / Comment(s): Well healed left leg wound(brown discoloration). Hx. of bulging disc. C-Diff infection 12/17/21. History of Any Multi-Drug Resistant Organisms: C-DIFF Date of last positivie culture/infection: 2021 MDRO Source:: stool Past Surgical History: Orthopedic Surgery, Tubal Ligation Additional Past Surgical History / Comment(s): PARATHYROIDECTOMY 1985,2009 PARTIAL THYROIDECTOMY, Low back surgery Aug 15, 2021. Peg Tube insertion October 23, 2021. right knee replacement 2019 Past Anesthesia/Blood Transfusion Reactions: No Reported Reaction Past Psychological History: No Psychological Hx Reported, Depression Smoking Status: Never smoker Past Alcohol Use History: None Reported Past Drug Use History: None Reported
--- NOTE | 2024-08-31 20:59 | P.PN ---
Subjective Progress Note Date: 08/31/24 On today's evaluation of 08/31/2024, the patient is being seen for a follow-up. This patient is 74, obese along with hypertension hyperlipidemia initially presented to us from [facility] for altered mentation and confusion. Noted the patient had a previous COVID-19 infection there was originally diagnosed on 08/25/2024 and the test is still positive on 08/31/2024. The most recent urine cultures from 08/23/2024 was negative. The patient on admission had an elevated white cell count of 27.9 and this needs to be further followed. Electrolytes are all within normal limits. proBNP level was 5530. Procalcitonin level was at 0.15. The chest x-ray from today shows small right-sided pleural effusion. NG tube still in place as the patient has evidence of ileus versus partial small bowel obstruction as noted on the CAT scan of the abdomen that was done on 08/29/2024. Noted the CAT scan showed distended gastric lumen and there is also dilated loops of small bowel present throughout the abdomen and relative sparing the distal small bowel. There is large amount of stool in the colon. There is also nonobstructive bilateral renal calculi and bibasilar atelectatic changes in the lung bases. Echocardiogram is also in progress. The patient is currently on IV Zosyn. The patient remains on Decadron 6 mg IV every 24 hours. The patient is hemodynamically stable. General surgery is on the case. Noted the patient is chronically neurologically impaired. Baseline status is nonambulatory and she is a very poor historian. Abdomen is softer compared to yesterday. She remains quite lethargic. Objective - Vital Signs Vital signs: Vital Signs Temp 97.8 F 08/31/24 15:29 Pulse 78 08/31/24 15:29 Resp 18 08/31/24 15:29 BP 136/75 08/31/24 15:29 Pulse Ox 94 L 08/31/24 15:29 FiO2 Intake & Output 08/30/24 08/31/24 08/31/24 18:59 06:59 18:59 Output Total 800 Balance -800 Weight 93 kg Output: Gastric Drainage 800 Other: Voiding Method Incontinent - Exam GENERAL EXAM: Arousable, obtunded obese 74-year-old female on 4 L nasal cannula, in no apparent distress. NG tube is in place. HEAD: Normocephalic. EYES: Normal reaction of pupils, equal size. NOSE: Clear with pink turbinates. Nasogastric tube in place. THROAT: No erythema or exudates. NECK: No masses, no JVD. CHEST: No chest wall deformity. LUNGS: Equal air entry with crackles in the bilateral bases. CVS: S1 and S2 normal with no audible murmur, regular rhythm. ABDOMEN: No hepatosplenomegaly, normal bowel sounds, no guarding or rigidity. Abdomen is tympanic and slightly distended SPINE: No scoliosis or deformity SKIN: No rashes CENTRAL NERVOUS SYSTEM: No focal deficits, tone is normal in all 4 extremities. EXTREMITIES: Changes of chronic venous stasis. There is no peripheral edema. No clubbing, no cyanosis. Peripheral pulses are intact. - Labs CBC & Chem 7: 08/29/24 12:07 08/30/24 21:11 Labs: Abnormal Lab Results - Last 24 Hours (Table) 08/31/24 Range/Units 08:03 SARS-CoV-2 (PCR) Detected A (Not Detectd) Microbiology - Last 24 Hours (Table) 08/29/24 17:43 Blood Culture - Preliminary Blood Assessment and Plan Plan: Altered mental status of unclear etiology, possible metabolic encephalopathy versus post COVID-19 encephalopathy Acute hypoxemic respiratory failure secondary to suspected aspiration pneumonia versus atelectatic changes lung base bilaterally, currently on 40 of oxygen by nasal cannula COVID-19 infection diagnosed on 08/25/2024 in the COVID-19 testing still positive Abdominal distention secondary to possible small bowel obstruction versus ileus. Nasogastric tube in place, general surgery is on the case and the patient is currently n.p.o. Leukocytosis secondary to above Recent hospitalization here for pseudomonal UTI, acute COVID 19 infection discharged on 08/27/2024 to [facility] Hypertension Hyperlipidemia Restless leg syndrome History of depression History of Parkinson's disease Poor functional performance based on the above-mentioned multiple comorbidities Hand: Currently on 4 L nasal cannula Titrate the FiO2 as tolerated Continued on Decadron from previous COVID infection Anticoagulated with Eliquis for immobility Continued on Zosyn for recent UTI Continue albuterol HFA Keep NG tube in place General Surgery consultation Obtain echocardiogram Cultures were sent Protonix for GI prophylaxis We will continue to follow and make further recommendations based on her clinical status
[2024-08-31] MEDS: METOPROLOL TARTRATE 25 MG TAB PO SCH (22:11)
[2024-09-01] MEDS: PIPERACILLIN-TAZOBACTAM 3.375 GM VIAL IVPB SCH (00:28)
[2024-09-01 03:41] LABS: Basophils # (A) 0.1 k/uL (0-0.2); Basophils % (A) 0 %; Eosinophils % (A) 0 %; HCT 30.5 % (34.0-46.0); HGB 9.3 gm/dL (11.4-16.0); Hypochromasia Marked; Lymphocytes # (A) 0.7 k/uL (1.0-4.8); Lymphocytes % (A) 4 %; MCH 30.2 pg (25.0-35.0); MCHC 30.5 g/dL (31.0-37.0); MCV 99.3 fL (80.0-100.0); Mean Platelet Volume 7.6; Monocytes # (A) 0.4 k/uL (0-1.0); Monocytes % (A) 2 %; Neutrophils # (A) 17.6 k/uL (1.3-7.7); Neutrophils % (A) 93 %; Platelet Count 339 k/uL (150-450); RBC 3.08 m/uL (3.80-5.40); RDW 14.6 % (11.5-15.5); WBC 18.8 k/uL (3.8-10.6)
[2024-09-01 03:54] LABS: ALT <6 U/L (4-34); AST 13 U/L (14-36); African American GFR (CKD) 90 (>60 ml/min/1.73 sqM); Albumin 2.8 g/dL (3.5-5.0); Alkaline Phosphatase 57 U/L (38-126); Anion Gap 10 mmol/L; Blood Urea Nitrogen 34 mg/dL (7-17); Carbon Dioxide 25 mmol/L (22-30); Chloride 113 mmol/L (98-107); Globulin 2.9 g/dL; Glucose 153 mg/dL (74-99); Non-African American GFR(CKD) 78 (>60 ml/min/1.73 sqM); Potassium 3.4 mmol/L (3.5-5.1); Sodium 148 mmol/L (137-145); Total Bilirubin 0.4 mg/dL (0.2-1.3); Total Protein 5.7 g/dL (6.3-8.2)
[2024-09-01 05:51] LABS: C Reactive Protein 2.1 mg/dL (<1.0)
[2024-09-01] MEDS: METOPROLOL TARTRATE 50 MG TAB PO SCH (08:47)
--- NOTE | 2024-09-01 10:49 | P.PN ---
Subjective Progress Note Date: 09/01/24 Reason for Consult (text): Runs of A-fib with RVR History of present illness: This is a 74-year-old female with past medical history of hypertension, hyper lipidemia, osteoarthritis. Patient does not follow in the [facility] office. We have been asked to evaluate the patient for runs of A-fib with RVR. Patient was recently hospitalized and treated for Pseudomonas UTI and COVID-19 infection and was discharged to [facility]. She apparently had mental status changes and was brought back into the hospital. Patient denies having any chest pain or shortness of breath at this time. Patient apparently has been having short runs of A-fib with RVR and then converting back to sinus rhythm. Patient is currently in a sinus rhythm at the time of this evaluation. She is on anticoagulation with Eliquis. Atrial fibrillation is not listed in her history. Reviewed previous EKGs and all have been sinus rhythm. Blood pressure 132/96, heart rate 80, pulse ox 97% on 4 L nasal cannula. -EKG: Sinus rhythm 90 bpm. -Chest x-ray: Performed 08/31: Right lower lobe infiltrate and right pleural effusion. NG tube. -CT brain: No acute process. -CT abdomen and pelvis without contrast revealed distended gastric lumen. Dilated loops of small bowel. Large amount of stool in the colon. Concerning for ileus versus partial bowel obstruction. Possible appendicolith. Nonobstructing bilateral renal calculi. Bibasilar atelectasis and/or airspace disease correlate for pneumonia consider aspiration. -Laboratory studies: WBC 27.9, hemoglobin 10.2, platelet count 473. Sodium 141, potassium 4, BUN 35 creatinine 0.83. C-reactive protein 5.2. proBNP 5530. Procalcitonin 0.15. COVID detected. -Home cardiac medications: Amlodipine 5 mg daily, Eliquis 2.5 mg twice daily, ferrous sulfate 325 mg daily, magnesium oxide 400 mg daily, Toprol XL 50 [address]. 09/01 Patient is seen examined today on the [facility] floor. Patient's mental status is improved from yesterday and she denies having any chest pain, no palpitations. Patient has NG tube in place so Toprol will be switched to metoprolol tartrate. Blood pressure 152/83, heart rate in the 60s and 70s, pulse ox 95% on 4 L nasal cannula. Repeat blood work reveals WBC 18.8, hemoglobin 9.3, sodium 148, potassium 3.4, BUN 34 creatinine 0.7. Echocardiogram is pending. Physical examination: Gen: This is a 74-year-old female appears to be in no acute respiratory distress, slow to respond VS: reviewed HEENT: Head is atraumatic, normocephalic. Pupils equal, round. Sclerae is anicteric. NECK: Supple. No JVD. LUNGS: Diminished bilateral bases. No intercostal retractions. HEART: Regular rate and rhythm. No murmur. ABDOMEN: Soft No tenderness. EXTREMITIES: No pedal edema. No calf tenderness. NEUROLOGICAL: Patient is awake, slow to respond and answer questions. Assessment: Sinus rhythm with runs of A-fib with RVR Metabolic encephalopathy, improving COVID-19 Acute hypoxic respiratory failure secondary to aspiration pneumonia Possible ileus versus bowel obstruction with NG tube Recent hospitalization for Pseudomonas UTI, acute COVID infection and discharged on 08/27 to [facility] Hypertension Hyperlipidemia Parkinson's Plan: Continue patient's home cardiac medications Change Toprol XL to metoprolol tartrate 50 mg in the morning and 25 mg in the evening Obtain 2-D echocardiogram and Doppler study to assess cardiac structure and function Continue telemetry monitoring Further recommendations to follow based upon clinical course Nurse practitioner note has been reviewed, I agree with documented findings and plan of care. Patient was seen and examined. Objective - Vital Signs Vital signs: Vital Signs Temp 97.9 F 09/01/24 08:14 Pulse 68 09/01/24 08:14 Resp 18 09/01/24 08:14 BP 152/83 09/01/24 08:14 Pulse Ox 95 09/01/24 08:14 FiO2 Intake & Output 08/31/24 09/01/24 09/01/24 18:59 06:59 18:59 Output Total 1000 Balance -1000 Output: Gastric Drainage 450 Urine 550 Straight 550 - Labs CBC & Chem 7: 09/01/24 02:21 09/01/24 02:21 Labs: Abnormal Lab Results - Last 24 Hours (Table) 09/01/24 09/01/24 Range/Units 02:21 02:21 WBC 18.8 H (3.8-10.6) k/uL RBC 3.08 L (3.80-5.40) m/uL Hgb 9.3 L (11.4-16.0) gm/dL Hct 30.5 L (34.0-46.0) % MCHC 30.5 L (31.0-37.0) g/dL Neutrophils # 17.6 H (1.3-7.7) k/uL Lymphocytes # 0.7 L (1.0-4.8) k/uL Sodium 148 H (137-145) mmol/L Potassium 3.4 L (3.5-5.1) mmol/L Chloride 113 H (98-107) mmol/L BUN 34 H (7-17) mg/dL Glucose 153 H (74-99) mg/dL Calcium 8.0 L (8.4-10.2) mg/dL AST 13 L (14-36) U/L C-Reactive Protein 2.1 H (<1.0) mg/dL Total Protein 5.7 L (6.3-8.2) g/dL Albumin 2.8 L (3.5-5.0) g/dL Microbiology - Last 24 Hours (Table) 08/29/24 17:43 Blood Culture - Preliminary Blood
--- NOTE | 2024-09-01 14:27 | P.PN ---
Subjective Progress Note Date: 09/01/24 SURGICAL PROGRESS NOTE CHIEF COMPLAINT: COVID-pneumonia HISTORY OF PRESENT ILLNESS: Patient is lying in bed. She reports not having any bowel movement and no longer having any flatus. She denies any abdominal pain. NG tube with 450 mL output this morning that is brownish in color. PHYSICAL EXAM: VITAL SIGNS: Reviewed. GENERAL: Well-developed in no acute distress. ABDOMEN: Soft. Nondistended. Nontender. NEUROLOGIC: Alert and oriented. Cranial nerves II through XII grossly intact. ASSESSMENT: 1. Abdominal pain with evidence of ileus versus partial small bowel obstruction on CT scan 2. COVID-pneumonia PLAN: -Continue NG tube for decompression -Keep patient n.p.o. -Continue to monitor Physician Air Marshal note has been reviewed by physician. Signing provider agrees with the documented findings, assessment, and plan of care. Objective - Vital Signs Vital signs: Vital Signs Temp 97.9 F 09/01/24 08:14 Pulse 68 09/01/24 08:14 Resp 18 09/01/24 08:14 BP 152/83 09/01/24 08:14 Pulse Ox 92 L 09/01/24 12:00 FiO2 Intake & Output 08/31/24 09/01/24 09/01/24 18:59 06:59 18:59 Output Total 1000 Balance -1000 Output: Gastric Drainage 450 Urine 550 Straight 550 Other: Voiding Method Incontinent # Voids 1 - Labs CBC & Chem 7: 09/01/24 02:21 09/01/24 02:21 Labs: Abnormal Lab Results - Last 24 Hours (Table) 09/01/24 09/01/24 Range/Units 02:21 02:21 WBC 18.8 H (3.8-10.6) k/uL RBC 3.08 L (3.80-5.40) m/uL Hgb 9.3 L (11.4-16.0) gm/dL Hct 30.5 L (34.0-46.0) % MCHC 30.5 L (31.0-37.0) g/dL Neutrophils # 17.6 H (1.3-7.7) k/uL Lymphocytes # 0.7 L (1.0-4.8) k/uL Sodium 148 H (137-145) mmol/L Potassium 3.4 L (3.5-5.1) mmol/L Chloride 113 H (98-107) mmol/L BUN 34 H (7-17) mg/dL Glucose 153 H (74-99) mg/dL Calcium 8.0 L (8.4-10.2) mg/dL AST 13 L (14-36) U/L C-Reactive Protein 2.1 H (<1.0) mg/dL Total Protein 5.7 L (6.3-8.2) g/dL Albumin 2.8 L (3.5-5.0) g/dL Microbiology - Last 24 Hours (Table) 08/29/24 17:43 Blood Culture - Preliminary Blood Assessment and Plan Assessment: 74 yo female w/ resolving bowel obstruction -axr reviewed, mild paucity of gas not reflective of small bowel obstruction, improved significantly -passing flatus attempt clamp and clear trial Time with Patient: Less than 30
[2024-09-01] MEDS: DEXTROSE 5% IN WATER 1,000 ML IV SCH (15:54)
--- NOTE | 2024-09-01 16:37 | P.PN ---
Subjective Progress Note Date: 09/01/24 Principal diagnosis: Reason for follow-up is leukocytosis, pneumonia Patient is a 74-year-old female with a past medical history significant for parkinsonism hypertension hyperlipidemia osteoarthritis recently treated at this facility for Pseudomonas UTI also have elevated white count and the patient was transferred to the [facility] on IV Zosyn patient has been br ought back to the hospital for evaluation of increasing shortness of breath and mental status changes patient did have a fever with concern for pneumonia and abdominal CT prompting this consultation. On today's evaluation that is 09/01/2024, Patient is afebrile this morning patient is more awake and alert today denies having any chest pain shortness of breath or any worsening cough, the patient is currently on 4 L nasal current oxygen, patient denies any abdominal pain no diarrhea no nausea no vomiting. Patient white count is down to 18.8, creatinine 0.76 blood cultures are currently pending Objective - Vital Signs Vital signs: Vital Signs Temp 97.9 F 09/01/24 08:14 Pulse 68 09/01/24 08:14 Resp 18 09/01/24 08:14 BP 152/83 09/01/24 08:14 Pulse Ox 95 09/01/24 08:14 FiO2 Intake & Output 08/31/24 09/01/24 09/01/24 18:59 06:59 18:59 Output Total 1000 Balance -1000 Output: Gastric Drainage 450 Urine 550 Straight 550 Other: Voiding Method Incontinent - Exam GENERAL DESCRIPTION: An elderly female lying in bed in no distress RESPIRATORY SYSTEM: Unlabored breathing , decreased breath sounds at bases HEART: S1 S2 regular rate and rhythm , ABDOMEN: Soft , no tenderness EXTREMITIES: No edema feet - Labs CBC & Chem 7: 09/01/24 02:21 09/01/24 02:21 Labs: Abnormal Lab Results - Last 24 Hours (Table) 09/01/24 09/01/24 Range/Units 02:21 02:21 WBC 18.8 H (3.8-10.6) k/uL RBC 3.08 L (3.80-5.40) m/uL Hgb 9.3 L (11.4-16.0) gm/dL Hct 30.5 L (34.0-46.0) % MCHC 30.5 L (31.0-37.0) g/dL Neutrophils # 17.6 H (1.3-7.7) k/uL Lymphocytes # 0.7 L (1.0-4.8) k/uL Sodium 148 H (137-145) mmol/L Potassium 3.4 L (3.5-5.1) mmol/L Chloride 113 H (98-107) mmol/L BUN 34 H (7-17) mg/dL Glucose 153 H (74-99) mg/dL Calcium 8.0 L (8.4-10.2) mg/dL AST 13 L (14-36) U/L C-Reactive Protein 2.1 H (<1.0) mg/dL Total Protein 5.7 L (6.3-8.2) g/dL Albumin 2.8 L (3.5-5.0) g/dL Microbiology - Last 24 Hours (Table) 08/29/24 17:43 Blood Culture - Preliminary Blood Assessment and Plan (1) Altered mental status Current Visit: Yes Status: Acute Code(s): R41.82 - ALTERED MENTAL STATUS, UNSPECIFIED SNOMED Code(s): 665451303 (2) Pneumonia due to COVID-19 virus Current Visit: Yes Status: Acute Code(s): U07.1 - COVID-19; J12.82 - PNEUMONIA DUE TO CORONAVIRUS DISEASE 2019 SNOMED Code(s): 442275552494995794 (3) Leukocytosis Current Visit: No Status: Acute Priority: Medium Code(s): D72.829 - ELEVATED WHITE BLOOD CELL COUNT, UNSPECIFIED SNOMED Code(s): 025331506 Plan: 1patient presented to hospital with mental status changes in this patient who also noted to be hypoxemic recently diagnosed with COVID-19 on 08/25/2024 now with evidence of multifocal infiltrate and bibasilar infiltrate concerning for possible COVID versus secondary bacterial pneumonia patient also noted to have some abnormality on the CT abdominal pelvis with a question for possible appendicitis though no significant tenderness to the right lower quadrant was noticed on Examination General Surgery has been consulted and currently monitoring the patient with n.p.o. NG 2-patient is afebrile white count is trending down blood cultures are pending, patient currently being treated dexamethasone and Zosyn, monitor clinical course closely Dictation was produced using [employer] software. please excuse any grammatical, word or spelling errors. Time with Patient: Less than 30
--- NOTE | 2024-09-01 17:08 | P.PN ---
Progress Note - Text Progress Note Date: 09/01/24 Chief Complaint: Not feeling well 74-year-old patient follows with Dr. Yanna David. Chronic medical conditions include hyperlipidemia, hypertension, osteoarthritis, herniated disc. Possible diagnosis of Parkinson's disease. Patient at baseline is nonambulatory. Does use a assist device for transfer. Very recently in the hospital from August 22, 2024 through August 27, 2024. [This last admission patient was treated with Pseudomonas UTI for outpatient t reatment failure received IV cefepime in the hospital and was discharged on 7 days of IV Zosyn. Also treated for COVID-19 becoming hypoxic with dexamethasone. When patient left 2 days ago patient was awake. Tolerating diet. Answering questions. Patient's Remeron was discontinued because patient is found to contributing to her lethargy. She also neurological workup that was unremarkable. Patient's elevated white count was felt to be from underlying infection. Patient was discharged to [facility]. Patient was sent back to the ER from [facility] for the following symptoms. Less responsive. Shortness of breath. Abdominal distention. Patient is somewhat lethargic. Able answer simple question but not any further details. Denies any abdominal pain. August 30: Lungs sounding a bit better. Bit more awake. Tired. On IV Zosyn. 4 L nasal cannula. Answering simple questions. NG tube to intermittent suction. Large output. Getting oral medications through the NG tube. Spoke to daughter at the bedside. August 31: Earlier today NG tube was pulled out. It was replaced. Abdominal x-ray ordered this morning. Showing some air-fluid level. Abdomen is much softer. Patient is awake. at the bedside, discussed.-Understands prognosis guarded. Patient tested positive for SARS-CoV-2. September 01: NG tube since this morning is only for about [address] Lozada rounded. Tube is being clamped. Abdomen not distended. Soft. Awake. Getting her meds through the NG tube. Spoke with the at the bedside. Sodium up to 148. IV fluids changed to D5W at 75 cc an hour. Patient had runs of A-fib with rapid ventricular rate. Cardiology following. Lopressor 50 twice daily. Active Medications Acetaminophen (Acetaminophen Tab 325 Mg Tab) 650 mg PO Q6HR PRN PRN Reason: Mild Pain or Fever > 100.5 Last Admin: 08/31/24 16:26 Dose: 650 mg Albuterol Sulfate (Albuterol Hfa Inhaler) 2 puff INHALATION RT-Q6H PRN PRN Reason: Shortness Of Breath Or Wheezing Albuterol Sulfate (Albuterol Hfa Inhaler) 2 puff INHALATION RT-QID COUNT INCLUDES THE [facility] Last Admin: 09/01/24 14:16 Dose: 2 puff Amlodipine Besylate (Amlodipine 5 Mg Tab) 5 mg PO DAILY COUNT INCLUDES THE [facility] Last Admin: 09/01/24 08:46 Dose: 5 mg Anastrozole (Anastrozole 1 Mg Tab) 1 mg PO DAILY@2300 COUNT INCLUDES THE [facility] Last Admin: 08/31/24 22:11 Dose: 1 mg Apixaban (Apixaban 2.5 Mg Tablet) 2.5 mg PO BID@0930,1700 COUNT INCLUDES THE [facility]; Protocol Last Admin: 09/01/24 16:15 Dose: 2.5 mg Atorvastatin Calcium (Atorvastatin 10 Mg Tab) 10 mg PO DAILY@1700 COUNT INCLUDES THE [facility] Last Admin: 09/01/24 16:15 Dose: 10 mg Carbidopa/Levodopa (Carbidopa-Levodopa 25-100 Mg 1 Each Tab) 2 each PO TID@0930,1700,2300 COUNT INCLUDES THE [facility] Last Admin: 09/01/24 16:15 Dose: 2 each Cinacalcet (Cinacalcet 30 Mg Tab) 60 mg PO DAILY@1200 COUNT INCLUDES THE [facility] Last Admin: 09/01/24 12:25 Dose: 60 mg Dexamethasone Sodium Phosphate (Dexamethasone Sod Phosphate 10 Mg/Ml 1 Ml Vial) 6 mg IVP BID COUNT INCLUDES THE [facility] Last Admin: 09/01/24 08:37 Dose: 6 mg Folic Acid (Folic Acid 1 Mg Tab) 1 mg PO DAILY@1200 COUNT INCLUDES THE [facility] Last Admin: 09/01/24 12:25 Dose: 1 mg Dextrose/Water (Dextrose 5%-Water Iv Soln) 1,000 mls @ 75 mls/hr IV .[id number] COUNT INCLUDES THE [facility] Last Admin: 09/01/24 15:54 Dose: 75 mls/hr Metoprolol Tartrate (Metoprolol Tartrate 25 Mg Tab) 25 mg PO HS COUNT INCLUDES THE [facility] Last Admin: 08/31/24 22:11 Dose: 25 mg Metoprolol Tartrate (Metoprolol Tartrate 50 Mg Tab) 50 mg PO DAILY COUNT INCLUDES THE [facility] Last Admin: 09/01/24 08:47 Dose: 50 mg Miscellaneous Information (Pneumonia Protocol Utilized 1 Each Misc) 1 each PO ONCE PRN PRN Reason: Per Protocol Naloxone HCl (Naloxone 0.4 Mg/Ml 1 Ml Vial) 0.2 mg IV Q2M PRN PRN Reason: Opioid Reversal Non-Formulary Medication (Vibegron [Gemtesa]) 75 mg PO DAILY@0930 COUNT INCLUDES THE [facility] Last Admin: 09/01/24 08:46 Dose: Not Given Ondansetron HCl (Ondansetron 4 Mg/2 Ml Vial) 4 mg IVP Q8HR PRN PRN Reason: Nausea And Vomiting Pantoprazole Sodium (Pantoprazole 40 Mg/10 Ml Vial) 40 mg IV DAILY COUNT INCLUDES THE [facility] Last Admin: 09/01/24 08:37 Dose: 40 mg Piperacillin Sod/Tazobactam Sod (Piperacillin-Tazobactam 3.375 Gm Vial) 3.375 gm IVPB Q8HR COUNT INCLUDES THE [facility]; Protocol Last Admin: 09/01/24 16:12 Dose: 3.375 gm Ropinirole HCl (Ropinirole Hcl 0.25 Mg Tab) 0.5 mg PO TID@0930,1700,2300 COUNT INCLUDES THE [facility] Last Admin: 09/01/24 16:15 Dose: 0.5 mg Sodium Bicarbonate (Sodium Bicarbonate Tab 650 Mg Tab) 650 mg PO BID COUNT INCLUDES THE [facility] Last Admin: 09/01/24 08:46 Dose: 650 mg Social history: No history of smoking alcohol. . Nonambulatory. Does use assistive aid for transfer. Physical examination: VITAL SIGNS: 97.9, 70, 18, 139 x 68, 91% on 4 L GENERAL: [BMI 35.2, laying in bed, tired EYES: Pupils equal. Conjunctiva yaz l. HEENT: [External appearance of nose and ears normal, oral cavity dry mucous membrane. NG tube has been clamped NECK: JVD unable to assist masses not palpable. HEART: Heart sounds distant al, some edema in the right lower extremity]. LUNGS: Respiratory rate increased, some crackles. ABDOMEN: Soft, soft, nondistended, nontender, liver spleen not palpable, no mass es palpable. PSYCH: Awake, answering simple questions MUSCULOSKELETAL:No Clubbing/cyanosis;muscles-grossly intact. Bilateral foot drop. Some swelling extremity. Dermatological: Brownish discoloration both lower extremity above the ankle. Macular. Nontender. , INVESTIGATIONS, reviewed in the clinical context: September 01: White count 18.8 hemoglobin 9.3 sodium 148 potassium 3.4 creatinine 0.76 August 29, 2024: White count 27.9 hemoglobin 10.2 platelets 473 sodium 141 potassium 4 BUN 35 creatinine 0.83 CRP 5.2 proBNP 5530. Procalcitonin 0.15 EKG tracing personally reviewed by me-normal sinus rhythm. Some globally ST segment changes Chest x-ray film personally reviewed by me-scattered infiltrates. Gaseous distention in the left side. CT abdomen pelvis: Mild distended gastric lumen. Small bowel distention throughout the abdomen measuring up to 4.1 cm. Large amount of stool in the rectum up to 9.3 cm transverse dimension. Nonobstructing bilateral renal calculi. From last week EEG: Negative for seizure activity CT brain: Nothing acute. 1.1 cm meningioma left lateral convexity. August 27: White count 22.1 hemoglobin 10.7 platelets 354 August 26: Potassium 4.7 creatinine 0.83 Febrile 11: COVID-19 PCR: Detected August 24: White count 22.8 hemoglobin 11.7 platelets 322 immature granulocytes 0.22 neutrophils 40.82 lymphocytes low at 0.78 sodium 137 potassium 5.4 BUN 62 creatinine 0.99 albumin 3.2 Assessment and plan: -Aspirin pneumonia, POA. Continue IV Zosyn. Followed by ID and pulmonary. -Pseudomonas, acute UTI on last admission with outpatient treatment failure Received cefepime 1 g every 12 hours initially,. And received IV Zosyn and was discharged on the same. Continued ID on the case -Sepsis probably from pneumonia: Better IV fluids antibiotics. -Acute COVID-19, diagnosed August 25 [last admission]. Causing hypoxia: DEXA Methasone 6 mg every 12 Repeat SARS-CoV-2 tested August 31: Positive - -Acute hypoxic respiratory failure from COVID-19 and pneumonia: Slow to respond Oxygen 4 L -Left lateral convexity meningioma 1.1 cm. -Probable ileus involving the small bowel. And gaseous distention.: Clinically much better Continue NG tube to intermittent suction. Has only. 200 cc this morning.-NG tube clamped General Surgery following -Acute metabolic encephalopathy likely from hypoxia and infection: Much improved Treat underlying conditions -Chronic medical debility Patient baseline nonambulatory. Does use a assist device to transfer. 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 Carroll. At length. Explained to him what is going currently in context of the recent admission. He does not feel the patient should go on the ventilator where she is. At this point is decided to proceed with DO NOT RESUSCITATE. Understanding full treatment plan will be given. Time spent about 20 minutes Past Medical History Past Medical History: Cancer, Hyperlipidemia, Hypertension, Osteoarthritis (OA) Additional Past Medical History / Comment(s): Well healed left leg wound(brown discoloration). Hx. of bulging disc. C-Diff infection 12/17/21. History of Any Multi-Drug Resistant Organisms: C-DIFF Date of last positivie culture/infection: 2021 MDRO Source:: stool Past Surgical History: Orthopedic Surgery, Tubal Ligation Additional Past Surgical History / Comment(s): PARATHYROIDECTOMY 1985,2009 PARTIAL THYROIDECTOMY, Low back surgery Aug 15, 2021. Peg Tube insertion October 23, 2021. right knee replacement 2019 Past Anesthesia/Blood Transfusion Reactions: No Reported Reaction Past Psychological History: No Psychological Hx Reported, Depression Smoking Status: Never smoker Past Alcohol Use History: None Reported Past Drug Use History: None Reported
--- NOTE | 2024-09-01 19:49 | P.PN ---
Subjective Progress Note Date: 09/01/24 On today's evaluation of 08/31/2024, the patient is being seen for a follow-up. This patient is 74, obese along with hypertension hyperlipidemia initially presented to us from [facility] for altered mentation and confusion. Noted the patient had a previous COVID-19 infection there was originally diagnosed on 08/25/2024 and the test is still positive on 08/31/2024. The most recent urine cultures from 08/23/2024 was negative. The patient on admission had an elevated white cell count of 27.9 and this needs to be further followed. Electrolytes are all within normal limits. proBNP level was 5530. Procalcitonin level was at 0.15. The chest x-ray from today shows small right-sided pleural effusion. NG tube still in place as the patient has evidence of ileus versus partial small bowel obstruction as noted on the CAT scan of the abdomen that was done on 08/29/2024. Noted the CAT scan showed distended gastric lumen and there is also dilated loops of small bowel present throughout the abdomen and relative sparing the distal small bowel. There is large amount of stool in the colon. There is also nonobstructive bilateral renal calculi and bibasilar atelectatic changes in the lung bases. Echocardiogram is also in progress. The patient is currently on IV Zosyn. The patient remains on Decadron 6 mg IV every 24 hours. The patient is hemodynamically stable. General surgery is on the case. Noted the patient is chronically neurologically impaired. Baseline status is nonambulatory and she is a very poor historian. Abdomen is softer compared to yesterday. She remains quite lethargic. On 09/01/2024, the patient is being seen for a follow-up. Condition is essentially unchanged compared to yesterday. She remains on oxygen 3 L/min nasal cannula. NG tube is in place as the patient has a component of ileus versus partial small bowel obstruction as evident on the CAT scan of the ab domen. Noted the patient is also positive for COVID-19. On today's blood work, the white cell count is currently down to 18 from a baseline of 27.9. White cell count is at 9.3 with a platelet count of 339. Sodium level is up to 148 and bicarb is at 25 with a BUN of 34 and a creatinine of 0.7. Procalcitonin level is at 0.09. Remains on empiric antibiotic coverage with IV Zosyn. Remains on Decadron 6 mg IV twice daily. Remains on anticoagulation with Eliquis 2.5 mg p.o. twice a day. Rest of the medications remain unchanged. She is sluggish, slow in answering. Arousable and awake. Denies having any abdominal pain. No bowel movement activity yet. Objective - Vital Signs Vital signs: Vital Signs Temp 97.9 F 09/01/24 08:14 Pulse 68 09/01/24 08:14 Resp 18 09/01/24 08:14 BP 152/83 09/01/24 08:14 Pulse Ox 92 L 09/01/24 12:00 FiO2 Intake & Output 08/31/24 09/01/24 09/01/24 18:59 06:59 18:59 Output Total 1000 Balance -1000 Output: Gastric Drainage 450 Urine 550 Straight 550 Other: Voiding Method Incontinent # Voids 1 - Exam GENERAL EXAM: Arousable, obtunded obese 74-year-old female on 3 L nasal cannula, in no apparent distress. NG tube is in place. The output from the NG tube is minimal at this point in time. HEAD: Normocephalic. EYES: Normal reaction of pupils, equal size. NOSE: Clear with pink turbinates. Nasogastric tube in place. THROAT: No erythema or exudates. NECK: No masses, no JVD. CHEST: No chest wall deformity. LUNGS: Equal air entry with crackles in the bilateral bases. CVS: S1 and S2 normal with no audible murmur, regular rhythm. ABDOMEN: No hepatosplenomegaly, normal bowel sounds, no guarding or rigidity. Abdomen is tympanic and slightly distended, improved compared to yesterday SPINE: No scoliosis or deformity SKIN: No rashes CENTRAL NERVOUS SYSTEM: No focal deficits, tone is normal in all 4 extremities. EXTREMITIES: Changes of chronic venous stasis. There is no peripheral edema. No clubbing, no cyanosis. Peripheral pulses are intact. - Labs CBC & Chem 7: 09/01/24 02:21 09/01/24 02:21 Labs: Abnormal Lab Results - Last 24 Hours (Table) 09/01/24 09/01/24 Range/Units 02:21 02:21 WBC 18.8 H (3.8-10.6) k/uL RBC 3.08 L (3.80-5.40) m/uL Hgb 9.3 L (11.4-16.0) gm/dL Hct 30.5 L (34.0-46.0) % MCHC 30.5 L (31.0-37.0) g/dL Neutrophils # 17.6 H (1.3-7.7) k/uL Lymphocytes # 0.7 L (1.0-4.8) k/uL Sodium 148 H (137-145) mmol/L Potassium 3.4 L (3.5-5.1) mmol/L Chloride 113 H (98-107) mmol/L BUN 34 H (7-17) mg/dL Glucose 153 H (74-99) mg/dL Calcium 8.0 L (8.4-10.2) mg/dL AST 13 L (14-36) U/L C-Reactive Protein 2.1 H (<1.0) mg/dL Total Protein 5.7 L (6.3-8.2) g/dL Albumin 2.8 L (3.5-5.0) g/dL Microbiology - Last 24 Hours (Table) 08/29/24 17:43 Blood Culture - Preliminary Blood Assessment and Plan Plan: Altered mental status of unclear etiology, possible metabolic encephalopathy versus post COVID-19 encephalopathy, improved and more awake compared to yesterday Acute hypoxemic respiratory failure secondary to suspected aspiration pneumonia versus atelectatic changes lung base bilaterally, currently on 3 L of oxygen by nasal cannula COVID-19 infection diagnosed on 08/25/2024 in the COVID-19 testing still positive, still on Decadron Ileus versus partial small bowel obstruction the patient presented with abdominal distention secondary to possible small bowel obstruction versus ileus. Nasogastric tube in place, general surgery is on the case and the patient is currently n.p.o. abdomen is less distended Leukocytosis secondary to above, improving Hyperchloremic hypernatremia Recent hospitalization here for pseudomonal UTI, acute COVID 19 infection discharged on 08/27/2024 to [facility] Hypertension Hyperlipidemia Restless leg syndrome History of depression History of Parkinson's disease Poor functional performance based on the above-mentioned multiple comorbidities Hand: Currently on 3 L nasal cannula Titrate the FiO2 as tolerated Continued on Decadron from previous COVID infection Anticoagulated with Eliquis for immobility Start the patient on D5 water at rate of 100 cc an hour and repeat electrolytes Continued on Zosyn for recent UTI Continue albuterol HFA Keep NG tube in place General Surgery consultation Cultures were sent Protonix for GI prophylaxis We will continue to follow and make further recommendations based on her clinical status
--- NOTE | 2024-09-02 06:58 | P.PN ---
Subjective patient seen and evaluated bedside. Patient still lethargic. Denies abdominal pain passing flatus. Objective - Vital Signs Vital signs: Vital Signs Temp 98.7 F 09/02/24 00:47 Pulse 82 09/02/24 00:47 Resp 17 09/02/24 00:47 BP 131/83 09/02/24 00:47 Pulse Ox 92 L 09/02/24 00:47 FiO2 Intake & Output 09/01/24 09/01/24 09/02/24 06:59 18:59 06:59 Intake Total 900 Output Total 1000 200 200 Balance -1000 -200 700 Intake: Intake, IV Titration 900 Amount Dextrose 5% in Water 1, 900 000 ml @ 75 mls/hr IV . [id number] TONI Rx#:[id number] Output: Gastric Drainage 450 200 200 Urine 550 Straight 550 Other: Voiding Method Incontinent Diaper Incontinent # Voids 1 3 - Exam Gen. lethargic Cardiovascular regular in rhythm Pulmonary however breathing Abdomen soft mild distention, no guarding or rebound tenderness - Labs CBC & Chem 7: 09/01/24 02:21 09/01/24 02:21 Labs: Microbiology - Last 24 Hours (Table) 08/29/24 17:43 Blood Culture - Preliminary Blood Assessment and Plan Assessment: 74 yo female w/ resolving bowel obstruction -axr reviewed, mild paucity of gas not reflective of small bowel obstruction, improved significantly -passing flatus attempt clamp and clear trial Time with Patient: Less than 30
--- NOTE | 2024-09-02 07:51 | CA ---
Transthoracic Echo Report Name: Kristin Mtz Age: 74 Gender: F : 1950 Exam Date: 09/01/2024 15:27 Exam Location: [facility] Ht (in): 64 Wt (lb): 205 Ordering Physician: Samantha Syed Attending/Referring Phys: Arts Administrator Or Manager Charla Chacko RDCS Procedure CPT: Indications: LVF, intermittend a fib Cardiac Hx: Covid+ Technical Quality: Fair Contrast 1: Total Dose (mL): Contrast 2: Total Dose (mL): MEASUREMENTS (Male / Female) Normal Values 2D ECHO LV Diastolic Diameter PLAX 4.3 cm 4.2 - 5.9 / 3.9 - 5.3 cm LV Systolic Diameter PLAX 2.7 cm IVS Diastolic Thickness 1.2 cm 0.6 - 1.0 / 0.6 - 0.9 cm LVPW Diastolic Thickness 1.2 cm 0.6 - 1.0 / 0.6 - 0.9 cm LV Relative Wall Thickness 0.5 RV Internal Dim ED PLAX 1.9 cm LA Systolic Diameter LX 3.5 cm 3.0 - 4.0 / 2.7 - 3.8 cm LA Volume 70.4 cm??? 18 - 58 / 22 - 52 cm??? LA Volume Index 33.7 cm???/m??? 16 - 28 cm???/m??? M-MODE Aortic Root Diameter MM 2.6 cm LA Systolic Diameter MM 3.1 cm LA Ao Ratio MM 1.2 AV Cusp Separation MM 1.7 cm DOPPLER MV Area PHT 3.2 cm??? Mitral E Point Velocity 88.1 cm/s Mitral A Point Velocity 101.8 cm/s Mitral E to A Ratio 0.9 MV Deceleration Time 240.2 ms TR Peak Velocity 275.0 cm/s TR Peak Gradient 30.2 mmHg Right Atrial Pressure 10.0 mmHg Pulmonary Artery Systolic Pressu 40.2 mmHg Right Ventricular Systolic Press 40.2 mmHg FINDINGS Left Ventricle Left ventricular ejection fraction is estimated at 50-60%. Mildly increased septal wall thickness. Mildly increased posterior wall thickness. Normal left ventricular systolic function with no obvious regional wall motion abnormalities. Right Ventricle Mild right ventricular dilatation. Mild pulmonary hypertension. Right Atrium Mild right atrial dilatation. Left Atrium Mildly increased left atrial volume. Mildly increased left atrial area. Mitral Valve Structurally normal mitral valve. Mild mitral regurgitation. No mitral stenosis. Aortic Valve Trileaflet aortic valve. No aortic stenosis. No aortic regurgitation. Tricuspid Valve Structurally normal tricuspid valve. Mild tricuspid regurgitation. No tricuspid stenosis. Pulmonic Valve Structurally normal pulmonic valve. Trace pulmonic regurgitation. No pulmonic stenosis. Pericardium No pericardial or pleural effusion. Aorta Normal size aortic root and proximal ascending aorta. CONCLUSIONS Normal biventricular systolic function Mild pulmonary hypertension No significant abnormalities was noted in the aortic and mitral valve No pericardial effusion Previewed by: Dr. Gucci Hanson MD (Electronically Signed) Final Date: 02 September 2024 07:50
--- NOTE | 2024-09-02 10:35 | P.PN ---
Subjective Progress Note Date: 09/02/24 Reason for Consult (text): Runs of A-fib with RVR History of present illness: This is a 74-year-old female with past medical history of hypertension, hyper lipidemia, osteoarthritis. Patient does not follow in the [facility] office. We have been asked to evaluate the patient for runs of A-fib with RVR. Patient was recently hospitalized and treated for Pseudomonas UTI and COVID-19 infection and was discharged to [facility]. She apparently had mental status changes and was brought back into the hospital. Patient denies having any chest pain or shortness of breath at this time. Patient apparently has been having short runs of A-fib with RVR and then converting back to sinus rhythm. Patient is currently in a sinus rhythm at the time of this evaluation. She is on anticoagulation with Eliquis. Atrial fibrillation is not listed in her history. Reviewed previous EKGs and all have been sinus rhythm. Blood pressure 132/96, heart rate 80, pulse ox 97% on 4 L nasal cannula. -EKG: Sinus rhythm 90 bpm. -Chest x-ray: Performed 08/31: Right lower lobe infiltrate and right pleural effusion. NG tube. -CT brain: No acute process. -CT abdomen and pelvis without contrast revealed distended gastric lumen. Dilated loops of small bowel. Large amount of stool in the colon. Concerning for ileus versus partial bowel obstruction. Possible appendicolith. Nonobstructing bilateral renal calculi. Bibasilar atelectasis and/or airspace disease correlate for pneumonia consider aspiration. -Laboratory studies: WBC 27.9, hemoglobin 10.2, platelet count 473. Sodium 141, potassium 4, BUN 35 creatinine 0.83. C-reactive protein 5.2. proBNP 5530. Procalcitonin 0.15. COVID detected. -Home cardiac medications: Amlodipine 5 mg daily, Eliquis 2.5 mg twice daily, ferrous sulfate 325 mg daily, magnesium oxide 400 mg daily, Toprol XL 50 mg yamileth ly. 09/01 Patient is seen examined today on the [facility] floor. Patient's mental status is improved from yesterday and she denies having any chest pain, no palpitations. Patient has NG tube in place so Toprol will be switched to metoprolol tartrate. Blood pressure 152/83, heart rate in the 60s and 70s, pulse ox 95% on 4 L nasal cannula. Repeat blood work reveals WBC 18.8, hemoglobin 9.3, sodium 148, potassium 3.4, BUN 34 creatinine 0.7. Echocardiogram is pending. 09/02 Patient is seen and examined. Heart rate is running between 67 and 82. Blood pressure 130/86, pulse ox 94% on 4 L nasal cannula. Yesterday we transition to short acting metoprolol because patient had an NG tube in place. Patient continues to have NG tube in but there is talk about removing this. Echocardiogram reveals EF of 50 to 60%, mild pulmonary hypertension, no significant abnormalities in the aortic or mitral valve. No pericardial effusion. Physical examination: Gen: This is a 74-year-old female appears to be in no acute respiratory distress, slow to respond VS: reviewed HEENT: Head is atraumatic, normocephalic. Pupils equal, round. Sclerae is anicteric. NECK: Supple. No JVD. LUNGS: Diminished bilateral bases. No intercostal retractions. HEART: Regular rate and rhythm. No murmur. ABDOMEN: Soft No tenderness. EXTREMITIES: No pedal edema. No calf tenderness. NEUROLOGICAL: Patient is awake, slow to respond and answer questions. Assessment: Sinus rhythm with runs of A-fib with RVR Metabolic encephalopathy, improving COVID-19 Acute hypoxic respiratory failure secondary to aspiration pneumonia Possible ileus versus bowel obstruction with NG tube Recent hospitalization for Pseudomonas UTI, acute COVID infection and discharged on 08/27 to [facility] Hypertension Hyperlipidemia Parkinson's Plan: Continue patient's home cardiac medications Continue metoprolol tartrate 50 mg in the morning and 25 mg in the evening No further cardiac workup at this time Cardiology will sign off this case and follow on an as-needed basis. Please reconsult for any new concerns. Patient may follow-up in the office in one to [address] Hanson. Nurse practitioner note has been reviewed, I agree with documented findings and plan of care. Patient was seen and examined. Objective - Vital Signs Vital signs: Vital Signs Temp 98 F 09/02/24 07:10 Pulse 82 09/02/24 07:10 Resp 20 09/02/24 07:10 BP 130/86 09/02/24 07:10 Pulse Ox 94 L 09/02/24 07:10 FiO2 Intake & Output 09/01/24 09/02/24 09/02/24 18:59 06:59 18:59 Intake Total 900 Output Total 200 200 Balance -200 700 Intake: Intake, IV Titration 900 Amount Dextrose 5% in Water 1, 900 000 ml @ 75 mls/hr IV . [id number] [facility] Rx#:[id number] Output: Gastric Drainage 200 200 Other: Voiding Method Incontinent Diaper Incontinent # Voids 1 3 - Labs CBC & Chem 7: 09/01/24 02:21 09/01/24 02:21 Labs: Microbiology - Last 24 Hours (Table) 08/29/24 17:43 Blood Culture - Preliminary Blood
--- NOTE | 2024-09-02 17:40 | P.PN ---
Progress Note - Text Progress Note Date: 09/02/24 Chief Complaint: Not feeling well 74-year-old patient follows with Dr. Yanna David. Chronic medical conditions include hyperlipidemia, hypertension, osteoarthritis, herniated disc. Possible diagnosis of Parkinson's disease. Patient at baseline is nonambulatory. Does use a assist device for transfer. Very recently in the hospital from August 22, 2024 through August 27, 2024. [This last admission patient was treated with Pseudomonas UTI for outpatient t reatment failure received IV cefepime in the hospital and was discharged on 7 days of IV Zosyn. Also treated for COVID-19 becoming hypoxic with dexamethasone. When patient left 2 days ago patient was awake. Tolerating diet. Answering questions. Patient's Remeron was discontinued because patient is found to contributing to her lethargy. She also neurological workup that was unremarkable. Patient's elevated white count was felt to be from underlying infection. Patient was discharged to [facility]. Patient was sent back to the ER from [facility] for the following symptoms. Less responsive. Shortness of breath. Abdominal distention. Patient is somewhat lethargic. Able answer simple question but not any further details. Denies any abdominal pain. August 30: Lungs sounding a bit better. Bit more awake. Tired. On IV Zosyn. 4 L nasal cannula. Answering simple questions. NG tube to intermittent suction. Large output. Getting oral medications through the NG tube. Spoke to daughter at the bedside. August 31: Earlier today NG tube was pulled out. It was replaced. Abdominal x-ray ordered this morning. Showing some air-fluid level. Abdomen is much softer. Patient is awake. at the bedside, discussed.-Understands prognosis guarded. Patient tested positive for SARS-CoV-2. September 01: NG tube since this morning is only for about [address] Lozada rounded. Tube is being clamped. Abdomen not distended. Soft. Awake. Getting her meds through the NG tube. Spoke with the at the bedside. Sodium up to 148. IV fluids changed to D5W at 75 cc an hour. Patient had runs of A-fib with rapid ventricular rate. Cardiology following. Lopressor 50 twice daily. September 02: Patient pulled out her NG tube. Abdomen appears soft. Answering simple questions. On clear liquids. Has been advanced to full liquids for supper. No nausea vomiting. No abdominal pain. Requiring 4 L of nasal cannula. Changed to oral Decadron 6 mg Active Medications Acetaminophen (Acetaminophen Tab 325 Mg Tab) 650 mg PO Q6HR PRN PRN Reason: Mild Pain or Fever > 100.5 Last Admin: 08/31/24 16:26 Dose: 650 mg Albuterol Sulfate (Albuterol Hfa Inhaler) 2 puff INHALATION RT-Q6H PRN PRN Reason: Shortness Of Breath Or Wheezing Albuterol Sulfate (Albuterol Hfa Inhaler) 2 puff INHALATION RT-QID [facility] Last Admin: 09/01/24 14:16 Dose: 2 puff Amlodipine Besylate (Amlodipine 5 Mg Tab) 5 mg PO DAILY [facility] Last Admin: 09/01/24 08:46 Dose: 5 mg Anastrozole (Anastrozole 1 Mg Tab) 1 mg PO DAILY@2300 [facility] Last Admin: 08/31/24 22:11 Dose: 1 mg Apixaban (Apixaban 2.5 Mg Tablet) 2.5 mg PO BID@0930,1700 [facility]; Protocol Last Admin: 09/01/24 16:15 Dose: 2.5 mg Atorvastatin Calcium (Atorvastatin 10 Mg Tab) 10 mg PO DAILY@1700 [facility] Last Admin: 09/01/24 16:15 Dose: 10 mg Carbidopa/Levodopa (Carbidopa-Levodopa 25-100 Mg 1 Each Tab) 2 each PO TID@0930,1700,2300 [facility] Last Admin: 09/01/24 16:15 Dose: 2 each Cinacalcet (Cinacalcet 30 Mg Tab) 60 mg PO DAILY@1200 [facility] Last Admin: 09/01/24 12:25 Dose: 60 mg Dexamethasone Sodium Phosphate (Dexamethasone Sod Phosphate 10 Mg/Ml 1 Ml Vial) 6 mg IVP BID [facility] Last Admin: 09/01/24 08:37 Dose: 6 mg Folic Acid (Folic Acid 1 Mg Tab) 1 mg PO DAILY@1200 [facility] Last Admin: 09/01/24 12:25 Dose: 1 mg Dextrose/Water (Dextrose 5%-Water Iv Soln) 1,000 mls @ 75 mls/hr IV .[id number] [facility] Last Admin: 09/01/24 15:54 Dose: 75 mls/hr Metoprolol Tartrate (Metoprolol Tartrate 25 Mg Tab) 25 mg PO HS [facility] Last Admin: 08/31/24 22:11 Dose: 25 mg Metoprolol Tartrate (Metoprolol Tartrate 50 Mg Tab) 50 mg PO DAILY [facility] Last Admin: 09/01/24 08:47 Dose: 50 mg Miscellaneous Information (Pneumonia Protocol Utilized 1 Each Misc) 1 each PO ONCE PRN PRN Reason: Per Protocol Naloxone HCl (Naloxone 0.4 Mg/Ml 1 Ml Vial) 0.2 mg IV Q2M PRN PRN Reason: Opioid Reversal Non-Formulary Medication (Vibegron [Gemtesa]) 75 mg PO DAILY@0930 [facility] Last Admin: 09/01/24 08:46 Dose: Not Given Ondansetron HCl (Ondansetron 4 Mg/2 Ml Vial) 4 mg IVP Q8HR PRN PRN Reason: Nausea And Vomiting Pantoprazole Sodium (Pantoprazole 40 Mg/10 Ml Vial) 40 mg IV DAILY [facility] Last Admin: 09/01/24 08:37 Dose: 40 mg Piperacillin Sod/Tazobactam Sod (Piperacillin-Tazobactam 3.375 Gm Vial) 3.375 gm IVPB Q8HR [facility]; Protocol Last Admin: 09/01/24 16:12 Dose: 3.375 gm Ropinirole HCl (Ropinirole Hcl 0.25 Mg Tab) 0.5 mg PO TID@0930,1700,2300 [facility] Last Admin: 09/01/24 16:15 Dose: 0.5 mg Sodium Bicarbonate (Sodium Bicarbonate Tab 650 Mg Tab) 650 mg PO BID [facility] Last Admin: 09/01/24 08:46 Dose: 650 mg Social history: No history of smoking alcohol. . Nonambulatory. Does use assistive aid for transfer. Physical examination: VITAL SIGNS: 97.9, 70, 18, 139 x 68, 91% on 4 L GENERAL: [BMI 35.2, laying in bed, tired EYES: Pupils equal. Conjunctiva yaz l. HEENT: [External appearance of nose and ears normal, oral cavity dry mucous membrane. NG tube has been clamped NECK: JVD unable to assist masses not palpable. HEART: Heart sounds distant al, some edema in the right lower extremity]. LUNGS: Respiratory rate increased, some crackles. ABDOMEN: Soft, soft, nondistended, nontender, liver spleen not palpable, no masses palpable. PSYCH: Awake, answering simple questions MUSCULOSKELETAL:No Clubbing/cyanosis;muscles-grossly intact. Bilateral foot drop. Some swelling extremity. Dermatological: Brownish discoloration both lower extremity above the ankle. Macular. Nontender. , INVESTIGATIONS, reviewed in the clinical context: September 01: White count 18.8 hemoglobin 9.3 sodium 148 potassium 3.4 creatinine 0.76 August 29, 2024: White count 27.9 hemoglobin 10.2 platelets 473 sodium 141 potassium 4 BUN 35 creatinine 0.83 CRP 5.2 proBNP 5530. Procalcitonin 0.15 EKG tracing personally reviewed by me-normal sinus rhythm. Some globally ST segment changes Chest x-ray film personally reviewed by me-scattered infiltrates. Gaseous distention in the left side. CT abdomen pelvis: Mild distended gastric lumen. Small bowel distention throughout the abdomen measuring up to 4.1 cm. Large amount of stool in the rectum up to 9.3 cm transverse dimension. Nonobstructing bilateral renal calculi. From last week EEG: Negative for seizure activity CT brain: Nothing acute. 1.1 cm meningioma left lateral convexity. August 27: White count 22.1 hemoglobin 10.7 platelets 354 August 26: Potassium 4.7 creatinine 0.83 Febrile 11: COVID-19 PCR: Detected August 24: White count 22.8 hemoglobin 11.7 platelets 322 immature granulo cytes 0.22 neutrophils 40.82 lymphocytes low at 0.78 sodium 137 potassium 5.4 BUN 62 creatinine 0.99 albumin 3.2 Assessment and plan: -Aspirin pneumonia, POA. Continue IV Zosyn. Followed by ID and pulmonary. -Pseudomonas, acute UTI on last admission with outpatient treatment failure Received cefepime 1 g every 12 hours initially,. And received IV Zosyn and was discharged on the same. Continued ID on the case -Sepsis probably from pneumonia: Better IV fluids antibiotics. -Acute COVID-19, diagnosed August 25 [last admission]. Causing hypoxia: DEXA Methasone 6 mg daily Repeat SARS-CoV-2 tested August 31: Positive - -Acute hypoxic respiratory failure from COVID-19 and pneumonia: Slow to respond Oxygen 4 L -Left lateral convexity meningioma 1.1 cm. -Probable ileus involving the small bowel. And gaseous distention.: Clinically much better Continue NG tube to intermittent suction. Has only. 200 cc this morning.-NG tube clamped. Patient pulled out NG tube 0.5019. General Surgery following Tolerating clear liquids. Advance to full liquids for supper -Acute metabolic encephalopathy likely from hypoxia and infection: Much improved Treat underlying conditions -Chronic medical debility Patient baseline nonambulatory. Does use a assist device to transfer. 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 [place]. At length. Explained to him what is going currently in context of the recent admission. He does not feel the patient should go on the ventilator where she is. At this point is decided to proceed with DO NOT RESUSCITATE. Understanding full treatment plan will be given. Time spent about 20 minutes Past Medical History Past Medical History: Cancer, Hyperlipidemia, Hypertension, Osteoarthritis (OA) Additional Past Medical History / Comment(s): Well healed left leg wound(brown discoloration). Hx. of bulging disc. C-Diff infection 12/17/21. History of Any Multi-Drug Resistant Organisms: C-DIFF Date of last positivie culture/infection: 2021 MDRO Source:: stool Past Surgical History: Orthopedic Surgery, Tubal Ligation Additional Past Surgical History / Comment(s): PARATHYROIDECTOMY 1985,2009 PARTIAL THYROIDECTOMY, Low back surgery Aug 15, 2021. Peg Tube insertion October 23, 2021. right knee replacement 2019 Past Anesthesia/Blood Transfusion Reactions: No Reported Reaction Past Psychological History: No Psychological Hx Reported, Depression Smoking Status: Never smoker Past Alcohol Use History: None Reported Past Drug Use History: None Reported
--- NOTE | 2024-09-02 19:26 | P.PN ---
Subjective Progress Note Date: 09/02/24 On today's evaluation of 08/31/2024, the patient is being seen for a follow-up. This patient is 74, obese along with hypertension hyperlipidemia initially presented to us from [facility] for altered mentation and confusion. Noted the patient had a previous COVID-19 infection there was originally diagnosed on 08/25/2024 and the test is still positive on 08/31/2024. The most recent urine cultures from 08/23/2024 was negative. The patient on admission had an elevated white cell count of 27.9 and this needs to be further followed. Electrolytes are all within normal limits. proBNP level was 5530. Procalcitonin level was at 0.15. The chest x-ray from today shows small right-sided pleural effusion. NG tube still in place as the patient has evidence of ileus versus partial small bowel obstruction as noted on the CAT scan of the abdomen that was done on 08/29/2024. Noted the CAT scan showed distended gastric lumen and there is also dilated loops of small bowel present throughout the abdomen and relative sparing the distal small bowel. There is large amount of stool in the colon. There is also nonobstructive bilateral renal calculi and bibasilar atelectatic changes in the lung bases. Echocardiogram is also in progress. The patient is currently on IV Zosyn. The patient remains on Decadron 6 mg IV every 24 hours. The patient is hemodynamically stable. General surgery is on the case. Noted the patient is chronically neurologically impaired. Baseline status is nonambulatory and she is a very poor historian. Abdomen is softer compared to yesterday. She remains quite lethargic. On 09/01/2024, the patient is being seen for a follow-up. Condition is essentially unchanged compared to yesterday. She remains on oxygen 3 L/min nasal cannula. NG tube is in place as the patient has a component of ileus versus partial small bowel obstruction as evident on the CAT scan of the ab domen. Noted the patient is also positive for COVID-19. On today's blood work, the white cell count is currently down to 18 from a baseline of 27.9. White cell count is at 9.3 with a platelet count of 339. Sodium level is up to 148 and bicarb is at 25 with a BUN of 34 and a creatinine of 0.7. Procalcitonin level is at 0.09. Remains on empiric antibiotic coverage with IV Zosyn. Remains on Decadron 6 mg IV twice daily. Remains on anticoagulation with Eliquis 2.5 mg p.o. twice a day. Rest of the medications remain unchanged. She is sluggish, slow in answering. Arousable and awake. Denies having any abdominal pain. No bowel movement activity yet. 09/02/2024, the patient is being seen for a follow-up. The patient pulled out her NG tube. Abdomen is soft. She is on clear liquid diet. No nausea vomiting or diarrhea or abdominal pain. She remains on oxygen 4 L/min nasal cannula. She remains on Decadron. White cell count from yesterday was 18.8 with hemoglobin 9.3 and a platelet count of 336. Sodium levels at 148, potassium is at 3.4. The BUN was 34 with a creatinine of 0.7. The patient remains on Decadron. Remains on D5 water at 75 cc an hour. Empiric antibiotic coverage with IV Zosyn. Remains anticoagulated with Eliquis 2.5 mg twice a day. Recent medications remain unchanged. Objective - Vital Signs Vital signs: Vital Signs Temp 98.7 F 09/02/24 12:55 Pulse 66 09/02/24 12:55 Resp 19 09/02/24 12:55 BP 133/83 09/02/24 12:55 Pulse Ox 93 L 09/02/24 12:55 FiO2 Intake & Output 09/02/24 09/02/24 09/03/24 06:59 18:59 06:59 Intake Total 900 Output Total 200 Balance 700 Intake: Intake, IV Titration 900 Amount Dextrose 5% in Water 1, 900 000 ml @ 75 mls/hr IV . [id number] [facility] Rx#:[id number] Output: Gastric Drainage 200 Other: Voiding Method Diaper Diaper Incontinent Incontinent # Voids 3 3 - Exam GENERAL EXAM: Arousable, obtunded obese 74-year-old female on 4 L nasal cannula, in no apparent distress. NG tube is in place. NG tube has been removed HEAD: Normocephalic. EYES: Normal reaction of pupils, equal size. NOSE: Clear with pink turbinates. Nasogastric tube in place. THROAT: No erythema or exudates. NECK: No masses, no JVD. CHEST: No chest wall deformity. LUNGS: Equal air entry with crackles in the bilateral bases. CVS: S1 and S2 normal with no audible murmur, regular rhythm. ABDOMEN: No hepatosplenomegaly, normal bowel sounds, no guarding or rigidity. Abdomen is tympanic and slightly distended, improved compared to yesterday SPINE: No scoliosis or deformity SKIN: No rashes CENTRAL NERVOUS SYSTEM: No focal deficits, tone is normal in all 4 extremities. EXTREMITIES: Changes of chronic venous stasis. There is no peripheral edema. No clubbing, no cyanosis. Peripheral pulses are intact. - Labs CBC & Chem 7: 09/01/24 02:21 09/01/24 02:21 Labs: Microbiology - Last 24 Hours (Table) 08/29/24 17:43 Blood Culture - Preliminary Blood Assessment and Plan Plan: Altered mental status of unclear etiology, possible metabolic encephalopathy versus post COVID-19 encephalopathy, improving Acute hypoxemic respiratory failure secondary to suspected aspiration pneumonia versus atelectatic changes lung base bilaterally, currently on 4 L of oxygen by nasal cannula COVID-19 infection diagnosed on 08/25/2024 in the COVID-19 testing still positive, still on Decadron, questionable aspiration the patient remains on IV Zosyn Ileus versus partial small bowel obstruction the patient presented with abdominal distention secondary to possible small bowel obstruction versus ileus. The patient pulled out the NG tube. The patient will be advanced to clear liquid diet Leukocytosis secondary to above, improving Hyperchloremic hypernatremia, currently on D5 water Recent hospitalization here for pseudomonal UTI, acute COVID 19 infection discharged on 08/27/2024 to [facility] Hypertension Hyperlipidemia Restless leg syndrome History of depression History of Parkinson's disease Poor functional performance based on the above-mentioned multiple comorbidities Hand: Currently on 4 L nasal cannula Titrate the FiO2 as tolerated Continued on Decadron from previous COVID infection Anticoagulated with Eliquis for immobility S continue D5 water and monitor sodium level. Repeat electrolytes in a.m. Continued on Zosyn f Continue albuterol HFA K NG tube has been removed and will advance diet General Surgery consultation Cultures were sent Protonix for GI prophylaxis We will continue to follow and make further recommendations based on her clinical status
[2024-09-03] MEDS ORDERED: ZINC OXIDE PASTE (Z-GUARD) 1 APPLIC TOPICAL PRN (05:20)
[2024-09-03] MEDS: dexAMETHasone 2 MG TAB PO SCH (08:29)
--- NOTE | 2024-09-03 08:41 | P.PN ---
Subjective Progress Note Date: 09/02/24 Principal diagnosis: Reason for follow-up is leukocytosis, pneumonia Patient is a 74-year-old female with a past medical history significant for parkinsonism hypertension hyperlipidemia osteoarthritis recently treated at this facility for Pseudomonas UTI also have elevated white count and the patient was transferred to the [facility] on IV Zosyn patient has been br ought back to the hospital for evaluation of increasing shortness of breath and mental status changes patient did have a fever with concern for pneumonia and abdominal CT prompting this consultation. On today's evaluation that is 09/02/2024, patient has been afebrile, patient is breathing comfortably and is currently on 4 L nasal cannula oxygen patient is more awake and alert denies having any chest pain did have some cough, patient denies nausea vomiting or diarrhea and no abdominal pain. Patient did not have lab draw today blood cultures are pending Objective - Vital Signs Vital signs: Vital Signs Temp 98 F 09/02/24 07:10 Pulse 82 09/02/24 07:10 Resp 20 09/02/24 10:21 BP 130/86 09/02/24 07:10 Pulse Ox 94 L 09/02/24 07:10 FiO2 Intake & Output 09/01/24 09/02/24 09/02/24 18:59 06:59 18:59 Intake Total 900 Output Total 200 200 Balance -200 700 Intake: Intake, IV Titration 900 Amount Dextrose 5% in Water 1, 900 000 ml @ 75 mls/hr IV . [id number] [facility] Rx#:[id number] Output: Gastric Drainage 200 200 Other: Voiding Method Incontinent Diaper Diaper Incontinent Incontinent # Voids 1 3 - Exam GENERAL DESCRIPTION: An elderly female lying in bed in no distress RESPIRATORY SYSTEM: Unlabored breathing , decreased breath sounds at bases HEART: S1 S2 regular rate and rhythm , ABDOMEN: Soft , no tenderness EXTREMITIES: No edema feet - Labs CBC & Chem 7: 09/01/24 02:21 09/01/24 02:21 Labs: Microbiology - Last 24 Hours (Table) 08/29/24 17:43 Blood Culture - Preliminary Blood Assessment and Plan (1) Altered mental status Current Visit: Yes Status: Acute Code(s): R41.82 - ALTERED MENTAL STATUS, UNSPECIFIED SNOMED Code(s): 262118676 (2) Pneumonia due to COVID-19 virus Current Visit: Yes Status: Acute Code(s): U07.1 - COVID-19; J12.82 - PNEUMONIA DUE TO CORONAVIRUS DISEASE 2018 SNOMED Code(s): 983143367255044069 (3) Leukocytosis Current Visit: No Status: Acute Priority: Medium Code(s): D72.829 - ELEVATED WHITE BLOOD CELL COUNT, UNSPECIFIED SNOMED Code(s): 939476540 Plan: 1patient presented to hospital with mental status changes in this patient who also noted to be hypoxemic recently diagnosed with COVID-19 on 08/25/2024 now with evidence of multifocal infiltrate and bibasilar infiltrate concerning for possible COVID versus secondary bacterial pneumonia patient also noted to have some abnormality on the CT abdominal pelvis with a question for possible appendicitis though no significant tenderness to the right lower quadrant was noticed on Examination General Surgery has been consulted and currently monitoring the patient with n.p.o. NG 2-patient is afebrile white count is trending down as of yesterday blood cultures are pending, 3patient seem to have symptomatic improvement to continue dexamethasone and Zosyn, monitor clinical course closely Dictation was produced using [employer] dictation software. please excuse any grammatical, word or spelling errors. Time with Patient: Less than 30
--- NOTE | 2024-09-03 12:58 | P.PN ---
Subjective Progress Note Date: 09/03/24 SURGICAL PROGRESS NOTE CHIEF COMPLAINT: COVID-pneumonia HISTORY OF PRESENT ILLNESS: Patient is sitting up in bed comfortably. She denies any abdominal pain. She did have a small smear of a bowel movement. She is having flatus. She is tolerating the full liquids. Patient's NG tube came out accidentally yesterday. PHYSICAL EXAM: VITAL SIGNS: Reviewed. GENERAL: Well-developed in no acute distress. ABDOMEN: Soft. Nondistended. Nontender. NEUROLOGIC: awake ASSESSMENT: 1. Partial small bowel obstruction resolving 2. COVID-pneumonia PLAN: -Continue full liquid diet -Continue to monitor Physician Country Printer note has been reviewed by physician. Signing provider agrees with the documented findings, assessment, and plan of care. Objective - Vital Signs Vital signs: Vital Signs Temp 97.7 F 09/03/24 07:47 Pulse 62 09/03/24 07:47 Resp 19 09/03/24 07:47 BP 148/67 09/03/24 07:47 Pulse Ox 97 09/03/24 11:28 FiO2 Intake & Output 09/02/24 09/03/24 09/03/24 18:59 06:59 18:59 Other: Voiding Method Diaper Diaper Diaper Incontinent # Voids 3 4 - Labs CBC & Chem 7: 09/01/24 02:21 09/01/24 02:21
--- NOTE | 2024-09-03 13:15 | P.PN ---
Subjective Progress Note Date: 09/03/24 Principal diagnosis: Reason for follow-up is leukocytosis, pneumonia Patient is a 74-year-old female with a past medical history significant for parkinsonism hypertension hyperlipidemia osteoarthritis recently treated at this facility for Pseudomonas UTI also have elevated white count and the patient was [facility] to [facility] on IV Zosyn patient has been br ought back to the hospital for evaluation of increasing shortness of breath and mental status changes patient did have a fever with concern for pneumonia and abdominal CT prompting this consultation. On today's evaluation that is 09/03/2024,the patient remains to be afebrile, patient is on 4 L nasal cannula supplemental oxygen and denies any shortness of breath no chest pain or cough.Patient denies having any nausea or vomiting, no abdominal pain and no diarrhea has been reported. No new lab has been obtained today blood culture has been pending Objective - Vital Signs Vital signs: Vital Signs Temp 97.7 F 09/03/24 07:47 Pulse 62 09/03/24 07:47 Resp 19 09/03/24 07:47 BP 148/67 09/03/24 07:47 Pulse Ox 94 L 09/03/24 12:58 FiO2 Intake & Output 09/02/24 09/03/24 09/03/24 18:59 06:59 18:59 Other: Voiding Method Diaper Diaper Diaper Incontinent # Voids 3 4 - Exam GENERAL DESCRIPTION: An elderly female lying in bed in no distress RESPIRATORY SYSTEM: Unlabored breathing , decreased breath sounds at bases HEART: S1 S2 regular rate and rhythm , ABDOMEN: Soft , no tenderness EXTREMITIES: No edema feet - Labs CBC & Chem 7: 09/01/24 02:21 09/01/24 02:21 Assessment and Plan (1) Altered mental status Current Visit: Yes Status: Acute Code(s): R41.82 - ALTERED MENTAL STATUS, UNSPECIFIED SNOMED Code(s): 091477756 (2) Pneumonia due to COVID-19 virus Current Visit: Yes Status: Acute Code(s): U07.1 - COVID-19; J12.82 - PNEUMONIA DUE TO CORONAVIRUS DISEASE 2019 SNOMED Code(s): 046350707928185519 (3) Leukocytosis Current Visit: No Status: Acute Priority: Medium Code(s): D72.829 - ELEVATED WHITE BLOOD CELL COUNT, UNSPECIFIED SNOMED Code(s): 869548822 Plan: 1patient presented to hospital with mental status changes in this patient who also noted to be hypoxemic recently diagnosed with COVID-19 on 08/25/2024 now with evidence of multifocal infiltrate and bibasilar infiltrate concerning for possible COVID versus secondary bacterial pneumonia patient also noted to have some abnormality on the CT abdominal pelvis with a question for possible appendicitis though no significant tenderness to the right lower quadrant was noticed on Examination General Surgery has been consulted and currently monitoring the patient with n.p.o. NG 2-patient is afebrile white count is trending down as of yesterday blood cultures are pending, 3patient slowly clinical improvement currently being treated dexamethasone and Zosyn, and we will monitor clinical course closely Dictation was produced using [employer] dictation software. please excuse any grammatical, word or spelling errors. Time with Patient: Less than 30
[2024-09-03 14:18] VITALS: BMI 35.2
--- NOTE | 2024-09-03 17:25 | P.PN ---
Progress Note - Text Progress Note Date: 09/03/24 Chief Complaint: Not feeling well 74-year-old patient follows with Dr. Yanna David. Chronic medical conditions include hyperlipidemia, hypertension, osteoarthritis, herniated disc. Possible diagnosis of Parkinson's disease. Patient at baseline is nonambulatory. Does use a assist device for transfer. Very recently in the hospital from August 22, 2024 through August 27, 2024. [This last admission patient was treated with Pseudomonas UTI for outpatient t reatment failure received IV cefepime in the hospital and was discharged on 7 days of IV Zosyn. Also treated for COVID-19 becoming hypoxic with dexamethasone. When patient left 2 days ago patient was awake. Tolerating diet. Answering questions. Patient's Remeron was discontinued because patient is found to contributing to her lethargy. She also neurological workup that was unremarkable. Patient's elevated white count was felt to be from underlying infection. Patient was discharged to [facility]. Patient was sent back to the ER from [facility] for the following symptoms. Less responsive. Shortness of breath. Abdominal distention. Patient is somewhat lethargic. Able answer simple question but not any further details. Denies any abdominal pain. August 30: Lungs sounding a bit better. Bit more awake. Tired. On IV Zosyn. 4 L nasal cannula. Answering simple questions. NG tube to intermittent suction. Large output. Getting oral medications through the NG tube. Spoke to daughter at the bedside. August 31: Earlier today NG tube was pulled out. It was replaced. Abdominal x-ray ordered this morning. Showing some air-fluid level. Abdomen is much softer. Patient is awake. at the bedside, discussed.-Understands prognosis guarded. Patient tested positive for SARS-CoV-2. September 01: NG tube since this morning is only for about [address] Lozada rounded. Tube is being clamped. Abdomen not distended. Soft. Awake. Getting her meds through the NG tube. Spoke with the at the bedside. Sodium up to 148. IV fluids changed to D5W at 75 cc an hour. Patient had runs of A-fib with rapid ventricular rate. Cardiology following. Lopressor 50 twice daily. September 02: Patient pulled out her NG tube. Abdomen appears soft. Answering simple questions. On clear liquids. Has been advanced to full liquids for supper. No nausea vomiting. No abdominal pain. Requiring 4 L of nasal cannula. Changed to oral Decadron 6 mg September 03: Advance to full liquid diet for lunch today. On 4 L nasal cannula. Will try dropping down to 3 L. Breathing a bit better. Denies any pain. On Decadron. Active Medications Acetaminophen (Acetaminophen Tab 325 Mg Tab) 650 mg PO Q6HR PRN PRN Reason: Mild Pain or Fever > 100.5 Last Admin: 08/31/24 16:26 Dose: 650 mg Albuterol Sulfate (Albuterol Hfa Inhaler) 2 puff INHALATION RT-Q6H PRN PRN Reason: Shortness Of Breath Or Wheezing Albuterol Sulfate (Albuterol Hfa Inhaler) 2 puff INHALATION RT-QID [facility] Last Admin: 09/03/24 15:10 Dose: 2 puff Amlodipine Besylate (Amlodipine 5 Mg Tab) 5 mg PO DAILY [facility] Last Admin: 09/03/24 08:30 Dose: 5 mg Anastrozole (Anastrozole 1 Mg Tab) 1 mg PO DAILY@2300 [facility] Last Admin: 09/02/24 22:22 Dose: 1 mg Apixaban (Apixaban 2.5 Mg Tablet) 2.5 mg PO BID@0930,1700 [facility]; Protocol Last Admin: 09/03/24 08:29 Dose: 2.5 mg Atorvastatin Calcium (Atorvastatin 10 Mg Tab) 10 mg PO DAILY@1700 [facility] Last Admin: 09/02/24 17:22 Dose: 10 mg Carbidopa/Levodopa (Carbidopa-Levodopa 25-100 Mg 1 Each Tab) 2 each PO TID@0930,1700,2300 [facility] Last Admin: 09/03/24 08:29 Dose: 2 each Cinacalcet (Cinacalcet 30 Mg Tab) 60 mg PO DAILY@1200 [facility] Last Admin: 09/03/24 11:26 Dose: 60 mg Dexamethasone (Dexamethasone 2 Mg Tab) 6 mg PO DAILY [facility] Last Admin: 09/03/24 08:29 Dose: 6 mg Folic Acid (Folic Acid 1 Mg Tab) 1 mg PO DAILY@1200 [facility] Last Admin: 09/03/24 11:25 Dose: 1 mg Dextrose/Water (Dextrose 5%-Water Iv Soln) 1,000 mls @ 75 mls/hr IV .[id number] [facility] Last Admin: 09/03/24 07:38 Dose: Not Given Metoprolol Tartrate (Metoprolol Tartrate 25 Mg Tab) 25 mg PO HS [facility] Last Admin: 09/02/24 22:22 Dose: 25 mg Metoprolol Tartrate (Metoprolol Tartrate 50 Mg Tab) 50 mg PO DAILY [facility] Last Admin: 09/03/24 08:30 Dose: 50 mg Miscellaneous Information (Pneumonia Protocol Utilized 1 Each Misc) 1 each PO ONCE PRN PRN Reason: Per Protocol Naloxone HCl (Naloxone 0.4 Mg/Ml 1 Ml Vial) 0.2 mg IV Q2M PRN PRN Reason: Opioid Reversal Non-Formulary Medication (Vibegron [Gemtesa]) 75 mg PO DAILY@0930 [facility] Last Admin: 09/03/24 08:31 Dose: Not Given Ondansetron HCl (Ondansetron 4 Mg/2 Ml Vial) 4 mg IVP Q8HR PRN PRN Reason: Nausea And Vomiting Pantoprazole Sodium (Pantoprazole 40 Mg/10 Ml Vial) 40 mg IV DAILY [facility] Last Admin: 09/03/24 08:30 Dose: 40 mg Petrolatum (Zinc Oxide Paste (Z-Guard) 1 Applic) 1 applic TOPICAL Q2HR PRN; Protocol PRN Reason: Wound Healing Piperacillin Sod/Tazobactam Sod (Piperacillin-Tazobactam 3.375 Gm Vial) 3.375 gm IVPB Q8HR [facility]; Protocol Last Admin: 09/03/24 08:28 Dose: 3.375 gm Ropinirole HCl (Ropinirole Hcl 0.25 Mg Tab) 0.5 mg PO TID@0930,1700,2300 [facility] Last Admin: 09/03/24 08:29 Dose: 0.5 mg Sodium Bicarbonate (Sodium Bicarbonate Tab 650 Mg Tab) 650 mg PO BID [facility] Last Admin: 09/03/24 08:29 Dose: 650 mg Social history: No history of smoking alcohol. . Nonambulatory. Does use assistive aid for transfer. Physical examination: VITAL SIGNS: 97.7, 69, 17, 128 x 78, 93% on 3 L GENERAL: [BMI 35.2, laying in bed, tired EYES: Pupils equal. Conjunctiva yaz l. HEENT: [External appearance of nose and ears normal, oral cavity dry mucous membrane. NG tube has been clamped NECK: JVD unable to assist masses not palpable. HEART: Heart sounds distant al, some edema in the right lower extremity]. LUNGS: Respiratory rate increased, decreased crackles. ABDOMEN: Soft, soft, nondistended, nontender, liver spleen not palpable, no masses palpable. PSYCH: Awake, answering simple questions MUSCULOSKELETAL:No Clubbing/cyanosis;muscles-grossly intact. Bilateral foot drop. Some swelling extremity. Dermatological: Brownish discoloration both lower extremity above the ankle. Macular. Nontender. , INVESTIGATIONS, reviewed in the clinical context: September 01: White count 18.8 hemoglobin 9.3 sodium 148 potassium 3.4 creatinine 0.76. Procalcitonin 0.09 August 29, 2024: White count 27.9 hemoglobin 10.2 platelets 473 sodium 141 potassium 4 BUN 35 creatinine 0.83 CRP 5.2 proBNP 5530. Procalcitonin 0.15 EKG tracing personally reviewed by me-normal sinus rhythm. Some globally ST segment changes Chest x-ray film personally reviewed by me-scattered infiltrates. Gaseous distention in the left side. CT abdomen pelvis: Mild distended gastric lumen. Small bowel distention throughout the abdomen measuring up to 4.1 cm. Large amount of stool in the rectum up to 9.3 cm transverse dimension. Nonobstructing bilateral renal calculi. From last week EEG: Negative for seizure activity CT brain: Nothing acute. 1.1 cm meningioma left lateral convexity. August 27: White count 22.1 hemoglobin 10.7 platelets 354 August 26: Potassium 4.7 creatinine 0.83 Febrile 11: COVID-19 PCR: Detected August 24: White count 22.8 hemoglobin 11.7 platelets 322 immature granulocytes 0.22 neutrophils 40.82 lymphocytes low at 0.78 sodium 137 potassium 5.4 BUN 62 creatinine 0.99 albumin 3.2 Assessment and plan: -Aspirin pneumonia, POA. Continue IV Zosyn. Followed by ID and pulmonary. -Pseudomonas, acute UTI on last admission with outpatient treatment failure Received cefepime 1 g every 12 hours initially,. And received IV Zosyn and was discharged on the same. Continued ID on the case -Sepsis probably from pneumonia: Better IV fluids antibiotics. -Acute COVID-19, diagnosed August 25 [last admission]. Causing hypoxia: DEXA Methasone 6 mg daily Repeat SARS-CoV-2 tested August 31: Positive - -Acute hypoxic respiratory failure from COVID-19 and pneumonia: Some improvement Oxygen now down to 3 L -Left lateral convexity meningioma 1.1 cm. -Probable ileus involving the small bowel. And gaseous distention.: Clinically much better Continue NG tube to intermittent suction. Has only. 200 cc this morning.-NG tube clamped. Patient pulled out NG tube 0.5019. General Surgery following Tolerating clear liquids. Advance to full liquids for lunch r -Acute metabolic encephalopathy likely from hypoxia and infection: Much improved Treat underlying conditions -Chronic medical debility Patient baseline nonambulatory. Does use a assist device to transfer. 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 Carroll. At length. Explained to him what is going currently in context of the recent admission. He does not feel the patient should go on the ventilator where she is. At this point is decided to proceed with DO NOT RESUSCITATE. Understanding full treatment plan will be given. Time spent about 20 minutes Past Medical History Past Medical History: Cancer, Hyperlipidemia, Hypertension, Osteoarthritis (OA) Additional Past Medical History / Comment(s): Well healed left leg wound(brown discoloration). Hx. of bulging disc. C-Diff infection 12/17/21. History of Any Multi-Drug Resistant Organisms: C-DIFF Date of last positivie culture/infection: 2021 MDRO Source:: stool Past Surgical History: Orthopedic Surgery, Tubal Ligation Additional Past Surgical History / Comment(s): PARATHYROIDECTOMY 1985,2009 PARTIAL THYROIDECTOMY, Low back surgery Aug 15, 2021. Peg Tube insertion October 23, 2021. right knee replacement 2019 Past Anesthesia/Blood Transfusion Reactions: No Reported Reaction Past Psychological History: No Psychological Hx Reported, Depression Smoking Status: Never smoker Past Alcohol Use History: None Reported Past Drug Use History: None Reported
--- NOTE | 2024-09-03 19:20 | P.PN ---
Subjective Progress Note Date: 09/03/24 On today's evaluation of 08/31/2024, the patient is being seen for a follow-up. This patient is 74, obese along with hypertension hyperlipidemia initially presented to us from [facility] for altered mentation and confusion. Noted the patient had a previous COVID-19 infection there was originally diagnosed on 08/25/2024 and the test is still positive on 08/31/2024. The most recent urine cultures from 08/23/2024 was negative. The patient on admission had an elevated white cell count of 27.9 and this needs to be further followed. Electrolytes are all within normal limits. proBNP level was 5530. Procalcitonin level was at 0.15. The chest x-ray from today shows small right-sided pleural effusion. NG tube still in place as the patient has evidence of ileus versus partial small bowel obstruction as noted on the CAT scan of the abdomen that was done on 08/29/2024. Noted the CAT scan showed distended gastric lumen and there is also dilated loops of small bowel present throughout the abdomen and relative sparing the distal small bowel. There is large amount of stool in the colon. There is also nonobstructive bilateral renal calculi and bibasilar atelectatic changes in the lung bases. Echocardiogram is also in progress. The patient is currently on IV Zosyn. The patient remains on Decadron 6 mg IV every 24 hours. The patient is hemodynamically stable. General surgery is on the case. Noted the patient is chronically neurologically impaired. Baseline status is nonambulatory and she is a very poor historian. Abdomen is softer compared to yesterday. She remains quite lethargic. On 09/01/2024, the patient is being seen for a follow-up. Condition is essentially unchanged compared to yesterday. She remains on oxygen 3 L/min nasal cannula. NG tube is in place as the patient has a component of ileus versus partial small bowel obstruction as evident on the CAT scan of the ab domen. Noted the patient is also positive for COVID-19. On today's blood work, the white cell count is currently down to 18 from a baseline of 27.9. White cell count is at 9.3 with a platelet count of 339. Sodium level is up to 148 and bicarb is at 25 with a BUN of 34 and a creatinine of 0.7. Procalcitonin level is at 0.09. Remains on empiric antibiotic coverage with IV Zosyn. Remains on Decadron 6 mg IV twice daily. Remains on anticoagulation with Eliquis 2.5 mg p.o. twice a day. Rest of the medications remain unchanged. She is sluggish, slow in answering. Arousable and awake. Denies having any abdominal pain. No bowel movement activity yet. 09/02/2024, the patient is being seen for a follow-up. The patient pulled out her NG tube. Abdomen is soft. She is on clear liquid diet. No nausea vomiting or diarrhea or abdominal pain. She remains on oxygen 4 L/min nasal cannula. She remains on Decadron. White cell count from yesterday was 18.8 with hemoglobin 9.3 and a platelet count of 336. Sodium levels at 148, potassium is at 3.4. The BUN was 34 with a creatinine of 0.7. The patient remains on Decadron. Remains on D5 water at 75 cc an hour. Empiric antibiotic coverage with IV Zosyn. Remains anticoagulated with Eliquis 2.5 mg twice a day. Recent medications remain unchanged. On 09/03/2024, the patient is lethargic and she is arousable and awake and she is following commands and she is aware that she is in the hospital. Her mentation is gradually improved. No significant shortness of breath or chest pain patient is resting comfortably in bed. Tube has been removed. Abdominal distention. She stated that she had a soft breakfast this morning. No new complaints otherwise for now. She remains on Decadron regarding COVID-19 infection. Rest of the medications remains unchanged. The white cell count of 18.8 with a normal level 3 and a platelet count of 339. Noted her white cell count has been improving. Those labs are obtained from 09/01/2024. She is also on D5 water regarding hyperchloremic hypernatremia. Procalcitonin level is at 0.09.. Objective - Vital Signs Vital signs: Vital Signs Temp 97.7 F 09/03/24 07:47 Pulse 62 09/03/24 07:47 Resp 19 09/03/24 07:47 BP 148/67 09/03/24 07:47 Pulse Ox 97 09/03/24 11:28 FiO2 Intake & Output 09/02/24 09/03/24 09/03/24 18:59 06:59 18:59 Other: Voiding Method Diaper Diaper Diaper Incontinent # Voids 3 4 - Exam GENERAL EXAM: Arousable, obtunded obese 74-year-old female on 4 L nasal cannula, in no apparent distress. NG tube is in place. NG tube has been removed HEAD: Normocephalic. EYES: Normal reaction of pupils, equal size. NOSE: Clear with pink turbinates. Nasogastric tube in place. THROAT: No erythema or exudates. NECK: No masses, no JVD. CHEST: No chest wall deformity. LUNGS: Equal air entry with crackles in the bilateral bases. CVS: S1 and S2 normal with no audible murmur, regular rhythm. ABDOMEN: No hepatosplenomegaly, normal bowel sounds, no guarding or rigidity. Abdomen is tympanic and slightly distended, improved compared to yesterday SPINE: No scoliosis or deformity SKIN: No rashes CENTRAL NERVOUS SYSTEM: No focal deficits, tone is normal in all 4 extremities. EXTREMITIES: Changes of chronic venous stasis. There is no peripheral edema. No clubbing, no cyanosis. Peripheral pulses are intact. - Labs CBC & Chem 7: 09/01/24 02:21 09/01/24 02:21 Assessment and Plan Plan: Altered mental status of unclear etiology, possible metabolic encephalopathy versus post COVID-19 encephalopathy, improving and the patient seems to be more awake on today's evaluation Acute hypoxemic respiratory failure secondary to suspected aspiration pneumonia versus atelectatic changes lung base bilaterally, currently on 4 L of oxygen by nasal cannula and she was weaned down to 3 L O2 nasal cannula COVID-19 infection diagnosed on 08/25/2024 in the COVID-19 testing still positive, still on Decadron, questionable aspiration the patient remains on IV Zosyn Ileus versus partial small bowel obstruction the patient presented with abdominal distention secondary to possible small bowel obstruction versus ileus. The patient pulled out the NG tube. The patient will be advanced to clear liquid diet Leukocytosis secondary to above, improving Hyperchloremic hypernatremia, currently on D5 water Recent hospitalization here for pseudomonal UTI, acute COVID 19 infection discharged on 08/27/2024 to [facility] Hypertension Hyperlipidemia Restless leg syndrome History of depression History of Parkinson's disease Poor functional performance based on the above-mentioned multiple comorbidities Hand: Currently on 3 L Titrate the FiO2 as tolerated Continued on Decadron from previous COVID infection Anticoagulated with Eliquis for immobility continue D5 water and monitor sodium level. Repeat electrolytes in a.m. Continued on Zosyn Continue albuterol HFA NG tube has been removed and will advance diet General Surgery consultation Cultures were sent Protonix for GI prophylaxis We will continue to follow and make further recommendations based on her clinical status Time with Patient: Greater than 30
[2024-09-04 08:17] LABS: Basophils % (A) 0 %; Eosinophils % (A) 0 %; HCT 29.5 % (34.0-46.0); HGB 9.1 gm/dL (11.4-16.0); Hypochromasia Marked; Lymphocytes # (A) 1.5 k/uL (1.0-4.8); Lymphocytes % (A) 11 %; MCH 30.7 pg (25.0-35.0); MCHC 30.7 g/dL (31.0-37.0); Macrocytosis Slight; Mean Platelet Volume 7.9; Monocytes # (A) 0.5 k/uL (0-1.0); Monocytes % (A) 3 %; Neutrophils # (A) 12.1 k/uL (1.3-7.7); Neutrophils % (A) 85 %; Platelet Count 270 k/uL (150-450); RBC 2.95 m/uL (3.80-5.40); RDW 15.1 % (11.5-15.5); WBC 14.2 k/uL (3.8-10.6)
[2024-09-04 08:33] LABS: African American GFR (CKD) 78 (>60 ml/min/1.73 sqM); Anion Gap 5 mmol/L; Blood Urea Nitrogen 16 mg/dL (7-17); Calcium 6.9 mg/dL (8.4-10.2); Carbon Dioxide 29 mmol/L (22-30); Chloride 116 mmol/L (98-107); Glucose 174 mg/dL (74-99); Non-African American GFR(CKD) 67 (>60 ml/min/1.73 sqM); Potassium 2.8 mmol/L (3.5-5.1); Sodium 150 mmol/L (137-145)
--- NOTE | 2024-09-04 10:22 | P.CONS ---
History of Present Illness - Reason for Consult Consult date: 09/04/24 wound care - History of Present Illness This is a 74-year-old patient being seen on 4 S. for nonhealing ulcerations to the left and right buttocks. Patient has a stage II pressure ulcer to the right buttocks and a stage I pressure ulcer to the left buttocks right buttocks ulceration measures 1 x 0.4 x 0.1 cm with granulation seen throughout the wound bed no tunneling or undermining noted. Wound edges are attached to the wound base excoriation noted to the periwound. Patient's past medical history significant for hyperlipidemia hypertension denies diabetes lifelong non-smoker Review Of Systems: Constitutional: No fever, no chills, no night sweats. No weight change. No weakness, fatigue or lethargy. No daytime sleepiness. Integumentary:reports wounds, no lesions. No rash or pruritus. No unusual bruising. No change in hair or nails. Physical exam: General Appearance: Alert, cooperative, no distress, appears stated age. Skin: See HPI all other Skin color, texture, tugor normal, no rashes or lesions. Neurologic: Alert oriented x3 Assessment: 1. Stage II pressure ulcer right buttocks 2. Stage I pressure ulcer left buttocks Plan: 1. Apply zinc barrier cream to the affected area daily and as needed. Turn patient every 2 hours. Utilize air-filled cushion when sitting. Provide appropriate Metro surface to promote offloading. Thank you for the consultation any questions please contact the wound care center DNP note has been reviewed and discussed with Dr. Villar and the impression and plan of care has been directed as dictated. Past Medical History Past Medical History: Cancer, Hyperlipidemia, Hypertension, Osteoarthritis (OA) Additional Past Medical History / Comment(s): Well healed left leg wound(brown d iscoloration). Hx. of bulging disc. C-Diff infection 12/17/21. History of Any Multi-Drug Resistant Organisms: C-DIFF Year Discovered:: 2021 MDRO Source:: stool Past Surgical History: Orthopedic Surgery, Tubal Ligation Additional Past Surgical History / Comment(s): PARATHYROIDECTOMY 1985,2009 PARTIAL THYROIDECTOMY, Low back surgery Aug 15, 2021. Peg Tube insertion October 23, 2021. right knee replacement 2019 Past Anesthesia/Blood Transfusion Reactions: No Reported Reaction Past Psychological History: No Psychological Hx Reported, Depression Smoking Status: Never smoker Past Alcohol Use History: None Reported Past Drug Use History: None Reported - Past Family History Mother Additional Family Medical History / Comment(s): OSTEOPOROSIS Father Additional Family Medical History / Comment(s): AORTIC ABD. ANEURSYN Medications and Allergies Home Medications Medication Instructions Recorded Confirmed Type Atorvastatin [Lipitor] 10 mg PO DAILY@1700 11/20/16 08/29/24 History Venlafaxine HCl [Effexor XR] 75 mg PO DAILY@0800 12/16/21 08/29/24 History Alendronate Sodium 70 mg PO TU@119912/23/23 08/29/24 History Apixaban [Eliquis] 2.5 mg PO BID@0800,1700 12/23/23 08/29/24 History Carbidopa/Levodopa 2 tab PO TID@0800,1700,2300 12/23/23 08/29/24 History [Carbidopa/Levodopa 25-100 Tab] Ferrous Sulfate [Iron] 325 mg PO DAILY@119912/23/23 08/29/24 History L.acidoph,Paracasei, B.lactis 1 cap PO DAILY@1200 12/23/23 08/29/24 History [Probiotic] Metoprolol Succinate [Toprol XL] 50 mg PO DAILY@17012/23/23 08/29/24 History Ondansetron [Zofran] 4 mg PO Q8HR PRN 12/23/23 08/29/24 History Oxybutynin Chloride [oxyBUTYnin 15 mg PO DAILY@0800 12/23/23 08/29/24 History chloride ER] Acetaminophen Tab [Tylenol] 1,000 mg PO Q6HR PRN 06/04/24 08/29/24 History Anastrozole [Arimidex] 1 mg PO DAILY@2300 06/04/24 08/29/24 History Folic Acid 1 mg PO DAILY@1200 06/04/24 08/29/24 History Ibuprofen [Motrin Ib] 400 mg PO Q4H PRN 06/04/24 08/29/24 History Ketoconazole 2% Cream [Nizoral 2%] 1 applic TOPICAL DAILY PRN 06/04/24 08/29/24 History Magnesium Oxide [Mag-Ox] 400 mg PO DAILY@1700 06/04/24 08/29/24 History Mupirocin 2% Oint [Bactroban 2% 1 applic TOPICAL TID PRN 06/04/24 08/29/24 History Oint] rOPINIRole HCL [Requip] 0.5 mg PO TID@0800,1200,1700 06/04/24 08/29/24 History Ketoconazole 2% Shampoo [Nizoral] 1 applic TOPICAL DAILY 08/02/24 08/29/24 History Nystatin 100,000 Unit/gm Powd 1 applic TOPICAL BID 08/02/24 08/29/24 History [Mycostatin Powder] Vibegron [Gemtesa] 75 mg PO DAILY@0800 08/02/24 08/29/24 History Cinacalcet [Sensipar] 60 mg PO DAILY@1200 #0 08/26/24 08/29/24 Rx Piperacillin-Tazobactam [Zosyn] 3.375 gm IVPB Q8HR #21 each 08/26/24 08/29/24 Rx Ensure Enlive 237 ml PO TID@0800,1200,1700 08/29/24 08/29/24 History Ipratropium-Albuterol Nebulize 3 ml INHALATION RT-Q6H 08/29/24 08/29/24 History [Duoneb 0.5 mg-3 mg/3 ml Soln] Magnesium Hydroxide [Milk of 7,200 mg PO DAILY PRN 08/29/24 08/29/24 History Magnesia Concentrate] Na Phos,M-B/Na Phos,Di-Ba [Fleet 133 ml RECTAL DAILY PRN 08/29/24 08/29/24 History Adult] Sodium Bicarbonate Tab 650 mg PO BID@0800,1700 08/29/24 08/29/24 History amLODIPine [Norvasc] 5 mg PO DAILY@0800 08/29/24 08/29/24 History bisacodyL [Dulcolax] 10 mg RECTAL DAILY PRN 08/29/24 08/29/24 History predniSONE See Taper PO DAILY@0800 08/29/24 08/29/24 History Allergies Allergy/AdvReac Type Severity Reaction Status Date / Time No Known Allergies Allergy Verified 08/29/24 18:33 Physical Exam Vitals: Vital Signs Temp Pulse Resp BP Pulse Ox 09/04/24 09:43 93 L 09/04/24 08:00 74 20 09/04/24 07:37 97.9 F 74 20 120/77 93 L 09/04/24 01:41 97.9 F 68 16 143/85 94 L 09/03/24 19:23 97.6 F 75 15 135/79 91 L 09/03/24 14:02 97.7 F 69 17 128/78 93 L 09/03/24 12:58 94 L 09/03/24 11:28 97 Intake and Output 09/03/24 09/04/24 09/04/24 22:59 06:59 14:59 Output Total 850 Balance -850 Output: Urine 850 Other: Voiding Method External Catheter External Catheter # Bowel Movements 2 Results CBC & Chem 7: 09/04/24 08:08 09/04/24 08:08 Labs: Abnormal Lab Results - Last 24 Hours (Table) 09/04/24 09/04/24 Range/Units 08:08 08:08 WBC 14.2 H (3.8-10.6) k/uL RBC 2.95 L (3.80-5.40) m/uL Hgb 9.1 L (11.4-16.0) gm/dL Hct 29.5 L (34.0-46.0) % MCHC 30.7 L (31.0-37.0) g/dL Neutrophils # 12.1 H (1.3-7.7) k/uL Sodium 150 H (137-145) mmol/L Potassium 2.8 L (3.5-5.1) mmol/L Chloride 116 H (98-107) mmol/L Glucose 174 H (74-99) mg/dL Calcium 6.9 L (8.4-10.2) mg/dL Microbiology - Last 24 Hours (Table) 08/29/24 17:43 Blood Culture - Final Blood Assessment and Plan (1) Pressure ulcer of left buttock, stage 1 Current Visit: Yes Status: Acute Code(s): L89.321 - PRESSURE ULCER OF LEFT BUTTOCK, STAGE 1 SNOMED Code(s): 03359657952123 (2) Stage II pressure ulcer of right buttock Current Visit: Yes Status: Acute Code(s): L89.312 - PRESSURE ULCER OF RIGHT BUTTOCK, STAGE 2 SNOMED Code(s): 30021865949498
[2024-09-04] MEDS: DOCUSATE 100 MG CAP PO SCH (12:26)
[2024-09-04] MEDS: ZINC OXIDE PASTE (Z-GUARD) 1 APPLIC TOPICAL SCH (12:26)
--- NOTE | 2024-09-04 12:52 | P.PN ---
Subjective Progress Note Date: 09/04/24 Principal diagnosis: Reason for follow-up is leukocytosis, pneumonia Patient is a 74-year-old female with a past medical history significant for parkinsonism hypertension hyperlipidemia osteoarthritis recently treated at this facility for Pseudomonas UTI also have elevated white count and the [facility]yn patient has been br ought back to the hospital for evaluation of increasing shortness of breath and mental status changes patient did have a fever with concern for pneumonia and abdominal CT prompting this consultation. On today's evaluation that is 09/04/2024, the patient continues to be afebrile, the patient is on 3 L nasal cannula oxygen and breathing comfortably, the Pt denies having any chest pain or any worsening cough, the patient denies having any abdominal pain no vomiting or any diarrhea has been reported by the nursing staff. Patient white count is down to 14.2, creatinine 0.86 Objective - Vital Signs Vital signs: Vital Signs Temp 97.9 F 09/04/24 07:37 Pulse 74 09/04/24 08:00 Resp 20 09/04/24 08:00 BP 120/77 09/04/24 07:37 Pulse Ox 93 L 09/04/24 09:43 FiO2 Intake & Output 09/03/24 09/04/24 09/04/24 18:59 06:59 18:59 Output Total 400 850 Balance -400 -850 Weight 93 kg Output: Urine 400 850 Other: Voiding Method Diaper External Catheter External Catheter # Bowel Movements 2 - Exam GENERAL DESCRIPTION: An elderly female lying in bed in no distress RESPIRATORY SYSTEM: Unlabored breathing , decreased breath sounds at bases HEART: S1 S2 regular rate and rhythm , ABDOMEN: Soft , no tenderness EXTREMITIES: No edema feet - Labs CBC & Chem 7: 09/04/24 08:08 09/04/24 08:08 Labs: Abnormal Lab Results - Last 24 Hours (Table) 09/04/24 09/04/24 Range/Units 08:08 08:08 WBC 14.2 H (3.8-10.6) k/uL RBC 2.95 L (3.80-5.40) m/uL Hgb 9.1 L (11.4-16.0) gm/dL Hct 29.5 L (34.0-46.0) % MCHC 30.7 L (31.0-37.0) g/dL Neutrophils # 12.1 H (1.3-7.7) k/uL Sodium 150 H (137-145) mmol/L Potassium 2.8 L (3.5-5.1) mmol/L Chloride 116 H (98-107) mmol/L Glucose 174 H (74-99) mg/dL Calcium 6.9 L (8.4-10.2) mg/dL Microbiology - Last 24 Hours (Table) 08/29/24 17:43 Blood Culture - Final Blood Assessment and Plan (1) Altered mental status Current Visit: Yes Status: Acute Code(s): R41.82 - ALTERED MENTAL STATUS, UNSPECIFIED SNOMED Code(s): 366273324 (2) Pneumonia due to COVID-19 virus Current Visit: Yes Status: Acute Code(s): U07.1 - COVID-19; J12.82 - PNEUMONIA DUE TO CORONAVIRUS DISEASE 2019 SNOMED Code(s): 894515245644508646 (3) Leukocytosis Current Visit: No Status: Acute Priority: Medium Code(s): D72.829 - ELEVATED WHITE BLOOD CELL COUNT, UNSPECIFIED SNOMED Code(s): 060949576 Plan: 1patient presented to hospital with mental status changes in this patient who also noted to be hypoxemic recently diagnosed with COVID-19 on 08/25/2024 now with evidence of multifocal infiltrate and bibasilar infiltrate concerning for possible COVID versus secondary bacterial pneumonia patient also noted to have some abnormality on the CT abdominal pelvis with a question for possible appendicitis though no significant tenderness to the right lower quadrant was noticed on Examination General Surgery has been consulted and currently monitoring the patient with n.p.o. NG 2-patient is afebrile white count is trending down to 14,000, blood culture has been negative 3patient slowly clinical improvement we will recommend at least another 5 days of Zosyn on discharge care discussed with the family at the bedside Dictation was produced using [employer] dictation software. please excuse any grammatical, word or spelling errors.
--- NOTE | 2024-09-04 13:41 | P.PN ---
Subjective Progress Note Date: 09/04/24 SURGICAL PROGRESS NOTE CHIEF COMPLAINT: COVID-pneumonia HISTORY OF PRESENT ILLNESS: Patient is sitting up in bed comfortably. She denies any abdominal pain. Patient tolerated the full liquids. She had 2 bowel movements yesterday. Stool was hard. Afebrile. WBC is down from 18-14 Hgb 9.1 potassium 2.8 sodium 150 PHYSICAL EXAM: VITAL SIGNS: Reviewed. GENERAL: Well-developed in no acute distress. ABDOMEN: Soft. Nondistended. Nontender. ASSESSMENT: 1. Partial small bowel obstruction improved 2. COVID-pneumonia PLAN: -Advance to regular -Add Colace for stool softener -Electrolyte correction per medicine service Physician [employer] Repairer note has been reviewed by physician. Signing provider agrees with the documented findings, assessment, and plan of care. Objective - Vital Signs Vital signs: Vital Signs Temp 97.9 F 09/04/24 07:37 Pulse 74 09/04/24 08:00 Resp 20 09/04/24 08:00 BP 120/77 09/04/24 07:37 Pulse Ox 93 L 09/04/24 09:43 FiO2 Intake & Output 09/03/24 09/04/24 09/04/24 18:59 06:59 18:59 Output Total 400 850 Balance -400 -850 Weight 93 kg Output: Urine 400 850 Other: Voiding Method Diaper External Catheter External Catheter # Bowel Movements 2 - Labs CBC & Chem 7: 09/04/24 08:08 09/04/24 08:08 Labs: Abnormal Lab Results - Last 24 Hours (Table) 09/04/24 09/04/24 Range/Units 08:08 08:08 WBC 14.2 H (3.8-10.6) k/uL RBC 2.95 L (3.80-5.40) m/uL Hgb 9.1 L (11.4-16.0) gm/dL Hct 29.5 L (34.0-46.0) % MCHC 30.7 L (31.0-37.0) g/dL Neutrophils # 12.1 H (1.3-7.7) k/uL Sodium 150 H (137-145) mmol/L Potassium 2.8 L (3.5-5.1) mmol/L Chloride 116 H (98-107) mmol/L Glucose 174 H (74-99) mg/dL Calcium 6.9 L (8.4-10.2) mg/dL Microbiology - Last 24 Hours (Table) 08/29/24 17:43 Blood Culture - Final Blood
--- NOTE | 2024-09-04 15:53 | P.PN ---
Subjective Progress Note Date: 09/04/24 On today's evaluation of 08/31/2024, the patient is being seen for a follow-up. This patient is 74, obese along with hypertension hyperlipidemia initially presented to us from [facility] for altered mentation and confusion. Noted the patient had a previous COVID-19 infection there was originally diagnosed on 08/25/2024 and the test is still positive on 08/31/2024. The most recent urine cultures from 08/23/2024 was negative. The patient on admission had an elevated white cell count of 27.9 and this needs to be further followed. Electrolytes are all within normal limits. proBNP level was 5530. Procalcitonin level was at 0.15. The chest x-ray from today shows small right-sided pleural effusion. NG tube still in place as the patient has evidence of ileus versus partial small bowel obstruction as noted on the CAT scan of the abdomen that was done on 08/29/2024. Noted the CAT scan showed distended gastric lumen and there is also dilated loops of small bowel present throughout the abdomen and relative sparing the distal small bowel. There is large amount of stool in the colon. There is also nonobstructive bilateral renal calculi and bibasilar atelectatic changes in the lung bases. Echocardiogram is also in progress. The patient is currently on IV Zosyn. The patient remains on Decadron 6 mg IV every 24 hours. The patient is hemodynamically stable. General surgery is on the case. Noted the patient is chronically neurologically impaired. Baseline status is nonambulatory and she is a very poor historian. Abdomen is softer compared to yesterday. She remains quite lethargic. On 09/01/2024, the patient is being seen for a follow-up. Condition is essentially unchanged compared to yesterday. She remains on oxygen 3 L/min nasal cannula. NG tube is in place as the patient has a component of ileus versus partial small bowel obstruction as evident on the CAT scan of the ab domen. Noted the patient is also positive for COVID-19. On today's blood work, the white cell count is currently down to 18 from a baseline of 27.9. White cell count is at 9.3 with a platelet count of 339. Sodium level is up to 148 and bicarb is at 25 with a BUN of 34 and a creatinine of 0.7. Procalcitonin level is at 0.09. Remains on empiric antibiotic coverage with IV Zosyn. Remains on Decadron 6 mg IV twice daily. Remains on anticoagulation with Eliquis 2.5 mg p.o. twice a day. Rest of the medications remain unchanged. She is sluggish, slow in answering. Arousable and awake. Denies having any abdominal pain. No bowel movement activity yet. 09/02/2024, the patient is being seen for a follow-up. The patient pulled out her NG tube. Abdomen is soft. She is on clear liquid diet. No nausea vomiting or diarrhea or abdominal pain. She remains on oxygen 4 L/min nasal cannula. She remains on Decadron. White cell count from yesterday was 18.8 with hemoglobin 9.3 and a platelet count of 336. Sodium levels at 148, potassium is at 3.4. The BUN was 34 with a creatinine of 0.7. The patient remains on Decadron. Remains on D5 water at 75 cc an hour. Empiric antibiotic coverage with IV Zosyn. Remains anticoagulated with Eliquis 2.5 mg twice a day. Recent medications remain unchanged. On 09/03/2024, the patient is lethargic and she is arousable and awake and she is following commands and she is aware that she is in the hospital. Her mentation is gradually improved. No significant shortness of breath or chest pain patient is resting comfortably in bed. Tube has been removed. Abdominal distention. She stated that she had a soft breakfast this morning. No new complaints otherwise for now. She remains on Decadron regarding COVID-19 infection. Rest of the medications remains unchanged. The white cell count of 18.8 with a normal level 3 and a platelet count of 339. Noted her white cell count has been improving. Those labs are obtained from 09/01/2024. She is also on D5 water regarding hyperchloremic hypernatremia. Procalcitonin level is at 0.09.. On 09/04/2024, the patient is being seen for a follow-up. She is clinically improving. Advancing her diet. No nausea or emesis. No abdominal pain. She is on 3 Suboxone by nasal cannula. Labs are all stable with a white cell count of 14.2 with a hemoglobin of 9.1. Sodium is at 150, potassium is at 2.8, BUN 16 with a creatinine 0.8. The patient is positive for COVID-19. She remains on IV Zosyn. Rest of the medication remains unchanged. The patient is on Decadron. She is on LR at rate of 100 cc an hour. Objective - Vital Signs Vital signs: Vital Signs Temp 97.9 F 09/04/24 07:37 Pulse 74 09/04/24 08:00 Resp 20 09/04/24 08:00 BP 120/77 09/04/24 07:37 Pulse Ox 93 L 09/04/24 09:43 FiO2 Intake & Output 09/03/24 09/04/24 09/04/24 18:59 06:59 18:59 Output Total 400 850 Balance -400 -850 Weight 93 kg Output: Urine 400 850 Other: Voiding Method Diaper External Catheter External Catheter # Bowel Movements 2 - Exam GENERAL EXAM: Arousable, obtunded obese 74-year-old female on 4 L nasal cannula, in no apparent distress. NG tube is in place. NG tube has been removed HEAD: Normocephalic. EYES: Normal reaction of pupils, equal size. NOSE: Clear with pink turbinates. Nasogastric tube in place. THROAT: No erythema or exudates. NECK: No masses, no JVD. CHEST: No chest wall deformity. LUNGS: Equal air entry with crackles in the bilateral bases. CVS: S1 and S2 normal with no audible murmur, regular rhythm. ABDOMEN: No hepatosplenomegaly, normal bowel sounds, no guarding or rigidity. Abdomen is tympanic and slightly distended, improved compared to yesterday SPINE: No scoliosis or deformity SKIN: No rashes CENTRAL NERVOUS SYSTEM: No focal deficits, tone is normal in all 4 extremities. EXTREMITIES: Changes of chronic venous stasis. There is no peripheral edema. No clubbing, no cyanosis. Peripheral pulses are intact. - Labs CBC & Chem 7: 09/04/24 08:08 09/04/24 08:08 Labs: Abnormal Lab Results - Last 24 Hours (Table) 09/04/24 09/04/24 Range/Units 08:08 08:08 WBC 14.2 H (3.8-10.6) k/uL RBC 2.95 L (3.80-5.40) m/uL Hgb 9.1 L (11.4-16.0) gm/dL Hct 29.5 L (34.0-46.0) % MCHC 30.7 L (31.0-37.0) g/dL Neutrophils # 12.1 H (1.3-7.7) k/uL Sodium 150 H (137-145) mmol/L Potassium 2.8 L (3.5-5.1) mmol/L Chloride 116 H (98-107) mmol/L Glucose 174 H (74-99) mg/dL Calcium 6.9 L (8.4-10.2) mg/dL Microbiology - Last 24 Hours (Table) 08/29/24 17:43 Blood Culture - Final Blood Assessment and Plan Plan: Altered mental status of unclear etiology, possible metabolic encephalopathy versus post COVID-19 encephalopathy, improving and the patient seems to be more awake on today's evaluation Acute hypoxemic respiratory failure secondary to suspected aspiration pneumonia versus atelectatic changes lung base bilaterally, currently on 4 L of oxygen by nasal cannula and she was weaned down to 3 L O2 nasal cannula COVID-19 infection diagnosed on 08/25/2024 in the COVID-19 testing still p ositive, still on Decadron, questionable aspiration the patient remains on IV Zosyn Ileus versus partial small bowel obstruction the patient presented with abdominal distention secondary to possible small bowel obstruction versus ileus. The patient pulled out the NG tube. The patient will be advanced to clear liquid diet Leukocytosis secondary to above, improving Hyperchloremic hypernatremia, currently on D5 water Recent hospitalization here for pseudomonal UTI, [facility] COVID [facility] Hyperlipidemia Restless leg syndrome History of depression History of Parkinson's disease Poor functional performance based on the above-mentioned multiple comorbidities Hand: Currently on 3 L Titrate the FiO2 as tolerated Continued on Decadron from previous COVID infection Anticoagulated with Eliquis for immobility Switched IV fluids to D5 water at rate of 100 cc an hour . Continued on Zosyn Continue albuterol HFA Tolerating diet Protonix for GI prophylaxis
[2024-09-04] MEDS: DEXTROSE 5% IN WATER 1,000 ML IV SCH (17:10)
--- NOTE | 2024-09-04 22:30 | P.PN ---
Progress Note - Text Progress Note Date: 09/04/24 Chief Complaint: Not feeling well 74-year-old patient follows with Dr. Yanna David. Chronic medical conditions include hyperlipidemia, hypertension, osteoarthritis, herniated disc. Possible diagnosis of Parkinson's disease. Patient at baseline is nonambulatory. Does use a assist device for transfer. Very recently in the hospital from August 22, 2024 through August 27, 2024. [This last admission patient was treated with Pseudomonas UTI for outpatient t reatment failure received IV cefepime in the hospital and was discharged on 7 days of IV Zosyn. Also treated for COVID-19 becoming hypoxic with dexamethasone. When patient left 2 days ago patient was awake. Tolerating diet. Answering questions. Patient's Remeron was discontinued because patient is found to contributing to her lethargy. She also neurological workup that was unremarkable. Patient's elevated white count was felt to be from underlying infection. Patient was discharged to [facility]. Patient was sent back to the ER from [facility] for the following symptoms. Less responsive. Shortness of breath. Abdominal distention. Patient is somewhat lethargic. Able answer simple question but not any further details. Denies any abdominal pain. August 30: Lungs sounding a bit better. Bit more awake. Tired. On IV Zosyn. 4 L nasal cannula. Answering simple questions. NG tube to intermittent suction. Large output. Getting oral medications through the NG tube. Spoke to daughter at the bedside. August 31: Earlier today NG tube was pulled out. It was replaced. Abdominal x-ray ordered this morning. Showing some air-fluid level. Abdomen is much softer. Patient is awake. at the bedside, discussed.-Understands prognosis guarded. Patient tested positive for SARS-CoV-2. September 01: NG tube since this morning is only for about [address] Lozada rounded. Tube is being clamped. Abdomen not distended. Soft. Awake. Getting her meds through the NG tube. Spoke with the at the bedside. Sodium up to 148. IV fluids changed to D5W at 75 cc an hour. Patient had runs of A-fib with rapid ventricular rate. Cardiology following. Lopressor 50 twice daily. September 02: Patient pulled out her NG tube. Abdomen appears soft. Answering simple questions. On clear liquids. Has been advanced to full liquids for supper. No nausea vomiting. No abdominal pain. Requiring 4 L of nasal cannula. Changed to oral Decadron 6 mg September 03: Advance to full liquid diet for lunch today. On 4 L nasal cannula. Will try dropping down to 3 L. Breathing a bit better. Denies any pain. On Decadron. September 04: Patient on ground diet. Sodium up to 150 potassium down to 2.8. Placed on lactated Ringer's.On 3 L nasal cannula. Eating about 25 to 50%. Active Medications Acetaminophen (Acetaminophen Tab 325 Mg Tab) 650 mg PO Q6HR PRN PRN Reason: Mild Pain or Fever > 100.5 Last Admin: 08/31/24 16:26 Dose: 650 mg Albuterol Sulfate (Albuterol Hfa Inhaler) 2 puff INHALATION RT-Q6H PRN PRN Reason: Shortness Of Breath Or Wheezing Albuterol Sulfate (Albuterol Hfa Inhaler) 2 puff INHALATION RT-QID [facility] Last Admin: 09/04/24 21:34 Dose: 2 puff Amlodipine Besylate (Amlodipine 5 Mg Tab) 5 mg PO DAILY [facility] Last Admin: 09/04/24 07:53 Dose: 5 mg Anastrozole (Anastrozole 1 Mg Tab) 1 mg PO DAILY@2300 [facility] Last Admin: 09/03/24 23:22 Dose: 1 mg Apixaban (Apixaban 2.5 Mg Tablet) 2.5 mg PO BID@0930,1700 [facility]; Protocol Last Admin: 09/04/24 17:09 Dose: 2.5 mg Atorvastatin Calcium (Atorvastatin 10 Mg Tab) 10 mg PO DAILY@1700 [facility] Last Admin: 09/04/24 17:09 Dose: 10 mg Carbidopa/Levodopa (Carbidopa-Levodopa 25-100 Mg 1 Each Tab) 2 each PO TID@0930,1700,2300 [facility] Last Admin: 09/04/24 17:09 Dose: 2 each Cinacalcet (Cinacalcet 30 Mg Tab) 60 mg PO DAILY@1200 [facility] Last Admin: 09/04/24 12:26 Dose: 60 mg Dexamethasone (Dexamethasone 2 Mg Tab) 6 mg PO DAILY [facility] Last Admin: 09/04/24 07:53 Dose: 6 mg Docusate Sodium (Docusate 100 Mg Cap) 100 mg PO BID [facility] Last Admin: 09/04/24 12:26 Dose: 100 mg Folic Acid (Folic Acid 1 Mg Tab) 1 mg PO DAILY@1200 [facility] Last Admin: 09/04/24 12:26 Dose: 1 mg Dextrose/Water (Dextrose 5%-Water Iv Soln) 1,000 mls @ 100 mls/hr IV .Q10H [facility] Last Admin: 09/04/24 17:10 Dose: 100 mls/hr Metoprolol Tartrate (Metoprolol Tartrate 25 Mg Tab) 25 mg PO HS [facility] Last Admin: 09/03/24 23:22 Dose: 25 mg Metoprolol Tartrate (Metoprolol Tartrate 50 Mg Tab) 50 mg PO DAILY [facility] Last Admin: 09/04/24 07:53 Dose: 50 mg Miscellaneous Information (Pneumonia Protocol Utilized 1 Each Misc) 1 each PO ONCE PRN PRN Reason: Per Protocol Naloxone HCl (Naloxone 0.4 Mg/Ml 1 Ml Vial) 0.2 mg IV Q2M PRN PRN Reason: Opioid Reversal Non-Formulary Medication (Vibegron [Gemtesa]) 75 mg PO DAILY@0930 [facility] Last Admin: 09/04/24 12:22 Dose: Not Given Ondansetron HCl (Ondansetron 4 Mg/2 Ml Vial) 4 mg IVP Q8HR PRN PRN Reason: Nausea And Vomiting Pantoprazole Sodium (Pantoprazole 40 Mg/10 Ml Vial) 40 mg IV DAILY [facility] Last Admin: 09/04/24 07:52 Dose: 40 mg Petrolatum (Zinc Oxide Paste (Z-Guard) 1 Applic) 1 applic TOPICAL Q2HR PRN; Protocol PRN Reason: Wound Healing Petrolatum (Zinc Oxide Paste (Z-Guard) 1 Applic) 1 applic TOPICAL DAILY [facility]; Protocol Last Admin: 09/04/24 12:26 Dose: 1 applic Piperacillin Sod/Tazobactam Sod (Piperacillin-Tazobactam 3.375 Gm Vial) 3.375 gm IVPB Q8HR [facility]; Protocol Last Admin: 09/04/24 17:10 Dose: 3.375 gm Ropinirole HCl (Ropinirole Hcl 0.25 Mg Tab) 0.5 mg PO TID@0930,1700,2300 [facility] Last Admin: 09/04/24 17:09 Dose: 0.5 mg Sodium Bicarbonate (Sodium Bicarbonate Tab 650 Mg Tab) 650 mg PO BID [facility] Last Admin: 09/04/24 07:53 Dose: 650 mg Social history: No history of smoking alcohol. . Nonambulatory. Does use assistive aid for transfer. Physical examination: VITAL SIGNS: 97.6, 70, 18, 147 x 102, 99% 2 L GENERAL: [BMI 35.2, laying in bed, more awake EYES: Pupils equal. Conjunctiva yaz l. HEENT: [External appearance of nose and ears normal, oral cavity dry mucous membrane. NG tube has been clamped NECK: JVD unable to assist masses not palpable. HEART: Heart sounds distant al, some edema in the right lower extremity]. LUNGS: Respiratory rate increased, decreased crackles. ABDOMEN: Soft, soft, nondistended, nontender, liver spleen not palpable, no masses palpable. PSYCH: Awake, answering simple questions MUSCULOSKELETAL:No Clubbing/cyanosis;muscles-grossly intact. Bilateral foot drop. Some swelling extremity. Dermatological: Brownish discoloration both lower extremity above the ankle. Macular. Nontender. , INVESTIGATIONS, reviewed in the clinical context: September 04: White count 14.2 hemoglobin 9.1 platelets 270 sodium 150 potassium 2.8 creatinine 0.86 September 01: White count 18.8 hemoglobin 9.3 sodium 148 potassium 3.4 creatinine 0.76. Procalcitonin 0.09 August 29, 2024: White count 27.9 hemoglobin 10.2 platelets 473 sodium 141 potassium 4 BUN 35 creatinine 0.83 CRP 5.2 proBNP 5530. Procalcitonin 0.15 EKG tracing personally reviewed by me-normal sinus rhythm. Some globally ST segment changes Chest x-ray film personally reviewed by me-scattered infiltrates. Gaseous distention in the left side. CT abdomen pelvis: Mild distended gastric lumen. Small bowel distention throughout the abdomen measuring up to 4.1 cm. Large amount of stool in the rectum up to 9.3 cm transverse dimension. Nonobstructing bilateral renal calculi. From last week EEG: Negative for seizure activity CT brain: Nothing acute. 1.1 cm meningioma left lateral convexity. August 27: White count 22.1 hemoglobin 10.7 platelets 354 August 26: Potassium 4.7 creatinine 0.83 Febrile 11: COVID-19 PCR: Detected August 24: White count 22.8 hemoglobin 11.7 platelets 322 immature granulocytes 0.22 neutrophils 40.82 lymphocytes low at 0.78 sodium 137 potassium 5.4 BUN 62 creatinine 0.99 albumin 3.2 Assessment and plan: -Aspirin pneumonia, POA. Continue IV Zosyn. Followed by ID and pulmonary. -Pseudomonas, acute UTI on last admission with outpatient treatment failure Received cefepime 1 g every 12 hours initially,. And received IV Zosyn and was discharged on the same. Continued ID on the case -Sepsis probably from pneumonia: Better IV fluids antibiotics. -Acute COVID-19, diagnosed August 25 [last admission]. Causing hypoxia: DEXA Methasone 6 mg daily Repeat SARS-CoV-2 tested August 31: Positive - -Acute hypoxic respiratory failure from COVID-19 and pneumonia: Some improvement Oxygen now down to 3 L -Hypernatremia from free water deficit Add lactated Ringer 75 cc an hour -Hypokalemia, replace Lactated Ringer's -Left lateral convexity meningioma 1.1 cm. -Probable ileus involving the small bowel. And gaseous distention.: Clinically much better Continue NG tube to intermittent suction. Has only. 200 cc this morning.-NG tube clamped. Patient pulled out NG tube 0.5019. General Surgery following. Advance to ground diet -Acute metabolic encephalopathy likely from hypoxia and infection: Much improved Treat underlying conditions -Chronic medical debility Patient baseline nonambulatory. Does use a assist device to transfer. 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 Carroll. At length. Explained to him what is going currently in context of the recent admission. He does not feel the patient should go on the ventilator where she is. At this point is decided to proceed with DO NOT RESUSCITATE. Understanding full treatment plan will be given. Time spent about 20 minutes
[2024-09-05] MEDS: LACTATED RINGERS 1,000 ML IV SCH (02:13)
[2024-09-05 05:45] LABS: African American GFR (CKD) 83 (>60 ml/min/1.73 sqM); Anion Gap 5 mmol/L; Blood Urea Nitrogen 13 mg/dL (7-17); Calcium 6.7 mg/dL (8.4-10.2); Carbon Dioxide 30 mmol/L (22-30); Chloride 110 mmol/L (98-107); Glucose 175 mg/dL (74-99); Non-African American GFR(CKD) 72 (>60 ml/min/1.73 sqM); Sodium 145 mmol/L (137-145)
--- NOTE | 2024-09-05 12:44 | P.PN ---
Subjective Progress Note Date: 09/05/24 Principal diagnosis: Reason for follow-up is leukocytosis, pneumonia Patient is a 74-year-old female with a past medical history significant for parkinsonism hypertension hyperlipidemia osteoarthritis recently treated at this facility for Pseudomonas UTI also have elevated white count and the patient was transferred to the senior living on IV Zosyn patient has been br ought back to the hospital for evaluation of increasing shortness of breath and mental status changes patient did have a fever with concern for pneumonia and abdominal CT prompting this consultation. On today's evaluation that is 09/05/2024, patient did not have any fever and is currently breathing comfortably on 3 L nasal cannula oxygen patient is sleepy lethargic but nursing staff mention she do open the mouth to take her pills no choking vomiting or diarrhea has been reported patient did not provide any history. Patient did have a potassium of 3.0 sodium is 145, CBC was done today blood cul ture negative so far Objective - Vital Signs Vital signs: Vital Signs Temp 97.8 F 09/05/24 07:20 Pulse 62 09/05/24 07:20 Resp 18 09/05/24 09:45 BP 125/65 09/05/24 07:20 Pulse Ox 98 09/05/24 09:43 FiO2 Intake & Output 09/04/24 09/05/24 09/05/24 18:59 06:59 18:59 Output Total 600 500 Balance -600 -500 Output: Urine 600 500 Other: Voiding Method External Catheter External Catheter External Catheter # Bowel Movements 1 - Exam GENERAL DESCRIPTION: An elderly female lying in bed in no distress RESPIRATORY SYSTEM: Unlabored breathing , decreased breath sounds at bases HEART: S1 S2 regular rate and rhythm , ABDOMEN: Soft , no tenderness EXTREMITIES: No edema feet - Labs CBC & Chem 7: 09/04/24 08:08 09/05/24 04:36 Labs: Abnormal Lab Results - Last 24 Hours (Table) 09/05/24 Range/Units 04:36 Potassium 3.0 L (3.5-5.1) mmol/L Chloride 110 H (98-107) mmol/L Glucose 175 H (74-99) mg/dL Calcium 6.7 L (8.4-10.2) mg/dL Assessment and Plan (1) Altered mental status Current Visit: Yes Status: Acute Code(s): R41.82 - ALTERED MENTAL STATUS, UNSPECIFIED SNOMED Code(s): 406750706 (2) Pneumonia due to COVID-19 virus Current Visit: Yes Status: Acute Code(s): U07.1 - COVID-19; J12.82 - PNEUMONIA DUE TO CORONAVIRUS DISEASE 2018 SNOMED Code(s): 114325517732908716 (3) Leukocytosis Current Visit: No Status: Acute Priority: Medium Code(s): D72.829 - ELEVATED WHITE BLOOD CELL COUNT, UNSPECIFIED SNOMED Code(s): 619989877 Plan: 1patient presented to hospital with mental status changes in this patient who also noted to be hypoxemic recently diagnosed with COVID-19 on 08/25/2024 now with evidence of multifocal infiltrate and bibasilar infiltrate concerning for possible COVID versus secondary bacterial pneumonia patient also noted to have some abnormality on the CT abdominal pelvis with a question for possible appendicitis though no significant tenderness to the right lower quadrant was noticed on Examination General Surgery has been consulted and currently monitoring the patient with n.p.o. NG 2-patient is afebrile white count is trending down to 14,000 as of yesterday no CBC was done today, blood culture has been negative 3patient currently being treated with Zosyn waiting for improvement in the electrolyte abnormality before discharge, care discussed with the family the bedside Dictation was produced using [employer] dictation software. please excuse any grammatical, word or spelling errors. Time with Patient: Less than 30
[2024-09-05 13:57] VITALS: BP 148/88; PULSE 64; RESP 20; TEMP 98.7
--- NOTE | 2024-09-05 14:11 | XR ---
EXAMINATION TYPE: XR chest 1V DATE OF EXAM: 09/05/2024 12:56 PM COMPARISON: 08/31/2024 CLINICAL INDICATION: Female, 74 years old with history of r/o pneumonia, TECHNIQUE: XR chest 1V view(s) obtained. FINDINGS: The heart size is normal. The pulmonary vasculature is normal. Right lower lobe infiltrate is present. Correlate for atelectasis or pneumonia. There is a more focal density which may be in the retrocardiac right base. Follow-up is recommended. This could be summati on density. IMPRESSION: 1. Right lower lobe infiltrate. Correlate for atelectasis or pneumonia. 2. Possible rounded density in the posterior medial right lung base. Follow-up recommended. [facility], , 09/05/2024 2:09 PM
[2024-09-05] MEDS: POTASSIUM CHLORIDE ER 20 MEQ TAB.ER PO STA (14:21)
--- NOTE | 2024-09-05 14:41 | P.PN ---
Subjective Progress Note Date: 09/05/24 On today's evaluation of 08/31/2024, the patient is being seen for a follow-up. This patient is 74, obese along with hypertension hyperlipidemia initially presented to us from [facility] for altered mentation and confusion. Noted the patient had a previous COVID-19 infection there was originally diagnosed on 08/25/2024 and the test is still positive on 08/31/2024. The most recent urine cultures from 08/23/2024 was negative. The patient on admission had an elevated white cell count of 27.9 and this needs to be further followed. Electrolytes are all within normal limits. proBNP level was 5530. Procalcitonin level was at 0.15. The chest x-ray from today shows small right-sided pleural effusion. NG tube still in place as the patient has evidence of ileus versus partial small bowel obstruction as noted on the CAT scan of the abdomen that was done on 08/29/2024. Noted the CAT scan showed distended gastric lumen and there is also dilated loops of small bowel present throughout the abdomen and relative sparing the distal small bowel. There is large amount of stool in the colon. There is also nonobstructive bilateral renal calculi and bibasilar atelectatic changes in the lung bases. Echocardiogram is also in progress. The patient is currently on IV Zosyn. The patient remains on Decadron 6 mg IV every 24 hours. The patient is hemodynamically stable. General surgery is on the case. Noted the patient is chronically neurologically impaired. Baseline status is nonambulatory and she is a very poor historian. Abdomen is softer compared to yesterday. She remains quite lethargic. On 09/01/2024, the patient is being seen for a follow-up. Condition is essentially unchanged compared to yesterday. She remains on oxygen 3 L/min nasal cannula. NG tube is in place as the patient has a component of ileus versus partial small bowel obstruction as evident on the CAT scan of the ab domen. Noted the patient is also positive for COVID-19. On today's blood work, the white cell count is currently down to 18 from a baseline of 27.9. White cell count is at 9.3 with a platelet count of 339. Sodium level is up to 148 and bicarb is at 25 with a BUN of 34 and a creatinine of 0.7. Procalcitonin level is at 0.09. Remains on empiric antibiotic coverage with IV Zosyn. Remains on Decadron 6 mg IV twice daily. Remains on anticoagulation with Eliquis 2.5 mg p.o. twice a day. Rest of the medications remain unchanged. She is sluggish, slow in answering. Arousable and awake. Denies having any abdominal pain. No bowel movement activity yet. 09/02/2024, the patient is being seen for a follow-up. The patient pulled out her NG tube. Abdomen is soft. She is on clear liquid diet. No nausea vomiting or diarrhea or abdominal pain. She remains on oxygen 4 L/min nasal cannula. She remains on Decadron. White cell count from yesterday was 18.8 with hemoglobin 9.3 and a platelet count of 336. Sodium levels at 148, potassium is at 3.4. The BUN was 34 with a creatinine of 0.7. The patient remains on Decadron. Remains on D5 water at 75 cc an hour. Empiric antibiotic coverage with IV Zosyn. Remains anticoagulated with Eliquis 2.5 mg twice a day. Recent medications remain unchanged. On 09/03/2024, the patient is lethargic and she is arousable and awake and she is following commands and she is aware that she is in the hospital. Her mentation is gradually improved. No significant shortness of breath or chest pain patient is resting comfortably in bed. Tube has been removed. Abdominal distention. She stated that she had a soft breakfast this morning. No new complaints otherwise for now. She remains on Decadron regarding COVID-19 infection. Rest of the medications remains unchanged. The white cell count of 18.8 with a normal level 3 and a platelet count of 339. Noted her white cell count has been improving. Those labs are obtained from 09/01/2024. She is also on D5 water regarding hyperchloremic hypernatremia. Procalcitonin level is at 0.09.. On 09/04/2024, the patient is being seen for a follow-up. She is clinically improving. Advancing her diet. No nausea or emesis. No abdominal pain. She is on 3 Suboxone by nasal cannula. Labs are all stable with a white cell count of 14.2 with a hemoglobin of 9.1. Sodium is at 150, potassium is at 2.8, BUN 16 with a creatinine 0.8. The patient is positive for COVID-19. She remains on IV Zosyn. Rest of the medication remains unchanged. The patient is on Decadron. She is on LR at rate of 100 cc an hour. On 09/05/2024, the patient was noted to be more lethargic. No significant worsening in the respiratory status and the patient remains untreated of oxygen by nasal cannula. Repeat chest x-ray was done that showed some right basilar atelectasis otherwise no other acute abnormalities have been noted. Remains on Decadron. Oral intake is quite diminished. The patient is arousable and she follows simple commands and answer simple questions. However, she is noted to be more sleepy. The white cell count is improved down to 14.2 with a hemoglobin 9.1 and a platelet count of 270. Sodium is at 145, potassium is at 3, BUN 13 with a creatinine of 0.8. Calcium level is at 6.7. The patient remains on IV Zosyn. The patient remains on anticoagulation with Eliquis. The patient r emains quite debilitated and she is a skilled nursing resident. Objective - Vital Signs Vital signs: Vital Signs Temp 97.8 F 09/05/24 07:20 Pulse 62 09/05/24 07:20 Resp 18 09/05/24 09:45 BP 125/65 09/05/24 07:20 Pulse Ox 98 09/05/24 09:43 FiO2 Intake & Output 09/04/24 09/05/24 09/05/24 18:59 06:59 18:59 Output Total 600 500 Balance -600 -500 Output: Urine 600 500 Other: Voiding Method External Catheter External Catheter External Catheter # Bowel Movements 1 - Exam GENERAL EXAM: Arousable, obtunded obese 74-year-old female on 4 L nasal cannula, in no apparent distress. NG tube is in place. NG tube has been removed HEAD: Normocephalic. EYES: Normal reaction of pupils, equal size. NOSE: Clear with pink turbinates. Nasogastric tube in place. THROAT: No erythema or exudates. NECK: No masses, no JVD. CHEST: No chest wall deformity. LUNGS: Equal air entry with crackles in the bilateral bases. CVS: S1 and S2 normal with no audible murmur, regular rhythm. ABDOMEN: No hepatosplenomegaly, normal bowel sounds, no guarding or rigidity. Abdomen is tympanic and slightly distended, improved compared to yesterday SPINE: No scoliosis or deformity SKIN: No rashes CENTRAL NERVOUS SYSTEM: No focal deficits, tone is normal in all 4 extremities. EXTREMITIES: Changes of chronic venous stasis. There is no peripheral edema. No clubbing, no cyanosis. Peripheral pulses are intact. - Labs CBC & Chem 7: 09/04/24 08:08 09/05/24 04:36 Labs: Abnormal Lab Results - Last 24 Hours (Table) 09/05/24 Range/Units 04:36 Potassium 3.0 L (3.5-5.1) mmol/L Chloride 110 H (98-107) mmol/L Glucose 175 H (74-99) mg/dL Calcium 6.7 L (8.4-10.2) mg/dL Assessment and Plan Plan: Altered mental status of unclear etiology, possible metabolic encephalopathy versus post COVID-19 encephalopathy, improving slowly Acute hypoxemic respiratory failure secondary to suspected aspiration pneumonia versus atelectatic changes lung base bilaterally, currently on 3 L of oxygen by nasal cannula \ COVID-19 infection diagnosed on 08/25/2024 in the COVID-19 testing still positive, still on Decadron, questionable aspiration the patient remains on IV Zosyn Ileus versus partial small bowel obstruction the patient presented with abdominal distention secondary to possible small bowel obstruction versus ileus. The patient pulled out the NG tube. The patient will be advanced to clear liquid diet Leukocytosis secondary to above, improving Hyperchloremic hypernatremia, currently on D5 water Recent hospitalization here for pseudomonal UTI, acute COVID 19 infection discharged on 08/27/2024 to [facility] Hypertension Hyperlipidemia Restless leg syndrome History of depression History of Parkinson's disease Poor functional performance based on the above-mentioned multiple comorbidities Hand: Currently on 3 L Titrate the FiO2 as tolerated Repeat chest x-ray findings are stable with some atelectatic changes right lung base Continued on Decadron from previous COVID infection Anticoagulated with Eliquis for immobility Sodium level is improved Monitor mental status Advance diet as tolerated Continued on Zosyn Continue albuterol HFA Tolerating diet Protonix for GI prophylaxis
--- NOTE | 2024-09-05 15:11 | P.DS ---
Providers Date of admission: 08/29/24 13:53 Expected date of discharge: 09/05/24 Attending physician: Sotero Corrigan Consults: 08/29/24 14:09 Consult Physician Urgent Consulting Provider: Bill Gil Consult Reason/Comments: COVID pneumonia Do you want consulting provider notified?: Yes Consult Physician Urgent Consulting Provider: Jessie Bennett Consult Reason/Comments: COVID pneumonia Do you want consulting provider notified?: Yes 08/29/24 15:08 Consult Physician Urgent Consulting Provider: Reagan Marks Consult Reason/Comments: Ileus vs partial SBO Do you want consulting provider notified?: Yes 08/31/24 09:17 Consult Physician Routine Consulting Provider: Gucci Hanson Consult Reason/Comments: runs of AF rvr Do you want consulting provider notified?: Yes Primary care physician: Yanna David MD Hospital Course: Chief Complaint: Not feeling well 74-year-old patient follows with Dr. Yanna David. Chronic medical conditions include hyperlipidemia, hypertension, osteoarthritis, herniated disc. Possible diagnosis of Parkinson's disease. Patient at baseline is nonambulatory. Does use a assist device for transfer. Very recently in the hospital from August 22, 2024 through August 27, 2024. [This last admission patient was treated with Pseudomonas UTI for outpatient treatment failure received IV cefepime in the hospital and was discharged on 7 days of IV Zosyn. Also treated for COVID-19 becoming hypoxic with dexamethasone. When patient left 2 days ago patient was awake. Tolerating diet. Answering questions. Patient's Remeron was discontinued because patient is found to contributing to her lethargy. She also neurological workup that was unremarkable. Patient's elevated white count was felt to be from underlying infection. Patient was discharged to [facility]. Patient was sent back to the ER from [facility] for the following symptoms. Less responsive. Shortness of breath. Abdominal distention. Patient is somewhat lethargic. Able answer simple question but not any further details. Denies any abdominal pain. August 30: Lungs sounding a bit better. Bit more awake. Tired. On IV Zosyn. 4 L nasal cannula. Answering simple questions. NG tube to intermittent suction. Large output. Getting oral medications through the NG tube. Spoke to daughter at the bedside. August 31: Earlier today NG tube was pulled out. It was replaced. Abdominal x-ray ordered this morning. Showing some air-fluid level. Abdomen is much softer. Patient is awake. at the bedside, discussed.-Understands prognosis guarded. Patient tested positive for SARS-CoV-2. September 01: NG tube since this morning is only for about [address] Lozada rounded. Tube is being clamped. Abdomen not distended. Soft. Awake. Getting her meds through the NG tube. Spoke with the at the bedside. Sodium up to 148. IV fluids changed to D5W at 75 cc an hour. Patient had runs of A-fib with rapid ventricular rate. Cardiology following. Lopressor 50 twice daily. September 02: Patient pulled out her NG tube. Abdomen appears soft. Answering simple questions. On clear liquids. Has been advanced to full liquids for supper. No nausea vomiting. No abdominal pain. Requiring 4 L of nasal cannula. Changed to oral Decadron 6 mg September 03: Advance to full liquid diet for lunch today. On 4 L nasal cannula. Will try dropping down to 3 L. Breathing a bit better. Denies any pain. On Decadron. September 04: Patient on ground diet. Sodium up to 150 potassium down to 2.8. Placed on lactated Ringer's.On 3 L nasal cannula. Eating about 25 to 50%. September 05: Stable. Return to [facility]. Patient to complete 5 more days of Zosyn Social history: No history of smoking alcohol. . Nonambulatory. Does use assistive aid for transfer. Physical examination: VITAL SIGNS: 98.7, 64, 20, 148 x 88, 95% 2 L GENERAL: [BMI 35.2, laying in bed, comfortable EYES: Pupils equal. Conjunctiva yaz l. HEENT: [External appearance of nose and ears normal, oral cavity dry mucous membrane. NG tube has been clamped NECK: JVD unable to assist masses not palpable. HEART: Heart sounds distant al, some edema in the right lower extremity]. LUNGS: Respiratory rate increased, decreased crackles. ABDOMEN: Soft, soft, nondistended, nontender, liver spleen not palpable, no masses palpable. PSYCH: Awake, answering simple questions MUSCULOSKELETAL:No Clubbing/cyanosis;muscles-grossly intact. Bilateral foot drop. Some swelling extremity. Dermatological: Brownish discoloration both lower extremity above the ankle. Macular. Nontender. , INVESTIGATIONS, reviewed in the clinical context: September 05: Sodium 145 potassium 3 creatinine 0.81 September 04: White count 14.2 hemoglobin 9.1 platelets 270 sodium 150 potassium 2.8 creatinine 0.86 September 01: White count 18.8 hemoglobin 9.3 sodium 148 potassium 3.4 creatinine 0.76. Procalcitonin 0.09 August 29, 2024: White count 27.9 hemoglobin 10.2 platelets 473 sodium 141 potassium 4 BUN 35 creatinine 0.83 CRP 5.2 proBNP 5530. Procalcitonin 0.15 EKG tracing personally reviewed by me-normal sinus rhythm. Some globally ST segment changes Chest x-ray film personally reviewed by me-scattered infiltrates. Gaseous distention in the left side. CT abdomen pelvis: Mild distended gastric lumen. Small bowel distention throughout the abdomen measuring up to 4.1 cm. Large amount of stool in the rectum up to 9.3 cm transverse dimension. Nonobstructing bilateral renal calculi. From last week EEG: Negative for seizure activity CT brain: Nothing acute. 1.1 cm meningioma left lateral convexity. August 27: White count 22.1 hemoglobin 10.7 platelets 354 August 26: Potassium 4.7 creatinine 0.83 Febrile 11: COVID-19 PCR: Detected August 24: White count 22.8 hemoglobin 11.7 platelets 322 immature granulocytes 0.22 neutrophils 40.82 lymphocytes low at 0.78 sodium 137 potassium 5.4 BUN 62 creatinine 0.99 albumin 3.2 Assessment and plan: -Aspirin pneumonia, POA. Continue IV Zosyn. Followed by ID and pulmonary. 5 more days of IV Zosyn -Pseudomonas, acute UTI on last admission with outpatient treatment failure Received cefepime 1 g every 12 hours initially,. And received IV Zosyn and was discharged on the same. Continued ID on the case -Sepsis probably from pneumonia: Better IV fluids antibiotics. -Acute COVID-19, diagnosed August 25 [last admission]. Causing hypoxia: DEXA Methasone 6 mg daily Repeat SARS-CoV-2 tested August 31: Positive - -Acute hypoxic respiratory failure from COVID-19 and pneumonia: Some improvement Oxygen now down to 3 L -Hypernatremia from free water deficit Given IV fluids -Hypokalemia, replace Lactated Ringer's -Left lateral convexity meningioma 1.1 cm. -Probable ileus involving the small bowel. And gaseous distention.: Clinically much better Continue NG tube to intermittent suction. Has only. 200 cc this morning.-NG tube clamped. Patient pulled out NG tube 0.5019. General Surgery following. Advance to ground diet-tolerating -Acute metabolic encephalopathy likely from hypoxia and infection: Much improved Treat underlying conditions -Chronic medical debility Patient baseline nonambulatory. Does use a assist device to transfer. 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 Carroll. At length. Explained to him what is going currently in context of the recent admission. He does not feel the patient should go on the ventilator where she is. At this point is decided to proceed with DO NOT RESUSCITATE. Understanding full treatment plan will be given. Time spent about 20 minutes Disposition: [facility] Plan - Discharge Summary New Discharge Prescriptions: New predniSONE 10 mg PO DAILY #30 tab Piperacillin-Tazobactam [Zosyn] 3.375 gm IVPB Q8HR #15 each Continue Atorvastatin [Lipitor] 10 mg PO DAILY@1700 Venlafaxine HCl [Effexor XR] 75 mg PO DAILY@0800 Ondansetron [Zofran] 4 mg PO Q8HR PRN PRN Reason: Nausea Alendronate Sodium 70 mg PO TU@1200 Ketoconazole 2% Cream [Nizoral 2%] 1 applic TOPICAL DAILY PRN PRN Reason: Skin Irritation Anastrozole [Arimidex] 1 mg PO DAILY@2300 Acetaminophen Tab [Tylenol] 1,000 mg PO Q6HR PRN PRN Reason: Pain Folic Acid 1 mg PO DAILY@1200 Nystatin 100,000 Unit/gm Powd [Mycostatin Powder] 1 applic TOPICAL BID Na Phos,M-B/Na Phos,Di-Ba [Fleet Adult] 133 ml RECTAL DAILY PRN PRN Reason: Constipation bisacodyL [Dulcolax] 10 mg RECTAL DAILY PRN PRN Reason: Constipation Ipratropium-Albuterol Nebulize [Duoneb 0.5 mg-3 mg/3 ml Soln] 3 ml INHALATION RT-Q6H Ensure Enlive 237 ml PO TID@0800,1200,1700 Metoprolol Succinate [Toprol XL] 50 mg PO DAILY@1700 Crista Arteaga B.lactis [Probiotic] 1 cap PO DAILY@1200 Ferrous Sulfate [Iron] 325 mg PO DAILY@1200 Carbidopa/Levodopa [Carbidopa/Levodopa 25-100 Tab] 2 tab PO TID@0800,1700,2300 Oxybutynin Chloride [oxyBUTYnin chloride ER] 15 mg PO DAILY@0800 Apixaban [Eliquis] 2.5 mg PO BID@0800,1700 Mupirocin 2% Oint [Bactroban 2% Oint] 1 applic TOPICAL TID PRN PRN Reason: Skin Irritation Magnesium Oxide [Mag-Ox] 400 mg PO DAILY@1700 Ibuprofen [Motrin Ib] 400 mg PO Q4H PRN PRN Reason: Pain rOPINIRole HCL [Requip] 0.5 mg PO TID@0800,1200,1700 Ketoconazole 2% Shampoo [Nizoral] 1 applic TOPICAL DAILY Vibegron [Gemtesa] 75 mg PO DAILY@0800 Cinacalcet [Sensipar] 60 mg PO DAILY@1200 #0 Sodium Bicarbonate Tab 650 mg PO BID@0800,1700 amLODIPine [Norvasc] 5 mg PO DAILY@0800 Magnesium Hydroxide [Milk of Magnesia Concentrate] 7,200 mg PO DAILY PRN PRN Reason: 2 days no BM Discontinued predniSONE See Taper PO DAILY@0800 Discharge Medication List Atorvastatin [Lipitor] 10 mg PO DAILY@1700 11/20/16 [History] Venlafaxine HCl [Effexor XR] 75 mg PO DAILY@0800 12/16/21 [History] Alendronate Sodium 70 mg PO TU@1200 12/23/23 [History] Apixaban [Eliquis] 2.5 mg PO BID@0800,1700 12/23/23 [History] Carbidopa/Levodopa [Carbidopa/Levodopa 25-100 Tab] 2 tab PO TID@0800,1700,2300 12/23/23 [History] Ferrous Sulfate [Iron] 325 mg PO DAILY@1200 12/23/23 [History] L.acidoph,Paracasei, B.lactis [Probiotic] 1 cap PO DAILY@1200 12/23/23 [History] Metoprolol Succinate [Toprol XL] 50 mg PO DAILY@1700 12/23/23 [History] Ondansetron [Zofran] 4 mg PO Q8HR PRN 12/23/23 [History] Oxybutynin Chloride [oxyBUTYnin chloride ER] 15 mg PO DAILY@0800 12/23/23 [History] Acetaminophen Tab [Tylenol] 1,000 mg PO Q6HR PRN 06/04/24 [History] Anastrozole [Arimidex] 1 mg PO DAILY@2300 06/04/24 [History] Folic Acid 1 mg PO DAILY@1200 06/04/24 [History] Ibuprofen [Motrin Ib] 400 mg PO Q4H PRN 06/04/24 [History] Ketoconazole 2% Cream [Nizoral 2%] 1 applic TOPICAL DAILY PRN 06/04/24 [History] Magnesium Oxide [Mag-Ox] 400 mg PO DAILY@17006/04/24 [History] Mupirocin 2% Oint [Bactroban 2% Oint] 1 applic TOPICAL TID PRN 06/04/24 [History] rOPINIRole HCL [Requip] 0.5 mg PO TID@0800,1200,1700 06/04/24 [History] Ketoconazole 2% Shampoo [Nizoral] 1 applic TOPICAL DAILY 08/02/24 [History] Nystatin 100,000 Unit/gm Powd [Mycostatin Powder] 1 applic TOPICAL BID 08/02/24 [History] Vibegron [Gemtesa] 75 mg PO DAILY@0800 08/02/24 [History] Cinacalcet [Sensipar] 60 mg PO DAILY@1200 #0 08/26/24 [Rx] Ensure Enlive 237 ml PO TID@0800,1200,1700 08/29/24 [History] Ipratropium-Albuterol Nebulize [Duoneb 0.5 mg-3 mg/3 ml Soln] 3 ml INHALATION RT-Q6H 08/29/24 [History] Magnesium Hydroxide [Milk of Magnesia Concentrate] 7,200 mg PO DAILY PRN 08/29/24 [History] Na Phos,M-B/Na Phos,Di-Ba [Fleet Adult] 133 ml RECTAL DAILY PRN 08/29/24 [History] Sodium Bicarbonate Tab 650 mg PO BID@0800,1700 08/29/24 [History] amLODIPine [Norvasc] 5 mg PO DAILY@0800 08/29/24 [History] bisacodyL [Dulcolax] 10 mg RECTAL DAILY PRN 08/29/24 [History] Piperacillin-Tazobactam [Zosyn] 3.375 gm IVPB Q8HR #15 each 09/04/24 [Rx] predniSONE 10 mg PO DAILY #30 tab 09/04/24 [Rx] Follow up Appointment(s)/Referral(s): Gucci Hanson MD [STAFF PHYSICIAN] - 2 Weeks (Office stated they will call patient with appointment time and date.) Yanna David MD [Primary Care Provider] - 1-2 days ([facility] please call for follow-up appointment.) Activity/Diet/Wound Care/Special Instructions: antibiotics per dr bennett
== END 2024-09-05 19:05 | DRG 871 ==
LOC: EC 11:30 → 4SSUR 13:53
PROVIDERS: ADMIT Hospitalist; ATTEND Hospitalist
PROC: 3E0333Z Introduction of Anti-inflammatory into Peripheral Vein, Percutaneous Approach (ICD-10-PCS; principal; 2024-08-29)
DX: A41.89 Other specified sepsis (principal); G93.41 Metabolic encephalopathy; J12.82 Pneumonia due to coronavirus disease 2019; U07.1 COVID-19; J96.01 Acute respiratory failure with hypoxia; J69.0 Pneumonitis due to inhalation of food and vomit; K56.600 Partial intestinal obstruction, unspecified as to cause; G25.81 Restless legs syndrome; E66.9 Obesity, unspecified; E89.0 Postprocedural hypothyroidism; F32.A Depression, unspecified; I10 Essential (primary) hypertension; E87.0 Hyperosmolality and hypernatremia; I48.91 Unspecified atrial fibrillation; L89.312 Pressure ulcer of right buttock, stage 2; G20.A1 Parkinson's disease without dyskinesia, without mention of fluctuations; D32.9 Benign neoplasm of meninges, unspecified; E78.5 Hyperlipidemia, unspecified; E87.6 Hypokalemia; E87.8 Other disorders of electrolyte and fluid balance, not elsewhere classified; N20.0 Calculus of kidney; L89.321 Pressure ulcer of left buttock, stage 1; L92.1 Necrobiosis lipoidica, not elsewhere classified; Z66 Do not resuscitate; Z96.651 Presence of right artificial knee joint; M19.90 Unspecified osteoarthritis, unspecified site; Z79.899 Other long term (current) drug therapy; Z79.811 Long term (current) use of aromatase inhibitors; Z79.01 Long term (current) use of anticoagulants; Z68.35 Body mass index [BMI] 35.0-35.9, adult
CPT/HCPCS: 36415; 70450; 71045; 71046; 74019; 74176; 80048; 80053; 81001; 82565; 83605; 83880; 84145; 85025; 86140; 87040; 87449; 87635; 93306; 94640; 94760; 96365; 96366; 96367; 96375; 96376; 99285